=== PATIENT | female | born 1960 | race African-American/Black ===

== ENCOUNTER 2017-08-06 18:20 | Inpatient (IN) | payer OTHER, SELFPAY ==
[2017-08-06 20:02] LABS: #Eosinphils 0.1 thou/uL (0.0-0.7); #Lymphocytes 1.5 thou/uL (1.20-3.40); #Neutrophils 4.7 thou/uL (1.40-6.50); %Basophils 0.5 % (0.0-1.0); %Lymphocytes 20.3 % (21.0-51.0); %Monocytes 13.6 % (0.0-10.0); %Neutrophils 63.6 % (42.0-75.0); Mean Corpuscular HGB CONC 31.5 g/dL (32.0-36.0); Mean Corpuscular Hemoglobin 29.5 pg (27.0-31.0); Mean Corpuscular Volume 93.5 fl (81.0-99.0); Mean Platelet Volume 8.1 fL (7.4-10.4); Platelet Count 174 thou/uL (130-400); Red Blood Cell (RBC) Count 4.76 mill/uL (4.20-5.40); White Blood Cell (WBC) Count 7.4 thou/uL (4.8-10.8)
[2017-08-06 20:26] LABS: ALT (SGPT) 43 U/L (8-55); AST (SGOT) 43 U/L (5-34); Alkaline Phosphatase 175 U/L (40-150); Anion Gap 14 mmol/L (10-20); BUN (Urea Nitrogen) 16 mg/dL (9.8-20.1); Bilirubin, Total 0.7 mg/dL (0.2-1.2); CK (CPK) 112 U/L (29-168); Calc. Creatinine Clearance 0 mL/min (70-130); Calcium 8.6 mg/dL (7.8-10.44); Carbon Dioxide 21 mmol/L (22-29); Chloride 110 mmol/L (98-107); Estimated GFR-MDRD Greater than 90; Globulin 3.3 g/dL (2.4-3.5); Glucose 120 mg/dL (70-105); Potassium 4.2 mmol/L (3.5-5.1); Protein, Total 6.3 g/dL (6.0-8.3); Sodium 141 mmol/L (136-145)
[2017-08-06 20:30] LABS: CKMB 2.2 ng/mL (0-6.6); Troponin I 0.028 ng/mL (< 0.028)
--- NOTE | 2017-08-06 20:38 | RAD ---
CHEST ONE VIEW 08/06/17 HISTORY: Bloating. Cough and congestion. COMPARISON: 07/08/05. FINDINGS: Cardiomegaly. Pulmonary vessels are normal. Costophrenic angles are clears. No masses or consolidatio n in the left lung. Chronic change in the left lung base are suspected. There is partial obscuration of the right hemidiaphragm. Focal infiltrate or atelectasis is suspected. No pneumothorax. IMPRESSION: 1. Cardiomegaly. 2. Focal infiltrate or atelectasis in the right lung base. Chronic change in the left lung base. Continued surveillance. POS: [facility]
[2017-08-06] MEDS ORDERED: Furosemide 40 MG/4 ML VIAL ONE (21:19)
[2017-08-06] MEDS ORDERED: Nitroglycerin 2% Ointment 1 INCH/1 GM Packet ONE (21:21)
[2017-08-06 23:08] LABS: Troponin I 0.039 ng/mL (< 0.028)
[2017-08-07 02:12] LABS: Troponin I 0.038 ng/mL (< 0.028)
[2017-08-07] MEDS ORDERED: Ondansetron ODT 4 MG TAB PO PRN (03:13)
[2017-08-07 04:08] LABS: Anion Gap 12 mmol/L (10-20); BUN (Urea Nitrogen) 15 mg/dL (9.8-20.1); Calc. Creatinine Clearance 0 mL/min (70-130); Calcium 8.7 mg/dL (7.8-10.44); Carbon Dioxide 24 mmol/L (22-29); Chloride 107 mmol/L (98-107); Estimated GFR-MDRD Greater than 90; Glucose 99 mg/dL (70-105); Potassium 3.7 mmol/L (3.5-5.1); Sodium 139 mmol/L (136-145)
--- NOTE | 2017-08-07 04:29 | HP-2 ---
DATE OF SERVICE: 08/06/2017 CODE STATUS: FULL. PRIMARY CARE PHYSICIAN: [facility] ATTENDING: Dr. Osorio Tompkins RESIDENT: Dr. Ade Ortez - PGY-1 HISTORIAN: Patient. CHIEF COMPLAINT: Abdominal bloating. HISTORY OF PRESENT ILLNESS: A 57-year-old female with a past medical history of reduced ejection fra ction, CHF, who presents with abdominal bloating since Thursday. The patient also endorses cough and c ongestion since Thursday. She states that she was diagnosed with CHF approximately 1 year ago with an ejection fraction of 10-15% on echo completed in 08/2016. The patient also had a catheterization don e at that time which was negative. Of note, on the echo at that time, there was some diastolic dysfu nction and dilated cardiomyopathy. Associated symptoms that the patient presents with today include bilateral lower extremity swelling and shortness of breath. The patient reports that she gets short of breath with walking down the amaral at work. She denies orthopnea or paroxysmal nocturnal dyspnea. She also denies nausea, vomiting, diarrhea or constipation. She denies any recent fevers or chills. PAST MEDICAL HISTORY: 1. CHF with reduced ejection fraction. 2. Hypertension. PAST SURGICAL HISTORY: Heart catheterization in 08/2016 and 2 C-sections. ALLERGIES: No known drug allergies. MEDICATIONS: 1. Aspirin 81 mg daily. 2. Atorvastatin 10 mg p.o. at night. 3. Coreg 6.25 mg p.o. b.i.d. 4. Lasix 40 mg daily. 5. Lisinopril 2.5 mg daily. 6. Spironolactone 12.5 mg p.o. daily. FAMILY HISTORY: Breast cancer in her mom. SOCIAL HISTORY: Denies tobacco, alcohol and drug use. REVIEW OF SYSTEMS: GENERAL: Denies fevers, chills. Endorses weight gain. ENT: Endorses nasal congestion. RESPIRATORY: Denies cough. Endorses congestion and shortness of breath. CARDIOVASCULAR: Denies chest pain, palpitations. Endorses edema. Denies paroxysmal nocturnal dyspn ea. Denies orthopnea. Endorses dyspnea on exertion. GASTROINTESTINAL: Denies nausea, vomiting, diarrhea, constipation, abdominal pain. GENITOURINARY: Denies incontinence, dysuria. SKIN: Denies rashes or lesions. MUSCULOSKELETAL: Denies pain or tenderness. NEURO: Denies weakness, numbness. PSYCHIATRIC: Denies anxiety, depression. PHYSICAL EXAMINATION: VITAL SIGNS: Blood pressure 112/85, pulse 81, respiratory rate 18, T-max afebrile. Pulse ox 97% on room air, current weight 79.38 kilograms. GENERAL: Alert and oriented x4, NAD, well-developed, well-nourished, obese, appropriately interactiv e. EYES: PERRLA, EOMI. Conjunctivae within normal limits. ENT: Nasal mucosa and oropharynx within normal limits. NECK: Supple, no lymphadenopathy, no thyromegaly. CARDIAC: Regular rate and rhythm, normal S1, S2. No murmurs, rubs or gallops, 2+ pedal pulses. RESPIRATORY: Normal effort, no retractions, clear to auscultation bilaterally. SKIN: Warm and dry. ABDOMEN: Soft, nontender to palpation. Hypoactive bowel sounds, diffusely distended. EXTREMITIES: No clubbing or cyanosis, 2+ pitting edema bilaterally to the level of the knee. MUSCULOSKELETAL: Structure within normal limits. Tone within normal limits. NEUROLOGIC: No focal deficits. Sensation within normal limits. GCS 15. PSYCHIATRIC: Appropriate. LABORATORY DATA: CBC 7.4, 14, 44.5, 174. CMP: 141, 4.2, 110, 21, 16, 0.75, 120. AST, ALT, alkaline phosphatase; 43, 43, 175. Calcium, total protein, albumin, 8.6, 6.3, 3. Total bilirubin 0.7. BNP 2.914 liters. CK 112. CK-MB 2.2. Troponin 0.2028. Chest x-ray: Cardiomegaly focal infiltrate versus atelectasis in the right lung base. ASSESSMENT AND PLAN: A 57-year-old female with a several day history of abdominal bloating and short ness of breath and bilateral lower extremity pitting edema with a BNP of 2.914 with a past medical hi story of reduced ejection fraction and congestive heart failure, admitted for an acute congestive hea rt failure exacerbation. 1. Acute congestive heart failure exacerbation. The patient was admitted to telemetry. The patient 's home meds were continued. She states she had been out of lisinopril and atorvastatin for a while. We will restart these medications. We will continue her Lasix. We will change it to 40 mg IV b.i. d. We will provide strict I's and O's for the patient, place her on fluid restriction of 1500 mL per day. We will provide a low sodium, heart healthy diet. We will order a repeat echo in the morning since it has been approximately 1 year since her prior. We will saline lock the patient and not prov della IV fluids. 2. Hypertension. We will continue her home medications. 3. Atelectasis versus infiltrate. We will order a 2 view chest x-ray in the morning. 4. Deep venous thrombosis prophylaxis. The patient is mobile. We will provide sequential compressi on devices. DISPOSITION/LENGTH OF HOSPITAL STAY: 1 day. Symptomatic medications will be provided. History and physical exam as well as management discussed with Dr. Viveros.
[2017-08-07 04:31] LABS: Band 3 % (5-11); Eosinophils 2 % (0-10); Hemoglobin 13.2 g/dL (12.0-16.0); Lymphocytes 23 % (21-51); MDiff Complete? YES; Mean Corpuscular HGB CONC 32.2 g/dL (32.0-36.0); Mean Corpuscular Hemoglobin 29.9 pg (27.0-31.0); Mean Corpuscular Volume 92.9 fl (81.0-99.0); Mean Platelet Volume 7.5 fL (7.4-10.4); Monocytes 9 % (0-10); Neutrophil 63 % (42-75); Platelet Count 184 thou/uL (130-400); RBC Distribution Width 13.9 % (11.5-14.5); Red Blood Cell (RBC) Count 4.41 mill/uL (4.20-5.40); White Blood Cell (WBC) Count 8.1 thou/uL (4.8-10.8)
[2017-08-07] MEDS ORDERED: Furosemide 40 MG/4 ML VIAL ONE (05:27)
--- NOTE | 2017-08-07 08:06 | RAD ---
RADIOGRAPH CHEST 2 VIEWS: Date: 08/07/17. Time: 8:48 a.m. HISTORY: A 57-year-old female with atelectasis versus pneumonia. COMPARISON: 08/06/17, 8:30 p.m. FINDINGS: Severe cardiomegaly. Mild pulmonary vascular engorgement. No pulmonary alveolar edema. No consolid ation or pleural effusion. No pneumothorax. No interval change. The previously mentioned mild stre aky densities at the right lower lobe have not progressed. They are favored to represent subsegmenta l atelectasis rather than pneumonia. IMPRESSION: 1. Severe cardiomegaly and borderline congestive changes. 2. The mild changes of the right lung base probably represent subsegmental atelectasis. 3. No definitive evidence of pneumonia. 4. No interval change overall. RA [] POS: [facility]
[2017-08-07] MEDS: Furosemide 40 MG/4 ML VIAL SLOW IVP SCH ×2 (14:30→14:37)
[2017-08-07] MEDS: Spironolactone 25 MG TAB PO SCH (14:30)
[2017-08-07] MEDS: Carvedilol 6.25 MG TAB PO SCH ×2 (14:30→18:11)
[2017-08-07] MEDS: Lisinopril 2.5 MG TAB PO SCH (14:31)
[2017-08-07 15:24] VITALS: BMI 35.6
[2017-08-07] MEDS: Atorvastatin Calcium 10 MG TAB PO SCH (20:55)
--- NOTE | 2017-08-08 01:51 | HP ---
DATE OF SERVICE: 08/07/2017 CHIEF COMPLAINT: Abdominal bloating. HISTORY OF PRESENT ILLNESS: The patient is a 57-year-old female with a significant past medical hist ory of systolic CHF who presented with lower extremity swelling and abdominal bloating since Thursday. The patient also complained of cough and congestion and noted that she had not been compliant with h er fluid restriction over the past month or so. The patient had an echo about a year ago that showed an EF of 10%-15% and was noted to have nonischemic dilated cardiomyopathy. The patient also endorse s shortness of breath and dyspnea on exertion. The patient was given IV Lasix and is already startin g to feel better. The patient's abdominal edema is improved. Edema is currently up to just above th e knees currently. For the full past medical history, please see Dr. Ade Barrera's dictation. PHYSICAL EXAMINATION: VITAL SIGNS: Temperature 98.2, pulse 77, respiratory rate 18, O2 sat 99% on room air, blood pressure 103/71. GENERAL: The patient is awake, alert, oriented, and in no acute distress. CARDIOVASCULAR: Regular rate and rhythm without murmurs, gallops, or rubs. LUNGS: Have crackles in bilateral bases, but normal effort and no retractions. ABDOMEN: Soft, nontender, nondistended with bowel sounds present. EXTREMITIES: There is 1 to 2+ pitting edema in bilateral lower extremities. LABORATORY DATA: 1. BNP of 2914. 2. Cardiac enzymes: CK-MB of 2.2; and troponin of 0.028, then 0.039, then 0.038. 3. CMP: Sodium 141, potassium 4.2, chloride 110, bicarb 21, BUN 16, creatinine 0.75, glucose 120, c alcium 8.6, total bilirubin 0.7, AST 43, ALT 43, alkaline phosphatase 175, total protein 6.3, albumin 3. 4. CBC: WBC is 8.1, hemoglobin 13.2, hematocrit 41, platelet count 184. IMAGING: Chest x-ray showed a focal infiltrate versus atelectasis in the right lung base and cardiom egaly. ASSESSMENT AND PLAN: 1. Acute congestive heart failure exacerbation: This has been acute on chronic exacerbation with th e patient's last known EF of 10%-15%. The patient will be continued on IV Lasix and home medications . The patient will have strict I's and O's and a fluid restriction of 1.5 liters per day. She will also have daily weights. We will repeat an echo as her last one was over a year old. 2. Hypertension. We will continue home medications. 3. Atelectasis versus infiltrate: We will repeat a 2-view chest x-ray. The patient currently has n o signs of infection at this point in time, so we will hold off on antibiotics until the repeat chest x-ray comes back. 4. For the full history and physical and assessment and plan, please see the resident's dictation. I have discussed the case with her and agree with her documentation. I have also repeated pertinent portions of the history and physical myself.
[2017-08-08] MEDS: Furosemide 40 MG/4 ML VIAL SLOW IVP SCH ×2 (05:59→14:24)
[2017-08-08 06:09] LABS: Anion Gap 11 mmol/L (10-20); BUN (Urea Nitrogen) 17 mg/dL (9.8-20.1); Calc. Creatinine Clearance 145 mL/min (70-130); Calcium 8.8 mg/dL (7.8-10.44); Carbon Dioxide 28 mmol/L (22-29); Chloride 105 mmol/L (98-107); Estimated GFR-MDRD Greater than 90; Glucose 93 mg/dL (70-105); Potassium 3.8 mmol/L (3.5-5.1); Sodium 140 mmol/L (136-145)
--- NOTE | 2017-08-08 06:20 | PDOC.FM ---
- Subjective Subjective: Patient states her breathing is markedly improved. She notes she has had to pee a lot more than usual. Otherwise she is able to get up and walk around without the SOB she experienced before hospitalization. She still complains of swelling in her legs. No other concerns. - Objective Vital Signs & Weight: Vital Signs (12 hours) Temp Pulse Resp BP Pulse Ox 08/08/17 04:00 97.7 F 70 20 109/76 99 08/08/17 00:00 97.9 F 68 18 102/60 97 08/07/17 19:30 98.5 F 80 18 91/50 L 98 Weight Weight 98.203 kg I&O: 08/06/17 08/07/17 08/08/17 06:59 06:59 06:59 Intake Total 790 Output Total 1000 Balance -210 Result Diagrams: 08/08/17 04:41 08/08/17 04:41 <Francisco Coy - Last Filed: 08/08/17 07:30> - Objective Vital Signs & Weight: Vital Signs (12 hours) Temp Pulse Resp BP BP BP Pulse Ox 08/08/17 15:25 98.0 F 75 16 113/70 95 08/08/17 11:30 97.8 F 76 16 109/68 96 08/08/17 09:32 79 107/73 08/08/17 08:00 97.8 F 76 16 08/08/17 07:17 97.7 F 79 18 107/73 Weight Weight 98.203 kg I&O: 08/07/17 08/08/17 08/09/17 06:59 06:59 06:59 Intake Total 790 Output Total 1000 Balance -210 Result Diagrams: 08/08/17 04:41 08/08/17 04:41 <Oneyda Viveros - Last Filed: 08/08/17 16:15> Phys Exam - Physical Examination HEENT: moist MMs Respiratory: no wheezing, clear to auscultation bilateral Cardiovascular: RRR, no significant murmur Gastrointestinal: soft, non-tender, no distention, positive bowel sounds Musculoskeletal: edema present Neurological: non-focal, moves all 4 limbs Psychiatric: normal affect <Francisco Coy - Last Filed: 08/08/17 07:30> Dx/Plan (1) Acute exacerbation of congestive heart failure Code(s): I50.9 - HEART FAILURE, UNSPECIFIED Status: Acute Plan: -Continue Lasix, Lisinopril, Spironolactone, Carvedilol -I&Os at -210 ml -ECHO shows EF at 10-15%, Grade 3/3 diastolic dysfunction, Severe global hypokinesis, Moderate mitral regurgitation, Mild aortic regurgitation, severe tricuspid regurgitation, severely elevated pulmonary artery pressure estimated at 85 mmHg, mild pulmonic regurgitation, small pericardial effusion without tamponade. -Will optimize medical management -Patient may benefit from Lifevest device -Will consider Cardiology consultation -Will continue diuresis (2) HTN (hypertension) Code(s): I10 - ESSENTIAL (PRIMARY) HYPERTENSION Status: Acute Plan: -Continue home medications - Plan Plan: Will discuss with patient about ECHO results and make further treatment plans from there. <Francisco Coy - Last Filed: 08/08/17 07:30> Attending Addendum - Attending Addendum I personally evaluated the patient and discussed the management with Dr. Coy. I agree with the History, Examination, Assessment and Plan documented above with any addition or exceptions noted below. The patient is feeling a little better today. She still has lower extremity edema but it is improving. Will continue IV lasix. Pt with severely depressed EF but patient could not afford life vest a year ago. Will rediscuss with patient. <Oneyda Viveros - Last Filed: 08/08/17 16:15>
[2017-08-08 07:03] LABS: Eosinophils 3 % (0-10); Hemoglobin 12.6 g/dL (12.0-16.0); Lymphocytes 21 % (21-51); MDiff Complete? YES; Mean Corpuscular HGB CONC 30.5 g/dL (32.0-36.0); Mean Corpuscular Hemoglobin 28.3 pg (27.0-31.0); Mean Corpuscular Volume 92.9 fl (81.0-99.0); Monocytes 11 % (0-10); Neutrophil 64 % (42-75); Platelet Count 180 thou/uL (130-400); RBC Distribution Width 13.7 % (11.5-14.5); Red Blood Cell (RBC) Count 4.44 mill/uL (4.20-5.40); White Blood Cell (WBC) Count 7.6 thou/uL (4.8-10.8)
[2017-08-08] MEDS: Spironolactone 25 MG TAB PO SCH (09:32)
[2017-08-08] MEDS: Carvedilol 6.25 MG TAB PO SCH ×2 (09:32→17:24)
[2017-08-08] MEDS: Lisinopril 2.5 MG TAB PO SCH (09:32)
--- NOTE | 2017-08-08 15:26 | EKG ---
Test Reason : Blood Pressure : / mmHG Vent. Rate : 097 BPM Atrial Rate : 097 BPM P-R Int : 170 ms QRS Dur : 076 ms QT Int : 352 ms P-R-T Axes : 047 092 022 degrees QTc Int : 447 ms Sinus rhythm with Fusion complexes Rightward axis Borderline ECG Confirmed by YENNIFER LEZAMA M.D. ([id number]), editorial intern [employer] ([id number]) on 08/08/2017 3:25:54 PM Referred By: Confirmed By:YENNIFER LEZAMA M.D.
[2017-08-08] MEDS: Atorvastatin Calcium 10 MG TAB PO SCH (21:15)
[2017-08-09 05:47] LABS: #Eosinphils 0.2 thou/uL (0.0-0.7); #Lymphocytes 1.8 thou/uL (1.20-3.40); #Monocytes 1.1 thou/uL (0.11-0.59); #Neutrophils 4.6 thou/uL (1.40-6.50); %Basophils 0.2 % (0.0-1.0); %Eosinophils 2.1 % (0.0-10.0); %Lymphocytes 23.5 % (21.0-51.0); %Monocytes 13.8 % (0.0-10.0); %Neutrophils 60.4 % (42.0-75.0); Hemoglobin 12.4 g/dL (12.0-16.0); Mean Corpuscular Hemoglobin 29.7 pg (27.0-31.0); Mean Corpuscular Volume 92.6 fl (81.0-99.0); Platelet Count 187 thou/uL (130-400); RBC Distribution Width 13.7 % (11.5-14.5); Red Blood Cell (RBC) Count 4.19 mill/uL (4.20-5.40); White Blood Cell (WBC) Count 7.6 thou/uL (4.8-10.8)
[2017-08-09 06:18] LABS: Anion Gap 11 mmol/L (10-20); BUN (Urea Nitrogen) 16 mg/dL (9.8-20.1); Calc. Creatinine Clearance 152 mL/min (70-130); Calcium 8.6 mg/dL (7.8-10.44); Carbon Dioxide 27 mmol/L (22-29); Chloride 105 mmol/L (98-107); Estimated GFR-MDRD Greater than 90; Glucose 94 mg/dL (70-105); Potassium 3.6 mmol/L (3.5-5.1); Sodium 139 mmol/L (136-145)
--- NOTE | 2017-08-09 06:21 | PDOC.FM ---
- Subjective Subjective: Patient had a good night. She states she used the bathroom a lot. She feels like her legs are a lot less swollen. She also notes that she has had no chest pain, sob, n/v/d. She states she has been able to get up and walk around with no problems. No other concerns. - Objective Vital Signs & Weight: Vital Signs (12 hours) Temp Pulse Resp BP Pulse Ox 08/09/17 04:00 97.3 F L 69 18 104/64 98 08/09/17 00:00 73 91/58 L 08/08/17 21:17 98.3 F 71 16 87/55 L 100 08/08/17 20:00 97.3 F L 69 18 100 Weight Weight 98.203 kg I&O: 08/07/17 08/08/17 08/09/17 06:59 06:59 06:59 Intake Total 790 820 Output Total 1000 1900 Balance -210 -1080 Result Diagrams: 08/09/17 04:56 08/09/17 04:56 <Francisco Coy - Last Filed: 08/09/17 07:23> - Objective Vital Signs & Weight: Vital Signs (12 hours) Temp Pulse Resp BP BP Pulse Ox 08/09/17 08:23 77 117/80 08/09/17 08:15 97.6 F 77 16 117/80 96 Weight Weight 97.296 kg I&O: 08/08/17 08/09/17 08/10/17 06:59 06:59 06:59 Intake Total 790 820 500 Output Total 1000 1900 750 Balance -210 -1080 -250 Result Diagrams: 08/09/17 04:56 08/09/17 04:56 <Oneyda Viveros - Last Filed: 08/09/17 16:53> Phys Exam - Physical Examination HEENT: moist MMs Neck: no nodes, supple Respiratory: no wheezing, clear to auscultation bilateral Cardiovascular: RRR, no significant murmur Gastrointestinal: soft, non-tender, no distention, positive bowel sounds Musculoskeletal: edema present 2+ up to shins, improved from yesterday Neurological: non-focal, normal sensation, moves all 4 limbs Lymphatic: no nodes Psychiatric: normal affect <Francisco Coy - Last Filed: 08/09/17 07:23> Dx/Plan (1) Acute exacerbation of congestive heart failure Code(s): I50.9 - HEART FAILURE, UNSPECIFIED Status: Acute Plan: -Continue Lasix, Lisinopril, Spironolactone, Carvedilol -I&Os at -1080 -ECHO shows EF at 10-15%, Grade 3/3 diastolic dysfunction, Severe global hypokinesis, Moderate mitral regurgitation, Mild aortic regurgitation, severe tricuspid regurgitation, severely elevated pulmonary artery pressure estimated at 85 mmHg, mild pulmonic regurgitation, small pericardial effusion without tamponade. -Will optimize medical management -Patient may benefit from Lifevest device. Patient has stated she does not have funds for that and will not pursue this treatment. -Patient can be discharged today with close outpatient follow up including fluid restriction, medication adherence, and PCP follow up. (2) HTN (hypertension) Code(s): I10 - ESSENTIAL (PRIMARY) HYPERTENSION Status: Acute Plan: -Continue home medications - Plan Plan: Patient will get another dose of IV lasix this morning and will be discharged this afternoon. <Francisco Coy - Last Filed: 08/09/17 07:23> Attending Addendum - Attending Addendum I personally evaluated the patient and discussed the management with Dr. Coy. I agree with the History, Examination, Assessment and Plan documented above with any addition or exceptions noted below. The patient is doing well. The patient's lower extremity is improved. She will get an additional dose of IV lasix this morning and be discharged home on home dose of lasix. Discussed importance of compliance with fluid restriction. <Oneyda Viveros - Last Filed: 08/09/17 16:53>
[2017-08-09] MEDS: Furosemide 40 MG/4 ML VIAL SLOW IVP SCH (06:31)
[2017-08-09] MEDS ORDERED: Sodium Chloride 0.9% 10 ML ONE (08:02)
[2017-08-09] MEDS: Lisinopril 2.5 MG TAB PO SCH (08:23)
[2017-08-09] MEDS: Carvedilol 6.25 MG TAB PO SCH (08:23)
[2017-08-09] MEDS: Spironolactone 25 MG TAB PO SCH (08:23)
[2017-08-09 08:24] VITALS: BP 117/80
[2017-08-09 10:45] VITALS: TEMP 97.6
--- NOTE | 2017-08-09 14:13 | DIS-2 ---
DATE OF ADMISSION: 08/06/2017 DATE OF DISCHARGE: 08/09/2017 RESIDENT: Dr. Coy. ADMITTING ATTENDING: Dr. Tompkins. DISCHARGE ATTENDING: Dr. Viveros. CONSULTATIONS: Dietitian and for the heart failure disease management. PROCEDURES: The patient underwent an echocardiogram on 08/06/2017 that showed ejection fraction estimated 10%-15%, grade 3/3 diastolic dysfunction, severe global hypokinesis, dilated right ventricle with reduced right ventricular systolic function, mildly enlarged right atrium size, mitral annular calcifications present, moderate mitral regurgitation, mild aortic regurgitation , severe tricuspid regurgitation, severely elevated pulmonary artery pressure estimated at 85 mmHg, mild pulmonic regurgitation, and small pericardial effusion without tamponade. The patient also on a chest x-ray on 08/06/2017 that showed cardiomegaly, focal infiltrate, or atelectasis in the right lung base, chronic changes in left lung base. Continue surveillance. PRIMARY DIAGNOSES: 1. Acute exacerbation of congestive heart failure. 2. Hypertension. DISCHARGE MEDICATIONS: 1. Carvedilol 6.25 mg b.i.d. 2. Spironolactone 12.5 mg. 3. Potassium chloride 10 mEq 4. Furosemide 40 mg. 5. Hydrochlorothiazide 12.5 mg. 6. Aspirin 81 mg p.o. daily. 7. Atorvastatin 10 mg. 8. Lisinopril 2.5 mg. DISCONTINUED MEDICATIONS: None. HISTORY OF PRESENT ILLNESS AND HOSPITAL COURSE: This is a 57-year-old female with past medical history of reduced ejection fraction and CHF, who presents with abdominal bloating since Thursday. The patient was endorsed cough and congestion since Thursday. States she has had diagnosed with CHF approximately 1 year ago with an ejection fraction of 10%-15% on echo completed 08/2016. The patient also had a catheterization done at that time, which was negative. Of note, the echo at that time, there was some diastolic dysfunction and dilated cardiomyopathy. Associated symptoms that the patient presents with today include bilateral lower extremity edema and shortness of breath. The patient reports that she gets short of breath while walking down the amaral at work. She denies orthopnea or paroxysmal nocturnal dyspnea. She also denies nausea, vomiting, diarrhea, or constipation. She denies any recent fevers or chills. During this hospitalization, the patient was diuresed with IV Lasix to have a total output of greater than 1500 mL in the past 48 hours. The patient's lower extremity edema significantly decreased during the hospitalization as well as her shortness of breath. The patient was able to get up and walk around without any shortness of breath during this time. Lab values, she had a troponin I that ranged from 0.028 to 0.039. She also had a BNP that was at 2914.3. Her GFR was greater than 90. Her creatinine at this point ranged from 0.65-0.68. All other lab values were unremarkable. This patient was afebrile during her entire hospitalization and did not require any oxygen supplementation and all other vital signs were within normal limits. It was stressed to this patient the need for her to stay compliant with her medication regimen as well as follow up with the [facility] as well as a fast food fry cook, Dr. Edwards, as an outpatient to manage her severe heart failure at this time. The patient is also understanding that she was offered a LifeVest device last year when her ejection fraction was found to be 10%-15% and so she is at increased risk of adverse outcomes from a dysrhythmia standpoint, because of her heart failure condition; however, at this time she has opted to not pursue another LifeVest, because she could not afford it at that time and she was not wanting the device again after this hospitalization. Otherwise, the patient tolerated the hospitalization well and was discharged on appropriate condition. There was a late notification from the nurse of 7 beats of Ventricular Tachycardia at 07:30. The notification was sent after the patient had been discharged from the hospital. As per nursing staff, the patient was asymptomatic at time of the event and no further problems. The event spontaneously resolved on its own. The patient will have close follow up as an outpatient with Cardiology. DISPOSITION: Stable. DISCHARGE INSTRUCTIONS: 1. Location: She will be discharged home into the care of herself. 2. Diet: Will be a heart healthy diet with a fluid restriction of 1500 mL. 3. Activity: Will be as tolerated with no restrictions. 4. Followup: Will be with the [facility] as well as [facility] in [address] Zurdo Edwards in 2 weeks to discuss further management of her severe heart failure. We wished this patient the best of luck. [facility]I
== END 2017-08-09 12:02 | disposition home or self-care (01) | DRG 292 ==
LOC: ERS 18:20 → ERHOLD 21:20 → OBSVTOIN 21:20 → 2NO 08-07 13:24
PROVIDERS: ADMIT Family Medicine; ATTEND Family Medicine
DX: I11.0 Hypertensive heart disease with heart failure (principal); J98.11 Atelectasis; I08.3 Combined rheumatic disorders of mitral, aortic and tricuspid valves; I50.23 Acute on chronic systolic (congestive) heart failure; Z79.82 Long term (current) use of aspirin; Z80.3 Family history of malignant neoplasm of breast
CPT/HCPCS: 36415; 71045; 71046; 80048; 80053; 82553; 83880; 84484; 85025; 93005; 93306; 94640; 96374; 96376; A4216; J1940

== ENCOUNTER 2017-09-15 08:04 | Inpatient (IN) | payer OTHER, SELFPAY ==
[2017-09-15] MEDS ORDERED: Aspirin 325 MG TAB ONE (08:42)
[2017-09-15] MEDS ORDERED: Furosemide 40 MG/4 ML VIAL ONE (08:43)
--- NOTE | 2017-09-15 08:50 | RAD ---
CHEST ONE VIEW: Comparison: 08-06-17, 08-07-17 History: Pain. FINDINGS: Enlarged cardiac silhouette. The pulmonary vessels and hilum are normal. Costophrenic angles are karin r. No consolidation or mass. Stable linear opacity in the right midlung. No pneumothorax or osseous a bnormalities. IMPRESSION: Cardiomegaly. No congestive heart failure. POS: [facility]
[2017-09-15 08:51] LABS: #Lymphocytes 1.2 thou/uL (1.20-3.40); #Monocytes 0.9 thou/uL (0.11-0.59); #Neutrophils 5.9 thou/uL (1.40-6.50); %Basophils 0.5 % (0.0-1.0); %Eosinophils 0.6 % (0.0-10.0); %Lymphocytes 14.9 % (21.0-51.0); %Monocytes 11.5 % (0.0-10.0); %Neutrophils 72.6 % (42.0-75.0); Hemoglobin 12.5 g/dL (12.0-16.0); Mean Corpuscular HGB CONC 31.3 g/dL (32.0-36.0); Mean Corpuscular Hemoglobin 28.4 pg (27.0-31.0); Mean Corpuscular Volume 90.7 fl (81.0-99.0); Mean Platelet Volume 7.8 fL (7.4-10.4); Platelet Count 186 thou/uL (130-400); Red Blood Cell (RBC) Count 4.41 mill/uL (4.20-5.40); White Blood Cell (WBC) Count 8.1 thou/uL (4.8-10.8)
[2017-09-15 09:10] LABS: ALT (SGPT) 25 U/L (8-55); AST (SGOT) 32 U/L (5-34); Albumin 3.3 g/dL (3.5-5.0); Alkaline Phosphatase 130 U/L (40-150); Anion Gap 10 mmol/L (10-20); BUN (Urea Nitrogen) 19 mg/dL (9.8-20.1); Bilirubin, Total 1.7 mg/dL (0.2-1.2); CK (CPK) 136 U/L (29-168); Calc. Creatinine Clearance 0 mL/min (70-130); Carbon Dioxide 26 mmol/L (22-29); Chloride 106 mmol/L (98-107); Estimated GFR-MDRD Greater than 90; Globulin 3.7 g/dL (2.4-3.5); Glucose 128 mg/dL (70-105); Lipase 17 U/L (8-78); Potassium 3.4 mmol/L (3.5-5.1); Sodium 139 mmol/L (136-145)
[2017-09-15 09:21] LABS: CKMB 2.6 ng/mL (0-6.6); Troponin I 0.066 ng/mL (< 0.028)
[2017-09-15] MEDS ORDERED: Potassium Chloride 20 MEQ TAB PO SCH (11:00)
--- NOTE | 2017-09-15 11:54 | HP-2 ---
CODE STATUS: FULL. This was discussed with the patient and she desires intubation and chest teresa sions if indicated. The patient's daughter, Nirali, would be medical decision maker; she is unable to make decisions for herself. PRIMARY CARE PHYSICIAN: Shahid Garner M.D. ATTENDING PHYSICIAN: Estrada Hernandez MD RESIDENT: Tia Sher M.D. HISTORIAN: Patient. SPECIALISTS: Patient's squad sergeant, Dr. Edwards. CHIEF COMPLAINT: Bloating for 1 to 2 weeks. HISTORY OF PRESENT ILLNESS: Ms. Ley is a 57-year-old -Armenian female with known history of non-ischemic dilated cardiomyopathy with an ejection fraction of 10%-15%, who presents with abdom inal bloating and worsening lower extremity edema, which has progressed over the last 1-[address] Garner in clinic last week, who increased her Lasix outpatient. Per report in her clinic alejandra rodriguez, it states that she was instructed to take 40 mg daily, but she states she took 40 mg twice a da y at home with no improvement or relief of symptoms. She was at work today and stated that she just could not tolerate the abdominal bloating anymore and decided to come to the ER. She denies any ches t pain, nausea, vomiting, diaphoresis, or shortness of breath. She does endorse a dry cough, which h as been on and off for the last couple of weeks. She denies any sputum production. 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 ER: She received 40 mg IV Lasix and 325 mg of aspirin. PAST MEDICAL HISTORY: 1. Non-ischemic dilated cardiomyopathy. 2. Congestive heart failure with an EF of 10%-15% on last echo in 08/2017. 3. Hypertension. 4. Allergic rhinitis. 5. 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 PAST SURGICAL HISTORY: . ALLERGIES: No known drug allergies. MEDICATIONS: 1. Aspirin 81 mg every day. 2. Lasix 20 mg p.o. daily. 3. Spironolactone 12.5 mg p.o. daily. 4. Lisinopril 2.5 mg p.o. daily. 5. Carvedilol 6.25 mg p.o. daily. 6. Atorvastatin 10 mg p.o. at bedtime. 7. Flonase 2 sprays each nostril daily. 8. Patient has a potassium prescription, but is not taking daily. FAMILY HISTORY: Mother has breast cancer. Patient has 5 children, all of whom are healthy. SOCIAL HISTORY: Denies tobacco, alcohol, or drugs. 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 She is single with five children and lives with her daughter, son, and grandson. She endorses sick contacts at the [facility] home of flu and pneumonia. REVIEW OF SYSTEMS: General: Denies fever, chills, endorses weight gain of approximately 15 pounds s medhat discharge. Denies appetite or sleep changes. Denies fatigue. Eyes: Denies vision changes or eye pain. ENT: Denies nasal congestion, rhinorrhea, or sore throat. Respiratory: Denies shortness of breath, congestion or exercise intolerance, endorses dry cough for the last 2-3 weeks. Cardiovas cular: Endorses peripheral edema. Denies chest pain, palpitations, PND, or orthopnea. Gastrointest inal: Denies nausea, vomiting, diarrhea, constipation, or GI bleeding, endorses abdominal bloating s ensation. Genitourinary: Endorses polyuria with Lasix. Denies incontinence or dysuria. Skin: Den ies rashes or lesions. Musculoskeletal: Denies pain, tenderness, stiffness, or joint swelling. Marguerite ro: Denies weakness, numbness, or syncope. Psychiatric: Denies anxiety or depression. PHYSICAL EXAMINATION: VITAL SIGNS: Blood pressure 103/71, pulse 81, respirations 18, T-max 98.4, pulse ox 97% on room air, weight 100.24 kilograms. GENERAL: Alert and oriented x3, in no apparent distress, well developed, and appropriately interacti ve. EYES: Extraocular movements are intact. Conjunctivae within normal limits. ENT: Cerumen in ear canal bilaterally, nasal mucosa and oropharynx within normal limits, moist mucou s membranes. NECK: Supple, no lymphadenopathy, no thyromegaly, no bruits, positive JVD on left side. CARDIOVASCULAR: Regular rate and rhythm, no murmur. Radial and pedal pulses 1+ bilaterally. RESPIRATORY: Normal effort, no retractions. Clear to auscultation bilaterally. SKIN: Warm and dry. No cyanosis or lesions. ABDOMEN: Soft, slightly distended, nontender to palpation. Bowel sounds present. EXTREMITIES: No clubbing or cyanosis with 3+ pitting edema to knees. MUSCULOSKELETAL: Structure and tone within normal limits. Muscle strength 5/5. NEUROLOGIC: No focal deficits. Sensation within normal limits. Cranial nerves II-XII intact. GCS 15. Gait normal. PSYCHIATRIC: Appropriate. LABORATORY DATA: WBC 8.1, hemoglobin 12.5, hematocrit 40.0, platelets 186, MCV 90.7 and 72% neutroph ils. Sodium 139, potassium 3.4, chloride 106, CO2 of 26, BUN 19, creatinine 0.76, glucose 128, AST 3 2, ALT 25, total bilirubin 1.7, calcium 9, total protein 7.2, albumin 3.3. CK was 136, CK-MB 2.6, tr oponin 0.066, lipase 17, BNP 3250. TSH recent was 5.36 in clinic last week. Chest x-ray: Cardiomegaly, mild blunting of the left costophrenic angle. ASSESSMENT AND PLAN: A 57-year-old -Armenian female with, 1. Known history of dilated cardiomyopathy and combined congestive heart failure with an ejection fr action of 10%-15%, presents with congestive heart failure exacerbation that has failed outpatient man agement. 2. Congestive heart failure exacerbation. BNP is 3250 today, which has decreased from BNP in clinic last week, which was 9784. However, patient continues to be symptomatic despite aggressive Lasix ou tpatient treatment. Discussed with Dr. Feng, who will see patient and give further recommendatio ns. We will plan for IV Lasix 40 mg b.i.d. with a daily BMP and potassium supplementation as indicat ed. Monitor on telemetry. Order heart failure consultation. Patient will be placed on fluid restri ction diet of 1500 mL and low sodium. 3. Follow up outpatient. 4. Hypertension: The patient has reportedly mild hypertension and is on minimal blood pressure medi cations primarily for heart failure. We will continue to monitor closely. 5. Prophylaxis: Lovenox. 6. Diet: Sales Operations Assistant consult ordered. DISPOSITION AND LENGTH OF HOSPITAL STAY: 2-3 days. Symptomatic medications will be provided. History and physical exam as well as management discussed with Dr. Hernandez.
[2017-09-15 12:06] LABS: Troponin I 0.046 ng/mL (< 0.028)
[2017-09-15] MEDS ORDERED: Acetaminophen 325 MG TAB PO PRN (12:36)
[2017-09-15] MEDS ORDERED: Ondansetron ODT 4 MG TAB SL PRN (12:36)
[2017-09-15] MEDS ORDERED: HYDROcodone/Acetaminophen 5/325 mg Tablet PO PRN ×2 (12:36)
[2017-09-15] MEDS ORDERED: Ondansetron HCl/PF 4 MG/2 ML Vial IVP PRN (12:36)
--- NOTE | 2017-09-15 13:03 | CON ---
DATE OF CONSULTATION: 09/15/2017 HISTORY: Ms. Ondina Ley is a 57-year-old black female who has been followed by Dr. Edwards in the past. In 08/2016, she presented with increased shortness of breath, leg edema and was diuresed. The echocardiogram revealed ejection fraction of 10%-15% with grade 3/3 diastolic dysfunction, severe cardiac chamber enlargement of all four chambers, moderate to severe tricuspid regurgitation, mild aortic, mitral and pulmonic insufficiencies. She underwent cardiac catheterization, which revealed no coronary artery disease and it was felt that she had a nonischemic cardiomyopathy. She was discharged on atorvastatin 10 mg, carvedilol 6.25 b.i.d., lisinopril 2.5 mg daily, spironolactone 12.5 q.a.m., and furosemide 20 daily. Apparently later, the furosemide was increased to 40 daily when she was seen in the office. Also, lisinopril was discontinued and she was placed on Entresto daily. She was last seen by Dr. Edwards in 10/2016. She was to return one month later for repeat echocardiogram; however, she has not been seen by Dr. Edwards since that time. She stated that the Entresto was too expensive to continue taking. She was hospitalized again from 08/06/2017 to 08/09/2017. DISCHARGE MEDICATIONS: At that time included carvedilol 6.25 b.i.d., Aldactone 12.5 daily, potassium chloride 10 mEq daily, furosemide 40 daily, hydrochlorothiazide 12.5 daily, aspirin 81 daily, atorvastatin 10 daily, and lisinopril 2.5 mg daily. Since that time, she states she has been out of the carvedilol and is now on amlodipine. It is unclear who placed her on the amlodipine. She now presents complaining of increased peripheral edema and increased shortness of breath. She denies any chest discomfort, PND or orthopnea. In the emergency room, she has been given Lasix 40 mg IV and states that her breathing has improved. PAST MEDICAL HISTORY: Hypertension, hypercholesterolemia. No history of diabetes. Nonischemic cardiomyopathy, noncompliance. MEDICATIONS: Apparently, she has been out of carvedilol. She is on amlodipine 5 b.i.d., hydrochlorothiazide 12.5 daily, Lasix 20 daily, KCl 10 mEq daily, aspirin 81 daily, lisinopril 5 mg daily, and spironolactone 25 daily. ALLERGIES: None. OPERATIONS: . SOCIAL HISTORY: She does not smoke or drink. FAMILY HISTORY: Negative for cardiac disease. REVIEW OF SYSTEMS: Twelve point review of systems otherwise unremarkable. PHYSICAL EXAMINATION: VITAL SIGNS: Blood pressure 103/75, pulse of 89. HEENT: PERRL. NECK: Supple. CHEST: Clear. CARDIAC: S1 and S2 are normal, without any S3, S4 or murmurs. ABDOMEN: Normal bowel sounds, without tenderness or organomegaly. EXTREMITIES: Revealed 2+ edema to the mid thigh. NEUROLOGIC: Grossly intact. SKIN: Warm and dry. LABORATORY DATA AND IMAGING: EKG reveals normal sinus rhythm with rightward axis. Chest x-ray reveals massive cardiomegaly with mild increased pulmonary vascularity. Hemoglobin 12.5, hematocrit 40.0, white count 8100, platelets 186, 000. Sodium 139, potassium 3.4, chloride 106, carbon dioxide 26, BUN 19, creatinine 0.76, glucose 128. Troponin I 0.066. BNP 3250.6. IMPRESSION: 1. Nonischemic dilated cardiomyopathy with ejection fraction of 10%-15%. She did have a repeat echocardiogram in 08/2017. It also revealed the same ejection fraction as what she had one year ago-10-15%. 2. Noncompliance with carvedilol. 3. Normal coronary arteries at catheterization. 4. Hypertension. 5. Hyperlipidemia. 6. Obesity. PLAN: I would agree with restarting carvedilol and discontinuing the amlodipine. She should be treated with intravenous diuretics. She had an echocardiogram in 08/2016 and one in 08/2017, both which showed ejection fraction of 10%-15%. Electrophysiology will be consulted in regards to possible ICD placement. The patient is unable to afford Entresto and therefore will be treated with lisinopril. Dr. Edwards will resume her care in the morning. HAI
--- NOTE | 2017-09-15 13:18 | PDOC.EVN ---
Event Note - Event Note Event Note: 57 y/o with PMH sHF EF who has had progressive dyspnea, abd and LE swelling despite increased dosages of PO lasix. She presented to the ED and was given IV laxis and subsequently admitted to our service. She is feeling quite a bit better already. PMH/PSH/Meds/ALL/SH/FH all reviewed VSS NAD, resting comfortably watching TV RRR s M, 2+ pitting edema, no obvious JVD CTAB s w/r/r or increased work of breathing BS+, distended but soft A/P: acute SHF exac -lasix -continue acei/bb/statin/asa elevated TnI -likely 2/2 above elevated Bili -likely congestive, repeat in AM -low suspicion for biliary pathology or hemolysis at this point GI/DVT ppx as ordered.
[2017-09-15 15:10] LABS: Troponin I 0.063 ng/mL (< 0.028)
[2017-09-15 16:37] VITALS: BMI 34.9
[2017-09-15] MEDS: Furosemide 40 MG/4 ML VIAL SLOW IVP SCH (16:52)
[2017-09-15 18:02] LABS: Troponin I 0.071 ng/mL (< 0.028)
[2017-09-15] MEDS ORDERED: Prevnar 13-Val Conj/PF 0.5 ML SYRINGE IM ONE (20:15)
[2017-09-15 21:00] LABS: Troponin I 0.059 ng/mL (< 0.028)
[2017-09-15] MEDS: Carvedilol 6.25 MG TAB PO SCH (22:01)
[2017-09-15] MEDS: Atorvastatin Calcium 10 MG TAB PO SCH (22:01)
--- NOTE | 2017-09-15 23:54 | CON ---
ELECTROPHYSIOLOGY CONSULTATION DATE OF CONSULTATION: 09/15/2017 REASON FOR CONSULTATION: Nonischemic dilated cardiomyopathy and LVEF 10% to 15%. CONSULTING PHYSICIAN: Wilman Feng M.D. HISTORY OF PRESENT ILLNESS: Ms. Ondina Ley is a 67-year-old -Beninese female who is a pat ient of Dr. Edwards. She presented to the emergency room with increased swelling of the extremities a nd abdominal pressure with fluid retention. She was given IV Lasix and continue to diurese with redu ction of her symptoms. Of note, the patient has a history of nonischemic dilated cardiomyopathy, which was discovered in 2016 when she presented to the emergency room with congestive heart failure symptoms. Echocardiogram at that time revealed an EF of 10% to 15% with grade 3/3 diastolic dysfunction. She also has signif icant dilation and chamber enlargement of all four chambers, as well as diffuse valve disease. At th at time, she had undergone cardiac catheterization which revealed no significant coronary artery dise ase. She has been inconsistent with followup with Cardiology. She is trying to take her medications as prescribed, but has run out of many of her medications and f inancially has not been able to refill them. Currently, Ms. Ley reports that she is having some reduction of her symptoms. She is not having any shortness of breath and she is able to lie flat and breathing normally. She denies any heart ra cing or palpitations, stroke or stroke-like symptoms. She is not having chest pain or pressure. Her complaint is she feels fullness throughout her abdomen and pressure. REVIEW OF SYSTEMS: Twelve-point review of systems is conducted and is negative except as listed in h istory of present illness. HOME MEDICATIONS: Include carvedilol, amlodipine 5 mg b.i.d., hydrochlorothiazide 12.5 mg daily, Las ix 20 mg daily, potassium chloride 10 mEq daily, aspirin 81 mg daily, lisinopril 5 mg daily, and spir onolactone 25 mg daily. ALLERGIES: None. SOCIAL HISTORY: Negative for tobacco habituation or alcohol abuse. FAMILY HISTORY: Negative for sudden cardiac or early onset of coronary artery disease for the age of 57. PHYSICAL EXAMINATION: VITAL SIGNS: Most recent vital signs include temperature 97.3 degrees Fahrenheit, pulse is 80, respi rations are 16, oxygen saturation is 97% on room air, and blood pressure is 114/81. GENERAL: Ms. Ley is an overweight -Beninese female in no acute distress. She is sitting upright comfortably on the edge of the bed for the exam. HEENT: Her pupils are equal, round, and reactive and accommodating. Her sclerae are anicteric. NECK: Supple, positive for jugular venous distention well upright. No thyromegaly or lymphadenopath y. LUNGS: Clear to auscultation bilaterally without wheezes, crackles or rhonchi. Respirations are louisa n and unlabored. CARDIOVASCULAR: Heart rate is regularly regular without murmur, rub or gallop. EXTREMITIES: Warm and dry to touch without clubbing or cyanosis. A 2+ pitting edema is noted bilate rally to her lower extremities extending to just above the knee. ABDOMEN: In general, benign. There are no palpable masses and abdomen is nontender. Hepatojugular reflux is positive. NEUROLOGIC: Grossly intact and exam is nonfocal. DATA BASE: Laboratory on 07/15; WBC 8.1, hemoglobin 12.5, hematocrit 40, platelet count 186. Chemis tries: Sodium 139, potassium 3.4, chloride 106, carbon dioxide 26, BUN is 19, creatinine is 0.76. C hest x-ray on 09/15/2017, cardiomegaly, no congestive heart failure. Echocardiogram on 08/06/2017, s claramary, EF 10% to 15%, grade 3/3 diastolic dysfunction, severe global hypokinesis, dilated RV systoli c function mildly enlarged right atrium size, mitral annular calcification, moderate MR, mild AR, sev ere TR, severely elevated PA pressure of 85 mmHg, mild NM and small pericardial effusion without tamp onade. IMPRESSION: 1. Nonischemic dilated cardiomyopathy with ejection fraction 10% to 15%. 2. Normal coronary arteries from left heart catheterization performed in 08/2016. 3. Medication noncompliance. 4. Hypertension. 5. Obesity. 6. Hyperlipidemia. PLAN: Long discussion was having with Ms. Ley regarding her nonischemic dilated cardiomyopathy and being a candidate for ICD implant. Risks and benefits were discussed. Risks include pain, infec tion at the site, damage to blood vessels, structures and surrounding tissues, perforation of heart r equiring chest tube placement or surgical intervention, and her . The patient verbalizes unders tanding and we will consider these options. At this point, she would like to consider overnight befo re she agrees to move forward with the procedure, but she does understand the risks. She has had a c rubi to ask questions. At this point, we will schedule her for tomorrow afternoon for device implan t, pending her approval in the morning. The patient agrees with this plan. Otherwise, we agreed wit h Cardiology to medical management of her heart failure, management of her fluid status. Thank you for allowing us to participate in the care of this patient.
[2017-09-16] MEDS ORDERED: Sodium Chloride 0.9% 10 ML ONE (05:06)
[2017-09-16 05:49] LABS: LDL Cholesterol, Calculated 48 mg/dL
[2017-09-16] MEDS: Furosemide 40 MG/4 ML VIAL SLOW IVP SCH ×2 (05:55→14:13)
[2017-09-16 06:49] LABS: Calcium 9.2 mg/dL (7.8-10.44); Chloride 106 mmol/L (98-107); Sodium 139 mmol/L (136-145)
[2017-09-16 06:50] LABS: Glucose 112 mg/dL (70-105); Triglycerides 56 mg/dL (Less than 150)
[2017-09-16 06:51] LABS: Anion Gap 11 mmol/L (10-20); Carbon Dioxide 26 mmol/L (22-29)
[2017-09-16 06:53] LABS: Calc. Creatinine Clearance 127 mL/min (70-130); Estimated GFR-MDRD Greater than 90
[2017-09-16 06:54] LABS: BUN (Urea Nitrogen) 18 mg/dL (9.8-20.1)
[2017-09-16 06:55] LABS: Cardiac Risk 3.6 (Less than 4.5); Cholesterol 93 mg/dl (< 200 Desired); HDL Cholesterol 26 mg/dL (>60 Neg Risk)
--- NOTE | 2017-09-16 09:01 | PDOC.FM ---
- Subjective Subjective: Ms. Ley is feeling much better this morning. She says her belly feels much less tense and distended to her. She feels her peripheral edema has gone out of her thighs as well and now stops at her knees. She does not desire ICD placement. She does not feel ready for it. I discussed risk of sudden cardiac and she understands and does not want to proceed at this time. - Objective MAR Reviewed: Yes Vital Signs & Weight: Vital Signs (12 hours) Temp Pulse Resp BP BP Pulse Ox 09/16/17 04:00 97.9 F 77 16 102/69 96 09/16/17 00:00 98.4 F 86 18 121/64 96 09/15/17 22:01 100/67 Weight Weight 92.079 kg I&O: 09/15/17 09/16/17 09/17/17 06:59 06:59 06:59 Intake Total 614 Output Total 1875 Balance -1261 Result Diagrams: 09/15/17 08:32 09/16/17 06:23 EKG Reviewed by me: Yes Radiology Reviewed by me: Yes <Tia Sher - Last Filed: 09/16/17 09:06> - Objective Vital Signs & Weight: Vital Signs (12 hours) Temp Pulse Resp BP Pulse Ox 09/16/17 04:00 97.9 F 77 16 102/69 96 09/16/17 00:00 98.4 F 86 18 121/64 96 Weight Weight 92.079 kg I&O: 09/15/17 09/16/17 09/17/17 06:59 06:59 06:59 Intake Total 614 Output Total 1875 Balance -1261 Result Diagrams: 09/15/17 08:32 09/16/17 06:23 <Estrada Hernandez - Last Filed: 09/16/17 12:00> Phys Exam - Physical Examination Constitutional: NAD HEENT: moist MMs, sclera anicteric Neck: supple Respiratory: no wheezing, clear to auscultation bilateral Cardiovascular: RRR, no significant murmur Gastrointestinal: soft, non-tender, positive bowel sounds mild distention Musculoskeletal: pulses present 2-3+ edema to knees BL Neurological: non-focal, moves all 4 limbs Psychiatric: normal affect, A&O x 3 <Tia Sher - Last Filed: 09/16/17 09:06> Dx/Plan (1) Nonischemic cardiomyopathy Code(s): I42.8 - OTHER CARDIOMYOPATHIES Status: Acute (2) Acute exacerbation of congestive heart failure Code(s): I50.9 - HEART FAILURE, UNSPECIFIED Status: Acute (3) HTN (hypertension) Code(s): I10 - ESSENTIAL (PRIMARY) HYPERTENSION Status: Acute (4) Obesity (BMI 30-39.9) Code(s): E66.9 - OBESITY, UNSPECIFIED Status: Acute (5) CHF (congestive heart failure) Code(s): I50.9 - HEART FAILURE, UNSPECIFIED Status: Suspected - Plan Plan: 1. Acute on chronic CHF exacerbation - Failed outpatient PO lasix tx - Continue diuresis with IV lasix - Monitor electrolytes with daily BMP - Monitor on telemetry 2. Non-ischemic cardiomyopathy with EF 10-15% - Appreciate Jung Peraza and EP assistance - Patient declines ICD at this time - Will await additional cardiology recs and plan for OP cards and Heart Failure f/u - Continue coreg, spironolactone, lisinopril and ASA - Atorvastatin PPX: Lovenox <Tia Sher - Last Filed: 09/16/17 09:06> Attending Addendum - Attending Addendum I personally evaluated the patient and discussed the management with Dr. Sher. I agree with and repeated the History, Examination, Assessment and Plan documented above with any addition or exceptions noted below. Doing better today, feels "v belt coverer." No cp/sob/cough/f/c. RRR s murmur, edema improved from yesterday Bilateral crackles at the bases, no increased work of breathing Continue diuresis and telemtry. Medical optimization of HF and comorbidities. DVT ppx. <Estrada Hernandez - Last Filed: 09/16/17 12:00>
[2017-09-16] MEDS: Enoxaparin Sodium 40 MG/0.4 ML SYRINGE SC SCH (09:34)
[2017-09-16] MEDS: Carvedilol 6.25 MG TAB PO SCH ×2 (09:34→21:12)
[2017-09-16] MEDS: Lisinopril 2.5 MG TAB PO SCH (12:29)
[2017-09-16] MEDS: Spironolactone 25 MG TAB PO SCH (12:30)
--- NOTE | 2017-09-16 13:23 | PRG ---
DATE OF SERVICE: 09/16/2017 PHYSICIAN: Dr. Feng SUBJECTIVE: Ms. Ley is doing better. She continues to diurese and her breathing is easier. Th e 24 hour ins and outs balance is at -1.26 liters. She has no chest pains, no fever, chills, cough. OBJECTIVE: VITAL SIGNS: Blood pressure is 102/69, heart rate 77, respiration 16, temperature 97.9 degrees Fahre nheit. GENERAL: Alert and oriented woman in no apparent distress. NECK: Supple. Jugular veins not distended, but hepatojugular reflux is positive. CHEST: Coarse without crackles. CARDIOVASCULAR: Heart sounds are regular to rate and rhythm. No murmur or gallop. ABDOMEN: Benign. Bowel sounds positive. EXTREMITIES: Lower extremities without edema, clubbing or cyanosis. DATABASE: The telemetry strips reveals sinus rhythm, rare PVCs. ASSESSMENT AND PLAN: 1. Ms. Ley is a pleasant 57-year-old woman with acute on chronic congestive heart failure exace rbation, chronically reduced left ventricular systolic function. 2. Nonischemic cardiomyopathy who is taking adequate medical regimen. Despite her LVEF this remains to be low. She is currently free of significant symptoms suggestive of ventricular arrhythmias, but due to her previous function her risk of ventricular arrhythmias long-term is high. For this reason, we recommended an implantation of prophylactic ICD device. At this point, she declines that. I did discuss the pros and cons about the device. She understands the possibility of future arrhyt hmias. At this point not interested in this kind of intervention. PLAN: Routine heart failure therapy and follow up in the office of Dr. Edwards or Dr. Feng.
--- NOTE | 2017-09-16 19:00 | PDOC.CTH ---
Cardiology Progress Note - Subjective No new issues or concerns. - Objective Vital Signs Pulse Pulse Pulse BP BP BP Pulse Ox 09/16/17 14:15 78 88 98/68 106/76 98 09/16/17 12:29 79 101/67 09/16/17 09:34 101/67 Pulse Ox 09/16/17 14:15 99 09/16/17 12:29 09/16/17 09:34 Weight 203 lb 09/15/17 09/16/17 09/17/17 06:59 06:59 06:59 Intake Total 614 Output Total 1875 Balance -1261 - Physical Examination General/Neuro: alert & oriented x3, NAD Neck: no JVD present Lungs: unlabored respirations Heart: RRR Abdomen: NT/ND Extremities: + edema B (3+) - Telemetry Telemetry Rhythm: NSR - Labs Result Diagrams: 09/15/17 08:32 09/16/17 06:23 Troponin/CKMB CK-MB (CK-2) 2.6 ng/mL (0-6.6) 09/15/17 08:32 Troponin I 0.059 ng/mL (< 0.028) H 09/15/17 20:25 - Assessment/Plan 1. Acute on chronic systolic heart failure 2. HTN 3. Non ischemic CM 4. Non compliance. PLAN: - She is thinking about having the AICD placed. She will discuss with her family. - Continue IV lasix for now. - Continue BB/ACEI/Aldactone
[2017-09-16] MEDS: Atorvastatin Calcium 10 MG TAB PO SCH (21:11)
[2017-09-17] MEDS ORDERED: Sodium Chloride 0.9% 10 ML ONE (05:29)
[2017-09-17] MEDS: Furosemide 40 MG/4 ML VIAL SLOW IVP SCH ×2 (05:39→15:21)
[2017-09-17 05:44] LABS: Anion Gap 11 mmol/L (10-20); BUN (Urea Nitrogen) 20 mg/dL (9.8-20.1); Calc. Creatinine Clearance 141 mL/min (70-130); Calcium 8.8 mg/dL (7.8-10.44); Carbon Dioxide 23 mmol/L (22-29); Chloride 106 mmol/L (98-107); Estimated GFR-MDRD Greater than 90; Glucose 89 mg/dL (70-105); Potassium 3.9 mmol/L (3.5-5.1); Sodium 136 mmol/L (136-145)
--- NOTE | 2017-09-17 06:30 | PDOC.FM ---
- Subjective Subjective: Feeling well this morning. Abdominal bloating resolved and she feels peripheral edema is going down a little bit. She continues to want to think about ICD and wants to follow-up with Dr. Edwards in clinic. Discussed again risk of sudden cardiac arrest and she is understanding and not ready to make a decision yet. - Objective MAR Reviewed: Yes Vital Signs & Weight: Vital Signs (12 hours) Temp Pulse Resp BP BP Pulse Ox 09/17/17 03:53 97.6 F 71 16 96/52 L 97 09/16/17 22:55 98.0 F 74 20 100/67 98 09/16/17 21:12 101/74 09/16/17 20:00 97.8 F 74 18 101/74 97 Weight Weight 92.85 kg I&O: 09/15/17 09/16/17 09/17/17 06:59 06:59 06:59 Intake Total 614 1324 Output Total 5212 Balance -7080 -021 Result Diagrams: 09/15/17 08:32 09/17/17 04:38 EKG Reviewed by me: Yes <Tia Sher - Last Filed: 09/17/17 09:00> - Objective Vital Signs & Weight: Vital Signs (12 hours) Temp Pulse Pulse Pulse Resp BP BP 09/17/17 12:00 97.0 F L 70 18 09/17/17 11:10 64 77 92/58 L 09/17/17 09:39 70 91/59 L 09/17/17 08:00 96.9 F L 70 18 BP BP Pulse Ox Pulse Ox Pulse Ox 09/17/17 12:00 91/59 L 96 09/17/17 11:10 101/67 98 96 09/17/17 09:39 09/17/17 08:00 91/59 L 93 L Weight Weight 92.85 kg I&O: 09/16/17 09/17/17 09/18/17 06:59 06:59 06:59 Intake Total 614 1324 900 Output Total 4834 1902 Balance -4255 -216 900 Result Diagrams: 09/15/17 08:32 09/17/17 04:38 <Lina Smith - Last Filed: 09/17/17 18:49> Phys Exam - Physical Examination Constitutional: NAD HEENT: moist MMs, sclera anicteric Neck: supple scattered rhonchi, otherwise CTAB Cardiovascular: RRR, no significant murmur Gastrointestinal: soft, non-tender, no distention, positive bowel sounds tense edema to knees BL, 1+ to hip Neurological: non-focal, moves all 4 limbs Lymphatic: no nodes Psychiatric: normal affect, A&O x 3 Skin: no rash, cap refill <2 seconds <Tia Sher - Last Filed: 09/17/17 09:00> Dx/Plan (1) Nonischemic cardiomyopathy Code(s): I42.8 - OTHER CARDIOMYOPATHIES Status: Acute (2) Acute exacerbation of congestive heart failure Code(s): I50.9 - HEART FAILURE, UNSPECIFIED Status: Acute (3) HTN (hypertension) Code(s): I10 - ESSENTIAL (PRIMARY) HYPERTENSION Status: Acute (4) Obesity (BMI 30-39.9) Code(s): E66.9 - OBESITY, UNSPECIFIED Status: Acute (5) CHF (congestive heart failure) Code(s): I50.9 - HEART FAILURE, UNSPECIFIED Status: Suspected - Plan Plan: 1. Acute on chronic CHF exacerbation - UOP 1900L (3800 since admission) - Failed outpatient PO lasix tx - Continues to have tense edema in BLE, abdominal symptoms improving - Continue diuresis with IV lasix - Monitor electrolytes with daily BMP - Fluid restriction 1500 mL - Monitor on telemetry 2. Non-ischemic cardiomyopathy with EF 10-15% - Appreciate Jung Arango and Hamzah's assistance - Patient declines ICD at this time and would like to continue to think about it and discuss with family - Plan for OP cards and Heart Failure f/u - Continue coreg, spironolactone, lisinopril and ASA - Atorvastatin 3. HTN - Very mild and controlled on CHF medications PPX: Lovenox <Tia Sher - Last Filed: 09/17/17 09:00> Attending Addendum - Attending Addendum I personally evaluated the patient and discussed the management with Dr. Sher I agree with the History, Examination, Assessment and Plan documented above with any addition or exceptions noted below. Will continue IV lasix at this time. Cards following. Tolerating other cardiac meds. Will provide more educational information for AICD. Expressed need. 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 Patient very unsure of disease process and treatment. Panda <Lina Smith - Last Filed: 09/17/17 18:49>
[2017-09-17] MEDS: Enoxaparin Sodium 40 MG/0.4 ML SYRINGE SC SCH (09:37)
[2017-09-17] MEDS: Spironolactone 25 MG TAB PO SCH (09:38)
[2017-09-17] MEDS: Carvedilol 6.25 MG TAB PO SCH ×2 (09:39→20:38)
[2017-09-17] MEDS: Lisinopril 2.5 MG TAB PO SCH (09:39)
--- NOTE | 2017-09-17 11:05 | PRG-2 ---
DATE OF SERVICE: 09/16/2017 CONTINUITY NOTE This note is written as the patient's primary care provider to provide continuity and insight into e patient care. CONTINUITY PROVIDER: Dr. Shahid Garner DATE OF ADMISSION: 09/15/2017 DATE OF EXAM: 09/16/2017 HOSPITAL COURSE: Ondina Ley is a pleasant 57-year-old female with past medical history significant for congestive heart failure with systolic dysfunction, last EF 10-15% measured l ast month with 3/3 diastolic dysfunction. This is thought to be a nonischemic dilated cardiomyopathy . The patient was admitted just about 3 weeks ago for an exacerbation of her heart failure. She was first admitted one year ago and was diagnosed at that time with heart failure. She saw us once in t he clinic and then did not follow up with us in clinic until after she was readmitted last month. e is also managed by Dr. Edwards and his partners within Cardiology. MEDICATION LIST: As prescribed from her primary care office. 1. Aspirin 81 mg. 2. Furosemide 20 mg tablets take 2 tablets per day. 3. Spironolactone 25 mg take 1/2 tab p.o. daily. 4. Lisinopril 2.5 mg once a day. 5. Carvedilol 6.25 mg 1 tab p.o. b.i.d. 6. Atorvastatin 10 mg tablet daily. 7. Fluticasone nasal spray 2 sprays in each naris once daily. CURRENT PLAN: Transition to outpatient. The patient required admission because of worsening symptoms and significant congestive heart failure with her EF of 10-15%. She is a prime candidate for an implanted defibrillator. I discussed this a t length with her as I know some of the other inpatient physicians have and right now she is not read y to make that decision. I attempted to explore this with her and she stated that she is not fearful or nervous about the procedure, but just feels that she needs more time. She and I discussed the ri sks and benefits of the procedure and she would still like to have more time to think about it. I ag ree that she needs continued IV Lasix until she is diuresed more. Today on exam her lungs do continu e to have bibasilar crackles. I recommend continuing IV Lasix, not only until her respiratory status has improved, but until her abdominal swelling has improved. I believe that then she may tolerate and have more benefit from the p.o. Lasix once discharged. She would also be a good candidate to fo llow up with [facility] Failure [facility]. She has an appointment with me next week and we will follow up on her clinical status and her laboratories at that time. Some notes state that she was on amlodipine. I do not have that in my records of being prescribed from our office. I would consider discontinui ng that as it is not first line for heart failure management and she has had recent low blood pressur es. It seems that team has already made that decision and I am in agreement. I appreciate my colleagues and our medical dir taking good care of my patient in the [facility]. Please contact me if you have any questions about her outpatient management.
--- NOTE | 2017-09-17 12:39 | PDOC.CTH ---
Cardiology Progress Note - Subjective No new issues. She continues to have LE edema. - Objective Vital Signs Temp Pulse Resp BP BP Pulse Ox 09/17/17 09:39 70 91/59 L 09/17/17 08:00 96.9 F L 70 18 91/59 L 93 L 09/17/17 03:53 97.6 F 71 16 96/52 L 97 Weight 204 lb 11.2 oz 09/16/17 09/17/17 09/18/17 06:59 06:59 06:59 Intake Total 614 1324 180 Output Total 1875 1900 Balance -1261 -576 180 - Physical Examination General/Neuro: alert & oriented x3, NAD Neck: no JVD present Lungs: CTA, unlabored respirations Heart: RRR Abdomen: NT/ND Extremities: + edema B (3+) - Telemetry Telemetry Rhythm: NSR - Labs Result Diagrams: 09/15/17 08:32 09/17/17 04:38 Troponin/CKMB CK-MB (CK-2) 2.6 ng/mL (0-6.6) 09/15/17 08:32 Troponin I 0.059 ng/mL (< 0.028) H 09/15/17 20:25 - Assessment/Plan 1. Acute on chronic systolic heart failure 2. HTN 3. Non ischemic CM 4. Non compliance. PLAN: - Jimmy mayfield decided about AICD. I spoke with her about the lifevest we had recommended last time and she states she could not afford it. She states she may afford it this time. I told her that if she does not think she wants an AICD then a lifevest would not change things and would only be an economical burden without a long term care social worker plan. She qualifies for an AICD at this time. She states she will continue to think about this. - Continue IV lasix and switch to PO tomorrow. - Continue BB/ACEI/Aldactone
[2017-09-17] MEDS: Atorvastatin Calcium 10 MG TAB PO SCH (20:38)
[2017-09-18] MEDS: Furosemide 40 MG/4 ML VIAL SLOW IVP SCH ×2 (05:41→14:31)
[2017-09-18 06:09] LABS: Anion Gap 12 mmol/L (10-20); BUN (Urea Nitrogen) 20 mg/dL (9.8-20.1); Calc. Creatinine Clearance 133 mL/min (70-130); Carbon Dioxide 25 mmol/L (22-29); Chloride 105 mmol/L (98-107); Estimated GFR-MDRD Greater than 90; Glucose 95 mg/dL (70-105); Potassium 3.7 mmol/L (3.5-5.1); Sodium 138 mmol/L (136-145)
--- NOTE | 2017-09-18 06:45 | PDOC.FM ---
- Subjective Subjective: Feeling well this morning and ready to go home. She feels her LE edema is improving. Her abdomen is now non-tender or bloated. She continues to decline ICD placement at this time and discussed indications again this morning. She has no questions at this time. - Objective MAR Reviewed: Yes Vital Signs & Weight: Vital Signs (12 hours) Temp Pulse Resp BP BP BP Pulse Ox 09/18/17 04:00 97.5 F L 70 18 95/72 100 09/17/17 23:59 99/62 09/17/17 20:38 100/69 09/17/17 20:00 98.5 F 75 20 100/69 98 Weight Weight 94.347 kg I&O: 09/16/17 09/17/17 09/18/17 06:59 06:59 06:59 Intake Total 614 1324 1514 Output Total 1875 1900 300 Balance -1261 -576 1214 Result Diagrams: 09/15/17 08:32 09/18/17 04:16 <Tia Sher - Last Filed: 09/18/17 08:51> - Objective Vital Signs & Weight: Weight Weight 94.347 kg Result Diagrams: 09/15/17 08:32 09/18/17 04:16 <Lina Smith - Last Filed: 09/20/17 09:26> Phys Exam - Physical Examination Constitutional: NAD HEENT: moist MMs, sclera anicteric Neck: supple Respiratory: no wheezing, clear to auscultation bilateral no crackles Cardiovascular: RRR, no significant murmur Gastrointestinal: soft, non-tender, no distention, positive bowel sounds 2+ edema to knees, 1+ to hips, stable from yesterday Neurological: non-focal, moves all 4 limbs Psychiatric: normal affect, A&O x 3 Skin: no rash <Tia Sher E - Last Filed: 09/18/17 08:51> Dx/Plan (1) Nonischemic cardiomyopathy Code(s): I42.8 - OTHER CARDIOMYOPATHIES Status: Acute (2) Acute exacerbation of congestive heart failure Code(s): I50.9 - HEART FAILURE, UNSPECIFIED Status: Acute (3) HTN (hypertension) Code(s): I10 - ESSENTIAL (PRIMARY) HYPERTENSION Status: Acute (4) Obesity (BMI 30-39.9) Code(s): E66.9 - OBESITY, UNSPECIFIED Status: Acute (5) CHF (congestive heart failure) Code(s): I50.9 - HEART FAILURE, UNSPECIFIED Status: Suspected - Plan Plan: 1. Acute on chronic CHF exacerbation - UOP 300 mL documented overnight (4100 since admission) - Failed outpatient PO lasix tx - Continues to have tense edema in BLE, abdominal symptoms improving - Continue diuresis with IV lasix this morning - Monitor electrolytes with daily BMP - Fluid restriction 1500 mL - Monitor on telemetry - Likely d/c later today pending Dr. Edwards's recommendation 2. Non-ischemic cardiomyopathy with EF 10-15% - Appreciate Drs. Edwards, Jung and Hamzah's assistance - Patient declines ICD at this time and would like to continue to think about it and discuss with family - Handouts given and educational video resources given - Plan for OP cards and Heart Failure f/u - Continue coreg, spironolactone, lisinopril and ASA - Atorvastatin 3. HTN - Very mild and controlled on CHF medications PPX: Lovenox <Tia Sher - Last Filed: 09/18/17 08:51> Attending Addendum - Attending Addendum I personally evaluated the patient and discussed the management with Dr. Sher I agree with the History, Examination, Assessment and Plan documented above with any addition or exceptions noted below. Improved. Dispo per cards. Still not ready for ICD placement this hospital stay but reports a better understanding of her disease and the reason for the device. Appeared mildly depressed/sad today. Reports not depressed just ready to go home. Smile and joked with us in the room today. Provided education and discussed depression with chronic illnesses is not rare. ABrayMD <Lina Smith - Last Filed: 09/20/17 09:26>
[2017-09-18] MEDS ORDERED: Potassium Chloride 10 MEQ TAB PO SCH (08:00)
[2017-09-18] MEDS: Spironolactone 25 MG TAB PO SCH (09:15)
[2017-09-18] MEDS: Carvedilol 6.25 MG TAB PO SCH (09:16)
[2017-09-18] MEDS: Enoxaparin Sodium 40 MG/0.4 ML SYRINGE SC SCH (09:17)
[2017-09-18] MEDS: Lisinopril 2.5 MG TAB PO SCH (09:20)
[2017-09-18 12:23] VITALS: BP 162/71
--- NOTE | 2017-09-18 14:29 | PDOC.CTH ---
Cardiology Progress Note - Subjective She is doing well. Breathing is at baseline. - Objective Vital Signs Temp Pulse Pulse Pulse Resp BP BP 09/18/17 12:20 98.3 F 77 16 09/18/17 10:40 78 82 104/71 09/18/17 09:20 79 101/60 09/18/17 09:16 101/60 09/18/17 08:58 98.1 F 79 16 09/18/17 04:00 97.5 F L 70 18 BP BP BP Pulse Ox Pulse Ox Pulse Ox 09/18/17 12:20 162/71 H 98 09/18/17 10:40 121/83 98 100 09/18/17 09:20 09/18/17 09:16 09/18/17 08:58 101/60 97 09/18/17 04:00 95/72 100 Weight 208 lb 09/17/17 09/18/17 09/19/17 06:59 06:59 06:59 Intake Total 1324 1514 Output Total 1900 300 Balance -576 1214 - Physical Examination General/Neuro: alert & oriented x3, NAD Neck: no JVD present Lungs: CTA, unlabored respirations Heart: RRR Abdomen: NT/ND Extremities: + edema B (3+) - Telemetry Telemetry Rhythm: NSR - Labs Result Diagrams: 09/15/17 08:32 09/18/17 04:16 Troponin/CKMB CK-MB (CK-2) 2.6 ng/mL (0-6.6) 09/15/17 08:32 Troponin I 0.059 ng/mL (< 0.028) H 09/15/17 20:25 - Assessment/Plan 1. Acute on chronic systolic heart failure 2. HTN 3. Non ischemic CM 4. Non compliance. PLAN: - Not currently interested in an AICD. - PO lasix at 40 mg BID. - Continue BB/ACEI/Aldactone at current doses. I increased ACEI today. - may discharge home today. - Will follow up with me in 1 month.
[2017-09-18] MEDS ORDERED: Furosemide 40 MG TAB PO SCH (14:45)
[2017-09-18 15:16] VITALS: TEMP 98.9
[2017-09-19] MEDS ORDERED: Furosemide 40 MG TAB PO SCH (09:00)
[2017-09-19] MEDS ORDERED: Lisinopril 5 MG TAB PO SCH (09:00)
--- NOTE | 2017-09-22 00:33 | DIS-2 ---
DATE OF ADMISSION: 09/15/2017 DATE OF DISCHARGE: 09/18/2017 RESIDENT: Tia Sher M.D. ADMITTING ATTENDING: Estrada Hernandez MD DISCHARGE ATTENDING: Lina Smith M.D. CONSULTATIONS: Zurdo Edwards MD of Cardiology and Alfredo Goodson M.D. with Electrophysiology. PROCEDURES: None. PRIMARY DIAGNOSES: 1. Congestive heart failure exacerbation which failed outpatient management. SECONDARY DIAGNOSES: 1. Congestive heart failure. 2. Nonischemic cardiomyopathy with an ejection fraction of 10-15%. 3. Hypertension. 4. Obesity. DISCHARGE MEDICATIONS: 1. Lasix 40 mg p.o. daily. 2. Potassium 10 mEq daily. 3. Lisinopril 2.5 mg p.o. daily. 4. Aspirin 81 mg p.o. daily. 5. Spironolactone 12.5 mg p.o. daily. 6. Atorvastatin 10 mg p.o. at bedtime. 7. Carvedilol 6.25 mg b.i.d. HISTORY OF PRESENT ILLNESS AND HOSPITAL COURSE: Ms. Ley presented with chief complaint of abdom inal bloating and fullness, which she reported had worsened over the last few weeks since her recent discharge from the hospital on August. She stated that primarily abdominal pain is that brought her in and that she was at work and could not tolerate it any more. She had recently seen her PCP and pushpa coombs diagnosed on an increased outpatient p.o. Lasix regimen which she states she was following kye fully with minimal improvement in symptoms. She was admitted for IV diuresis as well as consultation with Dr. Edwards and Dr. Goodson for re-evaluation for LifeVest and/or AICD placement. She was diuresed successfully over the following couple of days and symptomatically felt much better prior to dischar ge. Numerous conversations were held with the patient between myself, Dr. Smith, Dr. Edwards and Dr. Claire lu and the patient at this time does not desire to pursue with AICD placement. The risks and benefi ts were extensively discussed and she was provided patient information to read and videos to watch to help with making an informed decision. At this time, she is in stable condition and will be dischar ged with the plan to follow up with her PCP, Dr. Edwards as well as the [facility] Failure [facility] on an out patient basis. Her other medical conditions remained stable throughout the hospitalization and no ad ditional adjustments were made to her medications apart from a temporarily increased dose of Lasix wh ich can be adjusted by her PCP or Dr. Edwards upon followup. DISPOSITION: Stable. DISCHARGE INSTRUCTIONS: 1. Location: Home. 2. Diet: Heart healthy with low sodium. 3. Activity: As tolerated. 4. Followup: With PCP, Dr. Garner within 1 week of discharge, Dr. Edwards within 2-4 to discharge a kuldeep wyatt
== END 2017-09-18 17:18 | disposition home or self-care (01) | DRG 293 ==
LOC: ERS 08:04 → 2NO 09:42
PROVIDERS: ADMIT Family Medicine; ATTEND Family Medicine
DX: I11.0 Hypertensive heart disease with heart failure (principal); I42.8 Other cardiomyopathies; I50.43 Acute on chronic combined systolic (congestive) and diastolic (congestive) heart failure; E66.9 Obesity, unspecified; Z68.34 Body mass index [BMI] 34.0-34.9, adult; Z91.14 Patient's other noncompliance with medication regimen
CPT/HCPCS: 36415; 71045; 80048; 80053; 80061; 82550; 82553; 83690; 83880; 84484; 85025; 93005; 93798; 94760; 96374; A4216; J1650; J1940

== ENCOUNTER 2017-09-27 17:23 | Emergency (ER) | payer OTHER ==
[2017-09-27 17:56] LABS: #Eosinphils 0.1 thou/uL (0.0-0.7); #Lymphocytes 1.5 thou/uL (1.20-3.40); #Monocytes 0.9 thou/uL (0.11-0.59); #Neutrophils 4.7 thou/uL (1.40-6.50); %Basophils 0.3 % (0.0-1.0); %Eosinophils 1.4 % (0.0-10.0); %Lymphocytes 20.7 % (21.0-51.0); %Monocytes 12.1 % (0.0-10.0); %Neutrophils 65.5 % (42.0-75.0); Hemoglobin 12.1 g/dL (12.0-16.0); Mean Corpuscular HGB CONC 31.6 g/dL (32.0-36.0); Mean Corpuscular Hemoglobin 28.8 pg (27.0-31.0); Mean Corpuscular Volume 91.2 fl (81.0-99.0); Mean Platelet Volume 7.7 fL (7.4-10.4); Platelet Count 185 thou/uL (130-400); RBC Distribution Width 14.1 % (11.5-14.5); Red Blood Cell (RBC) Count 4.21 mill/uL (4.20-5.40); White Blood Cell (WBC) Count 7.1 thou/uL (4.8-10.8)
[2017-09-27 18:18] LABS: ALT (SGPT) 23 U/L (8-55); AST (SGOT) 29 U/L (5-34); Albumin 3.4 g/dL (3.5-5.0); Alkaline Phosphatase 128 U/L (40-150); Anion Gap 12 mmol/L (10-20); BUN (Urea Nitrogen) 21 mg/dL (9.8-20.1); Bilirubin, Total 1.5 mg/dL (0.2-1.2); CK (CPK) 96 U/L (29-168); Calc. Creatinine Clearance 0 mL/min (70-130); Carbon Dioxide 24 mmol/L (22-29); Chloride 106 mmol/L (98-107); Estimated GFR-MDRD 81; Globulin 3.9 g/dL (2.4-3.5); Glucose 120 mg/dL (70-105); Potassium 4.1 mmol/L (3.5-5.1); Protein, Total 7.3 g/dL (6.0-8.3); Sodium 138 mmol/L (136-145)
[2017-09-27 18:21] LABS: CKMB 1.8 ng/mL (0-6.6); Troponin I 0.041 ng/mL (< 0.028)
--- NOTE | 2017-09-27 18:57 | RAD ---
PORTABLE CHEST: Date: 09/27/17 HISTORY: Epigastric and abdominal pain. COMPARISON: 09/15/17. FINDINGS: Cardiomegaly again noted. The lungs appear clear. There is mild vascular engorgement without evidence of overt vascular congestion or edema. No interval change noted. IMPRESSION: Cardiomegaly again noted. The globular shape of the heart could represent a pericardial effusion. The findings are stable from 09/15/17. POS: [facility]
[2017-09-27] MEDS ORDERED: Furosemide 20 MG/2 ML VIAL ONE (19:16)
== END 2017-09-27 20:15 | disposition home or self-care (01) ==
LOC: ERS 17:23
DX: R60.1 Generalized edema (principal); I11.0 Hypertensive heart disease with heart failure; I50.9 Heart failure, unspecified; Z79.82 Long term (current) use of aspirin; Z79.899 Other long term (current) drug therapy
CPT/HCPCS: 71045; 80053; 82553; 83880; 84484; 85025; 93005; 94760; 96374; J1940

== ENCOUNTER 2017-10-27 21:00 | Inpatient (IN) | payer OTHER ==
[2017-10-27 21:35] LABS: #Eosinphils 0.1 thou/uL (0.0-0.7); #Lymphocytes 1.8 thou/uL (1.20-3.40); #Monocytes 1.1 thou/uL (0.11-0.59); #Neutrophils 5.6 thou/uL (1.40-6.50); %Basophils 0.1 % (0.0-1.0); %Eosinophils 1.3 % (0.0-10.0); %Lymphocytes 20.6 % (21.0-51.0); %Monocytes 12.4 % (0.0-10.0); %Neutrophils 65.5 % (42.0-75.0); Hemoglobin 12.3 g/dL (12.0-16.0); Mean Corpuscular HGB CONC 32.7 g/dL (32.0-36.0); Mean Corpuscular Hemoglobin 29.2 pg (27.0-31.0); Mean Corpuscular Volume 89.3 fl (81.0-99.0); Mean Platelet Volume 7.3 fL (7.4-10.4); Platelet Count 216 thou/uL (130-400); RBC Distribution Width 14.7 % (11.5-14.5); Red Blood Cell (RBC) Count 4.23 mill/uL (4.20-5.40); White Blood Cell (WBC) Count 8.5 thou/uL (4.8-10.8)
--- NOTE | 2017-10-27 21:52 | RAD ---
SINGLE VIEW OF THE CHEST 10/27/17 COMPARISON: 09/27/17 HISTORY: Fluid retention for two days with abdominal distention. FINDINGS: Single view of the chest shows an enlarged but stable cardiomediastinal silhouette. There is no evide nce of consolidation or mass. There may be a small right pleural effusion. IMPRESSION: 1. Cardiomegaly. 2. Possible small right pleural effusion. POS: H
[2017-10-27 21:54] LABS: ALT (SGPT) 17 U/L (8-55); AST (SGOT) 24 U/L (5-34); Albumin 3.4 g/dL (3.5-5.0); Alkaline Phosphatase 150 U/L (40-150); Anion Gap 11 mmol/L (10-20); BUN (Urea Nitrogen) 15 mg/dL (9.8-20.1); Bilirubin, Total 1.4 mg/dL (0.2-1.2); CK (CPK) 98 U/L (29-168); Calc. Creatinine Clearance 0 mL/min (70-130); Calcium 9.1 mg/dL (7.8-10.44); Carbon Dioxide 25 mmol/L (22-29); Chloride 106 mmol/L (98-107); Estimated GFR-MDRD Greater than 90; Globulin 4.2 g/dL (2.4-3.5); Glucose 136 mg/dL (70-105); Lipase 27 U/L (8-78); Potassium 3.5 mmol/L (3.5-5.1); Protein, Total 7.6 g/dL (6.0-8.3); Sodium 138 mmol/L (136-145)
[2017-10-27 21:58] LABS: CKMB 1.6 ng/mL (0-6.6); Troponin I 0.044 ng/mL (< 0.028)
[2017-10-28] MEDS ORDERED: Furosemide 100 MG/10 ML VIAL ONE (00:23)
[2017-10-28] MEDS ORDERED: Acetaminophen 650 MG Suppository PR PRN (01:24)
[2017-10-28] MEDS ORDERED: Ondansetron ODT 4 MG TAB PO PRN (01:24)
[2017-10-28] MEDS ORDERED: Ondansetron HCl/PF 4 MG/2 ML Vial IVP PRN (01:24)
[2017-10-28] MEDS ORDERED: Mag-Al 1200 mg/1200 mg/30 ML UDCUP PO PRN (01:24)
[2017-10-28] MEDS ORDERED: Bisacodyl 10 MG SUPP PR PRN (01:24)
[2017-10-28 01:46] LABS: Troponin I 0.058 ng/mL (< 0.028)
[2017-10-28 03:39] VITALS: BMI 35.6
--- NOTE | 2017-10-28 03:41 | PDOC.FPRHP ---
- History of Present Illness Chief Complaint: increased swelling X1 day History of Present Illness: A pleasantly poor history, Ondina Ley is a 57 yo F with PMH of CHF, last EF in August 2017 was 10% with grade 3/3 diastolic dysfunction who presents with what she states is a 1 to 2 day history of increased swelling in her legs and abdomen. She endorsed associated increase dyspnea with exertion and fatigue, as well as a cough productive with foamy sputum. She has known CHF and is a patient of Dr. Edwards. She states that she has been taking her medications as directed and has not missed any doses. She had a heart cath in august of 2016 that showed no evidence of coronary artery disease. She was seen by Dr. Goodson last month. At that time, he recommended an AICD but she refused it at that time. She denies any dyspnea, PND, or orthopnea. Denies recent illness, fever, chills, chest pain, palpitations, abdominal pain, changes in bowel movements, GI bleeding. - Allergies/Adverse Reactions Allergies Allergy/AdvReac Type Severity Reaction Status Date / Time No Known Drug Allergies Allergy Verified 12/17/13 15:23 - Home Medications Medication Instructions Recorded Confirmed Type Spironolactone [Aldactone] 12.5 mg PO QAM-WM #30 tab 08/27/16 10/28/17 Rx Aspirin 81 mg PO DAILY #30 tab.chew 09/18/17 10/28/17 Rx Atorvastatin Calcium [Lipitor] 10 mg PO HS #30 tab 09/18/17 10/28/17 Rx Carvedilol [Coreg] 6.25 mg PO BID-WM #60 tab 09/18/17 10/28/17 Rx Furosemide [Lasix] 40 mg PO 0900,1400 #60 tab 09/18/17 10/28/17 Rx Lisinopril 2.5 mg PO DAILY #30 tablet 09/18/17 10/28/17 Rx Potassium Chloride 10 meq PO DAILY #30 tab 09/18/17 10/28/17 Rx Comments: Medication list based on med list at time of discharge of last hospital stay, about one month ago. - History PMHx: Nonischemic Cardiomyopathy, HTN PSHx: section X1 FHx: unknown Social: Denied alcohol, tobacco, drug use - Review of Systems General: denies: fever/chills, weight/appetite/sleep changes, night sweats Eyes: denies: eye pain, vision changes ENT: denies: nasal congestion, rhinorrhea Respiratory: reports: cough, exercise intolerance. denies: congestion, shortness of breath Cardiovascular: reports: edema. denies: chest pain, palpitation, paroxysmal nocturnal dyspnea, orthopnea Gastrointestinal: denies: nausea, vomiting, diarrhea, constipation, abdominal pain, GI bleeding Genitourinary: denies: incontinence, dysuria, polyuria Skin: denies: rashes, lesions Musculoskeletal: denies: pain, tenderness, stiffness Neurological: denies: numbness, syncope, seizure, weakness Psychological: denies: anxiety, depression - Vital signs BP: 122/87 HR: 98 RR: 20 Tmax: 98.4 Pox: 97% on RA Wt: 97 kg - Physical Exam Constitutional: NAD, awake, alert and oriented, well developed -Constitutional: obese HEENT: normocephalic and atraumatic, PERRLA, EOMI, conjunctiva clear, TM's clear and intact, MMM, oropharynx clear, good dention Neck: supple, FROM, trachea midline, no JVD -Chest: palpable thrill on left parasternal border Heart: RRR, no murmurs/rubs/gallops -Heart: S3 present Lungs: CTAB, no respiratory distress, good air movement, no rales/rhonchi, no wheezing Abdomen: soft, non-tender, bowel sounds present -Abdomen: distended abdomen with 2+ pitting edema up to lower ribs, minimal TTP in upper abdomen-difficult to localize Musculoskeletal: normal structure, normal tone, ROM grossly normal Neurological: no focal deficit, CN II-XII intact, normal sensation Skin: no rash/lesions Psychiatric: normal mood and affect, good judgment and insight, intact recent and remote memory FMR H&P: Results - Labs Result Diagrams: 10/28/17 04:59 10/28/17 04:59 Lab results: WBC 8.5 thou/uL (4.8-10.8) 10/27/17 21:20 Hgb 12.3 g/dL (12.0-16.0) 10/27/17 21:20 Hct 37.7 % (36.0-47.0) 10/27/17 21:20 MCV 89.3 fl (81.0-99.0) 10/27/17 21:20 Plt Count 216 thou/uL (130-400) 10/27/17 21:20 Neutrophils % 65.5 % (42.0-75.0) 10/27/17 21:20 Sodium 138 mmol/L (136-145) 10/27/17 21:20 Potassium 3.5 mmol/L (3.5-5.1) 10/27/17 21:20 Chloride 106 mmol/L (98-107) 10/27/17 21:20 Carbon Dioxide 25 mmol/L (22-29) 10/27/17 21:20 BUN 15 mg/dL (9.8-20.1) 10/27/17 21:20 Creatinine 0.76 mg/dL (0.6-1.1) 10/27/17 21:20 Glucose 136 mg/dL (70-105) H 10/27/17 21:20 Calcium 9.1 mg/dL (7.8-10.44) 10/27/17 21:20 Total Bilirubin 1.4 mg/dL (0.2-1.2) H 10/27/17 21:20 AST 24 U/L (5-34) 10/27/17 21:20 ALT 17 U/L (8-55) 10/27/17 21:20 Alkaline Phosphatase 150 U/L (40-150) 10/27/17 21:20 Creatine Kinase 98 U/L (29-168) 10/27/17 21:20 CK-MB (CK-2) 1.6 ng/mL (0-6.6) 10/27/17 21:20 B-Natriuretic Peptide 4414.3 pg/mL (0-100) H 10/27/17 21:20 Serum Total Protein 7.6 g/dL (6.0-8.3) 10/27/17 21:20 Albumin 3.4 g/dL (3.5-5.0) L 10/27/17 21:20 Lipase 27 U/L (8-78) 10/27/17 21:20 FMR H&P: A/P - Problem List (1) Acute on chronic combined systolic (congestive) and diastolic (congestive) heart failure Current Visit: Yes Status: Acute Code(s): I50.43 - ACUTE ON CHRONIC COMBINED SYSTOLIC AND DIASTOLIC HRT FAIL (2) Abdominal distention Current Visit: Yes Status: Acute Code(s): R14.0 - ABDOMINAL DISTENSION ( GASEOUS) (3) Nonischemic cardiomyopathy Current Visit: Yes Status: Chronic Code(s): I42.8 - OTHER CARDIOMYOPATHIES (4) Elevated troponin Current Visit: Yes Status: Acute Code(s): R74.8 - ABNORMAL LEVELS OF OTHER SERUM ENZYMES (5) HTN (hypertension) Current Visit: Yes Status: Chronic Code(s): I10 - ESSENTIAL (PRIMARY) HYPERTENSION (6) Elevated bilirubin Current Visit: Yes Status: Chronic Code(s): R17 - UNSPECIFIED JAUNDICE - Plan (1) Acute on Chronic Combined Systolic and Diastolic Congestive Heart Failure: Admit to Tele. BNP is 4414, elevated from previous admissions. Recent ECHO in August 2017 showed EF on 10% and grade 3/3 diastolic dysfunction. Repeat ECHO , trend cardiac enzymes. Initial trop was indeterminant. Patient has good O2 sats and is not dyspneic. Supplement O2 as needed. Continue to monitor. Diurese with IV lasix. Strict I/Os. Daily weights. Fluid restrict 1500 ml/day. Continue home meds. Consult Dr. Edwards in AM. (2) Abdominal Distention: Patient states her abdomen has never been this distended. No changes in bowel habits. No complaint of abdominal pain. Order KUB, abdominal US. Trend CBC and CMP. Normal LFTs. Total bilirubin is slightly elevated at 1.4. Alk phos is high normal at 150. Check direct bilirubin. (3) Elevated trops: Indeterminant. No complaints of chest pain. Heart Cath in 2017 showed no evidence of coronary artery disease. Trend cardiac enzymes. (4) Non-ischemic cardiomyopathy: continue home meds, see #1. (5) Elevated bilirubin: check direct bili. Continue to trend. (6) HTN: Home meds (7) Code status: FULL CODE (8) Diet: HH with low Na and fluid restrict at 1500 ml/day (9) Activity: ad jean-pierre Disposition/LOS: Admit to [facility], hospital stay > 2 days. 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 also endorses increase in LE edema and LOPEZ with mild SOB. Denies orthopnea and PND. Endorses full compliance with home medications. Last hospitalization (09/2017) pt discussed care with cardiology & EP who recommended AICD placement for which pt declined. Additionally had heart cath in 08/2016 showing no CAD. - Pertinent findings Laboratory Tests 10/27/17 10/27/17 10/27/17 21:20 21:20 21:20 WBC Hgb Hct Plt Count Sodium 138 Potassium 3.5 Chloride 106 Carbon Dioxide 25 Anion Gap 11 BUN 15 Creatinine 0.76 Estimated GFR (MDRD) Greater than 90 Glucose 136 H Calcium 9.1 Total Bilirubin 1.4 H AST 24 ALT 17 Alkaline Phosphatase 150 Creatine Kinase 98 CK-MB (CK-2) 1.6 Troponin I 0.044 H B-Natriuretic Peptide 4414.3 H 10/27/17 10/28/17 21:20 01:05 WBC 8.5 Hgb 12.3 Hct 37.7 Plt Count 216 Sodium Potassium Chloride Carbon Dioxide Anion Gap BUN Creatinine Estimated GFR (MDRD) Glucose Calcium Total Bilirubin AST ALT Alkaline Phosphatase Creatine Kinase CK-MB (CK-2) Troponin I 0.058 H B-Natriuretic Peptide Physical exam remarkable for: Gen- NAD, no resp distress. mildly uncomfortable appearing. CV- RRR with S3 gallop and palpable thrill Lungs- mild wheezes diffusely, faint crackles to rt lung base Abd- profound abd distension, no fluid wave. 1+ pitting edema on abdomen. palpable and mildly tender liver margin. normal bowel sounds. LE- 2+ pitting edema to base of ribs with extensive abdominal distension. CXR- marked cardiomegaly, small pleural effusions - Plan Date/Time: 10/28/17 0226 57yo AAF with pmhx mixed d/s CHF w/ EF 10-15% who presents with- 1) acute on chronic mixed CHF exacerbation- IV lasix bid for diuresis with strict I&O, daily weight, fluid restriction. educate again regarding CHF and need for medication compliance and AICD/life vest due to risk for fatal arrhythmia. continue maximal medical therapy (bb, acei, spironolactone, asa, statin) and will consult palliative care regarding goals of care/ prognosis. 2) Abd distension- likely due to #1, however palpable liver margin noted on exam and profoundly distended, therefore check KUB and abd US for ascites. nml LFTs aside from mildly inc bili. consider CT abdomen if exams negative. 3) HTN- continue home meds. I, [Dayana Callahan DO ([email or web address])], have evaluated this patient and agree with findings/plan as outlined by business analytics intern resident. Pertinent changes/additions are listed here. Attending Addendum - Attending Addendum Date/Time: 10/28/17 2279 I personally evaluated the patient and discussed the management with Dr. Mendez and [place]. The H&P is repeated by me. I agree with the History, Examination, Assessment and Plan documented above with any addition or exceptions noted below. We are looking into alternative etiology for anasarca than CHF although the latter remains the most likely cause.
[2017-10-28 05:25] LABS: #Eosinphils 0.1 thou/uL (0.0-0.7); #Lymphocytes 1.4 thou/uL (1.20-3.40); #Monocytes 0.9 thou/uL (0.11-0.59); #Neutrophils 5.3 thou/uL (1.40-6.50); %Basophils 0.6 % (0.0-1.0); %Eosinophils 1.2 % (0.0-10.0); %Lymphocytes 17.8 % (21.0-51.0); %Monocytes 11.4 % (0.0-10.0); Hemoglobin 12.2 g/dL (12.0-16.0); Mean Corpuscular HGB CONC 31.6 g/dL (32.0-36.0); Mean Corpuscular Hemoglobin 28.8 pg (27.0-31.0); Mean Corpuscular Volume 91.2 fl (81.0-99.0); Mean Platelet Volume 8.1 fL (7.4-10.4); Platelet Count 194 thou/uL (130-400); RBC Distribution Width 14.7 % (11.5-14.5); Red Blood Cell (RBC) Count 4.22 mill/uL (4.20-5.40); White Blood Cell (WBC) Count 7.7 thou/uL (4.8-10.8)
[2017-10-28 05:45] LABS: Anion Gap 15 mmol/L (10-20); BUN (Urea Nitrogen) 14 mg/dL (9.8-20.1); Calc. Creatinine Clearance 146 mL/min (70-130); Carbon Dioxide 22 mmol/L (22-29); Chloride 104 mmol/L (98-107); Estimated GFR-MDRD Greater than 90; Glucose 99 mg/dL (70-105); Potassium 3.6 mmol/L (3.5-5.1); Sodium 137 mmol/L (136-145)
[2017-10-28] MEDS: Furosemide 40 MG/4 ML VIAL SLOW IVP SCH ×2 (05:45→15:55)
[2017-10-28 05:52] LABS: Troponin I 0.042 ng/mL (< 0.028)
[2017-10-28 06:22] LABS: Bilirubin Negative (Negative); Blood, Urine Trace (Negative); Clarity CLEAR (Clear); Glucose, Urine (Dipstick) Negative (Negative); Leukocyte Negative (Negative); Nitrite Negative (Negative); Protein, Urine (Dipstick) Negative (Neg-Trace); Specific Gravity, Urine 1.013 (1.002-1.036)
[2017-10-28 06:25] LABS: Bacteria/HPF None Seen HPF (None Seen); Hyaline Casts/LPF 0-3 HYALINE CAST LPF (0-3 Hyaline); Squamous Epithelial 0-3 HPF (0-3); WBC/HPF 0-3 HPF (0-3)
[2017-10-28] MEDS ORDERED: Spironolactone 25 MG TAB PO SCH (08:00)
[2017-10-28] MEDS: Potassium Chloride 10 MEQ TAB PO SCH (09:10)
[2017-10-28] MEDS: Lisinopril 2.5 MG TAB PO SCH (09:10)
[2017-10-28] MEDS: Enoxaparin Sodium 40 MG/0.4 ML SYRINGE SC SCH (09:10)
[2017-10-28] MEDS: Aspirin 81 mg Enteric Coated Tablet PO SCH (09:11)
[2017-10-28] MEDS: Docusate 100 MG CAP PO SCH ×2 (09:11→21:21)
[2017-10-28] MEDS: Carvedilol 6.25 MG TAB PO SCH ×3 (09:11→16:03)
--- NOTE | 2017-10-28 10:13 | RAD ---
KUB: Date: 10-28-17 Comparison: None. History: Evaluate for fluid retention, abdominal distention. FINDINGS: The bowel gas pattern is nonobstructed. Supine imaging limits assessment for free intraperitoneal air and small bowel obstruction. IMPRESSION: Grossly unremarkable portable supine KUB. POS: [facility]
--- NOTE | 2017-10-28 10:15 | ULT ---
COMPLETE ABDOMINAL ULTRASOUND: INDICATION: Abdominal pain and bloating. FINDINGS: The visualized proximal abdominal aorta was normal caliber measuring 2 cm. The mid to distal abdomin al aorta is obscured by overlying bowel gas. The visualized aspects of the pancreas appear within no rmal limits. The majority of the pancreatic parenchyma is obscured. The liver measures 16.9 cm in its greatest longitudinal dimension. A small amount of fluid is seen a djacent to the right hepatic vein. Incidental note is made of a small right pleural effusion. The spleen measured 10.4 cm. A small amount of fluid is seen adjacent to the spleen. Some mild internal echoes are seen in the gallbladder fossa possibly related to gallbladder sludge. There is some gallbladder wall thickening measuring up to 4 mm which may be related to mild edema. N o sonographic Osman's sign is reported. The common bile duct measures 3.3 mm. The right kidney measured 1.4 cm in length. The left measured 1.7 cm. No hydronephrosis is evident. IMPRESSION: 1. Small right pleural effusion. 2. A small amount of ascites. 3. Mild gallbladder sludge. POS: [facility]
[2017-10-28] MEDS ORDERED: Iopamidol 370 76% 100 ML VIAL ONE (12:51)
--- NOTE | 2017-10-28 15:30 | CT ---
CT ABDOMEN WITH IV CONTRAST: INDICATIONS: History of CHF, pulmonary edema, and anasarca. FINDINGS: There is a small right pleural effusion. There is a small pericardial effusion. There is moderate c ardiomegaly. There is reflux of contrast within the hepatic veins, which can be seen with right hear t dysfunction. There is a 1.4 cm cyst within the lateral left hepatic lobe. There is a small amount of fluid seen within the right upper quadrant of the abdomen. The pancreas, adrenal glands, and kid neys are within normal limits. A small amount of fluid is seen adjacent to the spleen. There is mil d to moderate anasarca. IMPRESSION: 1. No definite acute osseous abnormality is evident. 2. Findings suggesting right heart dysfunction with reflux of contrast into the inferior vena cava a nd hepatic veins. 3. Small right pleural effusion, pericardial effusion, and anasarca. 4. Left hepatic lobe cyst. 5. No additional acute abnormality within the abdomen. POS: [facility]
[2017-10-28] MEDS ORDERED: Metolazone 5 MG TAB PO SCH (16:00)
[2017-10-28] MEDS ORDERED: Potassium Chloride 20 MEQ TAB PO SCH (16:00)
[2017-10-28] MEDS ORDERED: Furosemide 100 MG/10 ML VIAL SLOW IVP SCH (16:30)
[2017-10-28] MEDS: Atorvastatin Calcium 10 MG TAB PO SCH (21:21)
--- NOTE | 2017-10-28 22:47 | CON ---
DATE OF CONSULTATION: 10/28/2017 [employer]IMARY [employer] MANAGER: Zurdo Edwards M.D. REASON FOR CONSULTATION: Congestive heart failure. HISTORY OF PRESENT ILLNESS: Ms. Ondina Ley is a very pleasant 57-year-old patient with history o f cardiomyopathy, admitted with increasing fluid retention and shortness of breath. The patient states she has been having increasing amounts of difficulty breathing for about the last few weeks, she had increasing amounts of lower extremity swelling and more and more shortness of may th and a cough productive of foamy sputum. She came to the hospital where she is receiving diuretic therapy. PAST MEDICAL HISTORY: She has a history of cardiac catheterization in 2017 showing normal coronary a rteries. She has previously been advised to undergo defibrillator implantation, but previously decli andreas. MEDICATIONS: As an outpatient she was takin. Spironolactone 12.5 mg a day. 2. Lasix 40 mg orally twice a day. 3. Lisinopril 2.5 mg a day. 4. Potassium 10 mEq a day. 5. Atorvastatin. 6. Carvedilol. She said she has been on Entresto previously, but could not afford to stay on it, it is expensive, but she said she did feel better when she is on Entresto. ALLERGIES: None known. SOCIAL HISTORY: No alcohol or tobacco. FAMILY HISTORY: Negative for heart disease at a young age. REVIEW OF SYSTEMS: Constitutional: She has been gradually gaining weight due to fluid retention. Vi jaylen: No changes. Hearing: No changes. Pulmonary: Positive for cough and shortness of breath. C ardiac: Positive for cough, shortness of breath, and swelling of her lower extremities. Gastrointes tinal: No nausea, vomiting, diarrhea. Skin: No rashes. Neurologic: No unilateral weakness or num bness. Psychiatric: No unusual depression or anxiety. Hematologic: No unusual bruising. Genitour inary: No burning with urination. PHYSICAL EXAMINATION: GENERAL: This is a pleasant 57-year-old woman in no distress. VITAL SIGNS: Blood pressure most recently was 90/56, pulse 78, regular. EYES: Sclerae nonicteric. MOUTH: Mucous membranes are moist. NECK: Supple, no lymphadenopathy. LUNGS: Clear, no wheezing, rales or rhonchi. CARDIOVASCULAR: Normal S1, normal S2. I do not hear murmur, rub or gallop. ABDOMEN: Soft, nontender, no hepatosplenomegaly. EXTREMITIES: Warm, dry, no clubbing or cyanosis. There is severe peripheral edema. SKIN: Warm and dry. PERTINENT LABORATORY AND X-RAY FINDINGS: Hemoglobin is 12.2, potassium is 3.6. Troponin 0.058. Reviewing previous testing, she did have heart catheterization done in 2017. The patient was found t o have no coronary artery disease, increase in diastolic pressures with nonischemic dilated cardiomyo andrew, ejection fraction 30%. ASSESSMENT: 1. Nonischemic dilated cardiomyopathy with severe volume overload. 2. Previously had declined defibrillator implantation. PLAN: 1. We will give her extra diuretic dose tonight asked her to try to elevate her feet to mobilize the peripheral edema to try to get the edema out of the tissues into the blood stream and out at the uri ne. 2. Continue carvedilol. 3. ? We will try again with the Entresto perhaps she said she does have insulin perhaps you could us e the discount card. There is some evidence of Entresto is superior in this situation.
[2017-10-29 05:26] LABS: #Eosinphils 0.1 thou/uL (0.0-0.7); #Lymphocytes 1.5 thou/uL (1.20-3.40); #Neutrophils 5.6 thou/uL (1.40-6.50); %Basophils 0.5 % (0.0-1.0); %Eosinophils 1.6 % (0.0-10.0); %Lymphocytes 17.4 % (21.0-51.0); %Monocytes 12.4 % (0.0-10.0); Hemoglobin 11.8 g/dL (12.0-16.0); Mean Corpuscular HGB CONC 32.3 g/dL (32.0-36.0); Mean Corpuscular Hemoglobin 28.6 pg (27.0-31.0); Mean Corpuscular Volume 88.7 fl (81.0-99.0); Mean Platelet Volume 7.7 fL (7.4-10.4); Platelet Count 183 thou/uL (130-400); RBC Distribution Width 14.8 % (11.5-14.5); Red Blood Cell (RBC) Count 4.12 mill/uL (4.20-5.40); White Blood Cell (WBC) Count 8.3 thou/uL (4.8-10.8)
[2017-10-29 05:43] LABS: Anion Gap 14 mmol/L (10-20); BUN (Urea Nitrogen) 14 mg/dL (9.8-20.1); Calc. Creatinine Clearance 126 mL/min (70-130); Calcium 9.3 mg/dL (7.8-10.44); Carbon Dioxide 23 mmol/L (22-29); Chloride 101 mmol/L (98-107); Estimated GFR-MDRD Greater than 90; Glucose 123 mg/dL (70-105); Potassium 3.9 mmol/L (3.5-5.1); Sodium 134 mmol/L (136-145)
[2017-10-29] MEDS: Furosemide 40 MG/4 ML VIAL SLOW IVP SCH ×2 (06:06→14:49)
[2017-10-29 07:02] LABS: Hemoglobin A1c 5.7 % (4.0-6.0)
[2017-10-29] MEDS: Enoxaparin Sodium 40 MG/0.4 ML SYRINGE SC SCH (08:53)
[2017-10-29] MEDS: Lisinopril 2.5 MG TAB PO SCH (08:53)
[2017-10-29] MEDS: Carvedilol 6.25 MG TAB PO SCH ×2 (08:54→16:48)
[2017-10-29] MEDS: Aspirin 81 mg Enteric Coated Tablet PO SCH (08:54)
[2017-10-29] MEDS: Spironolactone 25 MG TAB PO SCH (08:54)
[2017-10-29] MEDS: Docusate 100 MG CAP PO SCH ×2 (08:54→21:09)
[2017-10-29] MEDS: Potassium Chloride 10 MEQ TAB PO SCH (08:54)
--- NOTE | 2017-10-29 10:40 | PDOC.FM ---
- Subjective Subjective: ERIK overnight, VSS, seen by cardiology yesterday. Reports improvement in abdominal and LE pain w/ decreased in swelling. No new complaints. - Objective MAR Reviewed: Yes Vital Signs & Weight: Vital Signs (12 hours) Temp Pulse Resp BP Pulse Ox 10/29/17 04:00 97.6 F 65 16 107/65 98 Weight Weight 95.073 kg I&O: 10/28/17 10/29/17 10/30/17 06:59 06:59 06:59 Intake Total 480 1350 Output Total 350 6050 Balance 130 -4700 Result Diagrams: 10/29/17 05:12 10/29/17 05:12 <Estrada Hines - Last Filed: 10/29/17 10:38> - Objective Vital Signs & Weight: Vital Signs (12 hours) Temp Pulse Resp BP Pulse Ox 10/30/17 05:31 104/66 10/30/17 04:06 98.0 F 77 20 92/60 95 10/29/17 20:42 98.1 F 81 16 104/72 98 Weight Weight 93.44 kg I&O: 10/29/17 10/30/17 10/31/17 06:59 06:59 06:59 Intake Total 1350 1440 Output Total 6050 3150 Balance -4700 -1710 Result Diagrams: 10/30/17 05:08 10/30/17 05:08 <Blayne Johnson - Last Filed: 10/30/17 07:50> Phys Exam - Physical Examination Constitutional: NAD Respiratory: clear to auscultation bilateral Cardiovascular: RRR S3 Gastrointestinal: positive bowel sounds 2+ to knee Neurological: moves all 4 limbs Psychiatric: A&O x 3 Skin: cap refill <2 seconds <Estrada Hines - Last Filed: 10/29/17 10:38> Dx/Plan (1) Acute on chronic combined systolic (congestive) and diastolic (congestive) heart failure Code(s): I50.43 - ACUTE ON CHRONIC COMBINED SYSTOLIC AND DIASTOLIC HRT FAIL Status: Acute Plan: Cont. w/ diuresis Cardiology on board Appreciate recs (2) HTN (hypertension) Code(s): I10 - ESSENTIAL (PRIMARY) HYPERTENSION Status: Chronic Plan: Cont. w/ home meds Stable (3) Nonischemic cardiomyopathy Code(s): I42.8 - OTHER CARDIOMYOPATHIES Status: Chronic Plan: Will consult case management for funding for possible entresto and life vest Cont. outpatient meds <Estrada Hines - Last Filed: 10/29/17 10:38> (1) Acute on chronic combined systolic (congestive) and diastolic (congestive) heart failure Code(s): I50.43 - ACUTE ON CHRONIC COMBINED SYSTOLIC AND DIASTOLIC HRT FAIL Status: Acute (2) Abdominal distention Code(s): R14.0 - ABDOMINAL DISTENSION (GASEOUS) Status: Acute (3) Nonischemic cardiomyopathy Code(s): I42.8 - OTHER CARDIOMYOPATHIES Status: Chronic (4) Elevated troponin Code(s): R74.8 - ABNORMAL LEVELS OF OTHER SERUM ENZYMES Status: Acute (5) HTN (hypertension) Code(s): I10 - ESSENTIAL (PRIMARY) HYPERTENSION Status: Chronic (6) Elevated bilirubin Code(s): R17 - UNSPECIFIED JAUNDICE Status: Chronic <Blayne Johnson - Last Filed: 10/30/17 07:50> Attending Addendum - Attending Addendum Date/Time: 10/30/17 0750 I personally evaluated the patient and discussed the management with Dr. Hines on 10/29/17. I agree with the History, Examination, Assessment and Plan documented above with any addition or exceptions noted below. <Blayne Johnson - Last Filed: 10/30/17 07:50>
--- NOTE | 2017-10-29 17:43 | PDOC.CTH ---
Cardiology Progress Note - Subjective She is doing better. Her leg edema and abdominal swelling is better but still there. - Objective Vital Signs Temp Pulse Pulse Pulse Resp BP BP 10/29/17 16:48 93/64 10/29/17 16:45 97.5 F L 74 18 10/29/17 14:05 10/29/17 11:35 97.6 F 76 16 10/29/17 11:00 82 79 98/64 10/29/17 08:35 98.1 F 82 16 10/29/17 08:30 98.1 F 82 16 BP BP Pulse Ox Pulse Ox Pulse Ox 10/29/17 16:48 10/29/17 16:45 93/64 97 10/29/17 14:05 98/57 L 10/29/17 11:35 98/62 96 10/29/17 11:00 94/56 L 100 96 10/29/17 08:35 10/29/17 08:30 103/66 96 Weight 209 lb 9.6 oz 10/28/17 10/29/17 10/30/17 06:59 06:59 06:59 Intake Total 480 1350 Output Total 350 6050 Balance 130 -4700 - Physical Examination General/Neuro: alert & oriented x3, NAD Neck: no JVD present Lungs: CTA, unlabored respirations Heart: RRR Abdomen: NT/ND Extremities: + edema B (2+) - Telemetry Telemetry Rhythm: NSR - Labs Result Diagrams: 10/29/17 05:12 10/29/17 05:12 Troponin/CKMB CK-MB (CK-2) 1.6 ng/mL (0-6.6) 10/27/17 21:20 Troponin I 0.042 ng/mL (< 0.028) H 10/28/17 04:59 - Assessment/Plan 1. Acute on chronic systolic and diastolic heart failure 2. EF at 10-15% 3. Non ischemic CM. 4. Normal coronaries. PLAN: - Continue IV lasix. - She is still not interested in an AICD. She is aware of the risk of sudden cardiac , she understands and verbalizes understanding of this.
[2017-10-29] MEDS: Atorvastatin Calcium 10 MG TAB PO SCH (21:09)
[2017-10-30 05:26] LABS: #Eosinphils 0.1 thou/uL (0.0-0.7); #Lymphocytes 1.8 thou/uL (1.20-3.40); #Monocytes 1.1 thou/uL (0.11-0.59); #Neutrophils 4.7 thou/uL (1.40-6.50); %Basophils 0.6 % (0.0-1.0); %Eosinophils 1.8 % (0.0-10.0); %Lymphocytes 22.7 % (21.0-51.0); %Monocytes 14.4 % (0.0-10.0); %Neutrophils 60.5 % (42.0-75.0); Hemoglobin 11.9 g/dL (12.0-16.0); Mean Corpuscular HGB CONC 32.2 g/dL (32.0-36.0); Mean Corpuscular Hemoglobin 28.5 pg (27.0-31.0); Mean Corpuscular Volume 88.4 fl (81.0-99.0); Mean Platelet Volume 7.4 fL (7.4-10.4); Platelet Count 197 thou/uL (130-400); RBC Distribution Width 14.4 % (11.5-14.5); Red Blood Cell (RBC) Count 4.19 mill/uL (4.20-5.40); White Blood Cell (WBC) Count 7.8 thou/uL (4.8-10.8)
[2017-10-30] MEDS: Furosemide 40 MG/4 ML VIAL SLOW IVP SCH ×2 (05:33→14:42)
[2017-10-30 05:47] LABS: Anion Gap 11 mmol/L (10-20); BUN (Urea Nitrogen) 17 mg/dL (9.8-20.1); Calc. Creatinine Clearance 132 mL/min (70-130); Calcium 9.5 mg/dL (7.8-10.44); Carbon Dioxide 28 mmol/L (22-29); Chloride 98 mmol/L (98-107); Estimated GFR-MDRD Greater than 90; Glucose 104 mg/dL (70-105); Potassium 3.3 mmol/L (3.5-5.1); Sodium 134 mmol/L (136-145)
[2017-10-30] MEDS ORDERED: Potassium Chloride 20 MEQ TAB PO SCH (06:45)
[2017-10-30] MEDS: Carvedilol 6.25 MG TAB PO SCH ×2 (08:41→18:36)
[2017-10-30] MEDS: Aspirin 81 mg Enteric Coated Tablet PO SCH (08:41)
[2017-10-30] MEDS: Lisinopril 2.5 MG TAB PO SCH (08:41)
[2017-10-30] MEDS: Docusate 100 MG CAP PO SCH ×2 (08:42→21:02)
[2017-10-30] MEDS: Potassium Chloride 10 MEQ TAB PO SCH (08:42)
[2017-10-30] MEDS: Enoxaparin Sodium 40 MG/0.4 ML SYRINGE SC SCH (08:42)
[2017-10-30] MEDS: Spironolactone 25 MG TAB PO SCH (08:42)
--- NOTE | 2017-10-30 10:45 | PDOC.FM ---
- Subjective Subjective: ERIK overnight, VSS. No new complaints. Reports continued improvement in swelling. Denies any chest pain or SOB. - Objective MAR Reviewed: Yes Vital Signs & Weight: Vital Signs (12 hours) Temp Pulse Resp BP Pulse Ox 10/30/17 08:41 77 10/30/17 05:31 104/66 10/30/17 04:06 98.0 F 77 20 92/60 95 Weight Weight 93.44 kg I&O: 10/29/17 10/30/17 10/31/17 06:59 06:59 06:59 Intake Total 1350 1440 Output Total 6050 3150 Balance -4700 -2120 Result Diagrams: 10/30/17 05:08 10/30/17 05:08 Phys Exam - Physical Examination Constitutional: NAD Respiratory: no wheezing, clear to auscultation bilateral Cardiovascular: RRR, no significant murmur S3 Gastrointestinal: soft, non-tender trace edema flanks abdomen 1-2+ LE to knee b/l improved from yesterday Neurological: moves all 4 limbs Psychiatric: A&O x 3 Skin: no rash Dx/Plan (1) Acute on chronic combined systolic (congestive) and diastolic (congestive) heart failure Code(s): I50.43 - ACUTE ON CHRONIC COMBINED SYSTOLIC AND DIASTOLIC HRT FAIL Status: Acute Plan: Cont. w/ diuresis Cardiology on board Appreciate recs Pt down 4 kg in weight Will discuss with cards transition back to PO lasix and discharge home w/ outpatient follow-up as she is not perusing AICD placement (2) HTN (hypertension) Code(s): I10 - ESSENTIAL (PRIMARY) HYPERTENSION Status: Chronic Plan: Cont. w/ home meds Stable (3) Nonischemic cardiomyopathy Code(s): I42.8 - OTHER CARDIOMYOPATHIES Status: Chronic Plan: Pt still not wanting to pursue AICD placement per cards note Cont. outpatient meds 8 beats VTach overnight, will await cards recs
--- NOTE | 2017-10-30 12:40 | PDOC.CTH ---
Cardiology Progress Note - Subjective Better every day. Swelling better but still there. Had a small run of non sustained VT. - Objective Vital Signs Temp Pulse Pulse Pulse Resp BP BP 10/30/17 09:51 75 85 104/69 93/60 10/30/17 08:41 77 10/30/17 08:40 98.0 F 79 16 10/30/17 05:31 10/30/17 04:06 98.0 F 77 20 BP Pulse Ox Pulse Ox Pulse Ox 10/30/17 09:51 94 L 96 10/30/17 08:41 10/30/17 08:40 109/74 96 10/30/17 05:31 104/66 10/30/17 04:06 92/60 95 Weight 206 lb 10/29/17 10/30/17 10/31/17 06:59 06:59 06:59 Intake Total 1350 1440 Output Total 6050 3150 Balance -4700 -1710 - Physical Examination General/Neuro: alert & oriented x3, NAD Neck: no JVD present Lungs: CTA, unlabored respirations Heart: RRR Abdomen: NT/ND Extremities: + edema B (3+) - Telemetry Telemetry Rhythm: NSR, NSVT - Labs Result Diagrams: 10/30/17 05:08 10/30/17 05:08 Troponin/CKMB CK-MB (CK-2) 1.6 ng/mL (0-6.6) 10/27/17 21:20 Troponin I 0.042 ng/mL (< 0.028) H 10/28/17 04:59 - Assessment/Plan 1. Acute on chronic systolic and diastolic heart failure 2. EF at 10-15% 3. Non ischemic CM. 4. Normal coronaries. 5. Non sustained VT PLAN: - Continue IV lasix today and tomorrow then switch to PO. - I explained to her the rhythm that we saw on monitor and she is still not interested in an AICD. She understands and verbalizes understanding of this. - Continue other meds. - Wilian Bauer
[2017-10-30] MEDS: Atorvastatin Calcium 10 MG TAB PO SCH (21:02)
[2017-10-31] MEDS: Furosemide 40 MG/4 ML VIAL SLOW IVP SCH ×2 (05:29→14:23)
[2017-10-31 05:39] LABS: #Basophils 0.1 thou/uL (0.0-0.2); #Eosinphils 0.1 thou/uL (0.0-0.7); #Lymphocytes 1.4 thou/uL (1.20-3.40); #Neutrophils 4.4 thou/uL (1.40-6.50); %Basophils 0.8 % (0.0-1.0); %Eosinophils 1.7 % (0.0-10.0); %Monocytes 14.7 % (0.0-10.0); %Neutrophils 62.8 % (42.0-75.0); Hemoglobin 11.8 g/dL (12.0-16.0); Mean Corpuscular HGB CONC 32.7 g/dL (32.0-36.0); Mean Corpuscular Hemoglobin 28.9 pg (27.0-31.0); Mean Corpuscular Volume 88.4 fl (81.0-99.0); Mean Platelet Volume 7.8 fL (7.4-10.4); Platelet Count 191 thou/uL (130-400); RBC Distribution Width 14.6 % (11.5-14.5); Red Blood Cell (RBC) Count 4.08 mill/uL (4.20-5.40)
[2017-10-31 06:03] LABS: Anion Gap 12 mmol/L (10-20); BUN (Urea Nitrogen) 17 mg/dL (9.8-20.1); Calc. Creatinine Clearance 129 mL/min (70-130); Calcium 9.4 mg/dL (7.8-10.44); Carbon Dioxide 28 mmol/L (22-29); Chloride 99 mmol/L (98-107); Estimated GFR-MDRD Greater than 90; Glucose 87 mg/dL (70-105); Potassium 3.7 mmol/L (3.5-5.1); Sodium 135 mmol/L (136-145)
--- NOTE | 2017-10-31 07:53 | PDOC.FM ---
- Subjective Subjective: Patient sitting up in bed this morning. No complaints at this time. No acute events overnight, per nursing. NSR overnight Afebrile, VSS - Objective MAR Reviewed: Yes Vital Signs & Weight: Vital Signs (12 hours) Temp Pulse Resp BP Pulse Ox 10/31/17 05:34 97 10/31/17 04:00 97.9 F 73 20 106/66 97 10/31/17 00:00 76 18 100/60 10/30/17 20:00 98.3 F 79 20 96 Weight Weight 91.172 kg I&O: 10/30/17 10/31/17 11/01/17 06:59 06:59 06:59 Intake Total 1440 1080 Output Total 3150 2500 Balance -1710 -1420 Result Diagrams: 10/31/17 05:04 10/31/17 05:04 <Grey Álvarez - Last Filed: 10/31/17 07:51> - Objective Vital Signs & Weight: Vital Signs (12 hours) Temp Pulse Resp BP BP Pulse Ox 10/31/17 09:44 98.7 F 88 18 100 10/31/17 09:29 73 107/74 10/31/17 05:34 97 10/31/17 04:00 97.9 F 73 20 106/66 97 10/31/17 00:00 76 18 100/60 Weight Weight 91.172 kg I&O: 10/30/17 10/31/17 11/01/17 06:59 06:59 06:59 Intake Total 1440 1080 Output Total 3150 2500 Balance -1710 -1420 Result Diagrams: 10/31/17 05:04 10/31/17 05:04 <Darnell Fulton - Last Filed: 10/31/17 11:06> Phys Exam - Physical Examination Constitutional: NAD HEENT: moist MMs Neck: no nodes, no JVD Respiratory: no wheezing, no rales Cardiovascular: RRR, no significant murmur Gastrointestinal: soft, non-tender Musculoskeletal: no edema Neurological: moves all 4 limbs Psychiatric: normal affect, A&O x 3 Skin: no rash <Grey Álvarez - Last Filed: 10/31/17 07:51> Dx/Plan (1) Acute on chronic combined systolic (congestive) and diastolic (congestive) heart failure Code(s): I50.43 - ACUTE ON CHRONIC COMBINED SYSTOLIC AND DIASTOLIC HRT FAIL Status: Acute Plan: Cardiology managing transition to PO lasix I/O: -1.7L in last 24 hours Weight continues to decrease Patient back to baseline declined AICD despite recommendation (2) HTN (hypertension) Code(s): I10 - ESSENTIAL (PRIMARY) HYPERTENSION Status: Chronic Plan: Continue lisinopril, spironolactone, carvedilol Pressures appropriate this morning Asymptomatic (3) Nonischemic cardiomyopathy Code(s): I42.8 - OTHER CARDIOMYOPATHIES Status: Chronic Plan: No V tach on tele monitoring Does not want AICD despite recommendations from Cardiology and primary team - Plan Plan: Plan: -transition to PO lasix with d/c home tomorrow per Cardiology <Grey Álvarez - Last Filed: 10/31/17 07:51> Attending Addendum - Attending Addendum Date/Time: 10/31/17 1105 I personally evaluated the patient and discussed the management with Dr. Álvarez. I agree with the History, Examination, Assessment and Plan documented above with any addition or exceptions noted below. Patient feels well. Swelling improved, and breathing well on room air. Continue IV diuresis today per Cardiology and then transition back to PO meds. Will decrease her Coreg to 3.125 BID to help allow her to receive the medication appropriately. Hopeful discharge tomorrow if doing well. <Darnell Fulton - Last Filed: 10/31/17 11:06>
[2017-10-31] MEDS: Spironolactone 25 MG TAB PO SCH (09:29)
[2017-10-31] MEDS: Lisinopril 2.5 MG TAB PO SCH ×2 (09:29→21:56)
[2017-10-31] MEDS: Potassium Chloride 10 MEQ TAB PO SCH (09:29)
[2017-10-31] MEDS: Aspirin 81 mg Enteric Coated Tablet PO SCH (09:29)
[2017-10-31] MEDS: Acetaminophen 325 MG TAB PO PRN (09:30)
[2017-10-31] MEDS: Docusate 100 MG CAP PO SCH ×2 (09:30→21:53)
[2017-10-31] MEDS: Enoxaparin Sodium 40 MG/0.4 ML SYRINGE SC SCH (09:30)
[2017-10-31] MEDS: Carvedilol 6.25 MG TAB PO SCH ×2 (10:05→17:19)
[2017-10-31] MEDS ORDERED: Carvedilol 3.125 MG TAB PO SCH (17:00)
[2017-10-31] MEDS: Atorvastatin Calcium 10 MG TAB PO SCH (21:53)
[2017-11-01] MEDS: Furosemide 40 MG/4 ML VIAL SLOW IVP SCH (05:55)
[2017-11-01 06:17] LABS: Anion Gap 10 mmol/L (10-20); BUN (Urea Nitrogen) 17 mg/dL (9.8-20.1); Calc. Creatinine Clearance 126 mL/min (70-130); Calcium 9.2 mg/dL (7.8-10.44); Carbon Dioxide 29 mmol/L (22-29); Chloride 100 mmol/L (98-107); Estimated GFR-MDRD Greater than 90; Glucose 102 mg/dL (70-105); Potassium 3.3 mmol/L (3.5-5.1); Sodium 136 mmol/L (136-145)
[2017-11-01 06:22] LABS: Band 1 % (5-11); Eosinophils 1 % (0-10); Hemoglobin 11.9 g/dL (12.0-16.0); Lymphocytes 22 % (21-51); MDiff Complete? YES; Mean Corpuscular HGB CONC 32.3 g/dL (32.0-36.0); Mean Corpuscular Hemoglobin 28.5 pg (27.0-31.0); Mean Corpuscular Volume 88.5 fl (81.0-99.0); Mean Platelet Volume 7.5 fL (7.4-10.4); Monocytes 19 % (0-10); Neutrophil 57 % (42-75); Platelet Count 188 thou/uL (130-400); RBC Distribution Width 14.6 % (11.5-14.5); Red Blood Cell (RBC) Count 4.17 mill/uL (4.20-5.40); White Blood Cell (WBC) Count 6.9 thou/uL (4.8-10.8)
--- NOTE | 2017-11-01 07:41 | PDOC.FM ---
- Subjective Subjective: Patient doing well with no complaints this morning. No acute events overnight. No issues per nursing. - Objective MAR Reviewed: Yes Vital Signs & Weight: Vital Signs (12 hours) Temp Pulse Resp BP BP Pulse Ox 11/01/17 04:00 97.6 F 70 20 108/72 97 11/01/17 00:00 97.6 F 72 18 100/73 98 10/31/17 20:00 97.6 F 72 20 98/57 L 95 Weight Weight 89.131 kg I&O: 10/31/17 11/01/17 11/02/17 06:59 06:59 06:59 Intake Total 1080 1864 Output Total 2500 3870 Balance -142 Result Diagrams: 11/01/17 05:21 11/01/17 05:21 <Grey Álvarez C - Last Filed: 11/01/17 07:40> - Objective Vital Signs & Weight: Vital Signs (12 hours) Temp Pulse Resp BP BP Pulse Ox 11/01/17 08:49 98.7 F 82 18 108/66 95 11/01/17 08:44 98.7 F 82 18 11/01/17 04:00 97.6 F 70 20 108/72 97 11/01/17 00:00 97.6 F 72 18 100/73 98 Weight Weight 89.131 kg I&O: 10/31/17 11/01/17 11/02/17 06:59 06:59 06:59 Intake Total 1080 1864 Output Total 2500 3870 Balance Result Diagrams: 11/01/17 05:21 11/01/17 05:21 <Darnell Fulton - Last Filed: 11/01/17 11:01> Phys Exam - Physical Examination Constitutional: NAD HEENT: moist MMs Neck: no nodes, no JVD Respiratory: no wheezing, no rales Cardiovascular: RRR, no significant murmur Gastrointestinal: soft, non-tender Musculoskeletal: no edema Neurological: moves all 4 limbs Psychiatric: normal affect, A&O x 3 <Grey Álvarez - Last Filed: 11/01/17 07:40> Dx/Plan (1) Acute on chronic combined systolic (congestive) and diastolic (congestive) heart failure Code(s): I50.43 - ACUTE ON CHRONIC COMBINED SYSTOLIC AND DIASTOLIC HRT FAIL Status: Acute Plan: Cardiology managing transition to PO lasix today I/O: -1.4L in last 24 hours Weight continues to decrease- down 8kg since admission Patient back to baseline declined AICD despite recommendation (2) HTN (hypertension) Code(s): I10 - ESSENTIAL (PRIMARY) HYPERTENSION Status: Chronic Plan: Continue lisinopril, spironolactone, carvedilol Pressures appropriate this morning Asymptomatic (3) Nonischemic cardiomyopathy Code(s): I42.8 - OTHER CARDIOMYOPATHIES Status: Chronic Plan: No V tach on tele monitoring Does not want AICD despite recommendations from Cardiology and primary team - Plan Plan: Plan: -monitor vitals this AM with likely d/c this afternoon <Grey Álvarez - Last Filed: 11/01/17 07:40> Attending Addendum - Attending Addendum Date/Time: 11/01/17 1100 I personally evaluated the patient and discussed the management with Dr. Álvarez. I agree with the History, Examination, Assessment and Plan documented above with any addition or exceptions noted below. Patient doing well and has diuresed well during this stay. She has been transitioned to PO Lasix and will be discharged home today for follow up with Dr. Edwards as outpatient. <Darnell Fulton - Last Filed: 11/01/17 11:01>
[2017-11-01] MEDS: Acetaminophen 325 MG TAB PO PRN (08:42)
[2017-11-01] MEDS: Carvedilol 6.25 MG TAB PO SCH (08:42)
[2017-11-01] MEDS: Spironolactone 25 MG TAB PO SCH (08:42)
[2017-11-01] MEDS: Docusate 100 MG CAP PO SCH (08:42)
[2017-11-01] MEDS: Lisinopril 2.5 MG TAB PO SCH (08:43)
[2017-11-01] MEDS: Enoxaparin Sodium 40 MG/0.4 ML SYRINGE SC SCH (08:43)
[2017-11-01] MEDS: Aspirin 81 mg Enteric Coated Tablet PO SCH (08:43)
[2017-11-01] MEDS: Furosemide 40 MG TAB PO SCH ×2 (08:43→14:24)
[2017-11-01] MEDS: Potassium Chloride 10 MEQ TAB PO SCH (08:43)
[2017-11-01 13:11] VITALS: BP 92/63; TEMP 97.9
--- NOTE | 2017-11-01 13:18 | DIS-2 ---
DATE OF ADMISSION: 10/28/2017 DATE OF DISCHARGE: 11/01/2017 ADMITTING ATTENDING: Osorio Tompkins M.D. DISCHARGE ATTENDING: Darnell Fulton MD RESIDENT: Estrada Hines M.D. CONSULTATIONS: Cardiology, Dr. Edwards. PROCEDURES: None. PRIMARY DIAGNOSES: 1. Acute on chronic mixed congestive heart failure exacerbation. 2. Anasarca. SECONDARY DIAGNOSES: 1. Hypertension. 2. Depression. DISCHARGE MEDICATIONS: 1. Lasix 40 mg p.o. b.i.d. 2. Lipitor 10 mg p.o. at bedtime. 3. Coreg 6.25 mg p.o. b.i.d. with meals. 4. Lisinopril 2.5 mg p.o. daily. 5. Potassium chloride 10 mEq p.o. daily. 6. Spironolactone 12.5 mg p.o. q.a.m. with meals. 7. Aspirin 81 mg p.o. daily. DISCONTINUED MEDICATIONS: None. HISTORY OF PRESENT ILLNESS: The patient is a 57-year-old female with past medical history of mixed s ystolic and diastolic congestive heart failure with ejection fraction of 10% last performed in 8, alongside of grade 3/3 diastolic dysfunction, who initially presented for 1-2 day history of worse maykel swelling in her legs and abdomen. BNP obtained at admission was 4414, which was above her usual baseline of what appears to be 2000 to 3000. The patient had a negative chest x-ray and denied any chest pain or shortness of breath symptoms during this time. Dr. Edwards of Cardiology was consulted who agreed with initial plan of aggressive fluid diuresis with IV Lasix. The patient did well with d iuresis and restriction over to p.o. Lasix on the day of discharge. The patient has to follow up mohit Edwards in outpatient setting for further followup of her severe heart failure. Case management was consulted during hospitalization for help with patient having LifeVest; however, this was unsucc essful. She has had many attempts in the past to get this and is unable to. Dr. Edwards also discuss ed possible AICD placement at length with the patient, which she refused. DISPOSITION: Guarded. FOLLOWUP: 1. Follow up with primary care physician in 7 to 10 days. 2. Follow up with Dr. Edwards in 5 to 7 days. ACTIVITY: Cardiopulmonary limits. LOCATION: Home.
--- NOTE | 2017-11-08 00:25 | EKG ---
Test Reason : Blood Pressure : / mmHG Vent. Rate : 089 BPM Atrial Rate : 089 BPM P-R Int : 172 ms QRS Dur : 076 ms QT Int : 386 ms P-R-T Axes : 039 071 017 degrees QTc Int : 469 ms Normal sinus rhythm Low voltage QRS Borderline ECG Confirmed by MAYCO ROSAS ([id number]), graphic editor FREEDOM BECKETT ([id number]) on 11/08/2017 12:25:00 AM Referred By: Confirmed By:MAYCO ROSAS
== END 2017-11-01 14:46 | disposition home or self-care (01) | DRG 292 ==
LOC: ERS 21:00 → 2NO 10-28 03:20
PROVIDERS: ADMIT Family Medicine; ATTEND Family Medicine
DX: I11.0 Hypertensive heart disease with heart failure (principal); I47.2 Ventricular tachycardia; R17 Unspecified jaundice; I50.43 Acute on chronic combined systolic (congestive) and diastolic (congestive) heart failure; I42.0 Dilated cardiomyopathy; F32.9 Major depressive disorder, single episode, unspecified; Z53.29 Procedure and treatment not carried out because of patient's decision for other reasons
CPT/HCPCS: 36415; 71045; 74018; 74160; 76700; 80048; 80053; 81001; 82248; 82553; 83036; 83690; 83880; 84484; 85025; 93005; 93798; 96374; A4216; J1650; J1940

== ENCOUNTER 2017-12-21 18:16 | Emergency (ER) | payer OTHER ==
[2017-12-21 19:01] LABS: #Eosinphils 0.2 thou/uL (0.0-0.7); #Lymphocytes 1.4 thou/uL (1.20-3.40); #Neutrophils 4.4 thou/uL (1.40-6.50); %Basophils 0.6 % (0.0-1.0); %Eosinophils 2.7 % (0.0-10.0); %Lymphocytes 20.3 % (21.0-51.0); %Monocytes 13.7 % (0.0-10.0); %Neutrophils 62.7 % (42.0-75.0); Hemoglobin 12.2 g/dL (12.0-16.0); Mean Corpuscular HGB CONC 31.7 g/dL (32.0-36.0); Mean Corpuscular Hemoglobin 28.4 pg (27.0-31.0); Mean Corpuscular Volume 89.4 fl (81.0-99.0); Mean Platelet Volume 7.8 fL (7.4-10.4); Platelet Count 159 thou/uL (130-400); RBC Distribution Width 14.5 % (11.5-14.5); White Blood Cell (WBC) Count 7.1 thou/uL (4.8-10.8)
[2017-12-21 19:27] LABS: ALT (SGPT) 19 U/L (8-55); AST (SGOT) 30 U/L (5-34); Albumin 3.3 g/dL (3.5-5.0); Alkaline Phosphatase 126 U/L (40-150); Anion Gap 10 mmol/L (10-20); BUN (Urea Nitrogen) 20 mg/dL (9.8-20.1); Bilirubin, Total 2.6 mg/dL (0.2-1.2); Calc. Creatinine Clearance 0 mL/min (70-130); Calcium 8.7 mg/dL (7.8-10.44); Carbon Dioxide 25 mmol/L (22-29); Chloride 104 mmol/L (98-107); Estimated GFR-MDRD 86; Globulin 4.1 g/dL (2.4-3.5); Glucose 180 mg/dL (70-105); Potassium 3.3 mmol/L (3.5-5.1); Protein, Total 7.4 g/dL (6.0-8.3); Sodium 136 mmol/L (136-145)
--- NOTE | 2017-12-21 20:55 | PDOC.FPRHP ---
- History of Present Illness Chief Complaint: Leg swelling - Allergies/Adverse Reactions Allergies Allergy/AdvReac Type Severity Reaction Status Date / Time No Known Drug Allergies Allergy Verified 12/17/13 15:23 - Home Medications Medication Instructions Recorded Confirmed Type Spironolactone [Aldactone] 12.5 mg PO QAM-WM #30 tab 08/27/16 10/28/17 Rx Aspirin 81 mg PO DAILY #30 tab.chew 09/18/17 10/28/17 Rx Atorvastatin Calcium [Lipitor] 10 mg PO HS #30 tab 09/18/17 10/28/17 Rx Carvedilol [Coreg] 6.25 mg PO BID-WM #60 tab 09/18/17 10/28/17 Rx Furosemide [Lasix] 40 mg PO 0900,1400 #60 tab 09/18/17 10/28/17 Rx Lisinopril 2.5 mg PO DAILY #30 tablet 09/18/17 10/28/17 Rx Potassium Chloride 10 meq PO DAILY #30 tab 09/18/17 10/28/17 Rx - History PMHx: PSHx: FHx: Social: - Vital signs BP: [] HR: [] RR: [] Tmax: [] Pox: []% on [] Wt: [] FMR H&P: Results - Labs Result Diagrams: 12/21/17 18:53 12/21/17 18:53 Lab results: WBC 7.1 thou/uL (4.8-10.8) 12/21/17 18:53 Hgb 12.2 g/dL (12.0-16.0) 12/21/17 18:53 Hct 38.5 % (36.0-47.0) 12/21/17 18:53 MCV 89.4 fl (81.0-99.0) 12/21/17 18:53 Plt Count 159 thou/uL (130-400) 12/21/17 18:53 Neutrophils % 62.7 % (42.0-75.0) 12/21/17 18:53 Sodium 136 mmol/L (136-145) 12/21/17 18:53 Potassium 3.3 mmol/L (3.5-5.1) L 12/21/17 18:53 Chloride 104 mmol/L (98-107) 12/21/17 18:53 Carbon Dioxide 25 mmol/L (22-29) 12/21/17 18:53 BUN 20 mg/dL (9.8-20.1) 12/21/17 18:53 Creatinine 0.83 mg/dL (0.6-1.1) 12/21/17 18:53 Glucose 180 mg/dL (70-105) H 12/21/17 18:53 Calcium 8.7 mg/dL (7.8-10.44) 12/21/17 18:53 Total Bilirubin 2.6 mg/dL (0.2-1.2) H 12/21/17 18:53 AST 30 U/L (5-34) 12/21/17 18:53 ALT 19 U/L (8-55) 12/21/17 18:53 Alkaline Phosphatase 126 U/L (40-150) 12/21/17 18:53 B-Natriuretic Peptide 3701.2 pg/mL (0-100) H 12/21/17 18:53 Serum Total Protein 7.4 g/dL (6.0-8.3) 12/21/17 18:53 Albumin 3.3 g/dL (3.5-5.0) L 12/21/17 18:53 FMR H&P: Upper Level - Plan Date/Time: 12/21/172053 I, [], have evaluated this patient and agree with findings/plan as outlined by software engineer intern resident. Pertinent changes/additions are listed here.
[2017-12-21] MEDS ORDERED: Furosemide 40 MG/4 ML VIAL ONE (21:26)
--- NOTE | 2017-12-21 21:31 | RAD ---
PORTABLE CHEST: Date: 12/21/17 PROVIDED CLINICAL HISTORY: Edema. FINDINGS: Comparison with 10/27/17. Marked enlargement of the cardiac silhouette is redemonstrated. No focal consolidation, pleural fluid , or pneumothorax apparent. Pulmonary vasculature is mildly prominent, similar to the prior study. IMPRESSION: Stable radiographic appearance of the chest. POS: [facility]
== END 2017-12-21 21:35 | disposition home or self-care (01) ==
LOC: ERS 18:16
DX: I11.0 Hypertensive heart disease with heart failure (principal); I50.9 Heart failure, unspecified
CPT/HCPCS: 36415; 71045; 80053; 83880; 85025; 93005; 96374; J1940; J7620

== ENCOUNTER 2018-05-25 00:50 | Inpatient (IN) | payer OTHER ==
[2018-05-25 01:29] LABS: #Basophils 0.1 thou/uL (0.0-0.2); #Eosinphils 0.2 thou/uL (0.0-0.7); #Lymphocytes 1.4 thou/uL (1.20-3.40); #Neutrophils 4.6 thou/uL (1.40-6.50); %Eosinophils 2.5 % (0.0-10.0); %Lymphocytes 19.5 % (21.0-51.0); %Monocytes 13.7 % (0.0-10.0); %Neutrophils 63.3 % (42.0-75.0); Hemoglobin 12.2 g/dL (12.0-16.0); Mean Corpuscular HGB CONC 33.1 g/dL (32.0-36.0); Mean Corpuscular Hemoglobin 30.5 pg (27.0-31.0); Mean Platelet Volume 8.7 fL (7.4-10.4); Platelet Count 162 thou/uL (130-400); RBC Distribution Width 14.1 % (11.5-14.5); Red Blood Cell (RBC) Count 4.01 mill/uL (4.20-5.40); White Blood Cell (WBC) Count 7.2 thou/uL (4.8-10.8)
[2018-05-25 01:50] LABS: ALT (SGPT) 20 U/L (8-55); AST (SGOT) 34 U/L (5-34); Albumin 3.7 g/dL (3.5-5.0); Alkaline Phosphatase 135 U/L (40-150); Anion Gap 14 mmol/L (10-20); BUN (Urea Nitrogen) 34 mg/dL (9.8-20.1); Bilirubin, Total 2.7 mg/dL (0.2-1.2); CK (CPK) 191 U/L (29-168); Calc. Creatinine Clearance 0 mL/min (70-130); Calcium 9.4 mg/dL (7.8-10.44); Carbon Dioxide 28 mmol/L (22-29); Chloride 98 mmol/L (98-107); Estimated GFR-MDRD 59; Globulin 4.6 g/dL (2.4-3.5); Glucose 114 mg/dL (70-105); Lipase 31 U/L (8-78); Magnesium 1.8 mg/dL (1.6-2.6); Protein, Total 8.3 g/dL (6.0-8.3); Sodium 137 mmol/L (136-145)
[2018-05-25 01:53] LABS: CKMB 1.6 ng/mL (0-6.6); Potassium 2.8 mmol/L (3.5-5.1); Troponin I 0.067 ng/mL (< 0.028)
[2018-05-25] MEDS ORDERED: Potassium Chloride 20 MEQ TAB ONE (02:04)
--- NOTE | 2018-05-25 02:28 | PDOC.FPRHP ---
- History of Present Illness Chief Complaint: abdominal fullness History of Present Illness: 57yo F with pmh of HFrEF and HTN presents for 3 day hx of worsening abdominal fullness. Pt denies pain associated with fullness. No related nausea or vomiting , no transforming factors. Pt denies hx of liver disease. Reports that she had one similar episode in December that resolved with home lasix use. Pt denies SOB at rest, orthopnea, paroxysmal nocturnal dyspnea. Endorses worsening SOB on exertion over last month. No CP. ED Course: Potassium 40mg PO and 40mg IV, Lasix 60mg IV - Allergies/Adverse Reactions Allergies Allergy/AdvReac Type Severity Reaction Status Date / Time No Known Drug Allergies Allergy Verified 12/17/13 15:23 - Home Medications Medication Instructions Recorded Confirmed Type Spironolactone [Aldactone] 12.5 mg PO QAM-WM #30 tab 08/27/16 05/25/18 Rx Aspirin 81 mg PO DAILY #30 tab.chew 09/18/17 05/25/18 Rx Atorvastatin Calcium [Lipitor] 10 mg PO HS #30 tab 09/18/17 05/25/18 Rx Carvedilol [Coreg] 6.25 mg PO BID-WM #60 tab 09/18/17 05/25/18 Rx Potassium Chloride 10 meq PO DAILY #30 tab 09/18/17 05/25/18 Rx Furosemide [Lasix] 40 mg PO 0900 05/25/18 05/25/18 History Losartan Potassium 25 mg PO DAILY 05/25/18 05/25/18 History - History PMHx: HFrEF, HTN, HLD PSHx: C section x2 FHx: Breast cancer (mother at 88yo), Pancreatic cancer (brother) Social: denies EtOH/tobacco/drugs - Review of Systems General: denies: fever/chills, fatigue Eyes: denies: vision changes ENT: reports: nasal congestion Respiratory: reports: cough, shortness of breath (on exertion per hpi). denies : congestion Cardiovascular: denies: chest pain, palpitation, paroxysmal nocturnal dyspnea, orthopnea Gastrointestinal: denies: nausea, vomiting Genitourinary: reports: other (no hematuria). denies: dysuria Skin: denies: rashes, lesions Musculoskeletal: denies: pain, tenderness Neurological: denies: syncope, seizure Psychological: denies: anxiety, depression - Vital signs BP: [106/81] HR: [79] RR: [20] Tmax: [97.5] Pox: [98]% on [RA] Wt: [81kg] - Physical Exam Constitutional: NAD, awake, alert and oriented HEENT: normocephalic and atraumatic, EOMI, grossly normal vision, grossly normal hearing, MMM Neck: supple, trachea midline, no JVD Chest: no-tender to palpation -Chest: palpable thrill Heart: RRR, no murmurs/rubs/gallops, no edema, other (S3) Lungs: no respiratory distress, good air movement, other (diffuse bilateral end expiratory crackles) Abdomen: non-tender, bowel sounds present, other (distended) Musculoskeletal: normal structure, normal tone Neurological: no focal deficit, normal sensation Skin: no rash/lesions, good turgor, capillary refill <2 seconds Heme/Lymphatic: no unusual bruising or bleeding, no purpura, no petechia Psychiatric: normal mood and affect, good judgment and insight FMR H&P: Results - Labs Result Diagrams: 05/25/18 01:16 05/25/18 01:16 Lab results: WBC 7.2 thou/uL (4.8-10.8) 05/25/18 01:16 Hgb 12.2 g/dL (12.0-16.0) 05/25/18 01:16 Hct 36.9 % (36.0-47.0) 05/25/18 01:16 MCV 92.0 fL (78.0-98.0) 05/25/18 01:16 Plt Count 162 thou/uL (130-400) 05/25/18 01:16 Neutrophils % 63.3 % (42.0-75.0) 05/25/18 01:16 Sodium 137 mmol/L (136-145) 05/25/18 01:16 Potassium 2.8 mmol/L (3.5-5.1) L* 05/25/18 01:16 Chloride 98 mmol/L (98-107) 05/25/18 01:16 Carbon Dioxide 28 mmol/L (22-29) 05/25/18 01:16 BUN 34 mg/dL (9.8-20.1) H 05/25/18 01:16 Creatinine 1.15 mg/dL (0.6-1.1) H 05/25/18 01:16 Glucose 114 mg/dL (70-105) H 05/25/18 01:16 Calcium 9.4 mg/dL (7.8-10.44) 05/25/18 01:16 Total Bilirubin 2.7 mg/dL (0.2-1.2) H 05/25/18 01:16 AST 34 U/L (5-34) 05/25/18 01:16 ALT 20 U/L (8-55) 05/25/18 01:16 Alkaline Phosphatase 135 U/L (40-150) 05/25/18 01:16 Creatine Kinase 191 U/L (29-168) H 05/25/18 01:16 CK-MB (CK-2) 1.6 ng/mL (0-6.6) 05/25/18 01:16 B-Natriuretic Peptide 9080.1 pg/mL (0-100) H 05/25/18 01:16 Serum Total Protein 8.3 g/dL (6.0-8.3) 05/25/18 01:16 Albumin 3.7 g/dL (3.5-5.0) 05/25/18 01:16 Lipase 31 U/L (8-78) 05/25/18 01:16 FMR H&P: A/P - Problem List (1) Abdominal distention Current Visit: No Status: Acute Code(s): R14.0 - ABDOMINAL DISTENSION ( GASEOUS) (2) HFrEF (heart failure with reduced ejection fraction) Current Visit: Yes Status: Acute Code(s): I50.20 - UNSPECIFIED SYSTOLIC ( CONGESTIVE) HEART FAILURE (3) Hypokalemia Current Visit: Yes Status: Acute Code(s): E87.6 - HYPOKALEMIA (4) Elevated troponin Current Visit: No Status: Acute Code(s): R74.8 - ABNORMAL LEVELS OF OTHER SERUM ENZYMES (5) Hyperlipidemia Current Visit: Yes Status: Acute Code(s): E78.5 - HYPERLIPIDEMIA, UNSPECIFIED (6) HTN (hypertension) Current Visit: No Status: Chronic Code(s): I10 - ESSENTIAL (PRIMARY) HYPERTENSION - Plan 57yo F with pmh of CHF presenting for abdominal fullness New Onset ascites may be 2/2 heart failure A- No hx of liver disease, possibly 2/2 hepatic congestion vs oncologic cause P-diagnostic paracentesis in AM - abdominal sono HFrEF A- BNP 9000. Pt does not appear to be having exacerbation. 60 mg Lasix given in ER. Last EF in 08/2017 was 10% P- will resume home lasix starting 05/26 -cont home meds. -will get ECHO -fluid restrict to 1800ml/day PO Hypokalemia A- repleted in ER with 40 mEq PO and 40 mEq IV P- reckeck with AM labs Elevated troponin A- no EKG abnormalitis, no cardiac symptoms P- will trend trops HTN -home meds Dyslipidemia -home statin Code Status: FULL Diet: heart healthy with fluid restriction 1800ml FMR H&P: Upper Level - Pertinent history 57 yr old female with HFrEF (10%) presents for abdominal tightness. States her abdomen started to get bigger 3 days ago. Denies pain but describes a tightness in her abdomen. Many years since pelvic exam performed. Reports good appetite. - Pertinent findings See labs above Eyes: no scleral icterus Neck: no JVD Heart: RRR with S3 heart sound and palpable thrill Lungs: vague end expiratory wheezes. Good air movement bilaterally Abdomen: abdominal distention without tenderness. + fluid wave Ext: No BLE edema - Plan Date/Time: 05/25/18 0227 I, [Dayana Rodriguez], have evaluated this patient and agree with findings/plan as outlined by bakery pastry internship resident. Pertinent changes/additions are listed here. 57 year old AA female with history of HFrEF presents with abdominal swelling. New Onset ascites may be 2/2 heart failure -consider other causes with diagnostic paracentesis -pending abdominal sono -consider pelvic sono pending those results HFrEF without exacerbation -60 mg Lasix given in ER -Last EF in 08/2017 -cont home dose of 40 mg Lasix daily, will skip todays dose -cont home meds. -obtain ECHO -fluid restrict Hypokalemia -repleted in ER with 40 mEq PO and 40 mEq IV -reckeck with AM labs -cont 20 mg BID MICHEL -recheck in AM. Elevated troponin -trend -no EKG abnormalitis. HTN -cont home meds Dyslipidemia -cont statin Code Status: FULL Diet: heart healthy with fluid restriction Attending Addendum - Attending Addendum Date/Time: 05/25/18 6932 I personally evaluated the patient and discussed the management with Dr. Manzo /Jennifer. I agree with the History, Examination, Assessment and Plan documented above with any addition or exceptions noted below. Patient here with increasing abdominal fullness and pain. She has no history of liver disease and her liver labs all appear overtly normal. We will begin increased diuresis as this is likely related to CHF and she has evidence on CXR of volume overload. Will obtain diagnostic ascites sample to further clarify. Patient currently HDS and no evidence of hypoxia.
[2018-05-25] MEDS ORDERED: Furosemide 40 MG/4 ML VIAL ONE (02:40)
[2018-05-25] MEDS ORDERED: Furosemide 20 MG/2 ML VIAL ONE (02:40)
[2018-05-25 04:37] LABS: Troponin I 0.073 ng/mL (< 0.028)
[2018-05-25 07:44] LABS: Troponin I 0.073 ng/mL (< 0.028)
[2018-05-25] MEDS ORDERED: Enoxaparin Sodium 40 MG/0.4 ML SYRINGE ONE (08:58)
[2018-05-25] MEDS ORDERED: Enoxaparin Sodium 40 MG/0.4 ML SYRINGE SC SCH (09:00)
[2018-05-25] MEDS ORDERED: Furosemide 40 MG TAB PO SCH (09:00)
--- NOTE | 2018-05-25 09:06 | RAD ---
FRONTAL VIEW CHEST: Date: 05/25/18 COMPARISON: 12/21/17. INDICATION: Emergency exam. Chest tightness and pain with difficulty breathing. FINDINGS: Marked enlargement of the cardiac silhouette remains. There is mild pulmonary vascular congestion. No effusion or discrete pneumothorax. IMPRESSION: Persistence of an enlarged cardiac silhouette. There is mild vascular congestion. POS: [facility]
[2018-05-25] MEDS: Spironolactone 25 MG TAB PO SCH (12:15)
[2018-05-25] MEDS: Potassium Chloride 20 MEQ in Premix Bag 1 BAG IVPB SCH (12:15)
[2018-05-25] MEDS: Potassium Chloride 10 MEQ TAB PO SCH (12:16)
[2018-05-25] MEDS: Losartan 25 MG TAB PO SCH (12:25)
[2018-05-25] MEDS: Carvedilol 6.25 MG TAB PO SCH ×2 (12:25→17:07)
[2018-05-25 12:29] VITALS: BMI 29.9
[2018-05-25 12:44] LABS: Albumin 3.8 g/dL (3.5-5.0); Protein, Total 8.4 g/dL (6.0-8.3)
[2018-05-25 13:39] LABS: INR-International Normal Ratio 1.4; PTT 33.7 SEC (22.9-36.1); Prothrombin Time 17.6 SEC (12.0-14.7)
--- NOTE | 2018-05-25 14:56 | ULT ---
ABDOMINAL ULTRASOUND: HISTORY: Evaluate for ascites. TECHNIQUE: Multiple longitudinal and transverse images of the abdomen are obtained using a Multi-Hertz curviline ar transducer. Real-time images are obtained. FINDINGS: A small amount of free intraperitoneal fluid is seen. IMPRESSION: Small amount of free intraperitoneal fluid seen. POS: [facility]
[2018-05-25 14:57] LABS: Potassium 3.1 mmol/L (3.5-5.1)
[2018-05-25] MEDS ORDERED: Potassium Chloride 20 MEQ TAB PO SCH (17:15)
[2018-05-25] MEDS ORDERED: Sodium Chloride 0.9% 10 ML ONE (20:12)
[2018-05-25] MEDS: Atorvastatin Calcium 10 MG TAB PO SCH (21:34)
--- NOTE | 2018-05-25 23:58 | CON ---
DATE OF CONSULTATION: 05/25/2018 HISTORY: Ondina Ley is a 57-year-old black female. She has history of nonischemic cardiomyopathy. She underwent cardiac catheterization in 2017, which revealed normal coronary arteries. She has chronically elevated troponin I. She is admitted with increased abdominal girth and fullness in her abdomen. She denies any chest discomfort. She also denies any significant worsening of her lower extremity edema or significant dyspnea on exertion. PAST MEDICAL HISTORY: Nonischemic cardiomyopathy. She has been advised on multiple occasions to undergo ICD placement; however, she declined. Most recent ejection fraction was 10-15%. Episodes of nonsustained ventricular tachycardia. MEDICATIONS: Aspirin 81 daily, atorvastatin 10 mg at bedtime, carvedilol 6.25 b.i.d., furosemide 40 mg q.a.m., losartan 25 daily, potassium 10 mEq daily, spironolactone 12.5 q.a.m. ALLERGIES: None. SOCIAL HISTORY: She does not smoke or drink. FAMILY HISTORY: Negative for coronary artery disease. REVIEW OF SYSTEMS: Twelve-point review of systems is otherwise unremarkable. PHYSICAL EXAMINATION: VITAL SIGNS: 84/53, pulse 58. HEENT: PERRL. NECK: Supple. CHEST: Reveals crackles at the bases. CARDIAC: S1, S2 normal, without any S3, S4 or murmurs. ABDOMEN: Normal bowel sounds, no tenderness. The abdomen is distended. EXTREMITIES: Revealed 1+ pretibial edema. NEUROLOGIC: Grossly intact. SKIN: Warm and dry. LABORATORY AND X-RAY FINDINGS: EKG reveals sinus rhythm with occasional PVC, rightward axis. Hemoglobin 12.2, hematocrit 36.9, white count 7200, platelets 162,000. INR 1.4, troponin I is up to 0.073. BNP 9080.1, sodium 137, potassium 2.8, chloride 98, carbon dioxide 28, BUN 34, creatinine 1.15. Chest x -ray reveals massive cardiomegaly with increased pulmonary vascularity. Abdominal ultrasound revealed a small amount of free intraperitoneal fluid. IMPRESSION: 1. Abdominal distention, which may be due to hepatic congestion. She apparently does not have significant amount of intraperitoneal fluid. 2. Nonischemic cardiomyopathy with ejection fraction of 10-15%. 3. Patient has been hypotensive this admission with blood pressures frequently in the 90s and 80s. She also has had creatinine of 1.15 which is the first time she has had an elevated creatinine. RECOMMENDATIONS: With her current blood pressure, I will reduce her carvedilol dose to 3.125 b.i.d. to allow her blood pressure to increase and hopefully better renal perfusion and effective better diuresis. We will change her Lasix to 40 mg IV. Her elevated troponin I is a chronic finding and she has had normal coronary arteries in the past. No further evaluation of this is warranted. MTDD
--- NOTE | 2018-05-26 05:30 | PDOC.FM ---
- Subjective Subjective: Nurse reported persistent hypotension overnight. Patient remained asymptomatic all night and manual BP done by resident reported to be 100 systolic. Will likely require manual BPs for more accurate readings. Patient denies any orthostasis, palpitations, CP, SOB, abdominal pain, N/V/D. Says her abdomen feels much better compared to yesterday. Did endorse some constipation and a productive cough but states she has been unable to completely cough up anything. Would like medicine for her cough. - Objective MAR Reviewed: Yes Vital Signs & Weight: Vital Signs (12 hours) Temp Pulse Resp BP BP BP BP 05/26/18 04:00 97.9 F 61 18 88/52 L 05/26/18 01:43 92/56 L 05/26/18 01:02 71/46 L 05/26/18 00:59 71 16 68/43 L 05/25/18 23:15 79 16 102/68 05/25/18 22:25 79/58 L 05/25/18 22:24 80/52 L 05/25/18 22:22 88/60 L 05/25/18 22:19 68 16 100/65 05/25/18 21:37 05/25/18 21:34 05/25/18 21:33 16 74/54 L 05/25/18 21:19 97.7 F 65 16 89/53 L BP Pulse Ox 05/26/18 04:00 97 05/26/18 01:43 05/26/18 01:02 05/26/18 00:59 05/25/18 23:15 98 05/25/18 22:25 05/25/18 22:24 05/25/18 22:22 05/25/18 22:19 05/25/18 21:37 84/54 L 05/25/18 21:34 98 05/25/18 21:33 05/25/18 21:19 98 Weight Weight 84.113 kg I&O: 05/24/18 05/25/18 05/26/18 06:59 06:59 06:59 Intake Total 1200 Balance 1200 Result Diagrams: 05/25/18 01:16 05/26/18 05:28 <Gabriela Cruz - Last Filed: 05/26/18 10:25> - Objective Vital Signs & Weight: Vital Signs (12 hours) Temp Pulse Resp BP BP BP Pulse Ox 05/26/18 11:40 98.4 F 71 16 84/64 L 95 05/26/18 08:35 69 16 98/58 L 96 05/26/18 06:22 67 16 87/51 L 05/26/18 04:00 97.9 F 61 18 88/52 L 97 05/26/18 01:43 92/56 L 05/26/18 01:02 71/46 L 05/26/18 00:59 71 16 68/43 L Weight Weight 85.411 kg I&O: 05/25/18 05/26/18 05/27/18 06:59 06:59 06:59 Intake Total 1690 Output Total 350 Balance 1340 Result Diagrams: 05/25/18 01:16 05/26/18 05:28 <Darnell Fulton - Last Filed: 05/26/18 11:49> Phys Exam - Physical Examination Constitutional: NAD HEENT: moist MMs Neck: supple, full ROM Respiratory: no wheezing, no rales, no rhonchi, clear to auscultation bilateral Cardiovascular: RRR, no significant murmur Gastrointestinal: soft, non-tender, positive bowel sounds + distension but improved from yesterday Musculoskeletal: no edema, pulses present Neurological: non-focal, normal sensation, moves all 4 limbs Psychiatric: normal affect, A&O x 3 Skin: no rash, normal turgor, cap refill <2 seconds <Gabriela Cruz - Last Filed: 05/26/18 10:25> Dx/Plan (1) HFrEF (heart failure with reduced ejection fraction) Code(s): I50.20 - UNSPECIFIED SYSTOLIC (CONGESTIVE) HEART FAILURE Status: Acute (2) Hyperlipidemia Code(s): E78.5 - HYPERLIPIDEMIA, UNSPECIFIED Status: Acute (3) Hypokalemia Code(s): E87.6 - HYPOKALEMIA Status: Acute (4) Abdominal distention Code(s): R14.0 - ABDOMINAL DISTENSION (GASEOUS) Status: Acute (5) Acute exacerbation of congestive heart failure Code(s): I50.9 - HEART FAILURE, UNSPECIFIED Status: Acute (6) Elevated troponin Code(s): R74.8 - ABNORMAL LEVELS OF OTHER SERUM ENZYMES Status: Acute (7) HTN (hypertension) Code(s): I10 - ESSENTIAL (PRIMARY) HYPERTENSION Status: Chronic (8) Nonischemic cardiomyopathy Code(s): I42.8 - OTHER CARDIOMYOPATHIES Status: Chronic - Plan Plan: 57YO AAF with pmh of HFrEF who presented for abdominal fullness with associated increased SOB with exertion. New Onset ascites - Likely 2/2 hepatic congestion from severe R-sided CHF. BNP on admission was 9k and patient had an echo in August showed EF of 10-15%. - Echo pending for today. Will no longer obtain a paracentesis as ascites is most likely 2/2 CHF. - Abdominal U/S showed a small amount of free intraperitoneal fluid s/p 60mg lasix. - Will continue w/ QD diuresis w/ 40mg IV lasix QD per cardiology. Hypokalemia - K 2.8 on admission and johnson only to 3.1 yesterday afternoon after 80mEq of K. However, patient was also aggressively diuresed. - Repeat K this AM was 3.3. Will replace w/ 40 mEq PO and recheck tomorrow AM. Will check a Mg today and tomorrow as well. MICHEL - Likely cardiorenal in origin as BUN:Cr is >20 suggesting hypoperfusion or prerenal etiology. - Cr slightly worse this AM at 1.39 but will continue with diuresis with hopes of increasing total circulating blood volume and improving renal blood flow & Cr. - Will continue to monitor w/ QD BMPs. HFrEF - BNP 9000 on admission. Echo pending for today to evaluate for worsening of CHF. - Will continue aggressive diuresis per cards w/ 40 IV lasix QD. - Will continue home meds but redice QD coreg to 3.125 BID per cards 2/2 persistent hypotension since admission. - Will continue w/ QD weights and fluid restriction to 1800ml/day. Elevated troponin - Chronically elevated troponins likely 2/2 demand ischemia from CHF exacerbation. - Trended x 3 and increased slightly once and then stabilized. HTN - Will continue home meds but reduce coreg to 3.125 BID per cards recs. Dyslipidemia - Will continue home statin. Code Status: FULL Diet: heart healthy with fluid restriction 1800ml IVFs: none Abx: none <Gabriela Cruz - Last Filed: 05/26/18 10:25> (1) Abdominal distention Code(s): R14.0 - ABDOMINAL DISTENSION (GASEOUS) Status: Acute (2) HFrEF (heart failure with reduced ejection fraction) Code(s): I50.20 - UNSPECIFIED SYSTOLIC (CONGESTIVE) HEART FAILURE Status: Acute (3) Hypokalemia Code(s): E87.6 - HYPOKALEMIA Status: Acute (4) Elevated troponin Code(s): R74.8 - ABNORMAL LEVELS OF OTHER SERUM ENZYMES Status: Acute (5) Hyperlipidemia Code(s): E78.5 - HYPERLIPIDEMIA, UNSPECIFIED Status: Acute (6) HTN (hypertension) Code(s): I10 - ESSENTIAL (PRIMARY) HYPERTENSION Status: Chronic <Darnell Fulton - Last Filed: 05/26/18 11:49> Attending Addendum - Attending Addendum Date/Time: 05/26/18 8938 I personally evaluated the patient and discussed the management with Dr. Cruz. I agree with the History, Examination, Assessment and Plan documented above with any addition or exceptions noted below. Patient feels improved today. Coreg decreased by cardiology and will continue with diuresis. No need for paracentesis as likely due to CHF and minimal fluid on previous abdominal u/s. Encourage ambulation and fluid restriction. Await further cardiology recs if any. <Darnell Fulton - Last Filed: 05/26/18 11:49>
[2018-05-26 06:06] LABS: Anion Gap 13 mmol/L (10-20); BUN (Urea Nitrogen) 38 mg/dL (9.8-20.1); Calc. Creatinine Clearance 61 mL/min (70-130); Calcium 9.3 mg/dL (7.8-10.44); Carbon Dioxide 26 mmol/L (22-29); Chloride 98 mmol/L (98-107); Estimated GFR-MDRD 48; Glucose 98 mg/dL (70-105); Potassium 3.3 mmol/L (3.5-5.1); Sodium 134 mmol/L (136-145)
[2018-05-26] MEDS: Potassium Chloride 10 MEQ TAB PO SCH (08:48)
[2018-05-26] MEDS: Carvedilol 3.125 MG TAB PO SCH ×2 (09:43→16:42)
[2018-05-26] MEDS: Spironolactone 25 MG TAB PO SCH (09:44)
[2018-05-26] MEDS: Furosemide 40 MG/4 ML VIAL SLOW IVP SCH (09:44)
[2018-05-26] MEDS: Losartan 25 MG TAB PO SCH (09:44)
[2018-05-26] MEDS: Potassium Chloride 20 MEQ TAB PO SCH (09:45)
[2018-05-26] MEDS: Benzonatate 100 MG CAP PO PRN ×2 (12:12→20:42)
[2018-05-26] MEDS: Atorvastatin Calcium 10 MG TAB PO SCH (20:42)
[2018-05-26] MEDS ORDERED: Enoxaparin Sodium 40 MG/0.4 ML SYRINGE SC SCH (21:00)
[2018-05-26] MEDS ORDERED: Senokot 8.6 MG TAB PO PRN (21:19)
[2018-05-26] MEDS ORDERED: Acetaminophen 325 MG TAB PO PRN (21:32)
--- NOTE | 2018-05-27 05:28 | PDOC.FM ---
- Subjective Subjective: NAEO. Patient states she feels well this AM. Denies any chest pain, SOB, N/V/D or constipation. Would like to go home today. - Objective MAR Reviewed: Yes Vital Signs & Weight: Vital Signs (12 hours) Temp Pulse Resp BP BP Pulse Ox 05/27/18 04:05 97.6 F 61 16 90/60 98 05/27/18 00:14 66 16 92/58 L 96 05/26/18 20:42 96 05/26/18 20:39 80/54 L 05/26/18 20:35 72 20 81/50 L 96 Weight Weight 85.411 kg I&O: 05/25/18 05/26/18 05/27/18 06:59 06:59 06:59 Intake Total 1690 1200 Output Total 350 400 Balance 1340 800 Result Diagrams: 05/25/18 01:16 05/27/18 05:23 Phys Exam - Physical Examination Constitutional: NAD HEENT: moist MMs, sclera anicteric Neck: supple, full ROM Respiratory: no wheezing, no rales, no rhonchi, clear to auscultation bilateral Cardiovascular: RRR, no significant murmur Gastrointestinal: non-tender, positive bowel sounds + distension Musculoskeletal: no edema Neurological: non-focal, normal sensation, moves all 4 limbs Psychiatric: normal affect, A&O x 3 Skin: no rash, normal turgor, cap refill <2 seconds Dx/Plan (1) HFrEF (heart failure with reduced ejection fraction) Code(s): I50.20 - UNSPECIFIED SYSTOLIC (CONGESTIVE) HEART FAILURE Status: Acute (2) Hyperlipidemia Code(s): E78.5 - HYPERLIPIDEMIA, UNSPECIFIED Status: Acute (3) Hypokalemia Code(s): E87.6 - HYPOKALEMIA Status: Acute (4) Abdominal distention Code(s): R14.0 - ABDOMINAL DISTENSION (GASEOUS) Status: Acute (5) Acute exacerbation of congestive heart failure Code(s): I50.9 - HEART FAILURE, UNSPECIFIED Status: Acute (6) Elevated troponin Code(s): R74.8 - ABNORMAL LEVELS OF OTHER SERUM ENZYMES Status: Acute (7) HTN (hypertension) Code(s): I10 - ESSENTIAL (PRIMARY) HYPERTENSION Status: Chronic (8) Nonischemic cardiomyopathy Code(s): I42.8 - OTHER CARDIOMYOPATHIES Status: Chronic - Plan Plan: 57YO AAF with pmh of HFrEF who presented for abdominal fullness with associated increased SOB with exertion. New Onset ascites - Likely 2/2 hepatic congestion from severe R-sided CHF. BNP on admission was 9K and patient had an echo in August showed EF of 10-15%. - Echo pending. Deferred paracentesis as ascites is most likely 2/2 CHF. - Will switch back to PO 40mg lasix QD due to worsening renal function. UO only 600mL yesterday. Hypokalemia - K 3.4 this AM. - Will continue 40mEq PO Qd replacement and continue for 1 week following discharge before returning to normal 10mEq dose QD. MICHEL - Likely cardiorenal in origin as BUN:Cr is >20 suggesting hypoperfusion or prerenal etiology. - Cr 1.52 this AM. Will therefore go back to 40 mg PO dose today. - Will continue to monitor w/ QD BMPs. HFrEF - BNP 9000 on admission. Repeat BNP 2k today. Echo pending for today to evaluate for worsening of CHF. - Will switch to home dose of 40 PO lasix QD due to worsening renal function. - Will continue home meds w/ lower coreg dose of 3.125 BID per cards 2/2 persistent hypotension since admission. - Will continue w/ QD weights and fluid restriction to 1800ml/day. Elevated troponin - Chronically elevated troponins likely 2/2 demand ischemia from CHF exacerbation. - Trended x 3 and increased slightly once and then stabilized. HTN - Will continue home meds w/ reduced coreg dose of 3.125 BID per cards recs. Dyslipidemia - Will continue home statin. Code Status: FULL Diet: heart healthy with fluid restriction 1800ml IVFs: none Abx: none Dispo: Possible d/c home later today w/ close follow-up w/ PCP & cardiology.
[2018-05-27 06:02] LABS: Anion Gap 11 mmol/L (10-20); BUN (Urea Nitrogen) 46 mg/dL (9.8-20.1); Calc. Creatinine Clearance 56 mL/min (70-130); Calcium 9.1 mg/dL (7.8-10.44); Carbon Dioxide 29 mmol/L (22-29); Chloride 98 mmol/L (98-107); Estimated GFR-MDRD 43; Glucose 97 mg/dL (70-105); Potassium 3.4 mmol/L (3.5-5.1); Sodium 135 mmol/L (136-145)
[2018-05-27] MEDS: Potassium Chloride 20 MEQ TAB PO SCH (08:05)
[2018-05-27] MEDS: Spironolactone 25 MG TAB PO SCH (08:05)
[2018-05-27] MEDS: Carvedilol 3.125 MG TAB PO SCH ×2 (08:05→17:02)
[2018-05-27] MEDS: Losartan 25 MG TAB PO SCH (08:06)
[2018-05-27] MEDS: Furosemide 40 MG/4 ML VIAL SLOW IVP SCH (08:06)
[2018-05-27] MEDS ORDERED: Enoxaparin Sodium 40 MG/0.4 ML SYRINGE SC SCH (09:00)
--- NOTE | 2018-05-27 11:45 | PDOC.EVN ---
Attending Addendum - Attending Addendum Date/Time: 05/27/18 1140 I personally evaluated the patient and discussed the management with Dr. Cruz. I agree with the History, Examination, Assessment and Plan documented in her progress note with any addition or exceptions noted below. Patient feels well today. Fluid and abdominal pressure significantly improved. Will see if her outpatient event executive has any further recommendations for inpatient workup and likely discharge home today.
[2018-05-27 16:59] VITALS: BP 90/58; TEMP 97.9
--- NOTE | 2018-05-27 20:33 | PDOC.CTH ---
Cardiology Progress Note - Subjective She is doing very well. Her breathing is back to baseline, is able to lay flat without issue.s She wants to go home. - Objective Vital Signs Temp Pulse Resp BP Pulse Ox 05/27/18 16:00 97.9 F 63 16 90/58 L 98 05/27/18 11:38 97.6 F 72 16 86/58 L 98 Weight 191 lb 4.8 oz 05/26/18 05/27/18 05/28/18 06:59 06:59 06:59 Intake Total 1690 1690 Output Total 350 600 Balance 1340 1090 - Physical Examination General/Neuro: alert & oriented x3, NAD Neck: no JVD present Lungs: unlabored respirations Heart: RRR Abdomen: NT/ND Extremities: + edema B (Trace) - Telemetry Telemetry Rhythm: NSR - Labs Result Diagrams: 05/25/18 01:16 05/27/18 05:23 Troponin/CKMB CK-MB (CK-2) 1.6 ng/mL (0-6.6) 05/25/18 01:16 Troponin I 0.073 ng/mL (< 0.028) H 05/25/18 06:55 - Assessment/Plan 1. Acute on chronic systolic heart failure. 2. Non ischemic CM 3. Dilated CM EF at 20% 4. Non compliance/. PLAN: - Still refusing AICD. - Seems close to euvolemic. - May discharge home. - Resume home dose of lasix and other meds.\ - Follow up in the office in 2-4 weeks.
[2018-05-28] MEDS ORDERED: Furosemide 40 MG TAB PO SCH (09:00)
[2018-05-28] MEDS ORDERED: Furosemide 40 MG/4 ML VIAL SLOW IVP SCH (09:00)
--- NOTE | 2018-05-28 14:25 | DIS-2 ---
DATE OF ADMISSION: 05/25/2018 DATE OF DISCHARGE: 05/27/2018 RESIDENT: Dr. Gabriela Cruz. ADMITTING ATTENDING: Dr. Darnell Fulton. DISCHARGE ATTENDING: Dr. Darnell Fulton. CONSULTATION: Cardiology, Dr. Zurdo Edwards. PROCEDURES: 1. Chest x-ray which showed persistence of enlarged cardiac silhouette with mild vascular congestion. 2. Abdominal ultrasound significant for small amount of free-intraperitoneal fluid. 3. Echocardiogram significant for ejection fraction 15-20% with grade 3/3 diastolic dysfunction as well as severe global hypokinesis. Also demonstrated severely elevated pulmonary artery pressure estimated at 51 mmHg and a small pericardial effusion with a dilated IVC. PRIMARY DISCHARGE DIAGNOSES: 1. Acute on chronic heart failure with reduced ejection fraction exacerbation. 2. Ascites secondary to an acute congestive heart failure exacerbation. 3. Elevated troponin. 4. Hypokalemia. 5. Acute kidney injury. SECONDARY DIAGNOSES: 1. Heart failure with reduced ejection fraction. 2. Nonischemic cardiomyopathy. 3. Hyperlipidemia. 4. Hypertension. 5. Obesity. DISCHARGE MEDICATIONS: 1. Spironolactone 12.5 mg p.o. q.a.m. with meals. 2. Aspirin 81 mg p.o. daily. 3. Losartan potassium 25 mg p.o. daily. 4. Furosemide 40 mg p.o. daily. 5. Tessalon 100 mg p.o. q.4 hours p.r.n. for cough. 6. Coreg 3.125 mg p.o. b.i.d. with meals. 7. Acetaminophen 650 mg p.o. q.6 hours p.r.n. for pain. 8. Potassium chloride 20 mEq p.o. daily for 7 days. 9. Senokot 1 tab p.o. at bedtime p.r.n. for constipation. 10. Atorvastatin 10 mg p.o. at bedtime. DISCONTINUED MEDICATIONS: 1. Carvedilol 6.25 mg p.o. b.i.d. with meals. 2. Potassium chloride 10 mEq p.o. daily. HOSPITAL COURSE: The patient is a 57-year-old -[place] female with a past medical history significant for heart failure with reduced ejection fraction and hypertension, who presented to the emergency department with a 3- day history of worsening abdominal fullness and swelling. The patient also reported some associated shortness of breath with exertion. On initial evaluation in the emergency department, the patient's vitals were noted to be within normal limits and she reported her pain to be 4/10 in intensity. Routine lab work was obtained which was significant for the following: a potassium of 2.8, acute kidney injury with a BUN and creatinine of 34 and 1.15, an elevated troponin of 0.067, and an elevated BNP at 9,080.1. A chest x-ray was obtained which was significant for cardiomegaly and some pulmonary vascular congestion. An abdominal ultrasound was also obtained, which was significant for a small amount of free-intraperitoneal fluid. Once this patient's labs and imaging resulted, she was given 40 mEq of potassium p.o. and 40 mEq IV. She was also given 60 mg of IV Lasix, 324 of aspirin, 40mg of Lovenox and her morning blood pressure medicines including 12.5 spironolactone 6.25 of carvedilol and 25 mg of losartan. The patient was then transferred to the floor for closer evaluation overnight. She was diuresed with 40 mEq of IV Lasix for the next 2 days which significantly improved her shortness of breath and abdominal pressure. In addition, given the patient's extensive cardiac history, Cardiology came and evaluated the patient and Dr. Feng initially saw the patient and recommended continuing IV diuresis, but also recommended reducing her daily Coreg dose to 3.125 mg b.i.d. rather than 6.25 in an attempt to better perfuse the kidneys and relieve some of the patient's hypotension. Of note, the patient repeatedly had systolic blood pressures ranging from the 80s-100s for the duration of her visit. However, she was completely asymptomatic the entire time, reporting no symptoms of orthostasis, palpitations, or lightheadedness. Thus, the patient was monitored one additional night after making the medication adjustments as recommended by Cardiology. The patient's regular outpatient is project manager, Dr. Zurdo Edwards, came and evaluated the patient on the date of discharge and recommended that the patient resume her home dose of Lasix and other routine heart failure medications and stated she was ok to be discharged home. Regarding the patient's acute kidney injury, her kidney function continued to decline over the course of her hospitalization reaching BUN and creatinine levels of 46 and 1.52 by the date of discharge. However, the patient appeared to be euvolemic and it was recommended that she obtain repeat blood work before the end of the week or early next week at her PCP's office in order to closely monitor her renal function. Regarding the patient's elevated troponins, this was most likely secondary to demand ischemia from the patient's acute CHF exacerbation. Her troponins were trended x3 and trended up only once at 2.073 and remained stable at this level. Her EKG also showed no signs of ST-segment elevation. Lastly, regarding the patient's hypokalemia, her potassium trended up to 3.4 by the date of discharge after receiving daily p.o. replacement during her hospitalization. It was recommended that she be discharged on 40 mEq p.o. daily for 1 week and have repeat labs with her PCP after completing this week course of medication. DISPOSITION: Stable. DISCHARGE INSTRUCTIONS: 1. Location: Home. 2. Diet: Heart-healthy diet, fluid-restricted, salt-restricted. 3. Activity: As tolerated. 4. Followup: The patient was instructed to follow up with her primary care provider, Dr. Sal Marks within 1 week of discharge as well as her is project manager , Dr. Zurdo Edwards. She was also notified that the [facility] would contact her in order to set up an appointment to see them. HAI
--- NOTE | 2018-05-29 13:27 | EKG ---
Test Reason : CHEST PAIN Blood Pressure : / mmHG Vent. Rate : 074 BPM Atrial Rate : 074 BPM P-R Int : 172 ms QRS Dur : 088 ms QT Int : 394 ms P-R-T Axes : 042 097 005 degrees QTc Int : 437 ms Sinus rhythm with occasional Premature ventricular complexes Possible Left atrial enlargement Rightward axis Nonspecific T wave abnormality Abnormal ECG Confirmed by GAIL GILLILAND ([id number]), photograph editor CAIT BROTHERS ([id number]) on 05/29/2018 1:26:43 PM Referred By: Confirmed By:GAIL GILLILAND
== END 2018-05-27 17:37 | disposition home or self-care (01) | DRG 292 ==
LOC: ERS 00:50 → ERHOLD 02:54 → 2NO 11:37
PROVIDERS: ADMIT Family Medicine; ATTEND Family Medicine
DX: I11.0 Hypertensive heart disease with heart failure (principal); R18.8 Other ascites; N17.9 Acute kidney failure, unspecified; I50.23 Acute on chronic systolic (congestive) heart failure; E87.6 Hypokalemia; E78.5 Hyperlipidemia, unspecified; R74.8 Abnormal levels of other serum enzymes; I42.8 Other cardiomyopathies; E66.9 Obesity, unspecified; Z68.30 Body mass index [BMI] 30.0-30.9, adult; Z91.14 Patient's other noncompliance with medication regimen
CPT/HCPCS: 36415; 71045; 76705; 80048; 80053; 82553; 83615; 83690; 83735; 83880; 84155; 84484; 85025; 85610; 85730; 93005; 93306; 96365; 96366; 96372; 96375; J1650; J1940; J3480

== ENCOUNTER 2018-06-04 18:10 | Inpatient (IN) | payer OTHER ==
[2018-06-04 18:53] LABS: Hemoglobin 12.7 g/dL (12.0-16.0); Mean Corpuscular HGB CONC 31.5 g/dL (32.0-36.0); Mean Corpuscular Hemoglobin 29.4 pg (27.0-31.0); Mean Corpuscular Volume 93.5 fL (78.0-98.0); Mean Platelet Volume 8.2 fL (7.4-10.4); Platelet Count 188 thou/uL (130-400); RBC Distribution Width 14.5 % (11.5-14.5); White Blood Cell (WBC) Count 7.8 thou/uL (4.8-10.8)
[2018-06-04] MEDS ORDERED: Furosemide 40 MG/4 ML VIAL ONE (19:02)
[2018-06-04 19:06] LABS: Lymphocytes 13 % (21-51); MDiff Complete? YES; Monocytes 8 % (0-10); Neutrophil 79 % (42-75); Nucleated RBC 1 % (0); PLT Morphology Comment Appears Adequate; RBC Morphology Normal
[2018-06-04 19:18] LABS: ALT (SGPT) 19 U/L (8-55); AST (SGOT) 34 U/L (5-34); Albumin 3.7 g/dL (3.5-5.0); Alkaline Phosphatase 135 U/L (40-150); Anion Gap 17 mmol/L (10-20); BUN (Urea Nitrogen) 31 mg/dL (9.8-20.1); Bilirubin, Total 3.3 mg/dL (0.2-1.2); CK (CPK) 232 U/L (29-168); Calc. Creatinine Clearance 0 mL/min (70-130); Calcium 9.4 mg/dL (7.8-10.44); Carbon Dioxide 18 mmol/L (22-29); Chloride 101 mmol/L (98-107); Estimated GFR-MDRD 60; Globulin 4.7 g/dL (2.4-3.5); Glucose 102 mg/dL (70-105); Lipase 20 U/L (8-78); Potassium 3.9 mmol/L (3.5-5.1); Protein, Total 8.4 g/dL (6.0-8.3); Sodium 132 mmol/L (136-145)
[2018-06-04] MEDS ORDERED: DOBUTamine 500 mg/250 ml 500 MG in Premix Bag 1 BAG IVPB SCH (19:30)
[2018-06-04 19:32] LABS: CKMB 2.5 ng/mL (0-6.6); Troponin I 0.041 ng/mL (< 0.028)
--- NOTE | 2018-06-04 21:03 | RAD ---
AP VIEW CHEST: 06/04/18 HISTORY: Dyspnea. AP view chest obtained on 06/04/18. Comparison studies not available. AP view chest demonstrates cardiomegaly seen. The lungs are well aerated. No evidence of active intra thoracic disease seen. No evidence of effusions, pneumonia or pneumothorax seen. IMPRESSION: Marked cardiomegaly and pulmonary vascular congestion. Correlate with echocardiography. POS: [facility]
[2018-06-04 22:19] LABS: Troponin I 0.041 ng/mL (< 0.028)
--- NOTE | 2018-06-04 22:40 | PDOC.FPRHP ---
- History of Present Illness Chief Complaint: SOB, fluid in abdomen History of Present Illness: 57 yo pleasant F with h/o CHFrEF here for dyspnea on exertion and abdominal swelling. At baseline has peripheral edema and abdominal swelling but it worsened over the past few days. Saw Dr. Deleon in clinic yesterday for these sxs who recomended to double her lasix dose to 80mg BID. Despite medication adjustment and continued fluid restriction diet, symptoms persisted. She denies chest pain, nausea. Endorses dry cough. She follows with Dr. Edwards outpatient. ED Course: Lasix 40mg IV x1, BPs dropped to 86/58 was started on dobutamine drip - Allergies/Adverse Reactions Allergies Allergy/AdvReac Type Severity Reaction Status Date / Time No Known Drug Allergies Allergy Verified 06/04/18 23:21 - Home Medications Medication Instructions Recorded Confirmed Type Spironolactone [Aldactone] 12.5 mg PO QAM-WM #30 tab 08/27/16 06/04/18 Rx Aspirin 81 mg PO DAILY #30 tab.chew 09/18/17 06/04/18 Rx Furosemide [Lasix] 40 mg PO 0900 05/25/18 06/04/18 History Losartan Potassium 25 mg PO DAILY 05/25/18 06/04/18 History Benzonatate [Tessalon] 100 mg PO Q4H PRN #30 cap 05/26/18 06/04/18 Rx Carvedilol [Coreg] 3.125 mg PO BID-WM #60 tab 05/26/18 06/04/18 Rx Acetaminophen [Tylenol Regular 650 mg PO Q6H PRN tab 05/27/18 06/04/18 Rx Strength] Atorvastatin Calcium [Lipitor] 10 mg PO HS #30 tab 05/27/18 06/04/18 Rx Potassium Chloride [K-Dur] 20 meq PO DAILY #7 tab 05/27/18 06/04/18 Rx Sennosides [Senokot] 1 tab PO HSPRN PRN tab 05/27/18 06/04/18 Rx - History PMHx: HFrEF, non-ischemic cardiomyopathy, HTN, HLD PSHx: C section x1 FHx: Breast CA, Pancreatic CA Social: denies tobacco/etoh/drugs - Review of Systems General: reports: weight/appetite/sleep changes. denies: fever/chills Eyes: denies: vision changes ENT: denies: nasal congestion, rhinorrhea Respiratory: reports: cough, shortness of breath, exercise intolerance. denies : congestion Cardiovascular: reports: edema. denies: chest pain, palpitation Gastrointestinal: denies: nausea, vomiting, diarrhea, constipation, abdominal pain Genitourinary: denies: dysuria, polyuria Skin: denies: rashes, lesions Musculoskeletal: denies: pain, tenderness, stiffness, swelling Neurological: reports: weakness. denies: syncope, seizure Psychological: denies: anxiety, depression - Vital signs BP: [104/71] HR: [81] RR: [17] Tmax: [97.6] Pox: [97]% on [RA] Wt: [92] - Physical Exam Constitutional: NAD HEENT: normocephalic and atraumatic, PERRLA, EOMI Neck: supple -Neck: right JVD Chest: no-tender to palpation, no lesions -Heart: irregular rhythm, S3 Lungs: CTAB, no respiratory distress, other -Lungs: dec. breath sounds at bases, no crackles Abdomen: non-tender -Abdomen: tense, distended, fluid shift Musculoskeletal: normal structure, ROM grossly normal Neurological: no focal deficit Skin: no rash/lesions, good turgor, capillary refill <2 seconds Heme/Lymphatic: no unusual bruising or bleeding, no purpura Psychiatric: normal mood and affect, good judgment and insight FMR H&P: Results - Labs Result Diagrams: 06/05/18 00:32 06/05/18 00:32 Lab results: WBC 7.8 thou/uL (4.8-10.8) 06/04/18 18:25 Hgb 12.7 g/dL (12.0-16.0) 06/04/18 18:25 Hct 40.2 % (36.0-47.0) 06/04/18 18:25 MCV 93.5 fL (78.0-98.0) 06/04/18 18:25 Plt Count 188 thou/uL (130-400) 06/04/18 18:25 Sodium 132 mmol/L (136-145) L 06/04/18 18:25 Potassium 3.9 mmol/L (3.5-5.1) 06/04/18 18:25 Chloride 101 mmol/L (98-107) 06/04/18 18:25 Carbon Dioxide 18 mmol/L (22-29) L 06/04/18 18:25 BUN 31 mg/dL (9.8-20.1) H 06/04/18 18:25 Creatinine 1.14 mg/dL (0.6-1.1) H 06/04/18 18:25 Glucose 102 mg/dL (70-105) 06/04/18 18:25 Calcium 9.4 mg/dL (7.8-10.44) 06/04/18 18:25 Total Bilirubin 3.3 mg/dL (0.2-1.2) H 06/04/18 18:25 AST 34 U/L (5-34) 06/04/18 18:25 ALT 19 U/L (8-55) 06/04/18 18:25 Alkaline Phosphatase 135 U/L (40-150) 06/04/18 18:25 Creatine Kinase 232 U/L (29-168) H 06/04/18 18:25 CK-MB (CK-2) 2.5 ng/mL (0-6.6) 06/04/18 18:25 B-Natriuretic Peptide 13805.6 pg/mL (0-100) H 06/04/18 18:25 Serum Total Protein 8.4 g/dL (6.0-8.3) H 06/04/18 18:25 Albumin 3.7 g/dL (3.5-5.0) 06/04/18 18:25 Lipase 20 U/L (8-78) 06/04/18 18:25 FMR H&P: A/P - Problem List (1) Acute exacerbation of congestive heart failure Current Visit: No Status: Acute Code(s): I50.9 - HEART FAILURE, UNSPECIFIED (2) Elevated troponin Current Visit: No Status: Acute Code(s): R74.8 - ABNORMAL LEVELS OF OTHER SERUM ENZYMES (3) Frequent PVCs Current Visit: No Status: Acute Code(s): I49.3 - VENTRICULAR PREMATURE DEPOLARIZATION (4) HFrEF (heart failure with reduced ejection fraction) Current Visit: No Status: Acute Code(s): I50.20 - UNSPECIFIED SYSTOLIC ( CONGESTIVE) HEART FAILURE (5) Hyperlipidemia Current Visit: No Status: Acute Code(s): E78.5 - HYPERLIPIDEMIA, UNSPECIFIED (6) Obesity (BMI 30-39.9) Current Visit: No Status: Acute Code(s): E66.9 - OBESITY, UNSPECIFIED (7) Elevated bilirubin Current Visit: No Status: Chronic Code(s): R17 - UNSPECIFIED JAUNDICE (8) HTN (hypertension) Current Visit: No Status: Chronic Code(s): I10 - ESSENTIAL (PRIMARY) HYPERTENSION (9) Nonischemic cardiomyopathy Current Visit: No Status: Chronic Code(s): I42.8 - OTHER CARDIOMYOPATHIES - Plan 1. CHFrEF exacerbation -s/p dobutamine drip for low BPs -s/p Lasix 40mg IV x1 -echo on 05/27 showed EF of 15-20%, probably no need for repeat -EKG: no STEMI, indeterminate trops, baseline has indet. trops, will continue to trend -will continue to diurese with IV lasix 40 BID, strict I/O, daily weights, O2 prn -Will evaluate for causes of acute decompensation: check TSH 2. Non-ischemic cardiomyopathy -has appt with Dr. Edwards outpt in a week 3. Elevated troponin -indeterminate, prior records show value is around baseline -likely 2/2 demand ischemia -continue to trend 4. Hyperbilirubinemia -could be due to transient end organ damage from hypotensive episode in ED -will check Dbili 5. Prerenal MICHEL -BUN/Cr ratio >20:1, likely from dec. perfusion from acute CHF exac. -Same as labs from last week -monitor with daily BMPs #. HLD -resume home meds #. HTN -hold home meds for now due to BPs -hold beta juan a due to sinus eva DVT ppx: Lovenox FMR H&P: Upper Level - Pertinent history [id number] recently d/c from hospital last week for CHF exacerbation presents to ED with dypsnea and bilateral lower extremity edema. She has noticed a gradual worsening of symptoms since d/c despite evaluation at her PCP's office and doubling her dose of furosemide yesterday. She has profound LOPEZ that is not usually an issue at her baseline. She endorses compliance with HH diet and fluid restriction since discharge. She denies CP, palpitations, cough, n/v/d. She has f/u with her School Social Worker, Dr. Edwards, in two weeks. ED: ASA 324 mg, Lasix IV 40 mg, dobutamine gtt titrated to 12 mcg/kg/min - Pertinent findings Vitals: 95/64 mmHg 78 bpm 25 RR 100% on RA 98.3F Gen: A&Ox3; in no acute distress CV: irregular rhythm; significant JVD Pulm: CTA-B GI: distended; nonTTP; no guarding Skin: no rashes or lesions Extremities: 3+ pitting edema to mid thighs bilaterally BUN/Cr: 31/1.14 trop: .041 BNP: 10,400 T. bili: 3.3 - Plan Date/Time: 06/04/182233 HFrEF exacerbation: admit to [facility] since she has been started on dobutamine gtt. Review of her records during hospitalization last week shows her systolic blood pressures normally range from 80-100 mmHg. We will wean her gtt aggressively given the risk of inducing arrhythmias. We will continue Lasix 80 mg IV BID with strict I/O's and daily weights. No need to repeat TTE as this was done last week and showed an EF of 15-20% with grade 3 diastolic dysfunction. Her elevated troponins are in the indeterminate range and will be trended appropriately, likely due to demand ischemia. In no respiratory distress at this time. Ascites was worked up last admission given concern for malignancy. Abdominal US revealed only a small amount of free intraperitoneal fluid. Her ascites improved with diuresis. CT abdomen done in October revealed no underlying pathology. Nonischemic dilated cardiomyopathy: no further work up indicated given recent admission. F/u with cardiology OP. Continue home medication regimen. Cardiac catheterization done in August 2016 showed no CAD. EP has evaluated patient and recommended AICD given her EF. Patient has refused this but we will revisit this option during this admission. Hyperbilirubinemia: elevated compared to labwork last week. Check direct bili and w/u accordingly MICHEL: BUN and Cr unchanged since last hospitalization. Likely 2/2 Lasix. Monitor with AM labs. HTN: discontinue beta juan a given bradycardia prior to starting dobutamine gtt HLD: continue home statin I, Grey Álvarez, have evaluated this patient and agree with findings/plan as outlined by internal controls manager resident. Pertinent changes/additions are listed here. Attending Addendum - Attending Addendum Date/Time: 06/04/182202 I personally evaluated the patient and discussed the management with Dr. Aleman and Dr. Álvarez I agree with the History, Examination, Assessment and Plan documented above with any addition or exceptions noted below. 57 yo female with severe HF admitted for acute exacerbation HD#0 Patient presents with worsening LOPEZ and edema. Was seen by PCP and told to increase home lasix dose but did not improve symptoms. VS reviewed. Imaging reviewed. Labs reviewed. 1. Acute HF: HFrEF (LVEF = 15 to 20%). Declined lifevest and AICD at last hospital stay. Place on Dobutamine drip. Currently with baseline BP and frequent PVCs on tele. Will place in IMCU and begin to wean drip. Cards in AM. Diuresis overnight. Restart home meds in the morning. Continue statin and ASA. Trend trop. UDS as needed. Significant JVD on exam tonight. Strict I/Os. Fluid restriction. Renal function stable. 2. Nonischemic cardiomyopathy 3. Hepatic congestion 4. HTN 5. HLD Adjust home meds as needed. Panda
[2018-06-04] MEDS ORDERED: Ondansetron ODT 4 MG TAB SL PRN (23:05)
[2018-06-04] MEDS ORDERED: Ondansetron PF 4 MG/2 ML Vial IVP PRN (23:05)
[2018-06-04 23:14] VITALS: BMI 32.7
[2018-06-04] MEDS ORDERED: DOBUTamine 500 mg/250 ml 250 ML IVPB SCH (23:30)
[2018-06-05 01:29] LABS: #Eosinphils 0.2 thou/uL (0.0-0.7); #Lymphocytes 1.6 thou/uL (1.20-3.40); #Neutrophils 4.5 thou/uL (1.40-6.50); %Basophils 0.4 % (0.0-1.0); %Eosinophils 2.4 % (0.0-10.0); %Lymphocytes 21.6 % (21.0-51.0); %Monocytes 13.7 % (0.0-10.0); Hemoglobin 12.1 g/dL (12.0-16.0); Mean Corpuscular HGB CONC 31.8 g/dL (32.0-36.0); Mean Corpuscular Hemoglobin 29.6 pg (27.0-31.0); Mean Corpuscular Volume 93.2 fL (78.0-98.0); Platelet Count 169 thou/uL (130-400); RBC Distribution Width 14.4 % (11.5-14.5); Red Blood Cell (RBC) Count 4.08 mill/uL (4.20-5.40); White Blood Cell (WBC) Count 7.2 thou/uL (4.8-10.8)
[2018-06-05 01:32] LABS: Troponin I 0.055 ng/mL (< 0.028)
[2018-06-05 03:16] LABS: ALT (SGPT) 18 U/L (8-55); AST (SGOT) 31 U/L (5-34); Albumin 3.6 g/dL (3.5-5.0); Alkaline Phosphatase 125 U/L (40-150); Anion Gap 16 mmol/L (10-20); Bilirubin, Total 3.4 mg/dL (0.2-1.2); Calc. Creatinine Clearance 100 mL/min (70-130); Calcium 9.5 mg/dL (7.8-10.44); Carbon Dioxide 22 mmol/L (22-29); Chloride 101 mmol/L (98-107); Estimated GFR-MDRD 77; Globulin 4.4 g/dL (2.4-3.5); Glucose 94 mg/dL (70-105); Potassium 3.5 mmol/L (3.5-5.1); Sodium 135 mmol/L (136-145)
[2018-06-05 04:12] LABS: BUN (Urea Nitrogen) 31 mg/dL (9.8-20.1)
[2018-06-05] MEDS ORDERED: Furosemide 40 MG/4 ML VIAL SLOW IVP SCH ×2 (06:00→09:30)
--- NOTE | 2018-06-05 08:15 | PDOC.FM ---
- Subjective Subjective: Patient reports she is doing well overnight, enough that she feels like she is maybe ready to go home if we think she is ready for d/c. Feels her legs are slightly less swollen. Breathing is significantly improved at rest, not requiring any supplemental oxygen. She has been discussing with Dr. Edwards about doing an AICD in the past and has been resistant, but says she is interested in doing that possibly during this hospital visit. - Objective MAR Reviewed: Yes Vital Signs & Weight: Vital Signs (12 hours) Temp Pulse Resp BP BP BP Pulse Ox 06/05/18 07:30 97.5 F L 70 18 97/70 99 06/05/18 07:10 97.5 F L 70 18 97/70 99 06/05/18 05:30 73 18 103/78 98 06/05/18 04:30 76 18 101/80 98 06/05/18 03:30 75 18 110/76 98 06/05/18 02:15 88 16 115/83 98 06/05/18 02:00 74 18 101/73 99 06/05/18 01:00 70 18 95/64 98 06/05/18 00:15 87 18 105/82 99 06/05/18 00:00 97.6 F 81 17 104/71 97 06/04/18 23:10 99 06/04/18 23:07 97.7 F 87 18 106/79 99 Weight Weight 92.6 kg I&O: 06/04/18 06/05/18 06/06/18 06:59 06:59 05:59 Intake Total 773 Output Total 450 Balance 323 Result Diagrams: 06/05/18 00:32 06/05/18 00:32 <Adonis Brunson M - Last Filed: 06/05/18 08:11> - Objective Vital Signs & Weight: Vital Signs (12 hours) Temp Pulse Pulse Pulse Resp BP BP 06/05/18 16:49 87 20 06/05/18 16:42 85 84 102/76 111/80 06/05/18 15:33 98.4 F 79 22 H 06/05/18 11:04 98.2 F 72 16 BP BP Pulse Ox Pulse Ox Pulse Ox 06/05/18 16:49 110/81 98 06/05/18 16:42 94 L 97 06/05/18 15:33 102/76 97 06/05/18 11:04 100/72 99 Weight Weight 92.6 kg I&O: 06/04/18 06/05/18 06/06/18 06:59 06:59 05:59 Intake Total 773 1220 Output Total 450 600 Balance 323 620 Result Diagrams: 06/05/18 00:32 06/05/18 00:32 <LuisLina - Last Filed: 06/05/18 22:15> Phys Exam - Physical Examination Constitutional: NAD HEENT: moist MMs bilateral JVD diffuse end expiratory wheezing irreg rhythm Gastrointestinal: non-tender pitting edema to knees Neurological: normal sensation, moves all 4 limbs Psychiatric: A&O x 3 Skin: normal turgor <Adonis Brunson - Last Filed: 06/05/18 08:11> Dx/Plan (1) Acute exacerbation of congestive heart failure Code(s): I50.9 - HEART FAILURE, UNSPECIFIED Status: Acute (2) Acute on chronic combined systolic (congestive) and diastolic (congestive) heart failure Code(s): I50.43 - ACUTE ON CHRONIC COMBINED SYSTOLIC AND DIASTOLIC HRT FAIL Status: Acute (3) Elevated troponin Code(s): R74.8 - ABNORMAL LEVELS OF OTHER SERUM ENZYMES Status: Acute (4) HFrEF (heart failure with reduced ejection fraction) Code(s): I50.20 - UNSPECIFIED SYSTOLIC (CONGESTIVE) HEART FAILURE Status: Acute (5) Obesity (BMI 30-39.9) Code(s): E66.9 - OBESITY, UNSPECIFIED Status: Acute (6) Elevated bilirubin Code(s): R17 - UNSPECIFIED JAUNDICE Status: Chronic (7) Nonischemic cardiomyopathy Code(s): I42.8 - OTHER CARDIOMYOPATHIES Status: Chronic - Plan Plan: HFrEF: - I/O and weight show increase in fluid retention, will continue to monitor but clinically patient appears to be improving. Also vitals are stable, BP have been stable per previous hosiptalizations and asymptomatic. Will continue with current lasix regimen ant monitor I/O. - Also discuss case with cardiology to see if patient could get AICD during this hospitalization. Hypotension: -appropriate at this time - dobutamine drip stopped early this morning - continue to monitor MICHEL: Resolved <Adonis Brunson - Last Filed: 06/05/18 08:11> (1) Acute exacerbation of congestive heart failure Code(s): I50.9 - HEART FAILURE, UNSPECIFIED Status: Acute (2) Elevated troponin Code(s): R74.8 - ABNORMAL LEVELS OF OTHER SERUM ENZYMES Status: Acute (3) Frequent PVCs Code(s): I49.3 - VENTRICULAR PREMATURE DEPOLARIZATION Status: Acute (4) HFrEF (heart failure with reduced ejection fraction) Code(s): I50.20 - UNSPECIFIED SYSTOLIC (CONGESTIVE) HEART FAILURE Status: Acute (5) Hyperlipidemia Code(s): E78.5 - HYPERLIPIDEMIA, UNSPECIFIED Status: Acute (6) Obesity (BMI 30-39.9) Code(s): E66.9 - OBESITY, UNSPECIFIED Status: Acute (7) Elevated bilirubin Code(s): R17 - UNSPECIFIED JAUNDICE Status: Chronic (8) HTN (hypertension) Code(s): I10 - ESSENTIAL (PRIMARY) HYPERTENSION Status: Chronic (9) Nonischemic cardiomyopathy Code(s): I42.8 - OTHER CARDIOMYOPATHIES Status: Chronic <Lina Smith - Last Filed: 06/05/18 22:15> Attending Addendum - Attending Addendum Date/Time: 06/05/182211 I personally evaluated the patient and discussed the management with Dr. Brunson I agree with the History, Examination, Assessment and Plan documented above with any addition or exceptions noted below. 57 yo female with severe HF admitted for acute exacerbation HD#1 Reports frequent voiding overnight. Improved SOB and LOPEZ. VS reviewed. Imaging reviewed. Labs reviewed. 1. Acute HF: HFrEF (LVEF = 15 to 20%). Cards consult today. Patient now requesting AICD placement. Now off Dobutamine drip. Will slowly restart home meds and titrate up as tolerated. Continue diuresis, fluid restriction, daily wts, and strict I/O. Transfer to tele. 2. Nonischemic cardiomyopathy 3. Hepatic congestion 4. HTN 5. HLD Adjust home meds as needed. Panda <Lina Smith - Last Filed: 06/05/18 22:15>
[2018-06-05] MEDS ORDERED: Aspirin 325 MG TAB PO SCH (09:00)
[2018-06-05] MEDS ORDERED: Carvedilol 3.125 MG TAB PO SCH (09:00)
[2018-06-05] MEDS: Spironolactone 25 MG TAB PO SCH (09:10)
[2018-06-05] MEDS: Enoxaparin Sodium 30 MG/0.3 ML SYRINGE SC SCH (09:12)
[2018-06-05] MEDS ORDERED: Polyethylene Glycol 3350 17 GM Packet PO SCH (09:23)
[2018-06-05] MEDS ORDERED: Senokot 8.6 MG TAB PO PRN (09:50)
[2018-06-05] MEDS: Atorvastatin Calcium 10 MG TAB PO SCH (20:46)
[2018-06-05] MEDS: Benzonatate 100 MG CAP PO PRN (20:55)
[2018-06-06 05:55] LABS: ALT (SGPT) 17 U/L (8-55); AST (SGOT) 30 U/L (5-34); Albumin 3.6 g/dL (3.5-5.0); Alkaline Phosphatase 120 U/L (40-150); Anion Gap 15 mmol/L (10-20); BUN (Urea Nitrogen) 31 mg/dL (9.8-20.1); Bilirubin, Total 3.1 mg/dL (0.2-1.2); Calc. Creatinine Clearance 82 mL/min (70-130); Calcium 9.3 mg/dL (7.8-10.44); Carbon Dioxide 22 mmol/L (22-29); Chloride 101 mmol/L (98-107); Estimated GFR-MDRD 60; Globulin 4.2 g/dL (2.4-3.5); Glucose 94 mg/dL (70-105); Potassium 3.7 mmol/L (3.5-5.1); Protein, Total 7.8 g/dL (6.0-8.3); Sodium 134 mmol/L (136-145)
--- NOTE | 2018-06-06 06:05 | PDOC.FM ---
- Subjective Subjective: NAEO. Patient states she feels the same this AM. Denies any chest pain or fever/ chills, postnasal drip. Endorses SOB with exertion and persistent LE and abdominal edema. Also endorses some wheezing when she coughs. Feels like she needs to bring up mucus but cannot. - Objective MAR Reviewed: Yes Vital Signs & Weight: Vital Signs (12 hours) Temp Pulse Resp BP Pulse Ox 06/06/18 04:00 98.3 F 78 20 106/73 99 06/05/18 19:11 98.4 F 79 20 104/70 97 Weight Weight 92.896 kg I&O: 06/04/18 06/05/18 06/06/18 06:59 06:59 05:59 Intake Total 773 1220 Output Total 450 600 Balance 323 620 Result Diagrams: 06/05/18 00:32 06/06/18 04:21 <Gabriela Cruz - Last Filed: 06/06/18 10:19> - Objective Vital Signs & Weight: Vital Signs (12 hours) Temp Pulse Resp BP Pulse Ox 06/06/18 07:13 98.2 F 84 16 107/73 98 06/06/18 04:00 98.3 F 78 20 106/73 99 Weight Weight 92.896 kg I&O: 06/05/18 06/06/18 06/07/18 07:59 06:59 06:59 Intake Total Output Total Balance Result Diagrams: 06/05/18 00:32 06/06/18 04:21 <Lina Smith - Last Filed: 06/06/18 19:51> Phys Exam - Physical Examination Constitutional: NAD HEENT: moist MMs Neck: supple, full ROM Respiratory: no rales, no rhonchi, wheezing present Cardiovascular: RRR, no significant murmur abdomen tense w/ significant distension Musculoskeletal: edema present Neurological: non-focal, normal sensation, moves all 4 limbs Psychiatric: normal affect, A&O x 3 Skin: no rash, normal turgor <Gabriela Cruz - Last Filed: 06/06/18 10:19> Dx/Plan (1) Abdominal distention Code(s): R14.0 - ABDOMINAL DISTENSION (GASEOUS) Status: Acute (2) Acute exacerbation of congestive heart failure Code(s): I50.9 - HEART FAILURE, UNSPECIFIED Status: Acute (3) Acute on chronic combined systolic (congestive) and diastolic (congestive) heart failure Code(s): I50.43 - ACUTE ON CHRONIC COMBINED SYSTOLIC AND DIASTOLIC HRT FAIL Status: Acute (4) Elevated troponin Code(s): R74.8 - ABNORMAL LEVELS OF OTHER SERUM ENZYMES Status: Acute (5) Hyperlipidemia Code(s): E78.5 - HYPERLIPIDEMIA, UNSPECIFIED Status: Acute (6) Obesity (BMI 30-39.9) Code(s): E66.9 - OBESITY, UNSPECIFIED Status: Acute (7) Elevated bilirubin Code(s): R17 - UNSPECIFIED JAUNDICE Status: Chronic (8) HTN (hypertension) Code(s): I10 - ESSENTIAL (PRIMARY) HYPERTENSION Status: Chronic (9) Nonischemic cardiomyopathy Code(s): I42.8 - OTHER CARDIOMYOPATHIES Status: Chronic (10) CHF (congestive heart failure) Code(s): I50.9 - HEART FAILURE, UNSPECIFIED Status: Chronic - Plan Plan: HFrEF in acute exacerbation - Patient continues to have fluid retention with a + fluid balance overnight. - Will give a dose of PO metolazone 1 hour before 40mg IV lasix to see if this improves her diuresis. - Will continue fluid restriction at 1200mL/day and HH diet w/ salt restriction. - Will start on 1/2 of lowest dose coreg BID given patient's severe CHF despite persistent hypotension. - Case discussed w/ cards yesterday and patient will have an AICD placed on Thursday. - Will consult EP today and make NPO after midnight in anticipation of this. Hypotension - BPs have been low/NL since admission but patient is asymptomatic. - Will continue to hold home meds but will start on 1/2 of lowest dose coreg BID given patient's severe CHF. - Will continue to monitor. MICHEL - Renal function slightly worse compared to yesterday even w/o diuresis. May benefit from resuming diuresis again today as likely cardiorenal in origin. - Will continue to monitor w/ QD BMPs. <Gabriela Cruz - Last Filed: 06/06/18 10:19> (1) Acute exacerbation of congestive heart failure Code(s): I50.9 - HEART FAILURE, UNSPECIFIED Status: Acute (2) Elevated troponin Code(s): R74.8 - ABNORMAL LEVELS OF OTHER SERUM ENZYMES Status: Acute (3) Frequent PVCs Code(s): I49.3 - VENTRICULAR PREMATURE DEPOLARIZATION Status: Acute (4) HFrEF (heart failure with reduced ejection fraction) Code(s): I50.20 - UNSPECIFIED SYSTOLIC (CONGESTIVE) HEART FAILURE Status: Acute (5) Hyperlipidemia Code(s): E78.5 - HYPERLIPIDEMIA, UNSPECIFIED Status: Acute (6) Obesity (BMI 30-39.9) Code(s): E66.9 - OBESITY, UNSPECIFIED Status: Acute (7) Elevated bilirubin Code(s): R17 - UNSPECIFIED JAUNDICE Status: Chronic (8) HTN (hypertension) Code(s): I10 - ESSENTIAL (PRIMARY) HYPERTENSION Status: Chronic (9) Nonischemic cardiomyopathy Code(s): I42.8 - OTHER CARDIOMYOPATHIES Status: Chronic <Lina Smith - Last Filed: 06/06/18 19:51> Attending Addendum - Attending Addendum Date/Time: 06/06/18 0900 I personally evaluated the patient and discussed the management with Dr. Cruz I agree with the History, Examination, Assessment and Plan documented above with any addition or exceptions noted below. 57 yo female with severe HF admitted for acute exacerbation HD#2 Pos fluid balance. Denies CP and SOB/LOPEZ. VS reviewed. Labs reviewed. 1. Acute HF: HFrEF (LVEF = 15 to 20%). Cards consulted, recommend consulting EP on Thursday for AICD placement. NPO after MN. Will slowly restart home meds and titrate up as tolerated. BB added today. Will add ACEI tomorrow. Continue diuresis, fluid restriction, daily wts, and strict I/O. Add mitolazone. 2. Nonischemic cardiomyopathy 3. Hepatic congestion 4. HTN 5. HLD 6. MICHEL on CKD: Monitor renal function. Will likely continue to worsen due to diuresis. Will need to hold lasix tomorrow and wait for kidneys to improve. Renal ultrasound if not already performed. Panda <Lina Smith - Last Filed: 06/06/18 19:51>
[2018-06-06] MEDS ORDERED: Metolazone 5 MG TAB PO SCH (07:49)
[2018-06-06] MEDS: Enoxaparin Sodium 30 MG/0.3 ML SYRINGE SC SCH (08:24)
[2018-06-06] MEDS: Spironolactone 25 MG TAB PO SCH (08:25)
[2018-06-06] MEDS: Potassium Chloride 20 MEQ TAB PO SCH (08:25)
[2018-06-06] MEDS: Benzonatate 100 MG CAP PO PRN (08:36)
[2018-06-06] MEDS ORDERED: Furosemide 40 MG/4 ML VIAL SLOW IVP SCH (09:00)
[2018-06-06] MEDS ORDERED: Polyethylene Glycol 3350 17 GM Packet PO SCH (09:19)
[2018-06-06] MEDS ORDERED: Enoxaparin Sodium 40 MG/0.4 ML SYRINGE SC SCH (11:15)
[2018-06-06] MEDS: Carvedilol 3.125 MG TAB PO SCH (16:18)
[2018-06-06] MEDS: Atorvastatin Calcium 10 MG TAB PO SCH (21:13)
[2018-06-07 05:23] LABS: ALT (SGPT) 19 U/L (8-55); AST (SGOT) 34 U/L (5-34); Albumin 3.6 g/dL (3.5-5.0); Alkaline Phosphatase 122 U/L (40-150); Anion Gap 13 mmol/L (10-20); BUN (Urea Nitrogen) 30 mg/dL (9.8-20.1); Bilirubin, Total 3.7 mg/dL (0.2-1.2); Calc. Creatinine Clearance 88 mL/min (70-130); Calcium 9.4 mg/dL (7.8-10.44); Carbon Dioxide 23 mmol/L (22-29); Chloride 101 mmol/L (98-107); Estimated GFR-MDRD 65; Globulin 4.5 g/dL (2.4-3.5); Glucose 97 mg/dL (70-105); Potassium 3.6 mmol/L (3.5-5.1); Protein, Total 8.1 g/dL (6.0-8.3); Sodium 133 mmol/L (136-145)
--- NOTE | 2018-06-07 06:22 | PDOC.FM ---
- Subjective Subjective: Pt feels well this AM, reports improved abdominal fullness and LE edema. Reports over all feeling improved. No new complaints at this time. Denies CP/SOB - Objective MAR Reviewed: Yes Vital Signs & Weight: Vital Signs (12 hours) Temp Pulse Resp BP Pulse Ox 06/07/18 03:21 98.2 F 78 20 103/72 99 06/06/18 20:00 100 06/06/18 19:40 98.0 F 82 18 98/72 100 Weight Weight 92.896 kg I&O: 06/05/18 06/06/18 06/07/18 07:59 06:59 06:59 Intake Total 960 Output Total 1150 Balance -190 Result Diagrams: 06/05/18 00:32 06/07/18 04:34 <Osorio Manzo - Last Filed: 06/07/18 08:50> - Objective Vital Signs & Weight: Vital Signs (12 hours) Temp Pulse Resp BP BP Pulse Ox 06/07/18 14:42 97.5 F L 90 18 118/87 99 06/07/18 07:00 97.9 F 79 16 102/74 99 Weight Weight 92.896 kg I&O: 06/06/18 06/07/18 06/08/18 06:59 06:59 06:59 Intake Total 960 Output Total 1150 Balance -190 Result Diagrams: 06/05/18 00:32 06/07/18 04:34 <Blayne Johnson - Last Filed: 06/07/18 16:10> Phys Exam - Physical Examination Constitutional: NAD HEENT: moist MMs, sclera anicteric Neck: no JVD, supple Respiratory: no wheezing, clear to auscultation bilateral Cardiovascular: RRR, no significant murmur Gastrointestinal: non-tender, positive bowel sounds Musculoskeletal: pulses present, edema present (+1-2 pitting edema) Neurological: normal sensation, moves all 4 limbs Psychiatric: normal affect, A&O x 3 Skin: no rash, normal turgor <Osorio Manzo - Last Filed: 06/07/18 08:50> Dx/Plan (1) MICHEL (acute kidney injury) Code(s): N17.9 - ACUTE KIDNEY FAILURE, UNSPECIFIED Status: Acute (2) Acute exacerbation of congestive heart failure Code(s): I50.9 - HEART FAILURE, UNSPECIFIED Status: Acute (3) HFrEF (heart failure with reduced ejection fraction) Code(s): I50.20 - UNSPECIFIED SYSTOLIC (CONGESTIVE) HEART FAILURE Status: Acute (4) Obesity (BMI 30-39.9) Code(s): E66.9 - OBESITY, UNSPECIFIED Status: Acute - Plan Plan: HFrEF in acute exacerbation A- Patient had -190ml balance of fluid net volume overnight. seems to have responded to metolazone. P- consider another dose of metolazone 1 hour before 40mg IV lasix - continue fluid restriction at 1200mL/day and HH diet w/ salt restriction. - continue 1/2 of lowest dose coreg BID given patient's severe CHF despite persistent hypotension. - possible AICD placement today. Will call EP Hypotension A- BPs have been low/NL since admission but patient is asymptomatic. BP WNL this AM P- hold home meds - continue 1/2 of lowest dose coreg BID given patient's severe CHF. - Will continue to monitor. MICHEL A- Renal function slightly improved compared to yesterday. May benefit from resuming diuresis again today as likely cardiorenal in origin. P- will consider another dose of metolazone and IV lasix - Will continue to monitor w/ QD BMPs. <Osorio Manzo - Last Filed: 06/07/18 08:50> Attending Addendum - Attending Addendum Date/Time: 06/07/18 1610 I personally evaluated the patient and discussed the management with Dr. Manzo today. I agree with the History, Examination, Assessment and Plan documented above with any addition or exceptions noted below. <Blayne Johnson - Last Filed: 06/07/18 16:10>
[2018-06-07] MEDS: Spironolactone 25 MG TAB PO SCH (08:39)
[2018-06-07] MEDS: Carvedilol 3.125 MG TAB PO SCH ×2 (08:39→17:13)
[2018-06-07] MEDS: Potassium Chloride 20 MEQ TAB PO SCH (08:39)
[2018-06-07] MEDS: Enoxaparin Sodium 40 MG/0.4 ML SYRINGE SC SCH (09:22)
[2018-06-07] MEDS ORDERED: Ketamine 50 MG/ML VIAL ONE (10:24)
[2018-06-07] MEDS ORDERED: Midazolam HCl 2 mg/2 ml Vial ONE (10:27)
--- NOTE | 2018-06-07 12:18 | CON ---
DATE OF CONSULTATION: 06/07/2018 REFERRING PHYSICIAN: Dr. 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 Her problems are: 1. Chronic systolic congestive heart failure with nonischemic cardiomyopathy. A. Left heart catheterization in 08/2016, demonstrates normal coronary arteries. B. Chronically and severely reduced left ventricular systolic function, LVEF on 05/27/2018 was 15-20 %, dilated RV with reduced RV systolic function also seen. Mitral enlargement moderate, severe tricu spid regurgitation, and moderate to severely elevated pulmonary pressures. C. 2D echo from 08/2016 also shows LVEF of 10-15%. 2. Risk factors including hypertension, hyperlipidemia and obesity. ALLERGIES: None noted. MEDICATIONS AT HOME: Included spironolactone, aspirin, losartan, furosemide, benzonatate, carvedilol , Tylenol, potassium, sennoside, atorvastatin. SUBJECTIVE: Ms. Ley is here with symptoms of progressive dyspnea. She was complaining of abdom inal distention, had the congestion. She had a recent admission at the end of May as well, but a fter discharge her abdomen swelling continued despite the increased dose of Las[facility]. Her troponins were borderline elevated and consistent with a cardiomyopathy process not an [place]. She has been diuresed and feeling better now. No dizziness, loss of consciousness, no stroke -like symptoms noted. No fever, chills or cough. She has occasional palpitation sensation. REVIEW OF SYSTEMS: The rest of the 12-point system otherwise unremarkable. PAST MEDICAL HISTORY: As above. SOCIAL HISTORY: Patient denies smoking, ETOH or drug abuse. PAST SURGICAL HISTORY: Significant for . FAMILY HISTORY: Significant for breast cancer and pancreatic cancer. OBJECTIVE: VITAL SIGNS: Blood pressure is 102/74, heart rate 79, respirations 16, temperature 97.9 degrees Fahr enheit. GENERAL: She is alert and oriented woman in no apparent distress. NECK: Supple. Jugular veins not distended. CHEST: Coarse without crackles. CARDIOVASCULAR: Heart sounds are regular to rate and rhythm. No murmur or gallop. ABDOMEN: Benign. Bowel sounds positive. EXTREMITIES: Lower extremities without edema, clubbing or cyanosis. DATABASE: The EKG was reviewed, reveals narrow complex EKG; sinus rhythm, occasional monomorphic PVC s are seen, triplets and trigeminy on occasion also noted. LABORATORY DATA: White count 7.3, hemoglobin 12.1, platelet count is 169. Sodium 133, potassium 3.6 , BUN is 30, creatinine 1.06. Noted the troponin levels are 0.055. The BMP is 10,493. A chest x-ray from 05/2018 reveal marked cardiomegaly and congestion. ASSESSMENT AND PLAN: Ms. Ley is a 57-year-old woman with a history of chronic nonischemic cardi omyopathy. She is on the tolerated doses just of heart failure regimen. Despite her LVEF constantly reduced. In the past she refused ICD therapy which she clearly could benefit from. At this point s he is considering this more strongly. We again discussed the option of ICD implant. I did detail to her the risk and benefits, understandi ng the concept of a primary prevention, the chance of infection, bleeding, tamponade, pneumothorax, i nappropriate shocks device malfunction and even device ____ were discussed and she understands and wi lling to proceed. We will schedule her for a near date. Thank you for allowing me to participate in the care of this patient.
--- NOTE | 2018-06-07 13:04 | RAD ---
AP CHEST: History: Status post ICD. Date: 06-07-18 Comparison: 05-25-18 FINDINGS: AP view chest demonstrates placement of an intracardiac defibrillator. Cardiomegaly is seen. No evide nce of effusions, pneumonia, or pneumothorax is seen. IMPRESSION: Placement of an intracardiac defibrillator with cardiomegaly and pulmonary vascular congestion seen. POS: [facility]
[2018-06-07] MEDS ORDERED: Iopamidol 370 76% 50 ML VIAL FS ONE ×2 (13:31→16:17)
[2018-06-07 14:07] LABS: Syphilis Antibody Nonreactive (Nonreactive); Syphilis Antibody Index 0.08 S/CO (<1.00 Non-Reactive)
[2018-06-07 14:11] LABS: HBSAg Index 0.19 S/CO (0-0.99); HIV (1/2) Antibody/Antigen Non-Reactive (NonReactive); HIV 1/2 INDEX 0.09 S/CO (<1.00); Hep B Core Total Ab Non-Reactive (NonReactive); Hep B Core Total Index 0.22 S/CO (0-0.79); Hep B Surf AB Non-Reactive (NonReactive); Hep B Surf Ag Non-Reactive S/CO (NonReactive); Hep C IgG Ab Non-Reactive (NonReactive); Hep C Index 0.14 S/CO (0-0.79)
[2018-06-07] MEDS ORDERED: Acetaminophen/Codeine 30-300mg Tablet PO PRN ×2 (15:02)
--- NOTE | 2018-06-07 16:56 | ULT ---
RIGHT UPPER QUADRANT ULTRASOUND: 06/07/2018 HISTORY: Elevated liver enzymes. COMPARISON: Abdominal ultrasound on 10/28/2017. FINDINGS: A tiny right pleural effusion is seen. A small amount of intraperitoneal free fluid is seen in the r ight upper quadrant, adjacent to the liver. There is increased echogenic material within the gallbladder lumen, suggesting sludge. The gallbladd er is contracted, but the gallbladder wall also appears thickened, measuring 0.6 cm. The common duct is normal in caliber, measuring 0.4 cm. The pancreas is mostly obscured by bowel gas and is not well evaluated on this exam. The liver, limi amando visualized portions of the IVC, and right kidney demonstrate a normal sonographic appearance. Th e right kidney measures 8.7 cm in length. IMPRESSION: 1. The gallbladder is contracted, but the gallbladder wall is thickened, with suggestion of a small amount of sludge in the gallbladder lumen. No gallbladder calculi are seen. Gallbladder wall thicke maykel is nonspecific but can be seen with cholecystitis in the correct clinical scenario, hypoproteine breonna, secondary to liver disease, versus other etiologies. 2. The common duct is normal in caliber, measuring 0.4 cm in diameter. 3. Tiny right pleural effusion. 4. Small amount of ascites. POS: [facility]
--- NOTE | 2018-06-07 16:59 | EKG ---
Test Reason : POST AICD Blood Pressure : / mmHG Vent. Rate : 086 BPM Atrial Rate : 086 BPM P-R Int : 182 ms QRS Dur : 088 ms QT Int : 388 ms P-R-T Axes : 064 122 034 degrees QTc Int : 464 ms Sinus rhythm with occasional Premature ventricular complexes and Fusion complexes Left posterior fascicular block Low voltage QRS Abnormal ECG When compared with ECG of 04-JUN-2018 18:24, (Unconfirmed) Fusion complexes are now Present Left posterior fascicular block is now Present Criteria for Septal infarct are no longer Present Confirmed by DR. Dany HILL ([id number]) on 06/07/2018 4:59:33 PM Referred By: [facility] Confirmed By:DR. Dany HILL
--- NOTE | 2018-06-07 17:00 | RAD ---
CHEST ONE VIEW: HISTORY: Defibrillator placement. COMPARISON: Earlier exam on same date. FINDINGS: The cardiac silhouette is magnified and enlarged. The pulmonary vasculature is at the upper limits o f normal. A small amount of left pleural fluid and left basilar atelectasis is similar in appearance to the prior study. A single-lead left subclavian cardiac electronic device is in place with the le ad overlying the tricuspid valve. No evidence of pneumothorax. laboratory monitor leads overly the ch[address] st. IMPRESSION: 1. Cardiomegaly. 2. Single-lead left subclavian cardiac electronic device is in place. 3. Small amount of left pleural fluid and left basilar atelectasis. POS: [facility]
[2018-06-07] MEDS: Atorvastatin Calcium 10 MG TAB PO SCH (20:44)
[2018-06-08 05:30] LABS: ALT (SGPT) 21 U/L (8-55); AST (SGOT) 37 U/L (5-34); Albumin 3.5 g/dL (3.5-5.0); Alkaline Phosphatase 98 U/L (40-150); Anion Gap 16 mmol/L (10-20); BUN (Urea Nitrogen) 39 mg/dL (9.8-20.1); Calc. Creatinine Clearance 67 mL/min (70-130); Calcium 9.6 mg/dL (7.8-10.44); Carbon Dioxide 21 mmol/L (22-29); Chloride 99 mmol/L (98-107); Estimated GFR-MDRD 48; Globulin 4.4 g/dL (2.4-3.5); Glucose 114 mg/dL (70-105); Protein, Total 7.9 g/dL (6.0-8.3); Sodium 132 mmol/L (136-145)
--- NOTE | 2018-06-08 05:59 | PDOC.FM ---
- Subjective Subjective: Pt reports feeling well this AM though still a bit sleepy since procedure. Per nursing, ketamine was used and pt has been slow to return to normal energy lvls. Reports improved sensation of abdominal fullness and decreased swelling in lower extremities. Pt otherwise has no complaints at this time and states she feels ready to go home as soon as she wakes up a little more. Denies CP or palpitations, no sob no cough no nausea no vomiting - Objective MAR Reviewed: Yes Vital Signs & Weight: Vital Signs (12 hours) Temp Pulse Resp BP BP Pulse Ox 06/08/18 04:00 97.4 F L 80 20 105/71 98 06/08/18 00:00 97.5 F L 81 24 H 109/81 98 06/07/18 20:00 98.1 F 86 18 103/67 95 06/07/18 19:20 95 Weight Weight 92.986 kg I&O: 06/06/18 06/07/18 06/08/18 06:59 06:59 06:59 Intake Total 960 360 Output Total 1150 Balance -190 360 Result Diagrams: 06/05/18 00:32 06/08/18 04:36 <Osorio Manzo - Last Filed: 06/08/18 08:48> - Objective Vital Signs & Weight: Vital Signs (12 hours) Temp Pulse Resp BP BP Pulse Ox 06/08/18 11:57 97.8 F 79 16 105/75 98 06/08/18 08:17 97.3 F L 85 16 101/66 99 06/08/18 04:00 97.4 F L 80 20 105/71 98 Weight Weight 92.986 kg I&O: 06/07/18 06/08/18 06/09/18 06:59 06:59 06:59 Intake Total 960 360 Output Total 1150 Balance -190 360 Result Diagrams: 06/05/18 00:32 06/08/18 04:36 <Estrada Hernandez - Last Filed: 06/08/18 12:51> Phys Exam - Physical Examination Constitutional: NAD HEENT: moist MMs, sclera anicteric Neck: no nodes, no JVD Respiratory: no wheezing, clear to auscultation bilateral Cardiovascular: RRR, no significant murmur Gastrointestinal: soft, non-tender Musculoskeletal: pulses present +2 pitting bilateral LE edema Neurological: normal sensation, moves all 4 limbs Psychiatric: normal affect, A&O x 3 Skin: no rash, normal turgor Deviation from normal: incision clean, dry, and intact <Osorio Manzo - Last Filed: 06/08/18 08:48> Dx/Plan (1) MICHEL (acute kidney injury) Code(s): N17.9 - ACUTE KIDNEY FAILURE, UNSPECIFIED Status: Acute (2) Acute exacerbation of congestive heart failure Code(s): I50.9 - HEART FAILURE, UNSPECIFIED Status: Acute (3) HFrEF (heart failure with reduced ejection fraction) Code(s): I50.20 - UNSPECIFIED SYSTOLIC (CONGESTIVE) HEART FAILURE Status: Acute (4) Obesity (BMI 30-39.9) Code(s): E66.9 - OBESITY, UNSPECIFIED Status: Acute - Plan Plan: HFrEF in acute exacerbation A- Pt is symptomatically better s/p AICD placement. Today she denies SOB all together. P- consider DC home today pending EP recs - continue fluid restriction at 1200mL/day and HH diet w/ salt restriction. - continue 1/2 of lowest dose coreg BID given patient's severe CHF despite persistent hypotension. Low BPs A- Hx of HTN but BPs have been low/NL since admission and patient is asymptomatic. BP WNL this AM P- hold home meds - continue 1/2 of lowest dose coreg BID given patient's severe CHF. - Will continue to monitor. MICHEL A- Renal function slightly worse compared to yesterday. P- will consider another dose of metolazone and IV lasix, or DC with home lasix - Will continue to monitor w/ QD BMPs while pt is inpatient Hyperbilirubinemia A- Bili is 4 today. AST 37. Likely secondary to congestion 2/2 CHF P- Treat per CC <Osorio Manzo - Last Filed: 06/08/18 08:48> Attending Addendum - Attending Addendum Date/Time: 06/08/18 [id number] I personally evaluated the patient and discussed the management with Dr. Manzo. I agree with and repeated the History, Examination, Assessment and Plan documented above with any addition or exceptions noted below. Pt doing well this AM, but is sleepy. Lungs CTAB, no inc wob. Significantly BLE edema. Will d/w EP. Believe bili is 2/2 congestive hepatopathy. Monitor. <Estrada Hernandez - Last Filed: 06/08/18 12:51>
[2018-06-08] MEDS: Carvedilol 3.125 MG TAB PO SCH ×2 (08:30→17:12)
[2018-06-08] MEDS: Spironolactone 25 MG TAB PO SCH (08:31)
[2018-06-08] MEDS: Potassium Chloride 20 MEQ TAB PO SCH (08:32)
[2018-06-08] MEDS: Enoxaparin Sodium 40 MG/0.4 ML SYRINGE SC SCH (11:16)
[2018-06-08] MEDS: Cephalexin 250 MG CAP PO SCH ×2 (12:01→17:12)
--- NOTE | 2018-06-08 13:23 | PDOC.CTH ---
Cardiology Progress Note - Subjective EP progress note: Doing well after ICD implant yesterday. Feeling very tired. Minimal pain at ICD site. No further cardiac concerns or complaints - Objective Vital Signs Temp Pulse Resp BP BP Pulse Ox 06/08/18 11:57 97.8 F 79 16 105/75 98 06/08/18 08:17 97.3 F L 85 16 101/66 99 06/08/18 04:00 97.4 F L 80 20 105/71 98 Weight 205 lb 06/07/18 06/08/18 06/09/18 06:59 06:59 06:59 Intake Total 960 360 Output Total 1150 Balance -190 360 - Physical Examination General/Neuro: alert & oriented x3, NAD Neck: carotid US brisk, no JVD present Lungs: CTA, unlabored respirations Heart: PMI normal, RRR Abdomen: NT/ND, soft Other PE findings: Left Chest wall incision CDI. mild crepitus. No drainage or hematoma - Telemetry Telemetry Rhythm: SR - Labs Result Diagrams: 06/05/18 00:32 06/08/18 04:36 Troponin/CKMB CK-MB (CK-2) 2.5 ng/mL (0-6.6) 06/04/18 18:25 Troponin I 0.055 ng/mL (< 0.028) H 06/05/18 00:33 - Assessment/Plan 1. Single chamber ICD implanted 06/07/18- device check stable this AM 2. Chronic systolic heart failure, non ischemic cardiomyopathy 3. Severely reduced ejection fraction 10-15% 4. Hypertension ICD stable post implant. No pneumothorax. Site stable without complication. Ok to DC by EP. 7 days of Keflex 500mg PO QID post implant. Wound check at [facility] in 10-14 days.
[2018-06-08 17:12] VITALS: BP 106/69; TEMP 97.4
--- NOTE | 2018-06-09 14:59 | DIS-2 ---
DATE OF ADMISSION: 06/04/2018 DATE OF DISCHARGE: 06/08/2018 RESIDENT: Osorio Manzo M.D. ADMITTING ATTENDING: Lina Smith M.D. DISCHARGE ATTENDING: Estrada Hernandez M.D. CONSULTATIONS: EP, Dr. Goodson. PROCEDURES: 1. On 06/04/2018, chest x-ray. Impression: Marked cardiomegaly and pulmonary vascular congestion c orrelate with echocardiography. 2. On 06/07/2018, chest x-ray. Impression: Placement of an intracardiac defibrillator with cardiom egaly and pulmonary vascular congestion seen. 3. On 06/07/2018, abdomen ultrasound. Impression: The gallbladder is contracted, but the gallbladd er wall is thickened with a suggestion of a small amount of sludge in the gallbladder lumen, no gallb ladder calculi are seen. Gallbladder wall thickening is nonspecific, but can be seen with cholecysti tis in the correct clinical scenario. Hypoproteinemia secondary to liver disease versus other etiolo gies. The common duct is normal in caliber, measuring 0.4 cm in diameter, tiny right pleural effusio n, small amount of ascites. 4. On 06/07/2018, chest x-ray. Impression: Cardiomegaly, single lead left subclavian cardiac elect ronic device is in place. Small amount of left pleural fluid and left basilar atelectasis. 5. AICD placement on 06/07/2018. PRIMARY DIAGNOSIS: Heart failure with reduced ejection fraction exacerbation. SECONDARY DIAGNOSES: Acute kidney injury, hypotension, hyperbilirubinemia. DISCHARGE MEDICATIONS: 1. Spironolactone 12.5 mg p.o. q.a.m. 2. Aspirin 81 mg p.o. daily. 3. Furosemide 40 mg p.o. q.a.m. 4. Tessalon 100 mg p.o. q.4 hours p.r.n. 5. Tylenol 650 mg p.o. q.6 hours p.r.n. 6. Potassium chloride 20 mEq p.o. daily. 7. Sennosides 1 tab p.o. at bedtime p.r.n. 8. Atorvastatin 10 mg p.o. at bedtime. 9. Carvedilol 1.5625 mg p.o. b.i.d. 10. Cephalexin 500 mg p.o. q.6 hours. DISCONTINUED MEDICATIONS: 1. Losartan potassium 25 mg p.o. daily. 2. Carvedilol 3.125 mg p.o. b.i.d. HISTORY OF PRESENT ILLNESS AND HOSPITAL COURSE: This is a 57-year-old female with a significant [facility] history of heart failure with reduced ejection fraction, having lost shown to have ejection fract ion of 15% to 20%, who presented with a chief complaint of worsening shortness of breath on exertion and worsening abdominal swelling, and sensation of fullness. The patient had reported that she had r ecently seen primary care provider who had increased her Lasix dose, but that despite that change, he r symptoms had gotten worse. On admission, her chest x-ray showed cardiomegaly and the patient was a dmitted for CHF exacerbation. The patient was initially not responsive to IV Lasix doses. The patie nt finally responded to Lasix after first prescribing a dose of metolazone. Additionally, the patien t was fluid restricted and over the course of days improved clinically, reporting less abdominal full ness and resolution of shortness of breath as the patient stabilized. Electrophysiology was consulte d and Dr. Goodson placed an AICD as patient had had recommendations for placement before, but refused an d now wanted it on this admission. Of note, the patient's bilirubin had also been increased and stud ies were done to rule out malicious sources. Hepatitis B, hepatitis C, RPR, HIV were done, all negat tom as well as a right upper quadrant ultrasound. It is thought that her bilirubin is secondary to c ongestion in her heart failure. Of note, the patient also had a small MICHEL on admission which soon re solved with fluids and the patient had a history of hypertension, but blood pressures during hospital ization had been on the low end of normal limits. The patient was asymptomatic from low blood pressu re. Antihypertensive medications were held and carvedilol dose was reduced further to half of the lo west dose b.i.d. for her CHF, the blood pressures were low. On discharge, KIARA inhibitor/ARB was not prescribed due to concerns for low blood pressures. After the patient recovered from AICD placement and was deemed safe for discharge, she was discharged home. DISPOSITION: Stable. DISCHARGE INSTRUCTIONS: 1. Discharge location: Home. 2. Diet: Healthy heart, low sodium. 3. Activity: As tolerated with restrictions of no lifting the elbow above the arm and no driving fo r 2 weeks. 4. Followup: Follow up with Dr. Deleon on 06/15/2018, Dr. Goodson in 2 weeks, Dr. Edwards on 8, [facility] on 06/22/2018 and cardiac rehabilitation on 06/17/2018.
== END 2018-06-08 18:45 | disposition home or self-care (01) | DRG 226 ==
LOC: ERS 18:10 → IMCU/EMU 22:57 → 2NO 06-05 16:46
PROVIDERS: ADMIT Student in an Organized Health Care Education/Training Program; ATTEND Student in an Organized Health Care Education/Training Program
PROC: 0JH608Z Insertion of Defibrillator Generator into Chest Subcutaneous Tissue and Fascia, Open Approach (ICD-10-PCS; principal; 2018-06-07)
PROC: 02HK3KZ Insertion of Defibrillator Lead into Right Ventricle, Percutaneous Approach (ICD-10-PCS; 2018-06-07)
PROC: 3E0102A Introduction of Anti-Infective Envelope into Subcutaneous Tissue, Open Approach (ICD-10-PCS; 2018-06-07)
DX: I13.0 Hypertensive heart and chronic kidney disease with heart failure and stage 1 through stage 4 chronic kidney disease, or unspecified chronic kidney disease (principal); I50.23 Acute on chronic systolic (congestive) heart failure; N17.9 Acute kidney failure, unspecified; I24.8 Other forms of acute ischemic heart disease; R18.8 Other ascites; E66.9 Obesity, unspecified; E80.6 Other disorders of bilirubin metabolism; I95.9 Hypotension, unspecified; E78.5 Hyperlipidemia, unspecified; I49.3 Ventricular premature depolarization; K76.1 Chronic passive congestion of liver; I42.0 Dilated cardiomyopathy; N18.9 Chronic kidney disease, unspecified; Z68.33 Body mass index [BMI] 33.0-33.9, adult
CPT/HCPCS: 33249; 36005; 36415; 71045; 75820; 76705; 80053; 82248; 82550; 82553; 83690; 83880; 84443; 84484; 85025; 86704; 86706; 86780; 86803; 87340; 87389; 90471; 90686; 93005; 93010; 93798; 94640; 96365; 96366; 96375; C1777; C1786; G0008; J0690; J1250; J1650; J1940; J2250; J7620

== ENCOUNTER 2018-06-15 17:01 | Inpatient (IN) | payer OTHER ==
[2018-06-15] MEDS ORDERED: Acetaminophen 500 MG TAB PO PRN (17:37)
[2018-06-15] MEDS ORDERED: Ondansetron PF 4 MG/2 ML Vial SLOW IVP PRN (17:37)
[2018-06-15] MEDS ORDERED: Furosemide 40 MG/4 ML VIAL SLOW IVP SCH ×2 (19:15→22:00)
[2018-06-15 19:20] LABS: #Basophils 0.1 thou/uL (0.0-0.2); #Eosinphils 0.1 thou/uL (0.0-0.7); #Lymphocytes 1.3 thou/uL (1.20-3.40); #Monocytes 1.1 thou/uL (0.11-0.59); %Basophils 0.9 % (0.0-1.0); %Eosinophils 0.9 % (0.0-10.0); %Monocytes 14.8 % (0.0-10.0); %Neutrophils 66.5 % (42.0-75.0); Hemoglobin 12.5 g/dL (12.0-16.0); Mean Corpuscular HGB CONC 30.5 g/dL (32.0-36.0); Mean Corpuscular Hemoglobin 28.5 pg (27.0-31.0); Mean Corpuscular Volume 93.5 fL (78.0-98.0); Mean Platelet Volume 8.2 fL (7.4-10.4); Platelet Count 151 thou/uL (130-400); RBC Distribution Width 14.8 % (11.5-14.5); Red Blood Cell (RBC) Count 4.38 mill/uL (4.20-5.40); White Blood Cell (WBC) Count 7.5 thou/uL (4.8-10.8)
[2018-06-15 19:47] LABS: Albumin 3.3 g/dL (3.5-5.0)
[2018-06-15 19:48] LABS: Chloride 99 mmol/L (98-107); Magnesium 1.8 mg/dL (1.6-2.6); Potassium 3.3 mmol/L (3.5-5.1); Sodium 134 mmol/L (136-145)
--- NOTE | 2018-06-15 19:48 | RAD ---
CHEST ONE VIEW: 06/15/18 INDICATION: Acute CHF, shortness of breath. COMPARISON: Prior exam dated 06/07/18. FINDINGS: There is prominent cardiomegaly. There is mild pulmonary vascular congestion. There is small bilatera l pleural effusions. AICD is unchanged. Osseous structures are similar appearing. IMPRESSION: Mild CHF. POS: [facility]
[2018-06-15 19:49] LABS: Calcium 9.3 mg/dL (7.8-10.44)
[2018-06-15 19:50] LABS: Globulin 4.6 g/dL (2.4-3.5); Glucose 96 mg/dL (70-105); Protein, Total 7.9 g/dL (6.0-8.3)
[2018-06-15 19:51] LABS: Anion Gap 15 mmol/L (10-20); Carbon Dioxide 23 mmol/L (22-29)
[2018-06-15 19:52] LABS: Alkaline Phosphatase 125 U/L (40-150); Bilirubin, Total 3.8 mg/dL (0.2-1.2)
[2018-06-15 19:53] LABS: Calc. Creatinine Clearance 80 mL/min (70-130); Estimated GFR-MDRD 58
[2018-06-15 19:54] LABS: BUN (Urea Nitrogen) 32 mg/dL (9.8-20.1)
[2018-06-15 19:55] LABS: AST (SGOT) 36 U/L (5-34)
[2018-06-15 19:56] LABS: ALT (SGPT) 18 U/L (8-55)
--- NOTE | 2018-06-15 20:07 | PDOC.FPRHP ---
- History of Present Illness Chief Complaint: SOB History of Present Illness: This is a 57 yo female with a pmh of CHFrEF who presents as a direct admit from clinic with a with a cc of SOB. Pt. states she was having shortness of breath since she left the hospital ~1 week ago. She states that standing up and walking to the bathroom makes her short of breath. She reports taking her medication as instructed. She does state that she takes her lasix after eating food and that she urinates 2-3 times before her afternoon dose of lasix. In addition she recently had an implantable cardioverter defibrillator/pulse generator on 06/04/[address] Goodson. - Allergies/Adverse Reactions Allergies Allergy/AdvReac Type Severity Reaction Status Date / Time No Known Drug Allergies Allergy Verified 06/04/18 23:21 - Home Medications Medication Instructions Recorded Confirmed Type Spironolactone [Aldactone] 12.5 mg PO QAM-WM #30 tab 08/27/16 06/15/18 Rx Aspirin 81 mg PO DAILY #30 tab.chew 09/18/17 06/15/18 Rx Furosemide [Lasix] 40 mg PO DAILY 05/25/18 06/15/18 History Atorvastatin Calcium [Lipitor] 10 mg PO HS #30 tab 05/27/18 06/15/18 Rx Potassium Chloride [K-Dur] 20 meq PO DAILY #7 tab 05/27/18 06/15/18 Rx Sennosides [Senokot] 1 tab PO HSPRN PRN tab 05/27/18 06/15/18 Rx Carvedilol [Coreg] 1.5625 mg PO BID-WM #30 tab 06/08/18 06/15/18 Rx - History PMHx: CHFrEF with Echo on 05/27 showing EF of 15-20 PSHx: ICD placement, c section x1 FHx: Breast CA, Pancreatic CA Social: Denies D/A/T - Review of Systems General: reports: weight/appetite/sleep changes (increased swelling). denies: fever/chills Eyes: denies: eye pain, vision changes ENT: denies: nasal congestion, rhinorrhea Respiratory: reports: cough, shortness of breath, exercise intolerance. denies : congestion Cardiovascular: reports: other. denies: chest pain, palpitation Gastrointestinal: denies: nausea, vomiting, diarrhea, constipation Genitourinary: denies: incontinence Skin: reports: other (She reports her wound from the ICD is improving) Musculoskeletal: denies: pain, tenderness Neurological: denies: numbness, syncope Psychological: denies: anxiety, depression - Vital signs BP: 101/75 HR: 71 RR: 21 Tmax: 96.9 Pox: 99% on ra Wt: 93.16 kg - Physical Exam Constitutional: NAD, awake, alert and oriented, well developed HEENT: normocephalic and atraumatic, MMM Neck: FROM, trachea midline Chest: no-tender to palpation, other (ICD scar healing well) Heart: other (Regular rate, irregular rhythm, 2+ pitting edema to the mid thigh) Lungs: other (Pt. is in no acute distress at rest. Lungs have crackles at bases) Abdomen: soft, non-tender, bowel sounds present, no masses/distention Musculoskeletal: normal structure, ROM grossly normal Skin: other Heme/Lymphatic: no unusual bruising or bleeding, no purpura Psychiatric: normal mood and affect, good judgment and insight, intact recent and remote memory FMR H&P: Results - Labs Result Diagrams: 06/15/18 18:09 06/15/18 19:10 Lab results: WBC 7.5 thou/uL (4.8-10.8) 06/15/18 18:09 Hgb 12.5 g/dL (12.0-16.0) 06/15/18 18:09 Hct 41.0 % (36.0-47.0) 06/15/18 18:09 MCV 93.5 fL (78.0-98.0) 06/15/18 18:09 Plt Count 151 thou/uL (130-400) 06/15/18 18:09 Neutrophils % 66.5 % (42.0-75.0) 06/15/18 18:09 Sodium 134 mmol/L (136-145) L 06/15/18 19:10 Potassium 3.3 mmol/L (3.5-5.1) L 06/15/18 19:10 Chloride 99 mmol/L (98-107) 06/15/18 19:10 Carbon Dioxide 23 mmol/L (22-29) 06/15/18 19:10 BUN 32 mg/dL (9.8-20.1) H 06/15/18 19:10 Creatinine 1.17 mg/dL (0.6-1.1) H 06/15/18 19:10 Glucose 96 mg/dL (70-105) 06/15/18 19:10 Calcium 9.3 mg/dL (7.8-10.44) 06/15/18 19:10 Total Bilirubin 3.8 mg/dL (0.2-1.2) H 06/15/18 19:10 AST 36 U/L (5-34) H 06/15/18 19:10 ALT 18 U/L (8-55) 06/15/18 19:10 Alkaline Phosphatase 125 U/L (40-150) 06/15/18 19:10 B-Natriuretic Peptide 8872.0 pg/mL (0-100) H 06/15/18 18:09 Serum Total Protein 7.9 g/dL (6.0-8.3) 06/15/18 19:10 Albumin 3.3 g/dL (3.5-5.0) L 06/15/18 19:10 - Radiology Interpretation Chest x-ray Status: image reviewed by me, report reviewed by me (Bilateral pleural effusions ) FMR H&P: A/P - Problem List (1) HFrEF (heart failure with reduced ejection fraction) Current Visit: No Status: Acute Code(s): I50.20 - UNSPECIFIED SYSTOLIC ( CONGESTIVE) HEART FAILURE - Plan This is a 57 yo female with a PMH of CHFrEF Acute on chronic CHFrEF exacerbation -Admit to obs. -Monitor vitals -IV lasix -Echo in 05/27 shows 15-12% EF -Strict I/Os -1500ml fluid restriction -We discussed the importance of taking her lasix prior to meals HLD -Continue home meds HTN -Continue home coreg Code: Full Prophylaxis: lovenox Family: none at bedside Disposition: Home in 2-3 days FMR H&P: Upper Level - Pertinent history Patient is a 57 yo female here for CHF exacerbation. She was discharged last week for the same problem. At that visit, she received AICD due to EF of 15-20% . She was restricted to 1200ml fluid daily, though she admits that she has not been compliant with this. Symptoms include SOB, coughing, LE swelling. Was seen at [facility] and noted to have crackles on lung exam and 5lb weight gain since last hospitalization. Denies CP, dizziness, sore throat, n/v/d. She was discharged home on half the lowest coreg tablet twice a day due to hypotension. Was also found to have hyperbilirubinemia which was attributed to vascular congestion 2/2 CHF. Med Hx also includes low BPs, MICHEL, obesity. - Pertinent findings CXR: prominent cardiomegaly, mild pulmonary vascular congestion, small bilateral pleural effusions; mild CHF ECHO (05/27): EF: 15-20%, grade 3/3 diastolic dysfunction; moderate mitral regurg; severe tricuspid regurg 101.75 Temp: 96.9 HR: 71 99% on RA RR: 21 Weight 93.168kg Weight at discharge: 06/08: 92.986kg BNP: 8872; 21415 on 06/04/18 K: 3.3 Na: 134 Cr: 1.17 eGFR: 58 which is improved from pervious hospitalization GEN: NAD, AOx3 PULM: b/l crackles throughout, more prominent in lower lung james CARD: RRR ABD: nml BS EXT: 2+ pitting edema to mid thigh bilateral - Plan Date/Time: 06/15/182004 IAdonis DO, have evaluated this patient and agree with findings/plan as outlined by human resources intern resident. Pertinent changes/additions are listed here. #HFrEF -lasix scheduled, continue home meds -discussed adjusting timing of medication administration compared to meals -monitor respiratory status -walking program to monitor for dyspnea and walking distance progress -daily weight checks -strict I/O -fluid restriction 1200ml per day #Hypokalemia -replenish and recheck in the AM -check EKG Attending Addendum - Attending Addendum Date/Time: 06/15/18 0615 I personally evaluated the patient and discussed the management with Dr. Solano I agree with the History, Examination, Assessment and Plan documented above with any addition or exceptions noted below- 57 yo female with h/o HFrEF secondary to nonischemic cardiomyopathy recently hospitalized for CHF exacerbation and placement of AICD presents with continue SOB. States that she never got back to her baseline after the last hospitalization and has been having increasing SOB with exertion. Also noted increased micki,a to her lower extremities. Denies any fever/chills, N/V/D, chest pain. Mild orthopnea. PMH/PSH /Meds/All reviewed and agree with resident's documentation. Afebrile P71 BP 101/75 RR21 99%RA. Exam repeated by me and agree with resident's findings. Labs : WBC=7.5, H/H=12.5/41, Zwk=785, Na= 134, K=3.3, Cl=-99, CO2=23, BUN/Cr=32/1.17 , t bili=3.8, AST/ALT=38/18, GGW=2110, CXR- mild pulmonary vascular congestion; small b/l pleural effusions. A/P: 1) CHFrEF exacerbation- continue IV diuretics. Monitor electrolytes and Cr. Monitor daily weights. Fluid restriction.
[2018-06-15] MEDS ORDERED: Senokot 8.6 MG TAB PO PRN (20:42)
[2018-06-15] MEDS: Atorvastatin Calcium 10 MG TAB PO SCH (21:44)
[2018-06-16] MEDS: Furosemide 40 MG/4 ML VIAL SLOW IVP SCH ×3 (06:10→21:17)
--- NOTE | 2018-06-16 06:29 | PDOC.FM ---
- Subjective Subjective: Pt reports feeling much better since admission last night. Pt no longer feels sob on ambulation to bathroom though she reports some continued abdominal fullness no fever/chills, no cp no palpitations, no sob no cough - Objective MAR Reviewed: Yes Vital Signs & Weight: Vital Signs (12 hours) Temp Pulse Resp BP Pulse Ox 06/15/18 23:13 97.5 F L 61 16 97/56 L 97 06/15/18 19:35 96.9 F L 71 21 H 101/75 99 Weight Weight 93.168 kg I&O: 06/14/18 06/15/18 06/16/18 06:59 06:59 06:59 Intake Total 908 Output Total 275 Balance 633 Result Diagrams: 06/15/18 18:09 06/15/18 19:10 <Osorio Manzo - Last Filed: 06/16/18 08:31> - Objective Vital Signs & Weight: Vital Signs (12 hours) Temp Pulse Resp BP BP Pulse Ox 06/16/18 11:33 96.9 F L 72 20 98/69 99 06/16/18 07:16 97.5 F L 73 16 90/64 100 06/16/18 06:48 96/63 06/16/18 03:00 97.5 F L 67 19 89/62 L 100 Weight Weight 92.578 kg I&O: 06/15/18 06/16/18 06/17/18 06:59 06:59 06:59 Intake Total 1628 Output Total 275 Balance 1353 Result Diagrams: 06/15/18 18:09 06/16/18 07:40 <Oneyda Viveros - Last Filed: 06/16/18 11:46> Phys Exam - Physical Examination Constitutional: NAD HEENT: moist MMs, sclera anicteric Neck: no JVD, full ROM Respiratory: no wheezing, no rales, no rhonchi mild inspiratory crackles on LLBase Cardiovascular: RRR, no significant murmur Gastrointestinal: non-tender, positive bowel sounds Musculoskeletal: pulses present +2 pitting edema in bilat LE Neurological: normal sensation, moves all 4 limbs Psychiatric: normal affect, A&O x 3 Skin: normal turgor, cap refill <2 seconds <Osorio Manzo - Last Filed: 06/16/18 08:31> Dx/Plan (1) HFrEF (heart failure with reduced ejection fraction) Code(s): I50.20 - UNSPECIFIED SYSTOLIC (CONGESTIVE) HEART FAILURE Status: Acute (2) MICHEL (acute kidney injury) Code(s): N17.9 - ACUTE KIDNEY FAILURE, UNSPECIFIED Status: Acute (3) Hyperlipidemia Code(s): E78.5 - HYPERLIPIDEMIA, UNSPECIFIED Status: Acute (4) Hypokalemia Code(s): E87.6 - HYPOKALEMIA Status: Acute (5) HTN (hypertension) Code(s): I10 - ESSENTIAL (PRIMARY) HYPERTENSION Status: Chronic - Plan Plan: This is a 57 yo female with a PMH of CHFrEF Acute on chronic CHFrEF exacerbation A-Pt shows improvement with IV lasix. Exacerbation likely 2/2 to pt taking meds with meals and failing to fluid restrict at home. Echo in 05/27 shows 15-12% EF P- IV lasix -Strict I/Os -fluid restriction -counselled pt regarding proper fluid restriction and medication instructions Hypokalemia -K 3.3 on admission, replenished already -recheck BMP MICHEL vs CKD -Cr is actually improved since last hospitalization last week, likely due to demand ischemia. -plan per Primary Diagnosis HLD -Continue home meds HTN -Continue home meds Code: Full Prophylaxis: lovenox Disposition: Home in 0-2 days <Osorio Manzo - Last Filed: 06/16/18 08:31> Attending Addendum - Attending Addendum Date/Time: 06/16/18 0382 I personally evaluated the patient and discussed the management with Dr. Manzo. I agree with the History, Examination, Assessment and Plan documented above with any addition or exceptions noted below. The patient's hypokalemia worsened. Will be replacing both po and IV. Mg was normal. LE edema is improving. Continue lasix. Change to inpt status. <Oneyda Viveros - Last Filed: 06/16/18 11:46>
[2018-06-16 06:52] VITALS: BMI 32.9
[2018-06-16] MEDS ORDERED: Potassium Chloride 20 MEQ TAB PO SCH ×2 (08:00→09:00)
[2018-06-16 08:51] LABS: Anion Gap 15 mmol/L (10-20); BUN (Urea Nitrogen) 33 mg/dL (9.8-20.1); Calc. Creatinine Clearance 75 mL/min (70-130); Calcium 9.3 mg/dL (7.8-10.44); Carbon Dioxide 24 mmol/L (22-29); Chloride 99 mmol/L (98-107); Estimated GFR-MDRD 54; Glucose 89 mg/dL (70-105); Potassium 3.1 mmol/L (3.5-5.1); Sodium 135 mmol/L (136-145)
[2018-06-16] MEDS ORDERED: Potassium Chloride 40 MEQ in Premix Bag 1 BAG IVPB SCH (09:00)
[2018-06-16] MEDS: Carvedilol 3.125 MG TAB PO SCH ×3 (10:09→17:36)
[2018-06-16] MEDS: Enoxaparin Sodium 40 MG/0.4 ML SYRINGE SC SCH (10:22)
[2018-06-16] MEDS: Potassium Chloride 20 MEQ TAB PO SCH ×2 (10:23→17:36)
[2018-06-16] MEDS: Spironolactone 25 MG TAB PO SCH (10:23)
[2018-06-16] MEDS: Potassium Chloride 20 MEQ in Premix Bag 1 BAG IVPB SCH ×3 (11:09→15:02)
[2018-06-16] MEDS: Atorvastatin Calcium 10 MG TAB PO SCH (21:17)
[2018-06-16] MEDS ORDERED: guaiFENesin ER 600 MG TAB PO SCH (22:00)
--- NOTE | 2018-06-17 04:05 | CON ---
DATE OF CONSULTATION: 06/16/2018 HISTORY OF PRESENT ILLNESS: Ms. Ondina Ley is a 57-year-old black female with history of nonischemic cardiomyopathy. She underwent cardiac catheterization in 2017, which revealed normal coronary arteries. She has been admitted multiple times with congestive heart failure exacerbation. Her most recent echocardiogram was from 05/27/2018, which revealed ejection fraction of 15%-20% with diastolic dysfunction, biatrial enlargement, mitral annular calcification, moderate mitral regurgitation, severe tricuspid regurgitation, severely elevated pulmonary artery pressure, mild pulmonic regurgitation and a small pericardial effusion. She was most recently discharged on June 10. She was seen at [facility] yesterday and was complaining of increased shortness of breath and was again admitted. She denies any chest discomfort. She states that since being admitted, her breathing has somewhat improved. PAST MEDICAL HISTORY: Nonischemic cardiomyopathy. Ejection fraction of 15% to 20%. Episodes of nonsustained ventricular tachycardia, hypercholesterolemia. MEDICATIONS: Aspirin 81 daily, atorvastatin 10 mg at bedtime, carvedilol one- half of 3.125 b.i.d., furosemide 40 mg daily, KCl 20 mEq daily, Senokot 1 at bedtime p.r.n., Aldactone 12.5 q.a.m. ALLERGIES: None. OPERATIONS: During her last admission, after being recommended for over a year that should have a defibrillator placed, she underwent placement of a single chamber ICD. SOCIAL HISTORY: She does not smoke or drink. FAMILY HISTORY: Negative for coronary artery disease. REVIEW OF SYSTEMS: Twelve-point review of systems, otherwise unremarkable. PHYSICAL EXAMINATION: VITAL SIGNS: Blood pressure 91/63, pulse 77. HEENT: PERRL. NECK: Supple. CHEST: Clear. CARDIAC: S1, S2 normal without any S3, S4, or murmurs. ABDOMEN: Obese. Normal bowel sounds, no tenderness. EXTREMITIES: Revealed 2 to 3+ pretibial edema. NEUROLOGIC: Grossly intact. LABORATORY AND X-RAY FINDINGS: EKG revealed sinus rhythm with PVCs, low voltage or nonspecific T-wave changes. Sodium 135, potassium 3.1, chloride 99, carbon dioxide 24, BUN 33, creatinine 1.24. BNP 8872.0. IMPRESSION: 1. Nonischemic cardiomyopathy, last ejection fraction of 15% to 20%. 2. Hypotension, however, she denies any history of lightheadedness or dizziness. Her blood pressures are usually in this range on previous admissions. RECOMMENDATIONS: The patient is being treated with IV Lasix 40 mg q.8 hours. If she does not have improvement in her diuresis, consideration may need to be given to addition of dopamine and/or dobutamine. MTDD
[2018-06-17] MEDS: Furosemide 40 MG/4 ML VIAL SLOW IVP SCH ×2 (05:59→14:11)
[2018-06-17 06:10] LABS: Anion Gap 15 mmol/L (10-20); BUN (Urea Nitrogen) 36 mg/dL (9.8-20.1); Calc. Creatinine Clearance 67 mL/min (70-130); Calcium 9.4 mg/dL (7.8-10.44); Carbon Dioxide 23 mmol/L (22-29); Chloride 100 mmol/L (98-107); Estimated GFR-MDRD 48; Glucose 92 mg/dL (70-105); Potassium 4.2 mmol/L (3.5-5.1); Sodium 134 mmol/L (136-145)
--- NOTE | 2018-06-17 06:15 | PDOC.FM ---
- Subjective Subjective: Pt feels well this AM. Complaints of continued mild cough when laying flat but overall reports improvement of SOB on exertion and decreased abdominal fullness. No fever/chills, no cp no palpitations, cough, no resting sob - Objective MAR Reviewed: Yes Vital Signs & Weight: Vital Signs (12 hours) Temp Pulse Resp BP Pulse Ox 06/17/18 03:02 96.9 F L 74 15 112/69 99 06/16/18 20:00 97.4 F L 75 20 94/59 L 97 Weight Weight 93.077 kg I&O: 06/15/18 06/16/18 06/17/18 06:59 06:59 06:59 Intake Total 1628 1140 Output Total 275 300 Balance 1353 840 Result Diagrams: 06/15/18 18:09 06/17/18 05:00 <Osorio Manzo - Last Filed: 06/17/18 08:00> - Objective Vital Signs & Weight: Vital Signs (12 hours) Temp Pulse Resp BP Pulse Ox 06/17/18 16:00 97.2 F L 78 16 100/67 95 06/17/18 12:00 97.7 F 71 18 97/61 98 06/17/18 08:00 98.1 F 73 17 93/71 95 Weight Weight 93.077 kg I&O: 06/16/18 06/17/18 06/18/18 06:59 06:59 06:59 Intake Total 1628 1140 480 Output Total 275 300 700 Balance 1353 840 -220 Result Diagrams: 06/15/18 18:09 06/17/18 05:00 <Oneyda Viveros - Last Filed: 06/17/18 19:10> Phys Exam - Physical Examination Constitutional: NAD HEENT: moist MMs, sclera anicteric Neck: no JVD, full ROM Respiratory: no wheezing, clear to auscultation bilateral Cardiovascular: RRR, no significant murmur Gastrointestinal: soft, non-tender Musculoskeletal: pulses present, edema present (+2 pitting) Neurological: normal sensation, moves all 4 limbs Psychiatric: normal affect, A&O x 3 Skin: no rash, normal turgor <Osorio Manzo - Last Filed: 06/17/18 08:00> Dx/Plan (1) HFrEF (heart failure with reduced ejection fraction) Code(s): I50.20 - UNSPECIFIED SYSTOLIC (CONGESTIVE) HEART FAILURE Status: Acute (2) MICHEL (acute kidney injury) Code(s): N17.9 - ACUTE KIDNEY FAILURE, UNSPECIFIED Status: Acute (3) Hyperlipidemia Code(s): E78.5 - HYPERLIPIDEMIA, UNSPECIFIED Status: Acute (4) Hypokalemia Code(s): E87.6 - HYPOKALEMIA Status: Acute (5) HTN (hypertension) Code(s): I10 - ESSENTIAL (PRIMARY) HYPERTENSION Status: Chronic - Plan Plan: This is a 57 yo female with a PMH of CHFrEF Acute on chronic CHFrEF exacerbation A-Pt shows continued improvement with IV lasix. Exacerbation likely 2/2 to pt taking meds with meals and failing to fluid restrict at home. Echo in 05/27 shows 15-12% EF, cardiology consulted appreciate recs. P- IV lasix will consider adding dopamine or dobutamine if improvement slows per cards recs -Strict I/Os -fluid restriction -counselled pt regarding proper fluid restriction and medication instructions Hypokalemia -K 3.3 on admission, receiving K daily. K wnl today -AM run BMPs MICHEL vs CKD -Cr is on presentation was improved since last hospitalization last week, likely due to demand ischemia. -plan per Primary Diagnosis HLD -Continue home meds HTN -Continue home meds Code: Full Prophylaxis: lovenox Disposition: Home in 1-2 days <Osorio Manzo - Last Filed: 06/17/18 08:00> Attending Addendum - Attending Addendum Date/Time: 06/17/18 7233 I personally evaluated the patient and discussed the management with Dr. Manzo. I agree with the History, Examination, Assessment and Plan documented above with any addition or exceptions noted below. The patient is doing well. Her creatinine is stable. Hypokalemia is improved. Will continue diuresis. <Oneyda Viveros - Last Filed: 06/17/18 19:10>
[2018-06-17] MEDS: guaiFENesin ER 600 MG TAB PO SCH ×2 (09:02→20:16)
[2018-06-17] MEDS: Carvedilol 3.125 MG TAB PO SCH ×2 (09:02→17:17)
[2018-06-17] MEDS: Spironolactone 25 MG TAB PO SCH (09:03)
[2018-06-17] MEDS: Potassium Chloride 20 MEQ TAB PO SCH ×2 (09:03→17:18)
[2018-06-17] MEDS: Enoxaparin Sodium 40 MG/0.4 ML SYRINGE SC SCH (09:04)
[2018-06-17] MEDS ORDERED: Metolazone 5 MG TAB PO SCH ×2 (13:30→22:00)
[2018-06-17] MEDS: Atorvastatin Calcium 10 MG TAB PO SCH (20:16)
[2018-06-18] MEDS: Furosemide 40 MG/4 ML VIAL SLOW IVP SCH (05:48)
[2018-06-18] MEDS: Enoxaparin Sodium 40 MG/0.4 ML SYRINGE SC SCH (08:16)
[2018-06-18] MEDS: guaiFENesin ER 600 MG TAB PO SCH ×2 (08:17→20:31)
[2018-06-18] MEDS: Spironolactone 25 MG TAB PO SCH (08:17)
[2018-06-18] MEDS: Carvedilol 3.125 MG TAB PO SCH ×2 (08:17→16:15)
[2018-06-18] MEDS: Potassium Chloride 20 MEQ TAB PO SCH ×2 (08:17→16:15)
--- NOTE | 2018-06-18 08:32 | PDOC.FM ---
- Subjective Subjective: Pt reports feeling better, SOB is back to baseline per pt. Pt complains of continued cough while laying flat though. No other complaints at this time. no fever/chills, no cp/palpitations, no sob, cough - Objective MAR Reviewed: Yes Vital Signs & Weight: Vital Signs (12 hours) Temp Pulse Resp BP Pulse Ox 06/18/18 07:32 97.5 F L 82 16 103/68 100 06/18/18 02:53 99.6 F 85 14 98/63 99 Weight Weight 94.755 kg I&O: 06/17/18 06/18/18 06/19/18 06:59 06:59 06:59 Intake Total 1140 930 Output Total 300 1375 Balance 840 -445 Result Diagrams: 06/15/18 18:09 06/17/18 05:00 <Osorio Manzo - Last Filed: 06/18/18 08:29> - Objective Vital Signs & Weight: Vital Signs (12 hours) Temp Pulse Resp BP BP Pulse Ox 06/18/18 16:12 72 83/54 L 06/18/18 14:45 98 F 77 16 93/66 99 06/18/18 10:56 98 F 72 16 89/56 L 99 06/18/18 07:32 97.5 F L 82 16 103/68 100 Weight Weight 94.755 kg I&O: 06/17/18 06/18/18 06/19/18 06:59 06:59 06:59 Intake Total 1140 930 Output Total 300 1375 Balance 840 -445 Result Diagrams: 06/15/18 18:09 06/18/18 07:59 <Oneyda Viveros - Last Filed: 06/18/18 16:48> Phys Exam - Physical Examination Constitutional: NAD HEENT: moist MMs, sclera anicteric Neck: no JVD, full ROM Respiratory: no wheezing, clear to auscultation bilateral Cardiovascular: RRR, no significant murmur Gastrointestinal: soft, non-tender Musculoskeletal: pulses present, edema present (+2 pitting) Neurological: normal sensation, moves all 4 limbs Psychiatric: normal affect, A&O x 3 Skin: no rash, normal turgor <Osorio Manzo - Last Filed: 06/18/18 08:29> Dx/Plan (1) HFrEF (heart failure with reduced ejection fraction) Code(s): I50.20 - UNSPECIFIED SYSTOLIC (CONGESTIVE) HEART FAILURE Status: Acute (2) MICHEL (acute kidney injury) Code(s): N17.9 - ACUTE KIDNEY FAILURE, UNSPECIFIED Status: Acute (3) Hyperlipidemia Code(s): E78.5 - HYPERLIPIDEMIA, UNSPECIFIED Status: Acute (4) Hypokalemia Code(s): E87.6 - HYPOKALEMIA Status: Acute (5) HTN (hypertension) Code(s): I10 - ESSENTIAL (PRIMARY) HYPERTENSION Status: Chronic - Plan Plan: This is a 57 yo female with a PMH of CHFrEF Acute on chronic CHFrEF exacerbation A-Pt shows continued improvement with IV lasix. Exacerbation likely 2/2 to pt taking meds with meals and failing to fluid restrict at home. Echo in 05/27 shows 15-12% EF, cardiology consulted appreciate recs. P- IV lasix BID will consider adding dopamine or dobutamine if improvement slows per cards recs -metolazone PO daily -Strict I/Os -fluid restriction -f/u cards recs -counselled pt regarding proper fluid restriction and medication instructions Hypokalemia -K 3.3 on admission, receiving K daily. K wnl yesterday, awaiting BMP today -AM run BMPs MICHEL vs CKD -Cr is on presentation was improved since last hospitalization last week, likely due to demand ischemia. -plan per Primary Diagnosis HLD -Continue home meds HTN -Continue home meds Code: Full Prophylaxis: lovenox Disposition: Home in 1-2 days <Osorio Manzo - Last Filed: 06/18/18 08:29> Attending Addendum - Attending Addendum Date/Time: 06/18/18 1047 I personally evaluated the patient and discussed the management with Dr. Manzo. I agree with the History, Examination, Assessment and Plan documented above with any addition or exceptions noted below. Pt was negative on I/O yesterday. Has a continued cough but notes shortness of breath is improved. Will repeat CXR. Transition to PO diuretics in anticipation of d/c tomorrow. <Oneyda Viveros - Last Filed: 06/18/18 16:48>
[2018-06-18 08:36] LABS: Anion Gap 15 mmol/L (10-20); BUN (Urea Nitrogen) 38 mg/dL (9.8-20.1); Calc. Creatinine Clearance 67 mL/min (70-130); Calcium 9.6 mg/dL (7.8-10.44); Carbon Dioxide 23 mmol/L (22-29); Chloride 101 mmol/L (98-107); Estimated GFR-MDRD 46; Glucose 105 mg/dL (70-105); Potassium 4.3 mmol/L (3.5-5.1); Sodium 135 mmol/L (136-145)
--- NOTE | 2018-06-18 13:29 | RAD ---
TWO VIEW CHEST: COMPARISON: 06/15/2018 chest radiograph. CLINICAL INDICATION: Cough, short of breath. FINDINGS: There remains enlargement of the cardiac silhouette. Progressive pleural-based and parenchymal densi ty at the right lung base is present and there is a mild pleural-based density at the inferior left c hest. The left side cardiac pacing device remains. There are extrinsic artifacts which limit visual ization. Mild prominence of the pulmonary vasculature present. IMPRESSION: Evidence to indicate decompensated congestive heart failure with mild progression of right pleural fl uid with adjacent atelectasis and/or pneumonia. Followup to resolution is recommended. POS: [facility]
[2018-06-18] MEDS ORDERED: Metolazone 5 MG TAB PO SCH (14:15)
[2018-06-18] MEDS: Furosemide 40 MG TAB PO SCH (14:48)
--- NOTE | 2018-06-18 14:58 | PQF ---
CLINICAL DOCUMENTATION IMPROVEMENT CLARIFICATION FORM: ICD-10 Updated PLEASE DO AN ADDENDUM TO THE PROGRESS NOTE WITH ANY DOCUMENTATION UPDATES OR ADDITIONS AND CARRY THROUGH TO DC SUMMARY. THANK YOU. DATE: 06/18 ATTN: DR. PILLO CHAUDHARY / DR. Juancarlos WEBB Please exercise your independent, professional judgment in responding to the clarification form. Clinical indicators are provided on the bottom of this form for your review. Please check appropriate box(s): [ x ] Acute on Chronic Renal Failure please specify Stage of CKD x___ (see below) [ ] CKD without ARF/MICHEL please specify Stage of CKD [ ] Other diagnosis [ ] Unable to determine National Kidney Foundation Guidelines for CKD Staging Stage I Kidney damage with normal or increased GFR GFR > 90 Stage II Kidney damage with mildly decreased GFR GFR 60-89 Stage III Kidney damage with moderately decreased GFR GFR 30-59 Stage IV Kidney damage with severely decreased GFR GFR 16-29 Stage V Kidney failure GFR<15 ESRD End Stage Renal Disease On dialysis For continuity of documentation, please document condition throughout progress notes and discharge summary. Thank You. CLINICAL INDICATORS - SIGNS / SYMPTOMS / LABS BUN: 32 -38 CR: 1.17 -1.42 GFR: 58 - 46 (06/15) PN 06/16 - : MICHEL VS CKD; CR IS ACTUALLY IMPROVED SINCE LAST HOSPITALIZATION LAST WEEK RISK FACTORS: ACUTE ON CHRONIC SYSTOLIC CHF IV LASIX (06/15) TREATMENTS: SERIAL LABS THANK YOU! Stephy (This form is maintained as a part of the permanent medical record) 2014 [employer]. All Rights Reserved Stephy Bui RN, BSN [email or web address] Office: [phone] [facility]
[2018-06-18] MEDS: Atorvastatin Calcium 10 MG TAB PO SCH (20:31)
[2018-06-19 06:12] LABS: Anion Gap 15 mmol/L (10-20); BUN (Urea Nitrogen) 39 mg/dL (9.8-20.1); Calc. Creatinine Clearance 70 mL/min (70-130); Calcium 9.7 mg/dL (7.8-10.44); Carbon Dioxide 23 mmol/L (22-29); Chloride 100 mmol/L (98-107); Estimated GFR-MDRD 50; Glucose 99 mg/dL (70-105); Potassium 4.4 mmol/L (3.5-5.1); Sodium 134 mmol/L (136-145)
--- NOTE | 2018-06-19 06:39 | PDOC.FM ---
- Subjective Subjective: Ms. Ley is resting comfortably in bed, denies any SOB or leg swelling - Objective Vital Signs & Weight: Vital Signs (12 hours) Temp Pulse Resp BP BP Pulse Ox 06/19/18 04:00 98.0 F 74 20 97/71 99 06/19/18 00:00 97.6 F 69 18 105/65 95 06/18/18 19:30 97.9 F 75 16 94/66 97 Weight Weight 93.712 kg I&O: 06/17/18 06/18/18 06/19/18 06:59 06:59 06:59 Intake Total 9179 890 3008 Output Total 300 1375 1750 Balance 840 -445 -258 Result Diagrams: 06/15/18 18:09 06/19/18 05:01 <Sal Marks - Last Filed: 06/19/18 07:49> - Objective Vital Signs & Weight: Vital Signs (12 hours) Temp Pulse Resp BP BP Pulse Ox 06/19/18 07:46 97.6 F 72 16 99/65 100 06/19/18 04:00 98.0 F 74 20 97/71 99 06/19/18 00:00 97.6 F 69 18 105/65 95 Weight Weight 93.712 kg I&O: 06/18/18 06/19/18 06/20/18 06:59 06:59 06:59 Intake Total 930 1140 Output Total 1375 1750 Balance -667 -682 Result Diagrams: 06/15/18 18:09 06/19/18 05:01 <Oneyda Viveros - Last Filed: 06/19/18 10:45> Phys Exam - Physical Examination Constitutional: NAD HEENT: PERRLA Neck: no JVD Respiratory: no wheezing, no rales, clear to auscultation bilateral Cardiovascular: RRR, no significant murmur, no rub Musculoskeletal: no edema, pulses present Neurological: moves all 4 limbs Psychiatric: normal affect Skin: no rash <Sal Marks - Last Filed: 06/19/18 07:49> Dx/Plan (1) MICHEL (acute kidney injury) Code(s): N17.9 - ACUTE KIDNEY FAILURE, UNSPECIFIED Status: Acute (2) Acute exacerbation of congestive heart failure Code(s): I50.9 - HEART FAILURE, UNSPECIFIED Status: Acute (3) Elevated troponin Code(s): R74.8 - ABNORMAL LEVELS OF OTHER SERUM ENZYMES Status: Acute (4) HFrEF (heart failure with reduced ejection fraction) Code(s): I50.20 - UNSPECIFIED SYSTOLIC (CONGESTIVE) HEART FAILURE Status: Acute (5) Hypokalemia Code(s): E87.6 - HYPOKALEMIA Status: Acute - Plan Plan: Acute on chronic CHFrEF exacerbation A-Pt shows continued improvement with IV lasix. Exacerbation likely 2/2 to pt taking meds with meals and failing to fluid restrict at home. Echo in 05/27 shows 15-12% EF, cardiology consulted appreciate recs. P- IV lasix BID will consider adding dopamine or dobutamine if improvement slows per cards recs -metolazone PO daily -Strict I/Os -fluid restriction -counselled pt regarding proper fluid restriction and medication instructions Hypokalemia -K 3.3 on admission, receiving K daily -AM BMPs, improved MICHEL vs CKD -Cr is on presentation was improved since last hospitalization last week, likely due to demand ischemia. -plan per Primary Diagnosis HLD -Continue home meds HTN -Continue home meds Code: Full Prophylaxis: lovenox Disposition: Home today <Sal Marks - Last Filed: 06/19/18 07:49> Attending Addendum - Attending Addendum Date/Time: 06/19/18 1044 I personally evaluated the patient and discussed the management with Dr. Marks. I agree with the History, Examination, Assessment and Plan documented above with any addition or exceptions noted below. The patient is feeling better. She notes breathing is at baseline. The patient will discharge home. <Oneyda Viveros - Last Filed: 06/19/18 10:45>
[2018-06-19] MEDS: Enoxaparin Sodium 40 MG/0.4 ML SYRINGE SC SCH (07:53)
[2018-06-19] MEDS: guaiFENesin ER 600 MG TAB PO SCH (07:54)
[2018-06-19] MEDS: Furosemide 40 MG TAB PO SCH (07:54)
[2018-06-19] MEDS: Carvedilol 3.125 MG TAB PO SCH (07:54)
[2018-06-19] MEDS: Potassium Chloride 20 MEQ TAB PO SCH (07:55)
[2018-06-19] MEDS: Spironolactone 25 MG TAB PO SCH (07:55)
[2018-06-19] MEDS ORDERED: Metolazone 5 MG TAB PO SCH (08:30)
--- NOTE | 2018-06-19 11:46 | PDOC.EVN ---
Event Note - Event Note Event Note: Patient's contraindication to an KIARA/ARB is due to borderline hypotension.
[2018-06-19 12:04] VITALS: BP 95/68; TEMP 98.2
--- NOTE | 2018-06-20 16:55 | DIS-2 ---
ADMITTING ATTENDING: Dr. Holly Cash. DISCHARGE ATTENDING: Dr. Oneyda Viveros. RESIDENT: Sal Marks. CONSULTATION: Cardiology, Dr. Wilman Feng. PROCEDURES: 1. Chest x-ray; impression, mild congestive heart failure. 2. Chest x-ray on hospital day #3. Impression: Evidence to indicate decompensated congestive heart failure with mild progression of right pleural fluid and adjacent atelectasis. Followup to resoluti on is recommended. PRIMARY DIAGNOSIS: Acute on chronic congestive heart failure with reduced ejection fraction. SECONDARY DIAGNOSES: 1. Hypokalemia. 2. Acute kidney injury versus chronic kidney disease. 3. Hyperlipidemia. 4. Hypertension. DISCHARGE MEDICATIONS: 1. Spironolactone 12.5 mg p.o. q.a.m. with meals. 2. Aspirin 81 mg p.o. daily. 3. Potassium chloride 20 mEq p.o. daily. 4. Senokot 1 tab p.o. at bedtime p.r.n. 5. Lipitor 10 mg p.o. at bedtime. 6. Carvedilol 1.5625 mg p.o. b.i.d. with meals. 7. Lasix 40 mg p.o. b.i.d. 8. Mucinex 600 mg p.o. q.12 hours. 9. Metolazone 5 mg p.o. on Thursday, Thursday and Thursday. DISCONTINUED MEDICATIONS: None. HISTORY OF PRESENT ILLNESS AND HOSPITAL COURSE: Ms. Ley is a 57-year-old female with a past med ical history significant for congestive heart failure with reduced ejection fraction, who presents as a direct admit from clinic with a chief complaint of shortness of breath. The patient says she has been having shortness of breath since she left the hospital previously approximately 1 week before [facility] admission. She states that standing up and walking to the bathroom makes her short of breath. She reported taking her medicine as instructed. She does state that she takes her Lasix after eatin g food and that she urinates 2-3 times for accurate dose of Lasix. In addition, she recently had an implantable cardioverter defibrillator/pulse generator on 06/04/[address] Goodson. Her most recent ec ho on 05/27/2018 showed an ejection fraction of 15%-20%. She is admitted to telemetry floor and gent ly diuresed. Diuresis was adequate. The patient remained stable and tolerated medications without d ifficulty. Cardiology was consulted and recommendations were appreciated and patient was started on metolazone 3 times a week. Diuresis improved. Patient's symptoms improved and determined to be stab le to manage on an outpatient basis. DISPOSITION: Stable. DISCHARGE INSTRUCTIONS: 1. Location: Home. 2. Diet: Heart healthy. 3. Activity: As tolerated. 4. Follow up with PCP, Dr. Velez in 7 days. 5. Cardiology, Dr. Feng, in 2-3 weeks.
== END 2018-06-19 12:56 | disposition home or self-care (01) | DRG 291 ==
LOC: 2SW 17:01 → OBSVTOIN 06-16 11:01 → 2NO 06-16 17:50
PROVIDERS: ADMIT Family Medicine; ATTEND Family Medicine
DX: I13.0 Hypertensive heart and chronic kidney disease with heart failure and stage 1 through stage 4 chronic kidney disease, or unspecified chronic kidney disease (principal); I50.23 Acute on chronic systolic (congestive) heart failure; N17.9 Acute kidney failure, unspecified; I47.2 Ventricular tachycardia; E87.6 Hypokalemia; Z95.810 Presence of automatic (implantable) cardiac defibrillator; E78.5 Hyperlipidemia, unspecified; E66.9 Obesity, unspecified; I42.8 Other cardiomyopathies; Z68.33 Body mass index [BMI] 33.0-33.9, adult; Z79.899 Other long term (current) drug therapy; Z79.82 Long term (current) use of aspirin; I95.9 Hypotension, unspecified; N18.9 Chronic kidney disease, unspecified
CPT/HCPCS: 36415; 71045; 71046; 80048; 80053; 83735; 83880; 85025; 93005; 93010; 93798; J1650; J1940; J3480

== ENCOUNTER 2018-08-01 01:31 | Inpatient (IN) | payer MEDICAID, OTHER, SELFPAY ==
[2018-08-01 02:05] LABS: Mean Corpuscular HGB CONC 32.7 g/dL (32.0-36.0); Mean Corpuscular Hemoglobin 30.2 pg (27.0-31.0); Mean Corpuscular Volume 92.2 fL (78.0-98.0); Mean Platelet Volume 8.8 fL (7.4-10.4); Platelet Count 146 thou/uL (130-400); RBC Distribution Width 17.2 % (11.5-14.5); Red Blood Cell (RBC) Count 3.64 mill/uL (4.20-5.40); White Blood Cell (WBC) Count 8.5 thou/uL (4.8-10.8)
[2018-08-01 02:23] LABS: ALT (SGPT) 14 U/L (8-55); AST (SGOT) 26 U/L (5-34); Alkaline Phosphatase 117 U/L (40-150); Anion Gap 18 mmol/L (10-20); BUN (Urea Nitrogen) 55 mg/dL (9.8-20.1); Bilirubin, Total 5.4 mg/dL (0.2-1.2); Calc. Creatinine Clearance 0 mL/min (70-130); Calcium 9.6 mg/dL (7.8-10.44); Carbon Dioxide 25 mmol/L (22-29); Chloride 95 mmol/L (98-107); Estimated GFR-MDRD 36; Globulin 5.1 g/dL (2.4-3.5); Glucose 119 mg/dL (70-105); Potassium 3.6 mmol/L (3.5-5.1); Protein, Total 8.1 g/dL (6.0-8.3); Sodium 134 mmol/L (136-145)
[2018-08-01 02:29] LABS: Hypochromia SLIGHT = 6-15 cells (100X) (0-5/hpf); Lymphocytes 11 % (21-51); MDiff Complete? YES; Monocytes 10 % (0-10); Neutrophil 79 % (42-75); Platelet Morphology Comment Appears Adequate; Polychromasia SLIGHT = 2-3 cells (100X) (0-2/hpf); Target Cells SLIGHT = 2-5 cells (100X) (0-1/hpf)
[2018-08-01] MEDS ORDERED: Furosemide 40 MG/4 ML VIAL ONE (02:34)
[2018-08-01 02:45] LABS: CKMB 1.4 ng/mL (0-6.6)
--- NOTE | 2018-08-01 04:09 | PDOC.FPRHP ---
- History of Present Illness Chief Complaint: bilateral lower extremity swelling History of Present Illness: 58 yo AAF with history of CHFrEF presents for worsening bilateral lower extremity edema. Patient states that her edema has been worsening (R > L) even though she is taking all her medications and limiting her water intake to 24 oz daily (3 small 8 oz water bottles). States that her exertional dyspnea is worsening, and she is feeling more short of breath. Also complains of a chronic cough, stating that tessalon pearles do not help. She reports her abdomen has been tight since her diagnosis of CHF 2 years ago. In the ED, she was given 40 mg IV lasix. - Allergies/Adverse Reactions Allergies Allergy/AdvReac Type Severity Reaction Status Date / Time No Known Drug Allergies Allergy Verified 06/04/18 23:21 - Home Medications Medication Instructions Recorded Confirmed Type Aspirin 81 mg PO DAILY #30 tab.chew 09/18/17 08/01/18 Rx Sennosides [Senokot] 1 tab PO HSPRN PRN tab 05/27/18 08/01/18 Rx Carvedilol [Coreg] 1 tab PO BID-WM 08/01/18 08/01/18 History Furosemide [Lasix] 40 mg PO 0800,1400 08/01/18 08/01/18 History Metolazone [Zaroxolyn] 5 mg PO PRN PRN 08/01/18 08/01/18 History Potassium Chloride [K-Dur] 2 tab PO DAILY 08/01/18 08/01/18 History - History PMHx: CHFrEF with ECHO on 05/27/18 showing EF of 15-20% (ICD recently placed); HTN PSHx: ICD, CSx1 FHx: Cancer: mother of breast cancer, brother with pancreatic cancer Social: denies tobacco, alcohol, or illicit drug use - Review of Systems General: reports: fatigue. denies: fever/chills, weight/appetite/sleep changes Eyes: denies: eye pain, vision changes ENT: denies: nasal congestion, rhinorrhea Respiratory: reports: shortness of breath, exercise intolerance. denies: cough , congestion Cardiovascular: reports: edema. denies: chest pain, palpitation Gastrointestinal: reports: constipation. denies: nausea, vomiting, diarrhea, abdominal pain, GI bleeding Genitourinary: denies: incontinence, dysuria, other (no hematuria) Skin: denies: rashes, itching Musculoskeletal: reports: pain (Rt leg/calf), swelling Neurological: denies: numbness, weakness Psychological: denies: anxiety, depression - Vital signs BP: [97/68] HR: [80] RR: [19] Tmax: [97.8] Pox: [100]% on [RA] Wt: [96.6] - Physical Exam Constitutional: NAD, awake, alert and oriented HEENT: normocephalic and atraumatic, PERRLA, EOMI, grossly normal hearing, MMM, oropharynx clear, other (scleral icterus present) Neck: supple, no LAD Heart: RRR, normal S1/S2, no murmurs/rubs/gallops, pulses present, other (3+ pitting edema bilaterally, erythematous and weeping BLE, warmth bilat R>L) Lungs: other (basilar inspiratory and expiratory crackles) Abdomen: bowel sounds present, other (protuberant and tight abdomen) Musculoskeletal: other (BLE swelling and edema) Neurological: no focal deficit Skin: capillary refill <2 seconds, other (slight jaundice of face, difficult to tell because of skin color) Psychiatric: normal mood and affect, intact recent and remote memory FMR H&P: Results - Labs Result Diagrams: 08/01/18 01:55 08/01/18 01:56 Lab results: WBC 8.5 thou/uL (4.8-10.8) 08/01/18 01:55 Hgb 11.0 g/dL (12.0-16.0) L 08/01/18 01:55 Hct 33.5 % (36.0-47.0) L 08/01/18 01:55 MCV 92.2 fL (78.0-98.0) 08/01/18 01:55 Plt Count 146 thou/uL (130-400) 08/01/18 01:55 Sodium 134 mmol/L (136-145) L 08/01/18 01:56 Potassium 3.6 mmol/L (3.5-5.1) 08/01/18 01:56 Chloride 95 mmol/L (98-107) L 08/01/18 01:56 Carbon Dioxide 25 mmol/L (22-29) 08/01/18 01:56 BUN 55 mg/dL (9.8-20.1) H 08/01/18 01:56 Creatinine 1.76 mg/dL (0.6-1.1) H 08/01/18 01:56 Glucose 119 mg/dL (70-105) H 08/01/18 01:56 Calcium 9.6 mg/dL (7.8-10.44) 08/01/18 01:56 Total Bilirubin 5.4 mg/dL (0.2-1.2) H 08/01/18 01:56 AST 26 U/L (5-34) 08/01/18 01:56 ALT 14 U/L (8-55) 08/01/18 01:56 Alkaline Phosphatase 117 U/L (40-150) 08/01/18 01:56 CK-MB (CK-2) 1.4 ng/mL (0-6.6) 08/01/18 01:55 B-Natriuretic Peptide 8301.4 pg/mL (0-100) H 08/01/18 01:55 Serum Total Protein 8.1 g/dL (6.0-8.3) 08/01/18 01:56 Albumin 3.0 g/dL (3.5-5.0) L 08/01/18 01:56 - EKG Interpretation EKG: low voltage QRS, RRR - Radiology Interpretation Chest x-ray Status: pending FMR H&P: A/P - Problem List (1) Acute exacerbation of congestive heart failure Current Visit: No Status: Acute Code(s): I50.9 - HEART FAILURE, UNSPECIFIED (2) CKD (chronic kidney disease) Current Visit: Yes Status: Chronic Code(s): N18.9 - CHRONIC KIDNEY DISEASE, UNSPECIFIED (3) Hypoalbuminemia Current Visit: Yes Status: Acute Code(s): E88.09 - OTH DISORDERS OF PLASMA- PROTEIN METABOLISM, NEC (4) MICHEL (acute kidney injury) Current Visit: No Status: Acute Code(s): N17.9 - ACUTE KIDNEY FAILURE, UNSPECIFIED (5) Abdominal distention Current Visit: No Status: Acute Code(s): R14.0 - ABDOMINAL DISTENSION ( GASEOUS) (6) Elevated troponin Current Visit: No Status: Acute Code(s): R74.8 - ABNORMAL LEVELS OF OTHER SERUM ENZYMES (7) HFrEF (heart failure with reduced ejection fraction) Current Visit: No Status: Chronic Code(s): I50.20 - UNSPECIFIED SYSTOLIC ( CONGESTIVE) HEART FAILURE (8) Hyperlipidemia Current Visit: No Status: Chronic Code(s): E78.5 - HYPERLIPIDEMIA, UNSPECIFIED (9) CHF (congestive heart failure) Current Visit: No Status: Chronic Code(s): I50.9 - HEART FAILURE, UNSPECIFIED (10) Elevated bilirubin Current Visit: No Status: Chronic Code(s): R17 - UNSPECIFIED JAUNDICE (11) HTN (hypertension) Current Visit: No Status: Chronic Code(s): I10 - ESSENTIAL (PRIMARY) HYPERTENSION (12) Constipation Current Visit: Yes Status: Chronic Code(s): K59.00 - CONSTIPATION, UNSPECIFIED - Plan This is a 57 yo female with a PMH of CHFrEF admitted for Acute on chronic CHFrEF exacerbation Acute on chronic CHFrEF exacerbation -Severe BLE edema with erythema, warmth, and weeping -Received 40 mg IV lasix in ED -BNP stable at 8000 -Trop elevated, trending -Admit to tele inpatient -Echo in 05/27 shows 15-12% EF -Strict I/Os, Daily weights -1500ml fluid restriction -Metolazone this AM -Wound care consulted -BLE dopplers pending MICHEL on CKD -elevated Cr of 1.76 from 1.22 -continue to monitor Elevated Bilirubin, Ascites -T bili 5.4, scleral icterus -most likely 2/2 hepatic congestion -US Liver pending Hypoalbuminemia -3.0 -[facility] consult placed, may not see until Thursday Hyponatremia -134, continue to monitor Anemia -Hgb 11 HTN -med rec HLD -med rec Constipation -Senno/doc TEJ Code: Full Prophylaxis: lovenox Family: none at bedside Disposition: Home in 2-3 days FMR H&P: Upper Level - Pertinent history 58 yr old female with PMH of HFrEF (EF 10-15%) who presents for worsening lower extremity swelling and LOPEZ. She has been seen by heart failure clinic. States she takes Lasix 40 mg BID, metolazone only PRN, aldactone. She reports a decrease in weight recently of 4 lbs. She reports drinking 24 oz water (709 ml) of fluid daily. Denies having much of appetite. Stomach is "tight." Reports blood pressure has been running low in the 80-90 systolic. - Pertinent findings CRX: some bilateral pul edema, cardiomegaly Gen: alert and oriented, no acute distress Heart: RRR, no murmurs, rubs, gallops Lungs: CTAB, minimal LL crackles Abd: protuberant, taut, BS+ ext: 4+ BLE pitting edema up to sacrum, weeping wounds BLE, right LE with calf warmth, tenderness, mild erythema bilaterally neuro: BLE/BUE strength 5/5 - Plan Date/Time: 08/01/18 0409 I, [Dayana Rodriguez], have evaluated this patient and agree with findings/plan as outlined by collector of internal revenue resident. Pertinent changes/additions are listed here. 58 yr old female with CHF exacerbation HFrEF with exacerbation -edema up to sacrum, significant ascites -given 40 mg IV lasix in ER -will start matolazone in AM -EF 10-15% -s/p AICD MICHEL on CKD -monitor, but needs aggressive diuresis Hyperbilirubinemia most likely 2/2 hepatic congestion -obtain RUQ sono -significant ascites RLE edema, warmth, and tenderness -obtain doppler to R/o DVT HTN -currently running low BP HLD -cont home med PCP: Adrienne Diet: HH DVT ppx: lovenox GI ppx: none Code status: FULL Addendum - Attending - Attending Attestation Date/Time: 08/01/18 1131 I personally evaluated the patient and discussed the management with Dr. Dacia [place] I agree with the History, Examination, Assessment and Plan documented above with any addition or exceptions noted below. Patient with Cardiomyopathy s/p recent ICD present with lower extremities pain from fluid accumulation and skin breakdown. Patient with significant third spacing of fluid presumed hepatic congestion will admit for fluid mobilization diuresis note hypoalbuminia and mild MICHEL.
[2018-08-01] MEDS ORDERED: Senokot S 8.6-50 MG TAB PO PRN (06:09)
[2018-08-01 06:57] LABS: Troponin I 0.047 ng/mL (< 0.028)
[2018-08-01] MEDS: Enoxaparin Sodium 40 MG/0.4 ML SYRINGE SC SCH (08:10)
[2018-08-01] MEDS: Acetaminophen 325 MG TAB PO PRN ×2 (08:10→14:26)
[2018-08-01] MEDS: Spironolactone 25 MG TAB PO SCH (08:10)
[2018-08-01] MEDS: Senokot S 8.6-50 MG TAB PO SCH ×2 (08:11→20:55)
[2018-08-01] MEDS: Docusate 100 MG CAP PO SCH ×2 (08:11→20:55)
[2018-08-01] MEDS: Potassium Chloride 20 MEQ TAB PO SCH (08:11)
[2018-08-01] MEDS ORDERED: Metolazone 2.5 MG TAB PO SCH (08:30)
[2018-08-01] MEDS ORDERED: Metolazone 5 MG TAB PO SCH (08:30)
--- NOTE | 2018-08-01 08:39 | RAD ---
PORTABLE AP CHEST XRAY: DATE: 08/01/2018. HISTORY: Dyspnea. COMPARISON: 06/15/2018. FINDINGS: A single-lead left subclavian AICD device remains in place. Cardiac silhouette remains enlarged. Th ere is a small right pleural effusion and atelectasis with a questionable tiny left pleural effusion. Pulmonary vasculature is within normal limits. No other interval change. IMPRESSION: 1. Cardiomegaly. 2. Right pleural effusion with associated atelectasis. Questionable tiny left pleural effusion is p resent. POS: [facility]
[2018-08-01] MEDS ORDERED: Folic Acid 1 MG TAB PO SCH (09:00)
[2018-08-01 09:43] LABS: Troponin I 0.046 ng/mL (< 0.028)
--- NOTE | 2018-08-01 11:47 | ULT ---
BILATERAL LOWER EXTREMITY VENOUS DOPPLER WITH SPECTRAL ANALYSIS AND COLOR FLOW EVALUATION: DATE: 08/01/2018. HISTORY: Bilateral lower extremity swelling and pain. FINDINGS: Montes scale, color flow, Doppler evaluation, and spectral analysis of the bilateral lower extremity ve nous structures is performed with 2D imaging. There is normal lumen compressibility and flow seen wi thin the bilateral lower extremity common femoral and proximal superficial femoral veins as well as t he most proximal visualized profunda femoral veins. However, the mid and distal superficial femoral veins bilaterally are unable to be visualized due to edema and depth of the veins in relation to the skin surface limiting adequate evaluation. The bilateral popliteal veins are unable to be visualized bilaterally due to patient's immobility and difficulty in positioning to adequate imaging. The post erior tibial veins are not visualized due to bandaging material on the lower extremities. IMPRESSION: 1. Very limited bilateral lower extremity venous Doppler examination as the majority of the deep trisha ous structures are unable to be visualized as described above. The bilateral lower extremity mid and distal superficial femoral, popliteal, and posterior tibial veins are unable to be imaged bilaterall y as described above. Deep vein thrombosis at these levels could not be excluded. 2. No evidence of a deep vein thrombosis involving the visualized bilateral lower extremity common f emoral or proximal superficial femoral veins. POS: [facility]
--- NOTE | 2018-08-01 11:49 | ULT ---
HEPATIC SONOGRAM WITH DUPLEX EVALUATION: HISTORY: Abnormal liver function tests. Ascites. FINDINGS: Gallbladder is incompletely distended, resulting in apparent thickening of the wall. This is nonspec ific given the free fluid throughout the abdomen. The common duct is 0.5 cm. The liver is heterogeneous without focal mass or intrahepatic biliary dil atation. The spleen is 11.4 cm. Bilateral pleural fluid is visualized. Good color and spectral Doppler flow within the hepatic and splenic arteries. Portal venous flow is towards the liver. Hepatic venous flow is towards the IVC. IMPRESSION: 1. No evidence of gallstones or biliary obstruction. 2. Small to moderate amount of ascites. No other findings of portal venous hypertension. 3. Bilateral pleural fluid. POS: [facility]
[2018-08-01] MEDS ORDERED: Senokot 8.6 MG TAB PO PRN (12:07)
[2018-08-01] MEDS ORDERED: Albumin 25% 25 GM/100 ML BOT IVPB SCH (12:30)
[2018-08-01] MEDS: Lactated Ringer's 1,000 ML IV SCH (12:34)
[2018-08-01] MEDS ORDERED: Furosemide 40 MG/4 ML VIAL SLOW IVP SCH ×2 (14:00)
[2018-08-01] MEDS ORDERED: Carvedilol 3.125 MG TAB PO SCH (17:00)
[2018-08-01] MEDS: Atorvastatin Calcium 10 MG TAB PO SCH (20:55)
[2018-08-02 05:52] LABS: ALT (SGPT) 13 U/L (8-55); AST (SGOT) 19 U/L (5-34); Albumin 3.1 g/dL (3.5-5.0); Alkaline Phosphatase 87 U/L (40-150); Anion Gap 18 mmol/L (10-20); BUN (Urea Nitrogen) 56 mg/dL (9.8-20.1); Bilirubin, Direct 5.4 mg/dL (0.1-0.3); Bilirubin, Total 7.5 mg/dL (0.2-1.2); Calc. Creatinine Clearance 60 mL/min (70-130); Calcium 9.4 mg/dL (7.8-10.44); Carbon Dioxide 24 mmol/L (22-29); Chloride 95 mmol/L (98-107); Estimated GFR-MDRD 40; Globulin 4.5 g/dL (2.4-3.5); Glucose 100 mg/dL (70-105); Potassium 3.4 mmol/L (3.5-5.1); Protein, Total 7.6 g/dL (6.0-8.3); Sodium 134 mmol/L (136-145)
[2018-08-02 05:59] LABS: Band 28 % (5-11); Hemoglobin 10.5 g/dL (12.0-16.0); Lymphocytes 5 % (21-51); MDiff Complete? YES; Mean Corpuscular Hemoglobin 29.3 pg (27.0-31.0); Mean Corpuscular Volume 91.6 fL (78.0-98.0); Mean Platelet Volume 9.1 fL (7.4-10.4); Monocytes 2 % (0-10); Neutrophil 65 % (42-75); Platelet Count 151 thou/uL (130-400); Platelet Morphology Comment Appears Adequate; RBC Distribution Width 17.6 % (11.5-14.5); White Blood Cell (WBC) Count 9.1 thou/uL (4.8-10.8)
--- NOTE | 2018-08-02 07:25 | PDOC.FM ---
- Subjective Subjective: NAEO. Denies respiratory problems. Feels better. denies abd pain, no famhx of liver problems - Objective Vital Signs & Weight: Vital Signs (12 hours) Temp Pulse Resp BP Pulse Ox 08/02/18 04:00 98 F 85 20 97/58 L 94 L 08/02/18 02:24 94 L 08/02/18 00:00 97.7 F 91 20 96/56 L 93 L 08/01/18 19:45 99.0 F 83 18 93/54 L 95 Weight Weight 99.337 kg I&O: 07/31/18 08/01/18 08/02/18 06:59 06:59 06:59 Intake Total 1867 Output Total 2210 Balance -343 Result Diagrams: 08/02/18 04:40 08/02/18 04:40 Phys Exam - Physical Examination Constitutional: NAD HEENT: PERRLA icteric sclera Respiratory: no wheezing, clear to auscultation bilateral s3 Gastrointestinal: soft distended, fluid shift edema up to lower back 3+, lower feet ulcers bandaged Neurological: non-focal, moves all 4 limbs Psychiatric: normal affect, A&O x 3 Dx/Plan (1) Acute exacerbation of congestive heart failure Code(s): I50.9 - HEART FAILURE, UNSPECIFIED Status: Acute (2) Hypoalbuminemia Code(s): E88.09 - OTH DISORDERS OF PLASMA-PROTEIN METABOLISM, NEC Status: Acute (3) CKD (chronic kidney disease) Code(s): N18.9 - CHRONIC KIDNEY DISEASE, UNSPECIFIED Status: Chronic (4) MICHEL (acute kidney injury) Code(s): N17.9 - ACUTE KIDNEY FAILURE, UNSPECIFIED Status: Acute (5) Hypokalemia Code(s): E87.6 - HYPOKALEMIA Status: Acute (6) CHF (congestive heart failure) Code(s): I50.9 - HEART FAILURE, UNSPECIFIED Status: Chronic (7) HFrEF (heart failure with reduced ejection fraction) Code(s): I50.20 - UNSPECIFIED SYSTOLIC (CONGESTIVE) HEART FAILURE Status: Chronic (8) HTN (hypertension) Code(s): I10 - ESSENTIAL (PRIMARY) HYPERTENSION Status: Chronic (9) Hyperlipidemia Code(s): E78.5 - HYPERLIPIDEMIA, UNSPECIFIED Status: Chronic - Plan Plan: This is a 57 yo female with a PMH of CHFrEF admitted for Acute on chronic CHFrEF exacerbation Acute on chronic CHFrEF exacerbation -Inc to 60 lasix BID, spironolactone, Kdur -Echo in 05/27 shows 15% EF -Inadequate UO, positive net balance, will inc daily lasix amount -Continue fluid restriction diet, strict I/O, daily weights -Metolazone held -Albumin 25% x1 Hypokalemia -Continue daily Kdur -Monitor with daily BMP Lower leg wounds 2/2 to fluid tension -Continue wound care, instructed to keep legs elevated -Doppler negative for DVT (poor study due to anatomy) MICHEL on CKD -Improved 1.76 -> 1.62 -D/c fluids but will give albumin 25% to help with intravascular fluid repletion -Continue to monitor with AM BMP Direct bilirubinemia -T bili 5.4 -> 7.5 -US Liver negative for liver or GB path -Likely hepatic congestion component but will also assess for other liver pathologies -GGT, AMA, anti-Smooth, ANCA, ASHIA Hypoalbuminemia -3.0 -> 3.1 -s/p 25% albumin x1, will give another dose -[employer] Sales Representative consult pending Hyponatremia -134, continue to monitor Normocytic anemia -H/H stable at -Likely dilutional component -Will continue to monitor, asx today HTN -home spironolactone HLD -home atorvastatin Constipation -Senno/doc TEJ Code: Full Prophylaxis: lovenox Dispo: Still fluid overloaded with minimal improvement. Inc daily lasix, continue to monitor. Discussed with Dr. Best Addendum - Attending - Attending Attestation Date/Time: 08/02/18 1203 I personally evaluated the patient and discussed the management with Dr. Aleman I agree with the History, Examination, Assessment and Plan documented above with any addition or exceptions noted below. Will ask Cardiology for help significant anasarca and trouble mobilizing fluid back to intravascular, poor response to albumin /Loop diuretic consider pressors dopamine/doputamine.
[2018-08-02] MEDS ORDERED: Furosemide 40 MG/4 ML VIAL SLOW IVP SCH (08:47)
[2018-08-02] MEDS ORDERED: Potassium Chloride 20 MEQ TAB PO SCH (09:00)
[2018-08-02] MEDS: Lactated Ringer's 1,000 ML IV SCH (09:01)
[2018-08-02] MEDS: Docusate 100 MG CAP PO SCH ×2 (09:04→20:38)
[2018-08-02] MEDS: Potassium Chloride 20 MEQ TAB PO SCH (09:04)
[2018-08-02] MEDS: Senokot S 8.6-50 MG TAB PO SCH ×2 (09:04→20:38)
[2018-08-02] MEDS: Spironolactone 25 MG TAB PO SCH (09:04)
[2018-08-02] MEDS: Enoxaparin Sodium 40 MG/0.4 ML SYRINGE SC SCH (09:05)
[2018-08-02] MEDS ORDERED: Albumin 25% 25 GM/100 ML BOT IVPB SCH (11:00)
[2018-08-02] MEDS: Acetaminophen 325 MG TAB PO PRN ×2 (11:33→20:37)
--- NOTE | 2018-08-02 13:23 | CON ---
DATE OF CONSULTATION: 08/02/2018 CARDIOLOGY CONSULTATION REASON FOR CONSULTATION: Heart failure. HISTORY OF PRESENT ILLNESS: Ms. Ley is a very pleasant 58-year-old female, very well known to myself, who comes to the hospital for shortness of breath. She has a history of nonischemic cardiomyopathy with an EF of around 15% to 20%. AICD is in place. She comes in because as for the last week, she has noticed increased bilateral lower extremity swelling and abdominal girth to the point where she was short of breath yesterday, so she had to come in. She already received some doses of Lasix at 40. Her creatinine improved slightly and she has diuresed some. Cardiology has been consulted for further help with her hemodynamics. She denies any chest pain or tightness. Just shortness of breath. PAST MEDICAL HISTORY: 1. Nonischemic cardiomyopathy. EF at 15% to 20%. 2. Episode of nonsustained VT. 3. Hyperlipidemia. 4. AICD placement. OUTPATIENT MEDICATIONS: Include: 1. Aspirin 81 a day. 2. Senokot. 3. Carvedilol 1.5625 mg b.i.d. 4. Lasix 40 mg b.i.d. 5. Metolazone 5 mg Thursday, Thursday, Thursday. 6. Lipitor 20 mg at bedtime. 7. Potassium chloride 20 mEq a day. 8. Spironolactone 12.5 mg q.a.m. ALLERGIES: NO KNOWN DRUG ALLERGIES. SURGICAL HISTORY: 1. ICD placement. 2. . FAMILY HISTORY: Mother of breast cancer. Brother with pancreatic cancer. SOCIAL HISTORY: No alcohol, tobacco, or drugs. REVIEW OF SYSTEMS: A 12-point review of systems was done and was found to be negative unless stated in the history of present illness. PHYSICAL EXAMINATION: VITAL SIGNS: Temperature 98.8, pulse 83, respiratory rate 20, saturating 97% on room air, blood pressure 100/67. GENERAL: Awake, alert, and oriented x3, in no distress. She does get short of breath if she leans back. HEENT: Normocephalic and atraumatic. NECK: Supple. LUNGS: Have reduced breath sounds bilaterally consistent with bilateral pleural effusions. CARDIOVASCULAR: S1, S2. There is a positive S3. There is a soft grade 2/6 systolic murmur at the right upper sternal border. ABDOMEN: Soft. Has positive ascitic wave. EXTREMITIES: Have 4+ edema. SKIN: Warm and dry, but weeping. LABORATORY DATA: Laboratory work was reviewed. CBC with a white count of 8.5, hemoglobin of 11, hematocrit of 33, and platelet count of 146. Chemistry with a sodium 134, potassium was 3.4, chloride of 95, carbon dioxide of 24, anion gap of 18, BUN of 56, creatinine 1.6 down from 1.7, GFR at 40, glucose of 100, total bilirubin of 5.4 up to 7.5 and a direct bilirubin of 5.4, GGT is 88. AST and ALT are normal. Alkaline phosphatase is normal. Troponin is in the indeterminate range. Albumin of 3.1. Lower extremity venous ultrasound and abdominal ultrasound were reviewed. ASSESSMENT: 1. Acute on chronic systolic and diastolic heart failure. 2. Right ventricular dysfunction. 3. Hepatic congestion secondary to cardiac heart failure. PLAN: 1. Agree with continuing Lasix 80 IV b.i.d. I would agree with this increase as well. 2. We will keep a close eye on her blood pressure and her kidney function. If her kidney function starts to go up, her blood pressure is too low to continue to diurese, she will need to have dobutamine or dopamine started for inotropics support. At this time, since her creatinine still continues to come down and she is diuresing well, we will just continue what we are doing. 3. We will hold off on spironolactone for now as her blood pressure is on the low side and I need this blood pressure to diurese her better. 4. Continue to replace potassium aggressively. Thank you for letting me to participate in the care of your patient. We will follow. Job ID: [id number]
[2018-08-02] MEDS ORDERED: Furosemide 100 MG/10 ML VIAL SLOW IVP SCH (14:00)
[2018-08-02] MEDS: Furosemide 100 MG/10 ML VIAL SLOW IVP SCH (14:16)
[2018-08-02] MEDS: Atorvastatin Calcium 10 MG TAB PO SCH (20:38)
[2018-08-03] MEDS: Acetaminophen 325 MG TAB PO PRN (03:57)
[2018-08-03 05:33] LABS: #Monocytes 0.9 thou/uL (0.11-0.59); #Neutrophils 7.9 thou/uL (1.40-6.50); %Basophils 0.2 % (0.0-1.0); %Eosinophils 0.3 % (0.0-10.0); %Lymphocytes 10.2 % (21.0-51.0); %Monocytes 9.1 % (0.0-10.0); %Neutrophils 80.2 % (42.0-75.0); Hemoglobin 10.4 g/dL (12.0-16.0); Mean Corpuscular HGB CONC 32.8 g/dL (32.0-36.0); Mean Corpuscular Hemoglobin 30.2 pg (27.0-31.0); Mean Corpuscular Volume 91.9 fL (78.0-98.0); Mean Platelet Volume 8.6 fL (7.4-10.4); Platelet Count 151 thou/uL (130-400); RBC Distribution Width 17.4 % (11.5-14.5); Red Blood Cell (RBC) Count 3.45 mill/uL (4.20-5.40); White Blood Cell (WBC) Count 9.9 thou/uL (4.8-10.8)
[2018-08-03 05:58] LABS: ALT (SGPT) 12 U/L (8-55); AST (SGOT) 17 U/L (5-34); Albumin 3.2 g/dL (3.5-5.0); Alkaline Phosphatase 91 U/L (40-150); Anion Gap 19 mmol/L (10-20); BUN (Urea Nitrogen) 60 mg/dL (9.8-20.1); Bilirubin, Total 7.4 mg/dL (0.2-1.2); Calc. Creatinine Clearance 50 mL/min (70-130); Calcium 9.5 mg/dL (7.8-10.44); Carbon Dioxide 24 mmol/L (22-29); Chloride 95 mmol/L (98-107); Estimated GFR-MDRD 32; Globulin 4.6 g/dL (2.4-3.5); Glucose 96 mg/dL (70-105); Potassium 3.5 mmol/L (3.5-5.1); Protein, Total 7.8 g/dL (6.0-8.3); Sodium 134 mmol/L (136-145)
--- NOTE | 2018-08-03 06:01 | PDOC.FM ---
- Subjective Subjective: NAEO. Denies SOB, wheezing, problems breathing. Still feels swollen. Having regular BMs, would like to have stool softeners switched to PRN. Having some tingling & burning in lower extremities. - Objective MAR Reviewed: Yes Vital Signs & Weight: Vital Signs (12 hours) Temp Pulse Resp BP BP Pulse Ox 08/03/18 03:03 98.2 F 80 14 91/58 L 96 08/03/18 00:00 71 90/54 L 99 08/02/18 20:05 97.7 F 81 14 88/54 L 98 Weight Admit Weight 98.061 kg Weight 98.293 kg I&O: 08/01/18 08/02/18 08/03/18 06:59 06:59 06:59 Intake Total 1867 900 Output Total 2210 1000 Balance -343 -100 Result Diagrams: 08/03/18 04:48 08/03/18 04:48 Phys Exam - Physical Examination Constitutional: NAD icteric sclera, mildly dry mucous membranes Respiratory: no wheezing, no rhonchi, clear to auscultation bilateral s3 Gastrointestinal: non-tender distended, fluid shift wave BLE edema up to lower flanks, bandaged wounds in LE Neurological: non-focal, moves all 4 limbs Psychiatric: normal affect, A&O x 3 Dx/Plan (1) Acute exacerbation of congestive heart failure Code(s): I50.9 - HEART FAILURE, UNSPECIFIED Status: Acute (2) MICHEL (acute kidney injury) Code(s): N17.9 - ACUTE KIDNEY FAILURE, UNSPECIFIED Status: Acute (3) Hypoalbuminemia Code(s): E88.09 - OTH DISORDERS OF PLASMA-PROTEIN METABOLISM, NEC Status: Acute (4) CKD (chronic kidney disease) Code(s): N18.9 - CHRONIC KIDNEY DISEASE, UNSPECIFIED Status: Chronic (5) Hypokalemia Code(s): E87.6 - HYPOKALEMIA Status: Acute (6) CHF (congestive heart failure) Code(s): I50.9 - HEART FAILURE, UNSPECIFIED Status: Chronic (7) HFrEF (heart failure with reduced ejection fraction) Code(s): I50.20 - UNSPECIFIED SYSTOLIC (CONGESTIVE) HEART FAILURE Status: Chronic (8) HTN (hypertension) Code(s): I10 - ESSENTIAL (PRIMARY) HYPERTENSION Status: Chronic (9) Hyperlipidemia Code(s): E78.5 - HYPERLIPIDEMIA, UNSPECIFIED Status: Chronic - Plan Plan: This is a 57 yo female with a PMH of CHFrEF admitted for Acute on chronic CHFrEF exacerbation Acute on chronic CHF exacerbation with hx of nonischemic cardiomyopathy -Output 1L/24 hr, weight maintained -Respiratory-adrian, stable -Blood pressure on low end: SBP in 90s, tolerating current regiment -Continue lasix 80mg BID, will not inc due to BPs -Continue fluid restriction diet, daily weight, strict I/O -Metolazone & aldactone held -s/p albumin 25% x2 -Dr. Edwards following MICHEL on CKD -Cr 1.62 -> 1.95, likely from dec perfusion 2/2 poor CO -No fluids at this time due to status -Continue to monitor with AM BMP -Dr. Edwards following, recs appreciated Direct bilirubinemia -T bili 5.4 -> 7.5 -US Liver negative for liver or GB path -Likely hepatic congestion component but will also assess for other liver pathologies -Elevated GGT, likely from hepatic congestion -Normal LFTs -Pending AMA, anti-Smooth, ANCA, ASHIA Lower leg wounds 2/2 to fluid tension -Continue wound care, instructed to keep legs elevated -Doppler negative for DVT (poor study due to anatomy) Hypokalemia, resolved -Continue daily Kdur -Monitor with daily BMP Hypoalbuminemia -3.0 -> 3.1 -s/p 25% albumin x2 Hyponatremia -134, continue to monitor Normocytic anemia -H/H stable at 06/02 -Likely dilutional component -Will continue to monitor, asx today HTN -held home aldactone -BPs low, continue to monitor HLD -home atorvastatin Constipation -Senno/doc PRN Code: Full Prophylaxis: lovenox Dispo: Continue to diurese with 80mg lasix BID since still clinically fluid overloaded. Patient seems to be responding well to this dose. Renal function mildly declining, likely due to dec. perfusion from poor CO. Will continue to monitor. Appreciate further recs by cardiology Discussed with Dr. Best Addendum - Attending - Attending Attestation Date/Time: 08/03/18 2564 I personally evaluated the patient and discussed the management with Dr. Aleman I agree with the History, Examination, Assessment and Plan documented above with any addition or exceptions noted below.
[2018-08-03] MEDS: Furosemide 100 MG/10 ML VIAL SLOW IVP SCH ×2 (06:10→17:03)
[2018-08-03] MEDS ORDERED: Senokot S 8.6-50 MG TAB PO PRN (07:20)
[2018-08-03] MEDS ORDERED: Gabapentin 100 MG CAP PO SCH (09:00)
[2018-08-03] MEDS: Enoxaparin Sodium 40 MG/0.4 ML SYRINGE SC SCH (10:35)
[2018-08-03] MEDS: Potassium Chloride 20 MEQ TAB PO SCH (10:36)
[2018-08-03] MEDS: Gabapentin 100 MG CAP PO PRN (10:37)
[2018-08-03] MEDS ORDERED: Albumin 25% 25 GM/100 ML BOT IVPB SCH (13:00)
--- NOTE | 2018-08-03 16:42 | PDOC.CTH ---
Cardiology Progress Note - Subjective She is doing better. Diuresing well. - Objective Vital Signs Temp Pulse Pulse Pulse Resp BP BP 08/03/18 12:16 73 80 90/63 93/58 L 08/03/18 11:18 97.6 F 72 18 08/03/18 08:00 98.6 F 76 18 BP BP Pulse Ox Pulse Ox Pulse Ox 08/03/18 12:16 98 97 08/03/18 11:18 84/60 L 97 08/03/18 08:00 100/53 L 97 Admit Weight 216 lb 3 oz Weight 216 lb 11.2 oz 08/02/18 08/03/18 08/04/18 06:59 06:59 06:59 Intake Total 1867 1260 240 Output Total 2210 1000 Balance -343 260 240 - Physical Examination General/Neuro: alert & oriented x3, NAD Neck: no JVD present Lungs: unlabored respirations Heart: RRR Abdomen: NT/ND Extremities: + edema B (4+) - Telemetry Telemetry Rhythm: NSR - Labs Result Diagrams: 08/03/18 04:48 08/03/18 04:48 Troponin/CKMB CK-MB (CK-2) 1.4 ng/mL (0-6.6) 08/01/18 01:55 Troponin I 0.046 ng/mL (< 0.028) H 08/01/18 09:00 - Assessment/Plan 1. Acute on chornic systolic and diastolic heart failure. 2. RV failure 3. Hepatic congestion. 4. MICHEL on CKD, cardiorenal. PLAN: - Still significantly volume up and creatinine raising, likely cardiorenal. - Will start dobutamine at 5 mg and will continue diuresis.
[2018-08-03] MEDS ORDERED: DOBUTamine 500 mg/250 ml 250 ML IVPB SCH (16:45)
[2018-08-03] MEDS ORDERED: DOBUTAMINE 250 MG-D5W 250 ML 250 MG in Premix Bag 1 BAG IV SCH (17:00)
[2018-08-03] MEDS: DOBUTamine 500 mg/250 ml 500 MG in Premix Bag 1 BAG IVPB SCH (18:05)
[2018-08-03] MEDS: Atorvastatin Calcium 10 MG TAB PO SCH (20:33)
[2018-08-04 05:14] LABS: #Lymphocytes 0.9 thou/uL (1.20-3.40); #Monocytes 1.3 thou/uL (0.11-0.59); #Neutrophils 7.6 thou/uL (1.40-6.50); %Basophils 0.1 % (0.0-1.0); %Eosinophils 0.5 % (0.0-10.0); %Lymphocytes 9.4 % (21.0-51.0); Hemoglobin 9.6 g/dL (12.0-16.0); Mean Corpuscular HGB CONC 32.9 g/dL (32.0-36.0); Mean Corpuscular Hemoglobin 30.3 pg (27.0-31.0); Mean Corpuscular Volume 91.9 fL (78.0-98.0); Mean Platelet Volume 8.4 fL (7.4-10.4); Platelet Count 153 thou/uL (130-400); RBC Distribution Width 17.5 % (11.5-14.5); Red Blood Cell (RBC) Count 3.18 mill/uL (4.20-5.40); White Blood Cell (WBC) Count 9.9 thou/uL (4.8-10.8)
[2018-08-04 05:43] LABS: ALT (SGPT) 13 U/L (8-55); AST (SGOT) 18 U/L (5-34); Albumin 3.3 g/dL (3.5-5.0); Alkaline Phosphatase 90 U/L (40-150); Anion Gap 16 mmol/L (10-20); BUN (Urea Nitrogen) 60 mg/dL (9.8-20.1); Bilirubin, Total 7.2 mg/dL (0.2-1.2); Calc. Creatinine Clearance 48 mL/min (70-130); Calcium 9.5 mg/dL (7.8-10.44); Carbon Dioxide 25 mmol/L (22-29); Chloride 94 mmol/L (98-107); Estimated GFR-MDRD 31; Globulin 4.4 g/dL (2.4-3.5); Glucose 102 mg/dL (70-105); Potassium 3.3 mmol/L (3.5-5.1); Protein, Total 7.7 g/dL (6.0-8.3); Sodium 132 mmol/L (136-145)
[2018-08-04] MEDS: Furosemide 100 MG/10 ML VIAL SLOW IVP SCH ×2 (06:36→12:33)
--- NOTE | 2018-08-04 09:06 | PDOC.FM ---
- Subjective Subjective: No acute events overnight. Feels better today. Urinating frequently. Improvement in swelling in back. Still having some burning and tingling in lower legs - Objective MAR Reviewed: Yes Vital Signs & Weight: Vital Signs (12 hours) Temp Pulse Resp BP BP Pulse Ox 08/04/18 07:30 97.9 F 92 18 110/74 95 08/04/18 03:47 97.4 F L 96 18 100/96 H 99 08/04/18 00:00 94 18 125/70 Weight Admit Weight 98.061 kg Weight 97.522 kg I&O: 08/03/18 08/04/18 08/05/18 06:59 06:59 06:59 Intake Total 1260 1428 Output Total 1000 1580 Balance 260 -152 Result Diagrams: 08/04/18 04:50 08/04/18 04:50 Phys Exam - Physical Examination Constitutional: NAD HEENT: moist MMs JVD Respiratory: no wheezing, clear to auscultation bilateral Cardiovascular: RRR S3 Gastrointestinal: soft distended Musculoskeletal: no edema 3+ up to lower back, improved from yesterday Neurological: moves all 4 limbs Psychiatric: normal affect, A&O x 3 Dx/Plan (1) Acute exacerbation of congestive heart failure Code(s): I50.9 - HEART FAILURE, UNSPECIFIED Status: Acute (2) MICHEL (acute kidney injury) Code(s): N17.9 - ACUTE KIDNEY FAILURE, UNSPECIFIED Status: Acute (3) Hypoalbuminemia Code(s): E88.09 - OTH DISORDERS OF PLASMA-PROTEIN METABOLISM, NEC Status: Acute (4) CKD (chronic kidney disease) Code(s): N18.9 - CHRONIC KIDNEY DISEASE, UNSPECIFIED Status: Chronic (5) Hypokalemia Code(s): E87.6 - HYPOKALEMIA Status: Acute (6) CHF (congestive heart failure) Code(s): I50.9 - HEART FAILURE, UNSPECIFIED Status: Chronic (7) HFrEF (heart failure with reduced ejection fraction) Code(s): I50.20 - UNSPECIFIED SYSTOLIC (CONGESTIVE) HEART FAILURE Status: Chronic (8) HTN (hypertension) Code(s): I10 - ESSENTIAL (PRIMARY) HYPERTENSION Status: Chronic (9) Hyperlipidemia Code(s): E78.5 - HYPERLIPIDEMIA, UNSPECIFIED Status: Chronic - Plan Plan: This is a 57 yo female with severe CHFrEF admitted for acute on chronic systolic & diastolic exacerbation with cardiorenal MICHEL Acute on chronic CHF exacerbation with hx of nonischemic cardiomyopathy -Diuresing well, continue lasix 80mg BID -Respiratory-adrian, stable -Blood pressure stable & tolerating well after starting on dobutamine gtt @ 5mcg -Continue fluid restriction diet, daily weight, strict I/O -Metolazone & aldactone held -Can consider bumex due to hx of unresponsiveness to lasix po -s/p albumin 25% x2 -Dr. Edwards following MICHEL on CKD -Cr 1.62 -> 1.95 -> 2, cardiorenal etiology -Started on dobutamine, continue to monitor with daily BMPs -Dr. Edwards following, recs appreciated Direct bilirubinemia -T bili/Dbili elevated at 7.2/5.2. Stable and unchanged -US Liver negative for liver or GB path -Likely hepatic congestion component but will also assess for other liver pathologies -Elevated GGT, likely from hepatic congestion -Normal LFTs -Pending AMA, anti-Smooth, ANCA, ASHIA -Continue to monitor with daily labs Lower leg wounds 2/2 to fluid tension -Continue wound care, instructed to keep legs elevated -Doppler negative for DVT (poor study due to anatomy) Hypokalemia -Continue daily Kdur -Monitor with daily BMP Hypoalbuminemia -3.0 -> 3.1 -s/p 25% albumin x2 -continue to monitor Hyponatremia -stable, continue to monitor Normocytic anemia -H/H stable at 06/02 -Likely dilutional component -Will continue to monitor, asx today HTN -held home aldactone & metalazone -BPs stable HLD -home atorvastatin Chronic constipation -Senno/doc PRN Code: Full Prophylaxis: lovenox Dispo: Continue to diurese with 80mg lasix BID since still clinically fluid overloaded. Patient seems to be responding well to this dose. Cardiorenal MICHEL from poor CO now on dobutamine drip. Will continue to monitor renal function. Discussed with Dr. Best Addendum - Attending - Attending Attestation Date/Time: 08/04/18 1111 I personally evaluated the patient and discussed the management with Dr. Aleman I agree with the History, Examination, Assessment and Plan documented above with any addition or exceptions noted below. Starting to mobilize fluid ,wounds to LE improved and continue monitor RFTs and LFTs would expect improvement over time.
[2018-08-04] MEDS: Potassium Chloride 20 MEQ TAB PO SCH (09:21)
[2018-08-04] MEDS: Gabapentin 100 MG CAP PO PRN (09:21)
[2018-08-04] MEDS: Enoxaparin Sodium 40 MG/0.4 ML SYRINGE SC SCH (09:22)
[2018-08-04 13:12] LABS: Smooth Muscle Total ABS 10 Units (0-19)
--- NOTE | 2018-08-04 14:07 | PRG ---
Transition of care note 08/04/18 Date of admission 08/01/18 HISTORY OF PRESENT ILLNESS/HOSPITAL COURSE: Ms. Ley is a pleasant 58-year- old female, who presented to the ED for bilateral lower extremity skin tears and wounds. This started along with significant leg swelling about a week ago. From a respiratory point of view, she denied feeling short of breath or any chest tightness or cough. She is not typically on any home O2. BNP showed a level in the 800s. She reports compliance with taking her usual 80 mg of Lasix b.i.d. at home. However, after more intensive interview, she admitted that she may have had a little more fluid intake outside of her fluid restriction diet during the holidays which would explain this acute episode. On exam, wounds consisted of multiple skin tears likely due to increased hydrostatic pressure. Wounds are most significant in her right foot. Wound care has been on board to help in management of this. There has been no concern for signs of systemic infection at this time, however we are planning to keep a close eye on progress since they have not improved since admission per patient. Patient was started on Suplena supplement to promote wound healing. In addition , she had anasarca with 3+ edema from her feet up to her waist. Upon record review, Ms. Ley has frequented the hospital multiple times for acute on chronic CHF exacerbation. Cardiac cath in 06/2018 was negative consistent with nonischemic cardiomyopathy. At that time, she also received an ICD placement for an EF of 15%. Record reviews shows that original etiology of CHF is due to former history of poorly controlled HTN. In regards to her fluid over loaded state we have been diuresing her with Lasix 80mg BID. She is s/p 25% albumin x2 to aid with intravascular colloid pressure and third spacing. She has been responding well to this lasix dose diuresing about 1L/day. Despite significant fluid retention we have not increased her current dose since BPs have been running low with SBP 90-100s and did no think her BPs would tolerate an increase. Also, she was admitted with an MICHEL on CKD with a creatinine of 2. Creatinine has fluctuated but has progressively increased likely cardiorenal in etiology from poor cardiac output. Cardiology was consulted and she was started on Dobutamine 5mcg, and her aldactone was held due to her BPs. In addition, patient has had a direct bilirubinemia that has remained persistently elevated. Liver US was negative for pathologies. This is likely due to vascular congestion from CHF but we have ordered an ASHIA, anti smooth muscle marker, AMA and pANCA to rule out other causes. Disposition: patient will most likely remain here for a couple more days as we continue to diurese her on the 80mg of lasix. She has quite a bit of fluid to pull off. Our hope is that with the initiation of dobutamine her renal function will improve. At some point plan is to transition her to oral lasix to see if she can maintain a euvolemic status. If not, she may be a good candidate for Bumex. For any questions or concerns please contact me. Thank you! Job ID: [id number] MTDD
[2018-08-04 14:33] LABS: ANA Symphony (Qualitative) Negative (Negative); ANA Symphony (Quantitative) 0.2 Ratio (< 0.7 Negative); EliA Vaculitis New Method **** NEW METHOD ****; dsDNA IgG Antibody 1.2 IU/mL (<10 Negative)
--- NOTE | 2018-08-04 17:26 | PDOC.CTH ---
Cardiology Progress Note - Subjective She has diuresed but not as good as I would expect her to. Her creatinine seems to have plateaued. - Objective Vital Signs Temp Pulse Resp BP BP Pulse Ox 08/04/18 12:00 97.9 F 91 18 100/70 100 08/04/18 07:30 97.9 F 92 18 110/74 95 Admit Weight 216 lb 3 oz Weight 215 lb 08/03/18 08/04/18 08/05/18 06:59 06:59 06:59 Intake Total 1260 1428 360 Output Total 1000 1580 Balance 260 -152 360 - Physical Examination General/Neuro: alert & oriented x3, NAD Neck: no JVD present Lungs: unlabored respirations Heart: RRR Abdomen: NT/ND Extremities: + edema B (4+) - Telemetry Telemetry Rhythm: NSR - Labs Result Diagrams: 08/04/18 04:50 08/04/18 04:50 Troponin/CKMB CK-MB (CK-2) 1.4 ng/mL (0-6.6) 08/01/18 01:55 Troponin I 0.046 ng/mL (< 0.028) H 08/01/18 09:00 - Assessment/Plan 1. Acute on chornic systolic and diastolic heart failure. 2. RV failure 3. Hepatic congestion. 4. MICHEL on CKD, cardiorenal. PLAN: - Still significantly volume up and creatinine hopefully close to plateau, likely cardiorenal. - Continue dobutamine at 5 mg. - Continue IV laisx, Will increase dose. - Replace K.
[2018-08-04] MEDS: Atorvastatin Calcium 10 MG TAB PO SCH (21:42)
[2018-08-04] MEDS: Acetaminophen 325 MG TAB PO PRN (23:16)
[2018-08-05] MEDS ORDERED: Phentolamine Mesylate 5 MG VIAL SC SCH (01:45)
[2018-08-05 05:47] LABS: #Basophils 0.1 thou/uL (0.0-0.2); #Lymphocytes 0.7 thou/uL (1.20-3.40); #Monocytes 1.2 thou/uL (0.11-0.59); #Neutrophils 6.2 thou/uL (1.40-6.50); %Basophils 1.7 % (0.0-1.0); %Eosinophils 0.5 % (0.0-10.0); %Lymphocytes 8.9 % (21.0-51.0); %Neutrophils 74.8 % (42.0-75.0); Hemoglobin 9.6 g/dL (12.0-16.0); Mean Corpuscular HGB CONC 32.5 g/dL (32.0-36.0); Mean Corpuscular Hemoglobin 29.7 pg (27.0-31.0); Mean Corpuscular Volume 91.6 fL (78.0-98.0); Mean Platelet Volume 8.4 fL (7.4-10.4); Platelet Count 154 thou/uL (130-400); RBC Distribution Width 17.2 % (11.5-14.5); Red Blood Cell (RBC) Count 3.24 mill/uL (4.20-5.40); White Blood Cell (WBC) Count 8.2 thou/uL (4.8-10.8)
[2018-08-05 06:10] LABS: ALT (SGPT) 13 U/L (8-55); AST (SGOT) 19 U/L (5-34); Albumin 3.2 g/dL (3.5-5.0); Alkaline Phosphatase 100 U/L (40-150); Anion Gap 16 mmol/L (10-20); BUN (Urea Nitrogen) 60 mg/dL (9.8-20.1); Bilirubin, Total 7.1 mg/dL (0.2-1.2); Calc. Creatinine Clearance 53 mL/min (70-130); Calcium 9.5 mg/dL (7.8-10.44); Carbon Dioxide 26 mmol/L (22-29); Chloride 96 mmol/L (98-107); Estimated GFR-MDRD 35; Globulin 4.3 g/dL (2.4-3.5); Glucose 142 mg/dL (70-105); Potassium 3.3 mmol/L (3.5-5.1); Protein, Total 7.5 g/dL (6.0-8.3); Sodium 135 mmol/L (136-145)
[2018-08-05] MEDS: Furosemide 100 MG/10 ML VIAL SLOW IVP SCH ×2 (06:23→15:01)
[2018-08-05] MEDS: Acetaminophen 325 MG TAB PO PRN ×2 (06:23→17:57)
[2018-08-05] MEDS: DOBUTamine 500 mg/250 ml 500 MG in Premix Bag 1 BAG IVPB SCH ×2 (06:32→22:15)
--- NOTE | 2018-08-05 06:32 | PDOC.FM ---
- Subjective Subjective: Pt feeling well this AM. She reports continued but improved SOB on ambulation. Believes the edema has also improved. She has no other complaints at this time. no fever/chills, no cp, no palpitations - Objective MAR Reviewed: Yes Vital Signs & Weight: Vital Signs (12 hours) Temp Pulse Resp BP BP Pulse Ox 08/05/18 03:45 97.4 F L 88 14 98/65 96 08/04/18 19:50 97.9 F 84 20 98/65 98 Weight Admit Weight 98.061 kg Weight 97.522 kg I&O: 08/03/18 08/04/18 08/05/18 06:59 06:59 06:59 Intake Total 1260 1428 930 Output Total 1000 1580 1850 Balance 260 -762 -090 Result Diagrams: 08/05/18 05:13 08/05/18 05:13 Phys Exam - Physical Examination Constitutional: NAD HEENT: PERRLA, moist MMs Neck: supple, full ROM Respiratory: no wheezing, clear to auscultation bilateral Cardiovascular: RRR, no significant murmur bilat LE edema and edema up to hips bilaterally Gastrointestinal: soft, non-tender Musculoskeletal: pulses present, edema present Neurological: normal sensation, moves all 4 limbs Psychiatric: normal affect, A&O x 3 Skin: no rash, normal turgor Dx/Plan (1) Acute exacerbation of congestive heart failure Code(s): I50.9 - HEART FAILURE, UNSPECIFIED Status: Acute (2) CHF (congestive heart failure) Code(s): I50.9 - HEART FAILURE, UNSPECIFIED Status: Chronic (3) Hypoalbuminemia Code(s): E88.09 - OTH DISORDERS OF PLASMA-PROTEIN METABOLISM, NEC Status: Acute (4) CKD (chronic kidney disease) Code(s): N18.9 - CHRONIC KIDNEY DISEASE, UNSPECIFIED Status: Chronic (5) MICHEL (acute kidney injury) Code(s): N17.9 - ACUTE KIDNEY FAILURE, UNSPECIFIED Status: Acute (6) Hypokalemia Code(s): E87.6 - HYPOKALEMIA Status: Acute (7) HTN (hypertension) Code(s): I10 - ESSENTIAL (PRIMARY) HYPERTENSION Status: Chronic - Plan Plan: This is a 57 yo female with severe CHFrEF admitted for acute on chronic systolic & diastolic exacerbation with cardiorenal MICHEL Acute on chronic CHF exacerbation with hx of nonischemic cardiomyopathy A- Pt shows improvement on interview and exam. Respiratory status stable. Blood pressure stable & tolerating well after starting on dobutamine gtt @ 5mcg. s/p albumin 25% x2 P-Continue fluid restriction diet, daily weight, strict I/O - lasix 100mg BID per cardiology recs, appreciate recs -Metolazone & aldactone held, will consider adding metolazone or bumex if pt shows no response to increased lasix -Dr. dEwards following, f/u recs MICHEL on CKD A- Cr improved today, cardiorenal etiology P- continue plan as listed above, continue to monitor with daily BMPs -Dr. Edwards following, recs appreciated Direct bilirubinemia A- T bili/Dbili stable and unchanged. US Liver negative for liver or GB path. Likely hepatic congestion component but will also assess for other liver pathologies. ASHIA, anti smooth, anti dsDNA and mitochondria all negative P- Pending AMA, ANCA - Continue to monitor with daily labs Lower leg wounds 2/2 to fluid tension A- Doppler negative for DVT (poor study due to anatomy) P-Continue wound care, instructed to keep legs elevated Hypokalemia -Continue daily Kdur -Monitor with daily BMP Hypoalbuminemia A- stable. s/p 25% albumin x2 P- continue to monitor Hyponatremia -stable, continue to monitor Normocytic anemia A- H/H stable. Likely dilutional component P- Will continue to monitor HTN A- held home aldactone & metalazone P- BPs stable HLD -home atorvastatin Chronic constipation -Senno/doc PRN Code: Full Prophylaxis: lovenox Addendum - Attending - Attending Attestation Date/Time: 08/05/18 1126 I personally evaluated the patient and discussed the management with Dr. Manzo I agree with the History, Examination, Assessment and Plan documented above with any addition or exceptions noted below. Starting to diuresis rec julisa wrap to lower extremity to assist fluid mobilization, weight down today.
[2018-08-05] MEDS: Enoxaparin Sodium 40 MG/0.4 ML SYRINGE SC SCH (08:57)
[2018-08-05] MEDS: Potassium Chloride 20 MEQ TAB PO SCH (08:58)
[2018-08-05 15:18] LABS: Cytoplasmic (C-ANCA) <1:20 titer (Neg:<1:20); Myeloperoxidase AutoAbs <9.0 U/mL (0.0-9.0); Perinuclear (P-ANCA) <1:20 titer (Neg:<1:20); Proteinase-3 AutoAbs Less than 3.5 U/mL (0.0-3.5)
[2018-08-05] MEDS: Docusate 100 MG CAP PO PRN (17:57)
--- NOTE | 2018-08-05 18:14 | PDOC.CTH ---
Cardiology Progress Note - Subjective Diuresing some but not excessively. - Objective Vital Signs Temp Pulse Resp BP BP Pulse Ox 08/05/18 15:01 97.9 F 80 18 102/61 96 08/05/18 11:57 97.7 F 80 16 101/67 98 08/05/18 07:30 98.1 F 91 16 100/66 95 Admit Weight 216 lb 3 oz Weight 213 lb 08/04/18 08/05/18 08/06/18 06:59 06:59 06:59 Intake Total 1428 1420 240 Output Total 1580 2700 Balance -152 -1280 240 - Physical Examination General/Neuro: alert & oriented x3, NAD, other: Neck: no JVD present Lungs: unlabored respirations Heart: RRR Abdomen: NT/ND Extremities: + edema B (4+) - Telemetry Telemetry Rhythm: NSR - Labs Result Diagrams: 08/05/18 05:13 08/05/18 05:13 Troponin/CKMB CK-MB (CK-2) 1.4 ng/mL (0-6.6) 08/01/18 01:55 Troponin I 0.046 ng/mL (< 0.028) H 08/01/18 09:00 - Assessment/Plan 1. Acute on chornic systolic and diastolic heart failure. 2. RV failure 3. Hepatic congestion. 4. MICHEL on CKD, cardiorenal. 5. Anasarca PLAN: - Still significantly volume up, creatinine downtrending now. - Continue dobutamine at 5 mg. - Continue IV laisx at current dose. - Replace K.
[2018-08-05] MEDS: Atorvastatin Calcium 10 MG TAB PO SCH (20:43)
[2018-08-06 05:48] LABS: ALT (SGPT) 15 U/L (8-55); AST (SGOT) 26 U/L (5-34); Albumin 3.1 g/dL (3.5-5.0); Alkaline Phosphatase 95 U/L (40-150); Anion Gap 18 mmol/L (10-20); BUN (Urea Nitrogen) 51 mg/dL (9.8-20.1); Bilirubin, Total 6.3 mg/dL (0.2-1.2); Calc. Creatinine Clearance 60 mL/min (70-130); Calcium 9.3 mg/dL (7.8-10.44); Carbon Dioxide 25 mmol/L (22-29); Chloride 94 mmol/L (98-107); Estimated GFR-MDRD 41; Globulin 4.7 g/dL (2.4-3.5); Glucose 116 mg/dL (70-105); Protein, Total 7.8 g/dL (6.0-8.3); Sodium 134 mmol/L (136-145)
[2018-08-06 05:52] LABS: Potassium 2.7 mmol/L (3.5-5.1)
[2018-08-06 06:01] LABS: Band 1 % (5-11); Hemoglobin 10.1 g/dL (12.0-16.0); Lymphocytes 11 % (21-51); MDiff Complete? YES; Mean Corpuscular HGB CONC 32.7 g/dL (32.0-36.0); Mean Corpuscular Hemoglobin 30.1 pg (27.0-31.0); Mean Platelet Volume 8.4 fL (7.4-10.4); Monocytes 14 % (0-10); Neutrophil 74 % (42-75); Nucleated RBC 1 % (0); Platelet Count 165 thou/uL (130-400); Platelet Morphology Comment Appears Adequate; RBC Distribution Width 17.3 % (11.5-14.5); Red Blood Cell (RBC) Count 3.37 mill/uL (4.20-5.40); Target Cells MODERATE= 6-15 cells (100X) (0-1/hpf); White Blood Cell (WBC) Count 7.9 thou/uL (4.8-10.8)
[2018-08-06] MEDS ORDERED: Potassium Chloride 20 MEQ TAB PO SCH ×2 (06:15→16:00)
[2018-08-06] MEDS: Furosemide 100 MG/10 ML VIAL SLOW IVP SCH ×2 (06:31→13:03)
[2018-08-06] MEDS: Enoxaparin Sodium 40 MG/0.4 ML SYRINGE SC SCH (08:15)
[2018-08-06] MEDS: Potassium Chloride 20 MEQ TAB PO SCH ×2 (08:15→20:57)
[2018-08-06] MEDS: Docusate 100 MG CAP PO PRN (08:16)
--- NOTE | 2018-08-06 09:02 | PDOC.FM ---
- Subjective Subjective: Pt reports improvement today, that her SOB is decreased from yesterday on ambulation though her LE edema remains no fever/chills, no cp no palpitations - Objective MAR Reviewed: Yes Vital Signs & Weight: Vital Signs (12 hours) Temp Pulse Resp BP Pulse Ox 08/06/18 03:35 97.4 F L 85 16 97/67 95 Weight Admit Weight 98.061 kg Weight 94.982 kg I&O: 08/05/18 08/06/18 08/07/18 06:59 06:59 06:59 Intake Total 1420 1557 Output Total 2700 3275 Balance -1280 -3628 Result Diagrams: 08/06/18 04:37 08/06/18 04:37 Phys Exam - Physical Examination Constitutional: NAD HEENT: PERRLA, moist MMs Neck: supple, full ROM Respiratory: no wheezing, clear to auscultation bilateral Cardiovascular: RRR, no significant murmur Gastrointestinal: soft, non-tender Musculoskeletal: pulses present, edema present Neurological: normal sensation, moves all 4 limbs Psychiatric: normal affect, A&O x 3 Skin: no rash, normal turgor Dx/Plan (1) Acute exacerbation of congestive heart failure Code(s): I50.9 - HEART FAILURE, UNSPECIFIED Status: Acute (2) CHF (congestive heart failure) Code(s): I50.9 - HEART FAILURE, UNSPECIFIED Status: Chronic (3) Hypoalbuminemia Code(s): E88.09 - OTH DISORDERS OF PLASMA-PROTEIN METABOLISM, NEC Status: Acute (4) CKD (chronic kidney disease) Code(s): N18.9 - CHRONIC KIDNEY DISEASE, UNSPECIFIED Status: Chronic (5) MICHEL (acute kidney injury) Code(s): N17.9 - ACUTE KIDNEY FAILURE, UNSPECIFIED Status: Acute (6) Hypokalemia Code(s): E87.6 - HYPOKALEMIA Status: Acute (7) HTN (hypertension) Code(s): I10 - ESSENTIAL (PRIMARY) HYPERTENSION Status: Chronic - Plan Plan: This is a 57 yo female with severe CHFrEF admitted for acute on chronic systolic & diastolic exacerbation with cardiorenal MICHEL Acute on chronic CHF exacerbation with hx of nonischemic cardiomyopathy A- Pt shows improvement on interview and exam. Respiratory status stable. Blood pressure stable & tolerating well after starting on dobutamine gtt @ 5mcg. s/p albumin 25% x2 P-Continue fluid restriction diet, daily weight, strict I/O - continue lasix 100mg BID per cardiology recs, appreciate recs -Metolazone & aldactone held, will consider adding metolazone or bumex if pt shows no response to increased lasix -Dr. Edwards following, f/u recs MICHEL on CKD A- Cr improved further today, cardiorenal etiology P- continue plan as listed above, continue to monitor with daily BMPs -Dr. Edwards following, recs appreciated Direct bilirubinemia A- T bili/Dbili stable and unchanged. US Liver negative for liver or GB path. Likely hepatic congestion component but will also assess for other liver pathologies. ASHIA, anti smooth, anti dsDNA and mitochondria all negative. AMA, ANCA negative. P- treat heart condition as listed above Lower leg wounds 2/2 to fluid tension A- Doppler negative for DVT (poor study due to anatomy) P-Continue wound care, instructed to keep legs elevated Hypokalemia A- K 2.7 this AM. Pt asymptomatic P- Will give 40mg PO now in addition to scheduled AM replacement. - recheck BMP at 1300 and replace as needed - Monitor with daily BMP Hypoalbuminemia A- stable. s/p 25% albumin x2 P- continue to monitor Hyponatremia -stable, continue to monitor Normocytic anemia A- H/H stable. Likely dilutional component P- Will continue to monitor HTN A- held home aldactone & metalazone P- BPs stable HLD -home atorvastatin Chronic constipation -Senno/doc PRN Code: Full Prophylaxis: lovenox Addendum - Attending - Attending Attestation Date/Time: 08/06/18 4445 I personally evaluated the patient and discussed the management with Dr. Manzo I agree with the History, Examination, Assessment and Plan documented above with any addition or exceptions noted below. Need monitor magnesium with Kcl lose/replacement. She is responding well to dobutamine /lasix BILI and RFT improving.
[2018-08-06] MEDS: DOBUTamine 500 mg/250 ml 500 MG in Premix Bag 1 BAG IVPB SCH (13:04)
[2018-08-06 13:38] LABS: Anion Gap 17 mmol/L (10-20); BUN (Urea Nitrogen) 49 mg/dL (9.8-20.1); Calc. Creatinine Clearance 60 mL/min (70-130); Calcium 9.3 mg/dL (7.8-10.44); Carbon Dioxide 27 mmol/L (22-29); Chloride 93 mmol/L (98-107); Estimated GFR-MDRD 41; Glucose 122 mg/dL (70-105); Sodium 134 mmol/L (136-145)
[2018-08-06 13:56] LABS: Potassium 2.9 mmol/L (3.5-5.1)
--- NOTE | 2018-08-06 15:14 | PDOC.CTH ---
Cardiology Progress Note - Subjective She is doing well. her creatinine continues to improve but her edema us still significant. - Objective Vital Signs Temp Pulse Pulse Pulse Resp BP BP 08/06/18 11:57 97.2 F L 91 14 08/06/18 11:51 106 H 85 96/73 101/71 08/06/18 08:00 97.5 F L 77 16 08/06/18 03:35 97.4 F L 85 16 BP BP Pulse Ox Pulse Ox Pulse Ox 08/06/18 11:57 95/72 97 08/06/18 11:51 95 97 08/06/18 08:00 101/71 96 08/06/18 03:35 97/67 95 Admit Weight 216 lb 3 oz Weight 209 lb 6.4 oz 08/05/18 08/06/18 08/07/18 06:59 06:59 06:59 Intake Total 1420 1557 Output Total 2700 3275 1200 Balance -1280 -0838 -1200 - Physical Examination General/Neuro: alert & oriented x3, NAD Neck: no JVD present Lungs: CTA, unlabored respirations Heart: RRR Abdomen: NT/ND Extremities: + edema B (4+ up to the abdomen.) - Telemetry Telemetry Rhythm: NSR - Labs Result Diagrams: 08/06/18 04:37 08/06/18 13:02 Troponin/CKMB CK-MB (CK-2) 1.4 ng/mL (0-6.6) 08/01/18 01:55 Troponin I 0.046 ng/mL (< 0.028) H 08/01/18 09:00 - Assessment/Plan 1. Acute on chornic systolic and diastolic heart failure. 2. RV failure 3. Hepatic congestion. 4. MICHEL on CKD, cardiorenal. 5. Anasarca PLAN: - Still significantly volume up, creatinine downtrending still. - Continue dobutamine at 5 mg. - Continue IV lasix at current dose. - Replace K aggressively. - Will follow.
[2018-08-06] MEDS: Atorvastatin Calcium 10 MG TAB PO SCH (20:57)
[2018-08-06] MEDS: Acetaminophen 325 MG TAB PO PRN (20:58)
[2018-08-07] MEDS: Acetaminophen 325 MG TAB PO PRN ×3 (03:02→20:27)
[2018-08-07 05:20] LABS: #Lymphocytes 0.9 thou/uL (1.20-3.40); #Monocytes 1.2 thou/uL (0.11-0.59); #Neutrophils 6.5 thou/uL (1.40-6.50); %Basophils 0.2 % (0.0-1.0); %Eosinophils 0.5 % (0.0-10.0); %Lymphocytes 9.9 % (21.0-51.0); %Monocytes 13.8 % (0.0-10.0); %Neutrophils 75.6 % (42.0-75.0); Hemoglobin 10.3 g/dL (12.0-16.0); Mean Corpuscular HGB CONC 32.4 g/dL (32.0-36.0); Mean Corpuscular Hemoglobin 29.8 pg (27.0-31.0); Mean Corpuscular Volume 91.9 fL (78.0-98.0); Mean Platelet Volume 8.4 fL (7.4-10.4); Platelet Count 178 thou/uL (130-400); RBC Distribution Width 17.5 % (11.5-14.5); Red Blood Cell (RBC) Count 3.47 mill/uL (4.20-5.40); White Blood Cell (WBC) Count 8.6 thou/uL (4.8-10.8)
[2018-08-07 05:32] LABS: ALT (SGPT) 17 U/L (8-55); AST (SGOT) 24 U/L (5-34); Albumin 3.2 g/dL (3.5-5.0); Alkaline Phosphatase 88 U/L (40-150); Anion Gap 18 mmol/L (10-20); BUN (Urea Nitrogen) 49 mg/dL (9.8-20.1); Bilirubin, Total 6.3 mg/dL (0.2-1.2); Calc. Creatinine Clearance 62 mL/min (70-130); Calcium 9.6 mg/dL (7.8-10.44); Carbon Dioxide 26 mmol/L (22-29); Chloride 94 mmol/L (98-107); Estimated GFR-MDRD 43; Globulin 4.7 g/dL (2.4-3.5); Glucose 107 mg/dL (70-105); Potassium 3.3 mmol/L (3.5-5.1); Protein, Total 7.9 g/dL (6.0-8.3); Sodium 135 mmol/L (136-145)
--- NOTE | 2018-08-07 06:40 | PDOC.FM ---
- Subjective Subjective: Feeling well this morning. No overnight events. Denies shortness of breath, reports improvement of lower leg edema. They are currently wrapped and she reports her right leg itches. - Objective MAR Reviewed: Yes Vital Signs & Weight: Vital Signs (12 hours) Temp Pulse Resp BP BP Pulse Ox 08/07/18 02:59 97.7 F 80 18 118/67 97 08/06/18 23:21 97.9 F 90 13 90/61 95 08/06/18 21:00 95 08/06/18 20:52 98 F 78 16 98/68 95 Weight Admit Weight 98.061 kg Weight 94.256 kg I&O: 08/05/18 08/06/18 08/07/18 06:59 06:59 06:59 Intake Total 1420 1557 1176.4 Output Total 2700 3275 3200 Balance -1280 -1718 -3.6 Result Diagrams: 08/07/18 04:28 08/07/18 04:28 Phys Exam - Physical Examination Constitutional: NAD HEENT: moist MMs Neck: supple Respiratory: no wheezing, clear to auscultation bilateral Cardiovascular: no significant murmur Afib, rate controlled Gastrointestinal: soft, non-tender, positive bowel sounds Musculoskeletal: pulses present, edema present legs wrapped Neurological: moves all 4 limbs Psychiatric: normal affect, A&O x 3 Dx/Plan (1) Hypoalbuminemia Code(s): E88.09 - OTH DISORDERS OF PLASMA-PROTEIN METABOLISM, NEC Status: Acute (2) CKD (chronic kidney disease) Code(s): N18.9 - CHRONIC KIDNEY DISEASE, UNSPECIFIED Status: Chronic (3) MICHEL (acute kidney injury) Code(s): N17.9 - ACUTE KIDNEY FAILURE, UNSPECIFIED Status: Acute (4) Acute exacerbation of congestive heart failure Code(s): I50.9 - HEART FAILURE, UNSPECIFIED Status: Acute (5) Hypokalemia Code(s): E87.6 - HYPOKALEMIA Status: Acute (6) HFrEF (heart failure with reduced ejection fraction) Code(s): I50.20 - UNSPECIFIED SYSTOLIC (CONGESTIVE) HEART FAILURE Status: Chronic (7) HTN (hypertension) Code(s): I10 - ESSENTIAL (PRIMARY) HYPERTENSION Status: Chronic - Plan Plan: Acute on chronic CHF exacerbation with hx of nonischemic cardiomyopathy, improving - Respiratory status stable. Blood pressure stable on dobutamine gtt @5mcg. s/p albumin 25% x2 - Strict I/Os, fluid restriction, daily weights, HH diet - Continue IV lasix 100mg BID per cards recs - Metolazone & aldactone held - Dr. Edwards following, apprec recs MICHEL on CKD - Cr continues to improve with dobutamine and lasix, cardiorenal etiology - Continue plan as listed above, continue to monitor with daily BMPs - Dr. Edwards following, recs appreciated Direct bilirubinemia likely 2/2 Hepatic congestion - US RUQ & Liver neg - ASHIA, anti smooth, anti dsDNA, mitochondria negative. AMA, ANCA negative. - Treat heart condition as above Lower leg wounds 2/2 to fluid tension - Doppler negative for DVT (poor study due to anatomy) - Continue wound care, instructed to keep legs elevated Hypokalemia 2/2 diuresis - Continue to replace aggressively - 3.3 this AM, continue PO KCL 40meq - Monitor with daily BMP Hypoalbuminemia - s/p 25% albumin x2 - Continue to monitor Hyponatremia - Continue to monitor Normocytic anemia - H/H stable. Likely dilutional component cHTN - Held home aldactone & metalazone - BPs stable on 5 Dobutamine HLD - Continue home atorvastatin Chronic constipation - Senno/doc PRN Code Status: Full DVT ppx: lovenox Addendum - Attending - Attending Attestation Date/Time: 08/07/18 1026 I personally evaluated the patient and discussed the management with Dr. Aden. I agree with the History, Examination, Assessment and Plan documented above with any addition or exceptions noted below. Patient improved. Continues to diurese well on Dobutamine and Cr improving from cardiorenal syndrome. Continue diuresis and inotropic support per Cardiology. Potassium improved today. Other labs overall stable today.
[2018-08-07] MEDS: Furosemide 100 MG/10 ML VIAL SLOW IVP SCH ×2 (06:48→15:23)
[2018-08-07] MEDS: Potassium Chloride 20 MEQ TAB PO SCH ×2 (08:14→20:21)
[2018-08-07] MEDS: Enoxaparin Sodium 40 MG/0.4 ML SYRINGE SC SCH (08:15)
[2018-08-07] MEDS: DOBUTamine 500 mg/250 ml 500 MG in Premix Bag 1 BAG IVPB SCH (12:00)
[2018-08-07] MEDS: Atorvastatin Calcium 10 MG TAB PO SCH (20:22)
[2018-08-07] MEDS: Gabapentin 100 MG CAP PO PRN (20:27)
--- NOTE | 2018-08-07 23:44 | PDOC.CTH ---
Cardiology Progress Note - Subjective The pt seen and examined. No overnight events. No cardiac complaints. - Objective Vital Signs Temp Pulse Resp BP Pulse Ox 08/07/18 20:00 98.2 F 85 18 104/72 98 08/07/18 16:41 97.4 F L 102 H 18 98/68 94 L 08/07/18 12:20 97.6 F 79 18 105/64 98 Admit Weight 216 lb 3 oz Weight 207 lb 12.8 oz 08/06/18 08/07/18 08/08/18 06:59 06:59 06:59 Intake Total 1557 1866.4 780 Output Total 3275 4050 1500 Balance -1232 -2183.6 -720 - Physical Examination Neck: no JVD present Lungs: CTA Heart: RRR Abdomen: soft Extremities: other: (3+ pitting) - Telemetry Telemetry Rhythm: SR - Labs Result Diagrams: 08/07/18 04:28 08/07/18 04:28 Troponin/CKMB CK-MB (CK-2) 1.4 ng/mL (0-6.6) 08/01/18 01:55 Troponin I 0.046 ng/mL (< 0.028) H 08/01/18 09:00 - Assessment/Plan 1. Acute on chornic combined HF - stable; On dobutamin and Lasix 2. RV failure 3. Hepatic congestion. 4. MICHEL on CKD, cardiorenal etiology - improving. 5. Anasarca - no change 6. Hypokalemia - improving 7. Hyponatremia - improving MAR reviewed Review of Systems - Review of Systems Constitutional: reports: no symptoms reported EENTM: reports: no symptoms reported Respiratory: reports: no symptoms reported Cardiac (ROS): reports: no symptoms reported ABD/GI: reports: no symptoms reported : reports: no symptoms reported Musculoskeletal: reports: no symptoms reported Skin: reports: no symptoms reported
[2018-08-08] MEDS: Acetaminophen 325 MG TAB PO PRN ×3 (04:06→20:36)
[2018-08-08 05:37] LABS: ALT (SGPT) 16 U/L (8-55); AST (SGOT) 22 U/L (5-34); Albumin 3.2 g/dL (3.5-5.0); Alkaline Phosphatase 91 U/L (40-150); Anion Gap 16 mmol/L (10-20); BUN (Urea Nitrogen) 47 mg/dL (9.8-20.1); Bilirubin, Total 5.8 mg/dL (0.2-1.2); Calc. Creatinine Clearance 60 mL/min (70-130); Calcium 9.4 mg/dL (7.8-10.44); Carbon Dioxide 28 mmol/L (22-29); Chloride 94 mmol/L (98-107); Estimated GFR-MDRD 41; Globulin 4.7 g/dL (2.4-3.5); Glucose 99 mg/dL (70-105); Potassium 3.3 mmol/L (3.5-5.1); Protein, Total 7.9 g/dL (6.0-8.3); Sodium 135 mmol/L (136-145)
[2018-08-08] MEDS: DOBUTamine 500 mg/250 ml 500 MG in Premix Bag 1 BAG IVPB SCH ×2 (05:46→23:00)
[2018-08-08] MEDS: Furosemide 100 MG/10 ML VIAL SLOW IVP SCH ×2 (05:47→14:11)
--- NOTE | 2018-08-08 06:10 | PDOC.FM ---
- Subjective Subjective: Feeling well this morning. No overnight events. Voiding frequently due to diuresis, BM yesterday. Denies SOB, chest pain. No questions or concerns. - Objective MAR Reviewed: Yes Vital Signs & Weight: Vital Signs (12 hours) Temp Pulse Resp BP BP Pulse Ox 08/08/18 03:34 96.9 F L 81 18 97/74 96 08/08/18 00:00 94 18 97/76 98 08/07/18 20:00 98.2 F 85 18 104/72 98 Weight Admit Weight 98.061 kg Weight 94.347 kg I&O: 08/06/18 08/07/18 08/08/18 06:59 06:59 06:59 Intake Total 1557 1866.4 780 Output Total 3275 4050 1500 Balance -1718 -2183.6 -720 Result Diagrams: 08/07/18 04:28 08/08/18 04:33 Phys Exam - Physical Examination Constitutional: NAD HEENT: moist MMs Neck: supple Respiratory: no wheezing, clear to auscultation bilateral Cardiovascular: no significant murmur afib, rate controlled Gastrointestinal: soft, non-tender, positive bowel sounds Musculoskeletal: pulses present, edema present legs wrapped Neurological: moves all 4 limbs Psychiatric: normal affect, A&O x 3 Skin: cap refill <2 seconds Dx/Plan (1) Hypoalbuminemia Code(s): E88.09 - OTH DISORDERS OF PLASMA-PROTEIN METABOLISM, NEC Status: Acute (2) CKD (chronic kidney disease) Code(s): N18.9 - CHRONIC KIDNEY DISEASE, UNSPECIFIED Status: Chronic (3) MICHEL (acute kidney injury) Code(s): N17.9 - ACUTE KIDNEY FAILURE, UNSPECIFIED Status: Acute (4) Acute exacerbation of congestive heart failure Code(s): I50.9 - HEART FAILURE, UNSPECIFIED Status: Acute (5) Hypokalemia Code(s): E87.6 - HYPOKALEMIA Status: Acute (6) HFrEF (heart failure with reduced ejection fraction) Code(s): I50.20 - UNSPECIFIED SYSTOLIC (CONGESTIVE) HEART FAILURE Status: Chronic (7) HTN (hypertension) Code(s): I10 - ESSENTIAL (PRIMARY) HYPERTENSION Status: Chronic - Plan Plan: Acute on chronic CHF exacerbation with hx of nonischemic cardiomyopathy, improving - Respiratory status stable. Blood pressure stable on dobutamine gtt @5mcg. s/p albumin 25% x2 - Strict I/Os, fluid restriction, daily weights, HH diet - Continue IV lasix 100mg BID per cards recs - 2.2L net neg in last 24hr - Metolazone & aldactone held - Dr. Edwards following, apprec recs MICHEL on CKD - Cr continues to improve with dobutamine and lasix, cardiorenal etiology - Continue plan as listed above, continue to monitor with daily BMPs - Dr. Edwards following, recs appreciated Direct bilirubinemia likely 2/2 Hepatic congestion - US RUQ & Liver neg - ASHIA, anti smooth, anti dsDNA, mitochondria negative. AMA, ANCA negative. - Treat heart condition as above Lower leg wounds 2/2 to fluid tension - Doppler negative for DVT (poor study due to anatomy) - Continue wound care, instructed to keep legs elevated Hypokalemia 2/2 diuresis - Continue to replace aggressively - 3.3 this AM, continue PO KCL 40meq - Monitor with daily BMP Hypoalbuminemia - s/p 25% albumin x2 - Continue to monitor Hyponatremia - Continue to monitor Normocytic anemia - H/H stable. Likely dilutional component cHTN - Held home aldactone & metalazone - BPs stable on 5 Dobutamine HLD - Continue home atorvastatin Chronic constipation - Senno/doc PRN Code Status: Full DVT ppx: lovenox Addendum - Attending - Attending Attestation Date/Time: 08/08/18 2597 I personally evaluated the patient and discussed the management with Dr. Aden. I agree with the History, Examination, Assessment and Plan documented above with any addition or exceptions noted below. Patient doing well. Continues to diurese well with Dobutamine and Lasix. Will increase K supplementation today to prevent hypokalemia. Awaiting further cardiology recs. Creatinine mild uptrend this morning but continue to monitor. May be reaching new baseline due to her cardiorenal syndrome.
[2018-08-08] MEDS: Potassium Chloride 20 MEQ TAB PO SCH ×3 (08:42→20:36)
[2018-08-08] MEDS: Enoxaparin Sodium 40 MG/0.4 ML SYRINGE SC SCH (08:43)
[2018-08-08] MEDS ORDERED: Potassium Chloride 20 MEQ TAB PO SCH ×2 (08:53→10:45)
--- NOTE | 2018-08-08 15:44 | PDOC.CTH ---
Cardiology Progress Note - Subjective The pt seen and examined. No overnight events. Today she feels more fatigue and lethergic. She also complains of shakiness to her bilat hands. - Objective Vital Signs Temp Pulse Resp BP Pulse Ox 08/08/18 12:02 97.5 F L 85 16 101/74 96 08/08/18 07:52 97.4 F L 73 18 97/68 97 08/08/18 07:50 97 Admit Weight 216 lb 3 oz Weight 208 lb 08/07/18 08/08/18 08/09/18 06:59 06:59 06:59 Intake Total 1866.4 1196 Output Total 4050 2300 Balance -2183.6 -1104 - Physical Examination General/Neuro: alert & oriented x3, other: (lethergic) Neck: no JVD present Lungs: CTA Heart: RRR Abdomen: soft Extremities: other: (4+ pitting BLE edema with dressing) - Labs Result Diagrams: 08/07/18 04:28 08/09/18 01:43 Troponin/CKMB CK-MB (CK-2) 1.4 ng/mL (0-6.6) 08/01/18 01:55 Troponin I 0.046 ng/mL (< 0.028) H 08/01/18 09:00 - Assessment/Plan 1. Acute on chornic combined HF - stable; On dobutamin 5mcg/kg/min and Lasix 100mg IV BID, which will be hold for this 1400 dose due to hypotensive and complains of very lethergic. 2. Non-ischemic CMY with AICD placement in 06/2018 3. Hepatic congestion. 4. MICHEL on CKD, cardiorenal etiology - slightly worsening today. 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 Anasarca - no change 6. Hypokalemia - covered by PCP 7. Hyponatremia - stable; on Fluid restriction 1500ml/day 8. Anemia - stable MAR reviewed Acute on chronic CHF exacerbation with hx of nonischemic cardiomyopathy, improving - Respiratory status stable. Blood pressure stable on dobutamine gtt @5mcg. s/p albumin 25% x2 - Strict I/Os, fluid restriction, daily weights, HH diet - Continue IV lasix 100mg BID per cards recs - 2.2L net neg in last 24hr - Metolazone & aldactone held - Dr. Edwards following, apprec recs Pt. seen and eval. by me. I agree with the A/P by the CART PUSHER. Chest decr. bases. RRR , + edema. Review of Systems - Review of Systems Constitutional: reports: weakness EENTM: reports: no symptoms reported Respiratory: reports: no symptoms reported Cardiac (ROS): reports: no symptoms reported ABD/GI: reports: no symptoms reported : reports: no symptoms reported Musculoskeletal: reports: see HPI
[2018-08-08] MEDS: Atorvastatin Calcium 10 MG TAB PO SCH (20:37)
[2018-08-08] MEDS: Polyethylene Glycol 3350 17 GM Packet PO PRN (21:08)
[2018-08-08] MEDS: Benzonatate 100 MG CAP PO PRN (22:58)
[2018-08-08] MEDS: guaiFENesin ER 600 MG TAB PO PRN (22:58)
[2018-08-09 02:32] LABS: CKMB 1.1 ng/mL (0-6.6)
[2018-08-09 03:00] LABS: ALT (SGPT) 15 U/L (8-55); AST (SGOT) 30 U/L (5-34); Albumin 3.2 g/dL (3.5-5.0); Alkaline Phosphatase 87 U/L (40-150); Anion Gap 18 mmol/L (10-20); BUN (Urea Nitrogen) 47 mg/dL (9.8-20.1); Bilirubin, Total 5.7 mg/dL (0.2-1.2); Calc. Creatinine Clearance 54 mL/min (70-130); Calcium 9.1 mg/dL (7.8-10.44); Carbon Dioxide 26 mmol/L (22-29); Chloride 93 mmol/L (98-107); Estimated GFR-MDRD 37; Globulin 4.9 g/dL (2.4-3.5); Glucose 103 mg/dL (70-105); Potassium 4.5 mmol/L (3.5-5.1); Protein, Total 8.1 g/dL (6.0-8.3); Sodium 132 mmol/L (136-145)
--- NOTE | 2018-08-09 03:31 | PDOC.EVN ---
Event Note - Event Note Event Note: called by nurse stating patient was experiencing SOB. repeated CXR, trop, BNP, and given duoneb. Evaluated patient at 0330. Lower lung crackles L>R. CXR improve. Patient states Duoneb helped. Given q4hr PRN duoneb.
--- NOTE | 2018-08-09 05:51 | PDOC.FM ---
- Subjective Subjective: Ms. Ley was sitting up in chair. Reports discomfort from her IV site. Has been eating and drinking well. No other complaints. Feels she is not quite back at baseline. - Objective MAR Reviewed: Yes Vital Signs & Weight: Vital Signs (12 hours) Temp Pulse Resp BP Pulse Ox 08/09/18 03:23 96.8 F L 89 20 96/63 96 08/09/18 02:24 92 20 97 08/09/18 00:00 87 18 97/56 L 98 08/08/18 20:00 98 F 82 18 100/64 98 Weight Admit Weight 98.061 kg Weight 95.164 kg I&O: 08/07/18 08/08/18 08/09/18 06:59 06:59 06:59 Intake Total 1866.4 1196 1200 Output Total 4050 2300 2500 Balance -2183.6 -1104 -1300 Result Diagrams: 08/07/18 04:28 08/09/18 01:43 Phys Exam - Physical Examination Constitutional: NAD Crackles lower lobe Cardiovascular: RRR Gastrointestinal: non-tender, positive bowel sounds tight, distended Musculoskeletal: edema present (b/l LE wound dressings in place) Neurological: non-focal Skin: normal turgor, cap refill <2 seconds Dx/Plan (1) Acute exacerbation of congestive heart failure Code(s): I50.9 - HEART FAILURE, UNSPECIFIED Status: Acute (2) Hypoalbuminemia Code(s): E88.09 - OTH DISORDERS OF PLASMA-PROTEIN METABOLISM, NEC Status: Acute (3) CKD (chronic kidney disease) Code(s): N18.9 - CHRONIC KIDNEY DISEASE, UNSPECIFIED Status: Chronic (4) MICHEL (acute kidney injury) Code(s): N17.9 - ACUTE KIDNEY FAILURE, UNSPECIFIED Status: Acute (5) Hypokalemia Code(s): E87.6 - HYPOKALEMIA Status: Acute (6) Obesity (BMI 30-39.9) Code(s): E66.9 - OBESITY, UNSPECIFIED Status: Acute (7) Elevated bilirubin Code(s): R17 - UNSPECIFIED JAUNDICE Status: Chronic - Plan Plan: Acute on chronic CHF exacerbation with hx of nonischemic cardiomyopathy, improving - Respiratory status stable. Blood pressure stable on dobutamine gtt @5mcg. s/p albumin 25% x2 - Strict I/Os, fluid restriction, daily weights, HH diet - Continue IV lasix 100mg BID per cards recs (one dose held yesterday) - 1.1 L net neg in last 24hr - Metolazone & aldactone held - Dr. Edwards following, apprec recs MICHEL on CKD - cardiorenal etiology, Cr 1.57->1.7 - Continue plan as listed above, continue to monitor with daily BMPs Direct bilirubinemia likely 2/2 Hepatic congestion - US RUQ & Liver neg - ASHIA, anti smooth, anti dsDNA, mitochondria negative. AMA, ANCA negative. - Treat heart condition as above Lower leg wounds 2/2 to fluid tension - Doppler negative for DVT (poor study due to anatomy) - Continue wound care, instructed to keep legs elevated Hypokalemia 2/2 diuresis - 4.5 this AM - Monitor with daily BMP Hypoalbuminemia - s/p 25% albumin x2 - Continue to monitor Hyponatremia - Continue to monitor Normocytic anemia - H/H stable. Likely dilutional component cHTN - Held home aldactone & metalazone - BPs stable on 5 Dobutamine HLD - Continue home atorvastatin Chronic constipation - Senno/doc PRN Code Status: Full DVT ppx: lovenox Addendum - Attending - Attending Attestation Date/Time: 08/09/18 1046 I personally evaluated the patient and discussed the management with Dr. Shah. I agree with the History, Examination, Assessment and Plan documented above with any addition or exceptions noted below. Pt remains on dobutamine drip and IV lasix. She is feeling a little better this morning though her IV infiltrated. Will f/u with cardiology recs regarding her drip.
[2018-08-09] MEDS: Furosemide 100 MG/10 ML VIAL SLOW IVP SCH ×2 (06:48→17:48)
--- NOTE | 2018-08-09 07:53 | RAD ---
FRONTAL VIEW CHEST: Comparison: 08-01-18 Indication: Shortness of breath. FINDINGS: There is pleural and parenchymal density at the inferior right chest. Marked enlargement of the cardi ac silhouette and prominence of the pulmonary vasculature is present. There is re-demonstration of le ft sided cardiac pacing device. IMPRESSION: 1. Right pleural effusion with adjacent atelectasis and/or pneumonia. This has slightly progressed fr om prior exam. 2. Evidence of CHF. POS: JOANNEK
[2018-08-09] MEDS ORDERED: Phentolamine Mesylate 5 MG VIAL SC SCH (08:45)
[2018-08-09] MEDS: Potassium Chloride 20 MEQ TAB PO SCH ×2 (09:58→21:03)
[2018-08-09] MEDS: Enoxaparin Sodium 40 MG/0.4 ML SYRINGE SC SCH (09:58)
[2018-08-09] MEDS: Acetaminophen 325 MG TAB PO PRN (11:51)
[2018-08-09] MEDS: guaiFENesin ER 600 MG TAB PO PRN (11:53)
[2018-08-09] MEDS: DOBUTamine 500 mg/250 ml 500 MG in Premix Bag 1 BAG IVPB SCH (17:41)
--- NOTE | 2018-08-09 18:33 | PDOC.CTH ---
Cardiology Progress Note - Subjective She continues to diurese. - Objective Vital Signs Temp Pulse Resp BP Pulse Ox 08/09/18 15:21 97.8 F 86 16 94/63 97 08/09/18 11:56 97.6 F 85 16 95/58 L 96 08/09/18 08:00 97.8 F 87 16 110/66 96 Admit Weight 216 lb 3 oz Weight 209 lb 12.8 oz 08/08/18 08/09/18 08/10/18 06:59 06:59 06:59 Intake Total 1196 1376 536 Output Total 2300 2500 1000 Balance -1104 -1124 -464 - Physical Examination General/Neuro: alert & oriented x3, NAD Neck: no JVD present Lungs: unlabored respirations Heart: RRR Abdomen: NT/ND Extremities: + edema B (3+ slight improvemet.) - Telemetry Telemetry Rhythm: NSR - Labs Result Diagrams: 08/07/18 04:28 08/09/18 01:43 Troponin/CKMB CK-MB (CK-2) 1.1 ng/mL (0-6.6) 08/09/18 01:43 Troponin I 0.056 ng/mL (< 0.028) H 08/09/18 01:43 - Assessment/Plan 1. Acute on chornic systolic and diastolic heart failure. 2. RV failure 3. Hepatic congestion. 4. MICHEL on CKD, cardiorenal. 5. Anasarca PLAN: - Creatinine bump, will cut back on lasix to 80 mg IV BID, still volume up. - Continue dobutamine at 5 mg. - Continue IV lasix at current dose. - Replace K aggressively. - Prognosis is guarded
[2018-08-09] MEDS: Atorvastatin Calcium 10 MG TAB PO SCH (21:03)
[2018-08-10 05:29] LABS: ALT (SGPT) 18 U/L (8-55); AST (SGOT) 26 U/L (5-34); Albumin 3.3 g/dL (3.5-5.0); Alkaline Phosphatase 91 U/L (40-150); Anion Gap 17 mmol/L (10-20); BUN (Urea Nitrogen) 43 mg/dL (9.8-20.1); Bilirubin, Total 5.8 mg/dL (0.2-1.2); Calc. Creatinine Clearance 57 mL/min (70-130); Calcium 9.5 mg/dL (7.8-10.44); Carbon Dioxide 25 mmol/L (22-29); Chloride 94 mmol/L (98-107); Estimated GFR-MDRD 38; Globulin 4.6 g/dL (2.4-3.5); Glucose 98 mg/dL (70-105); Potassium 4.5 mmol/L (3.5-5.1); Protein, Total 7.9 g/dL (6.0-8.3); Sodium 131 mmol/L (136-145)
[2018-08-10] MEDS: Furosemide 100 MG/10 ML VIAL SLOW IVP SCH ×2 (06:38→14:04)
--- NOTE | 2018-08-10 07:59 | PDOC.FM ---
- Subjective Subjective: Ms. Ley denies SOB. Has no new complaints. Says she is feeling better overall but the lasix is making her tired. Says he RLE is weeping more. - Objective MAR Reviewed: Yes Vital Signs & Weight: Vital Signs (12 hours) Temp Pulse Resp BP Pulse Ox 08/10/18 04:00 97.8 F 92 20 95/64 98 08/09/18 23:54 84 18 98 08/09/18 20:25 97.4 F L 82 16 93/67 99 Weight Admit Weight 98.061 kg Weight 95.753 kg I&O: 08/09/18 08/10/18 08/11/18 06:59 06:59 06:59 Intake Total 1376 874 Output Total 2500 1450 Balance -1124 -576 Result Diagrams: 08/07/18 04:28 08/10/18 04:28 Phys Exam - Physical Examination Constitutional: NAD sclera appear mildly icteric crackles lower lung bases Cardiovascular: RRR Gastrointestinal: soft, no distention, positive bowel sounds Musculoskeletal: edema present (b/l LE, wound dressing in place) Neurological: non-focal Skin: normal turgor, cap refill <2 seconds Dx/Plan (1) Acute exacerbation of congestive heart failure Code(s): I50.9 - HEART FAILURE, UNSPECIFIED Status: Acute (2) Hypoalbuminemia Code(s): E88.09 - OTH DISORDERS OF PLASMA-PROTEIN METABOLISM, NEC Status: Acute (3) CKD (chronic kidney disease) Code(s): N18.9 - CHRONIC KIDNEY DISEASE, UNSPECIFIED Status: Chronic (4) MICHEL (acute kidney injury) Code(s): N17.9 - ACUTE KIDNEY FAILURE, UNSPECIFIED Status: Acute (5) Hypokalemia Code(s): E87.6 - HYPOKALEMIA Status: Acute (6) Obesity (BMI 30-39.9) Code(s): E66.9 - OBESITY, UNSPECIFIED Status: Acute (7) Elevated bilirubin Code(s): R17 - UNSPECIFIED JAUNDICE Status: Chronic - Plan Plan: Acute on chronic CHF exacerbation, improving - Respiratory status stable. Blood pressure stable on dobutamine gtt @5mcg. s/p albumin 25% x2 - Strict I/Os, fluid restriction, daily weights, HH diet - Continue IV lasix 80mg BID per cardiology - 1.1 L net neg in last 24hr - Metolazone & aldactone held - Dr. Edwards following, apprec recs MICHEL on CKD - cardiorenal etiology, Cr 1.57->1.7->1.67 - Continue plan as listed above, continue to monitor with daily BMPs Direct bilirubinemia likely 2/2 Hepatic congestion - US RUQ & Liver neg - ASHIA, anti smooth, anti dsDNA, mitochondria negative. AMA, ANCA negative. - Treat heart condition as above Lower leg wounds 2/2 to fluid tension - Doppler negative for DVT (poor study due to anatomy) - Continue wound care, instructed to keep legs elevated Hypokalemia 2/2 diuresis - 4.5 this AM - Monitor with daily BMP - on K+ 60 meq bid supplement Hypoalbuminemia - s/p 25% albumin x2 - Continue to monitor Hyponatremia, improving - Continue to monitor Normocytic anemia - H/H stable. Likely dilutional component cHTN - Held home aldactone & metalazone - BPs stable on 5 Dobutamine HLD - Continue home atorvastatin Chronic constipation - Senno/doc PRN Code Status: Full DVT ppx: lovenox Addendum - Attending - Attending Attestation Date/Time: 08/10/18 1951 I personally evaluated the patient and discussed the management with Dr. Shah. I agree with the History, Examination, Assessment and Plan documented above with any addition or exceptions noted below. The patient had her legs rewrapped this morning. Creatinine is slightly improved. She will continue dobutamine drip and lasix is decreasing to 80mg bid.
[2018-08-10] MEDS: Enoxaparin Sodium 40 MG/0.4 ML SYRINGE SC SCH (09:07)
[2018-08-10] MEDS: Potassium Chloride 20 MEQ TAB PO SCH ×2 (09:07→20:32)
--- NOTE | 2018-08-10 18:59 | PDOC.CTH ---
Cardiology Progress Note - Subjective She feels worn out. She continues to be fluid up. She continues to diurese. - Objective Vital Signs Temp Pulse Pulse Pulse Resp BP BP 08/10/18 17:17 97.8 F 87 18 08/10/18 14:57 92 94 97/69 96/66 08/10/18 12:32 97.6 F 90 18 08/10/18 12:27 93 91 100/65 99/69 08/10/18 08:00 98.8 F 86 18 BP Pulse Ox Pulse Ox Pulse Ox 08/10/18 17:17 109/55 L 97 08/10/18 14:57 08/10/18 12:32 99/69 96 08/10/18 12:27 96 96 08/10/18 08:00 91/63 95 Admit Weight 216 lb 3 oz Weight 211 lb 1.6 oz 08/09/18 08/10/18 08/11/18 06:59 06:59 06:59 Intake Total 1376 874 300 Output Total 2500 1450 Balance -1124 -576 300 - Physical Examination General/Neuro: alert & oriented x3, NAD Neck: no JVD present Lungs: unlabored respirations Heart: RRR Abdomen: NT/ND Extremities: + edema B (3+) - Telemetry Telemetry Rhythm: NSR - Labs Result Diagrams: 08/07/18 04:28 08/10/18 04:28 Troponin/CKMB CK-MB (CK-2) 1.1 ng/mL (0-6.6) 08/09/18 01:43 Troponin I 0.056 ng/mL (< 0.028) H 08/09/18 01:43 - Assessment/Plan 1. Acute on chronic systolic and diastolic heart failure. 2. RV failure 3. Hepatic congestion. 4. MICHEL on CKD, cardiorenal. 5. Anasarca PLAN: - Creatinine improved mildly, continue lasix 80 mg IV BID, still volume up. - Continue dobutamine at 5 mg. - Replace K aggressively. - Prognosis is guarded
[2018-08-10] MEDS: Atorvastatin Calcium 10 MG TAB PO SCH (20:31)
[2018-08-10] MEDS: Acetaminophen 325 MG TAB PO PRN (22:43)
[2018-08-10] MEDS: Gabapentin 100 MG CAP PO PRN (22:43)
[2018-08-11] MEDS: DOBUTamine 500 mg/250 ml 500 MG in Premix Bag 1 BAG IVPB SCH ×2 (03:50→21:06)
[2018-08-11 05:12] LABS: ALT (SGPT) 17 U/L (8-55); AST (SGOT) 28 U/L (5-34); Albumin 3.3 g/dL (3.5-5.0); Alkaline Phosphatase 89 U/L (40-150); Anion Gap 15 mmol/L (10-20); BUN (Urea Nitrogen) 41 mg/dL (9.8-20.1); Bilirubin, Total 5.9 mg/dL (0.2-1.2); Calc. Creatinine Clearance 58 mL/min (70-130); Calcium 9.6 mg/dL (7.8-10.44); Carbon Dioxide 25 mmol/L (22-29); Chloride 96 mmol/L (98-107); Estimated GFR-MDRD 39; Globulin 4.5 g/dL (2.4-3.5); Glucose 116 mg/dL (70-105); Potassium 5.1 mmol/L (3.5-5.1); Protein, Total 7.8 g/dL (6.0-8.3); Sodium 131 mmol/L (136-145)
--- NOTE | 2018-08-11 06:08 | PDOC.FM ---
- Subjective Subjective: Ms. Ley says she is feeling much better this morning after sleeping well. RLJenae continues to weep. Had one episode diarrhea after supper yesterday but none since. Has no new complaints today. - Objective MAR Reviewed: Yes Vital Signs & Weight: Vital Signs (12 hours) Temp Pulse Resp BP Pulse Ox 08/11/18 04:00 97.4 F L 83 16 96/67 96 08/11/18 01:00 97.4 F L 92 16 96/69 96 08/10/18 20:15 97.9 F 93 15 93/58 L 98 Weight Admit Weight 98.061 kg Weight 95.753 kg I&O: 08/09/18 08/10/18 08/11/18 06:59 06:59 06:59 Intake Total 1376 874 940 Output Total 2500 1450 700 Balance -1124 -576 240 Result Diagrams: 08/07/18 04:28 08/11/18 04:31 Phys Exam - Physical Examination Constitutional: NAD Respiratory: no rales, clear to auscultation bilateral Cardiovascular: RRR Gastrointestinal: soft, positive bowel sounds b/l LE edema w/ wound dressings in place Neurological: moves all 4 limbs Psychiatric: normal affect Skin: cap refill <2 seconds Dx/Plan (1) Acute exacerbation of congestive heart failure Code(s): I50.9 - HEART FAILURE, UNSPECIFIED Status: Acute (2) Hypoalbuminemia Code(s): E88.09 - OTH DISORDERS OF PLASMA-PROTEIN METABOLISM, NEC Status: Acute (3) CKD (chronic kidney disease) Code(s): N18.9 - CHRONIC KIDNEY DISEASE, UNSPECIFIED Status: Chronic (4) MICHEL (acute kidney injury) Code(s): N17.9 - ACUTE KIDNEY FAILURE, UNSPECIFIED Status: Acute (5) Hypokalemia Code(s): E87.6 - HYPOKALEMIA Status: Acute (6) Obesity (BMI 30-39.9) Code(s): E66.9 - OBESITY, UNSPECIFIED Status: Acute (7) Elevated bilirubin Code(s): R17 - UNSPECIFIED JAUNDICE Status: Chronic - Plan Plan: Acute on chronic CHF exacerbation - VSS - Strict I/Os, fluid restriction, daily weights, HH diet - Continue IV lasix 80mg BID, dobutamine gtt @5mcg per cardiology - 0.5 L net neg in last 24hr - Metolazone & aldactone held - Dr. Edwards following, apprec recs MICHEL on CKD - cardiorenal etiology, Cr 1.57->1.7->1.67->1.64 - Continue plan as listed above, continue to monitor with daily BMPs Direct bilirubinemia likely 2/2 Hepatic congestion - US RUQ & Liver neg - ASHIA, anti smooth, anti dsDNA, mitochondria negative. AMA, ANCA negative. - Treat heart condition as above Lower leg wounds 2/2 to fluid tension - Doppler negative for DVT (poor study due to anatomy) - Continue wound care, instructed to keep legs elevated Hypokalemia 2/2 diuresis - 5.1 this AM - Monitor with daily BMP - on K+ 60 meq bid supplement, will plan to decrease today Hypoalbuminemia - s/p 25% albumin x2 - Continue to monitor Hyponatremia, improving - Continue to monitor Normocytic anemia - H/H stable. Likely dilutional component cHTN - Held home aldactone & metalazone - BPs stable on 5 Dobutamine HLD - Continue home atorvastatin Chronic constipation - Senno/doc PRN Code Status: Full DVT ppx: lovenox Addendum - Attending - Attending Attestation Date/Time: 08/11/18 5516 I personally evaluated the patient and discussed the management with Dr. Shah. I agree with the History, Examination, Assessment and Plan documented above with any addition or exceptions noted below. The patient is feeling better this morning. Potassium up to 5.1. Will adjust oral potassium dose.
[2018-08-11] MEDS: Furosemide 100 MG/10 ML VIAL SLOW IVP SCH ×2 (06:35→14:37)
[2018-08-11] MEDS: Benzonatate 100 MG CAP PO PRN ×2 (06:50→14:51)
[2018-08-11] MEDS: Acetaminophen 325 MG TAB PO PRN ×2 (06:50→21:06)
[2018-08-11] MEDS: Potassium Chloride 20 MEQ TAB PO SCH (09:29)
[2018-08-11] MEDS: Enoxaparin Sodium 40 MG/0.4 ML SYRINGE SC SCH (09:29)
[2018-08-11] MEDS ORDERED: Ondansetron PF 4 MG/2 ML Vial IVP PRN (14:46)
--- NOTE | 2018-08-11 14:46 | PDOC.EVN ---
Event Note - Event Note Event Note: called to bedside for abd pain Patient states "band-like" abd pain came on quickly, lasted <1 min. Patient states "felt like if I could vomit it would feel better." It had resolved by the time of MD arrival. Patient states it felt better when she laid back and took some deep breaths. She denies nausea despite above statement. She denies vomiting/diarrhea PE Gen: NAD CV: RRR, no murmur Resp: exp wheezes bilaterally Abd: distended, (patient states improved from admission), no pain to palpation Plan -leena - crystal prn - consider bentyl - instructed patient to alert MD if occurs again
[2018-08-11] MEDS: Gabapentin 100 MG CAP PO PRN (14:47)
--- NOTE | 2018-08-11 18:41 | PDOC.CTH ---
Cardiology Progress Note - Subjective No new issues. She still feels worn out. - Objective Vital Signs Temp Pulse Resp BP Pulse Ox 08/11/18 15:58 97.7 F 94 18 91/69 98 08/11/18 15:03 96 20 99 08/11/18 12:00 97.9 F 89 18 98/77 97 08/11/18 07:35 97.7 F 90 18 92/69 97 Admit Weight 216 lb 3 oz Weight 209 lb 1.6 oz 08/10/18 08/11/18 08/12/18 06:59 06:59 06:59 Intake Total 874 1679 360 Output Total 1450 1450 Balance -576 229 360 - Physical Examination General/Neuro: alert & oriented x3, NAD Neck: no JVD present Lungs: CTA, unlabored respirations Heart: RRR Abdomen: NT/ND Extremities: + edema B (3+) - Telemetry Telemetry Rhythm: NSR - Labs Result Diagrams: 08/07/18 04:28 08/11/18 04:31 Troponin/CKMB CK-MB (CK-2) 1.1 ng/mL (0-6.6) 08/09/18 01:43 Troponin I 0.056 ng/mL (< 0.028) H 08/09/18 01:43 - Assessment/Plan 1. Acute on chronic systolic and diastolic heart failure. 2. RV failure 3. Hepatic congestion. 4. MICHEL on CKD, cardiorenal. 5. Anasarca PLAN: - Creatinine improved mildly, continue lasix 80 mg IV BID, still volume u, will add metolazone PO. - Will increase dobutamine to 7.5 mg. - Replace K aggressively. - Prognosis is guarded
[2018-08-11] MEDS: Atorvastatin Calcium 10 MG TAB PO SCH (21:05)
[2018-08-12] MEDS: Acetaminophen 325 MG TAB PO PRN ×3 (02:10→21:20)
[2018-08-12 05:39] LABS: ALT (SGPT) 17 U/L (8-55); AST (SGOT) 35 U/L (5-34); Albumin 3.1 g/dL (3.5-5.0); Alkaline Phosphatase 103 U/L (40-150); Anion Gap 18 mmol/L (10-20); BUN (Urea Nitrogen) 41 mg/dL (9.8-20.1); Bilirubin, Total 4.9 mg/dL (0.2-1.2); Calc. Creatinine Clearance 56 mL/min (70-130); Calcium 9.4 mg/dL (7.8-10.44); Carbon Dioxide 20 mmol/L (22-29); Chloride 98 mmol/L (98-107); Estimated GFR-MDRD 38; Globulin 4.8 g/dL (2.4-3.5); Glucose 110 mg/dL (70-105); Potassium 5.1 mmol/L (3.5-5.1); Protein, Total 7.9 g/dL (6.0-8.3); Sodium 131 mmol/L (136-145)
[2018-08-12] MEDS: Furosemide 100 MG/10 ML VIAL SLOW IVP SCH ×2 (07:33→15:01)
[2018-08-12] MEDS: Metolazone 5 MG TAB PO SCH (08:25)
[2018-08-12] MEDS: Potassium Chloride 20 MEQ TAB PO SCH ×2 (08:26→21:19)
[2018-08-12] MEDS: Enoxaparin Sodium 40 MG/0.4 ML SYRINGE SC SCH (08:26)
[2018-08-12] MEDS: Benzonatate 100 MG CAP PO PRN (08:31)
[2018-08-12] MEDS: Gabapentin 100 MG CAP PO PRN (08:31)
[2018-08-12] MEDS ORDERED: Tolvaptan 15 MG TAB PO SCH (09:00)
--- NOTE | 2018-08-12 11:24 | PDOC.FM ---
- Subjective Subjective: Ms. Ley reports her RLE continues to weep clear/yellow fluid at time. Nurse notes it is nonpurulent. It is a little uncomfortable for her. Continue to diurese. Has no complaints otherwise this morning. - Objective MAR Reviewed: Yes Vital Signs & Weight: Vital Signs (12 hours) Temp Pulse Resp BP Pulse Ox 08/12/18 08:25 97 08/12/18 08:23 97.7 F 91 18 97/68 97 08/12/18 03:40 97.5 F L 94 20 94/68 98 08/12/18 00:10 97.8 F 97 18 94/73 96 Weight Admit Weight 98.061 kg Weight 95.481 kg I&O: 08/11/18 08/12/18 08/13/18 06:59 06:59 06:59 Intake Total 1679 850 Output Total 1450 800 Balance 229 50 Result Diagrams: 08/07/18 04:28 08/12/18 04:42 Phys Exam - Physical Examination Constitutional: NAD HEENT: moist MMs Respiratory: no rhonchi, clear to auscultation bilateral Cardiovascular: RRR (S3) Gastrointestinal: positive bowel sounds (distended d/t fluid) b/l LE wound bandages in place, dry Neurological: non-focal Skin: cap refill <2 seconds (anasarca) Dx/Plan (1) Acute exacerbation of congestive heart failure Code(s): I50.9 - HEART FAILURE, UNSPECIFIED Status: Acute (2) Hypoalbuminemia Code(s): E88.09 - OTH DISORDERS OF PLASMA-PROTEIN METABOLISM, NEC Status: Acute (3) CKD (chronic kidney disease) Code(s): N18.9 - CHRONIC KIDNEY DISEASE, UNSPECIFIED Status: Chronic (4) MICHEL (acute kidney injury) Code(s): N17.9 - ACUTE KIDNEY FAILURE, UNSPECIFIED Status: Acute (5) Hypokalemia Code(s): E87.6 - HYPOKALEMIA Status: Acute (6) Obesity (BMI 30-39.9) Code(s): E66.9 - OBESITY, UNSPECIFIED Status: Acute (7) Elevated bilirubin Code(s): R17 - UNSPECIFIED JAUNDICE Status: Chronic - Plan Plan: Acute on chronic CHF exacerbation - VSS - Strict I/Os, fluid restriction, daily weights, HH diet - Continue IV lasix 80mg BID, dobutamine gtt increased to @7.5mcg, metolazone added per cardiology - + net output in last 24hr - aldactone held - Dr. Edwards following, apprec recs MICHEL on CKD - cardiorenal etiology, Cr stable at 1.6 over past couple days - Continue plan as listed above, continue to monitor with daily BMPs Direct bilirubinemia likely 2/2 Hepatic congestion - US RUQ & Liver neg - ASHIA, anti smooth, anti dsDNA, mitochondria negative. AMA, ANCA negative. - Treat heart condition as above Lower leg wounds 2/2 to fluid tension - Doppler negative for DVT (poor study due to anatomy) - Continue wound care, instructed to keep legs elevated Hypokalemia 2/2 diuresis, improving - Monitor with daily BMP - on K+ 40 meq bid supplement (decreased from 60->40) Hypoalbuminemia - s/p 25% albumin x2 - Continue to monitor Hyponatremia, improving - Continue to monitor Normocytic anemia - H/H stable. Likely dilutional component cHTN - Held home aldactone - BPs stable on Dobutamine HLD - Continue home atorvastatin Chronic constipation - Senno/doc PRN Code Status: Full DVT ppx: lovenox Addendum - Attending - Attending Attestation Date/Time: 08/12/18 7791 I personally evaluated the patient and discussed the management with Dr. Shah. I agree with the History, Examination, Assessment and Plan documented above with any addition or exceptions noted below. Wound care is treating the rle which is weeping from her lower extremity edema. She remains on dobutamine drip and IV lasix. Metolazone is being added today. Continue to trend renal function and electrolytes.
--- NOTE | 2018-08-12 12:08 | PDOC.CTH ---
Cardiology Progress Note - Subjective No significant change in fluid level this morning. Got metolazone only this morning. - Objective Vital Signs Temp Pulse Resp BP Pulse Ox 08/12/18 11:39 98.2 F 92 18 93/66 99 08/12/18 08:25 97 08/12/18 08:23 97.7 F 91 18 97/68 97 08/12/18 03:40 97.5 F L 94 20 94/68 98 08/12/18 00:10 97.8 F 97 18 94/73 96 Admit Weight 216 lb 3 oz Weight 210 lb 8 oz 08/11/18 08/12/18 08/13/18 06:59 06:59 06:59 Intake Total 1679 850 Output Total 1450 800 Balance 229 50 - Physical Examination General/Neuro: alert & oriented x3, NAD Neck: no JVD present Lungs: CTA, unlabored respirations Heart: RRR Abdomen: NT/ND Extremities: + edema B (4+ up to the abdomen.) - Telemetry Telemetry Rhythm: NSR - Labs Result Diagrams: 08/07/18 04:28 08/12/18 04:42 Troponin/CKMB CK-MB (CK-2) 1.1 ng/mL (0-6.6) 08/09/18 01:43 Troponin I 0.056 ng/mL (< 0.028) H 08/09/18 01:43 - Assessment/Plan 1. Acute on chronic systolic and diastolic heart failure. 2. RV failure 3. Hepatic congestion. 4. MICHEL on CKD, cardiorenal. 5. Anasarca PLAN: - Continue lasix 80 mg IV BID and metolazone PO. - Continue dobutamine at 7.5 mg. - Replace K aggressively. - Prognosis is guarded
[2018-08-12] MEDS: DOBUTamine 500 mg/250 ml 500 MG in Premix Bag 1 BAG IVPB SCH (15:09)
[2018-08-12] MEDS: Atorvastatin Calcium 10 MG TAB PO SCH (21:20)
[2018-08-13] MEDS: DOBUTamine 500 mg/250 ml 500 MG in Premix Bag 1 BAG IVPB SCH ×3 (03:24→20:22)
[2018-08-13 05:53] LABS: ALT (SGPT) 16 U/L (8-55); AST (SGOT) 29 U/L (5-34); Albumin 3.1 g/dL (3.5-5.0); Alkaline Phosphatase 119 U/L (40-150); Anion Gap 19 mmol/L (10-20); BUN (Urea Nitrogen) 39 mg/dL (9.8-20.1); Bilirubin, Total 4.7 mg/dL (0.2-1.2); Calc. Creatinine Clearance 57 mL/min (70-130); Calcium 9.5 mg/dL (7.8-10.44); Carbon Dioxide 22 mmol/L (22-29); Chloride 98 mmol/L (98-107); Estimated GFR-MDRD 39; Globulin 4.7 g/dL (2.4-3.5); Glucose 98 mg/dL (70-105); Potassium 4.7 mmol/L (3.5-5.1); Protein, Total 7.8 g/dL (6.0-8.3); Sodium 134 mmol/L (136-145)
--- NOTE | 2018-08-13 06:35 | PDOC.FM ---
- Subjective Subjective: Patient notes a new mass on right neck/under jaw that popped up this morning. Tender and does not want to move head because of discomfort. Says leg aching has improved. Continues to diurese, says that she thinks they are not recording urine volume every time. - Objective Vital Signs & Weight: Vital Signs (12 hours) Temp Pulse Resp BP Pulse Ox 08/13/18 03:58 97.5 F L 89 18 93/64 100 08/12/18 20:00 98 08/12/18 19:41 97.2 F L 96 16 95/65 98 Weight Admit Weight 98.061 kg Weight 95.481 kg I&O: 08/11/18 08/12/18 08/13/18 06:59 06:59 06:59 Intake Total 1679 850 765 Output Total 1450 800 900 Balance 229 50 -135 Result Diagrams: 08/07/18 04:28 08/13/18 04:47 Phys Exam - Physical Examination Constitutional: NAD HEENT: moist MMs 3x2 cm R inframandibular lymph node, TTP, mobile Respiratory: no wheezing, no rales, clear to auscultation bilateral Cardiovascular: RRR Gastrointestinal: non-tender, positive bowel sounds (distended) b/l le edema, with wound dressings in place. anasarca Neurological: non-focal Psychiatric: normal affect Skin: normal turgor, cap refill <2 seconds Dx/Plan (1) Acute exacerbation of congestive heart failure Code(s): I50.9 - HEART FAILURE, UNSPECIFIED Status: Acute (2) Hypoalbuminemia Code(s): E88.09 - OTH DISORDERS OF PLASMA-PROTEIN METABOLISM, NEC Status: Acute (3) CKD (chronic kidney disease) Code(s): N18.9 - CHRONIC KIDNEY DISEASE, UNSPECIFIED Status: Chronic (4) MICHEL (acute kidney injury) Code(s): N17.9 - ACUTE KIDNEY FAILURE, UNSPECIFIED Status: Acute (5) Hypokalemia Code(s): E87.6 - HYPOKALEMIA Status: Acute (6) Obesity (BMI 30-39.9) Code(s): E66.9 - OBESITY, UNSPECIFIED Status: Acute (7) Elevated bilirubin Code(s): R17 - UNSPECIFIED JAUNDICE Status: Chronic - Plan Plan: Acute on chronic CHF exacerbation - VSS - Strict I/Os, fluid restriction, daily weights, HH diet - Continue IV lasix 80mg BID, dobutamine gtt @7.5mcg, metolazone per cardiology - -135ml net output in last 24hr - aldactone held - Dr. Edwards following, apprec recs MICHEL on CKD - cardiorenal etiology, Cr stable at 1.6 over past couple days - Continue plan as listed above, continue to monitor with daily BMPs Lymph node - new this am, tender - afebrile, oropharynx clear, denies sore throat - will continue to monitor Direct bilirubinemia likely 2/2 Hepatic congestion - US RUQ & Liver neg - ASHIA, anti smooth, anti dsDNA, mitochondria negative. AMA, ANCA negative. - Treat heart condition as above Lower leg wounds 2/2 to fluid tension - Doppler negative for DVT (poor study due to anatomy) - Continue wound care, instructed to keep legs elevated Hypokalemia 2/2 diuresis, stable - Monitor with daily BMP - on K+ 40 meq bid supplement (decreased from 60->40) Hypoalbuminemia - s/p 25% albumin x2 - Continue to monitor Hyponatremia, improving - Continue to monitor Normocytic anemia - H/H stable. Likely dilutional component cHTN - Held home aldactone - BPs stable on Dobutamine HLD - Continue home atorvastatin Chronic constipation - Senno/doc PRN Code Status: Full DVT ppx: lovenox Addendum - Attending - Attending Attestation Date/Time: 08/13/18 1411 I personally evaluated the patient and discussed the management with Dr. Shah. I agree with the History, Examination, Assessment and Plan documented above with any addition or exceptions noted below. The patient is on metolazone and lasix. This morning she has a tender lymph node in the right jaw but it is not fluctuant or warm. Will monitor. Creatinine is stable. Potassium is stable as well. Wound care will be changing dressing on weeping areas of her legs from the swelling.
[2018-08-13] MEDS: Furosemide 100 MG/10 ML VIAL SLOW IVP SCH ×2 (06:54→15:02)
[2018-08-13] MEDS: Potassium Chloride 20 MEQ TAB PO SCH ×2 (08:43→20:23)
[2018-08-13] MEDS: Enoxaparin Sodium 40 MG/0.4 ML SYRINGE SC SCH (08:43)
[2018-08-13] MEDS: Metolazone 5 MG TAB PO SCH (08:43)
[2018-08-13] MEDS: Acetaminophen 325 MG TAB PO PRN ×2 (08:46→20:23)
--- NOTE | 2018-08-13 14:58 | PDOC.CTH ---
Cardiology Progress Note - Subjective Better diuresis with current regimen. Swelling improving. - Objective Vital Signs Temp Pulse Resp BP Pulse Ox 08/13/18 12:45 98.1 F 93 18 99/62 97 08/13/18 07:35 97.4 F L 93 18 89/70 L 99 08/13/18 03:58 97.5 F L 89 18 93/64 100 Admit Weight 216 lb 3 oz Weight 212 lb 14.4 oz 08/12/18 08/13/18 08/14/18 06:59 06:59 06:59 Intake Total 850 1639 Output Total 800 1600 Balance 50 39 - Physical Examination General/Neuro: alert & oriented x3, NAD Neck: no JVD present Lungs: unlabored respirations Heart: RRR Abdomen: NT/ND Extremities: + edema B (3+) - Telemetry Telemetry Rhythm: NSR - Labs Result Diagrams: 08/07/18 04:28 08/13/18 04:47 Troponin/CKMB CK-MB (CK-2) 1.1 ng/mL (0-6.6) 08/09/18 01:43 Troponin I 0.056 ng/mL (< 0.028) H 08/09/18 01:43 - Assessment/Plan 1. Acute on chronic systolic and diastolic heart failure. EF at 10-15% 2. RV failure 3. Hepatic congestion. 4. MICHEL on CKD, cardiorenal. 5. Anasarca PLAN: - Continue lasix 80 mg IV BID and metolazone PO. - Continue dobutamine at 7.5 mg. - Replace K aggressively. - Her diuresis has improved and her kidney function has maintained. - Prognosis is guarded
[2018-08-13] MEDS: Gabapentin 100 MG CAP PO PRN (15:02)
--- NOTE | 2018-08-13 16:48 | ULT ---
FOCUSED ULTRASOUND OF THE RIGHT FOOT: 08/13/18 HISTORY: Right foot swelling, assess for abscess. FINDINGS: Focused ultrasound along the dorsal aspect of the foot demonstrates extensive edematous change insinu ating throughout the soft tissues dorsally including the subcutaneous fat. Full extent is incompletel y assessed. No drainable abscess is seen. This could be on the basis of cellulitis. The study of yuan ce would be MRI of the foot with and without contrast. IMPRESSION: Prominent edematous change along the dorsal aspect of the right foot. Findings may be on the basis of cellulitis. MRI with and without contrast would be the study of choice to evaluate for abscess or as sociated osteomyelitis. POS: DUONG
[2018-08-13] MEDS: Atorvastatin Calcium 10 MG TAB PO SCH (20:23)
[2018-08-14] MEDS: Furosemide 100 MG/10 ML VIAL SLOW IVP SCH ×2 (05:34→15:31)
[2018-08-14 05:59] LABS: ALT (SGPT) 18 U/L (8-55); AST (SGOT) 29 U/L (5-34); Albumin 3.1 g/dL (3.5-5.0); Alkaline Phosphatase 95 U/L (40-150); Anion Gap 16 mmol/L (10-20); BUN (Urea Nitrogen) 39 mg/dL (9.8-20.1); Bilirubin, Total 5.6 mg/dL (0.2-1.2); Calc. Creatinine Clearance 59 mL/min (70-130); Calcium 9.5 mg/dL (7.8-10.44); Carbon Dioxide 23 mmol/L (22-29); Chloride 98 mmol/L (98-107); Estimated GFR-MDRD 40; Globulin 4.7 g/dL (2.4-3.5); Glucose 99 mg/dL (70-105); Potassium 4.7 mmol/L (3.5-5.1); Protein, Total 7.8 g/dL (6.0-8.3); Sodium 132 mmol/L (136-145)
--- NOTE | 2018-08-14 06:35 | PDOC.FM ---
- Subjective Subjective: Ms. Ley says her foot feels better after medihoney was removed. She had a bath and feels much better. No SOB. Reports continued urine output, doing well. - Objective MAR Reviewed: Yes Vital Signs & Weight: Vital Signs (12 hours) Temp Pulse Resp BP Pulse Ox 08/14/18 03:35 97.6 F 93 18 96/65 94 L 08/13/18 20:00 97 08/13/18 19:55 97.7 F 94 18 99/68 97 Weight Admit Weight 98.061 kg Weight 96.57 kg I&O: 08/12/18 08/13/18 08/14/18 06:59 06:59 06:59 Intake Total 850 1639 570 Output Total 800 1600 1050 Balance 50 39 -480 Result Diagrams: 08/07/18 04:28 08/14/18 05:03 Phys Exam - Physical Examination Constitutional: NAD HEENT: moist MMs Respiratory: no wheezing, no rhonchi, clear to auscultation bilateral Cardiovascular: RRR (S3) Gastrointestinal: non-tender, positive bowel sounds (distended) significant b/l LE edema, wound dressing in place bilaterally Neurological: non-focal Psychiatric: normal affect Skin: cap refill <2 seconds Dx/Plan (1) Acute exacerbation of congestive heart failure Code(s): I50.9 - HEART FAILURE, UNSPECIFIED Status: Acute (2) Hypoalbuminemia Code(s): E88.09 - OTH DISORDERS OF PLASMA-PROTEIN METABOLISM, NEC Status: Acute (3) CKD (chronic kidney disease) Code(s): N18.9 - CHRONIC KIDNEY DISEASE, UNSPECIFIED Status: Chronic (4) MICHEL (acute kidney injury) Code(s): N17.9 - ACUTE KIDNEY FAILURE, UNSPECIFIED Status: Acute (5) Hypokalemia Code(s): E87.6 - HYPOKALEMIA Status: Acute (6) Obesity (BMI 30-39.9) Code(s): E66.9 - OBESITY, UNSPECIFIED Status: Acute (7) Elevated bilirubin Code(s): R17 - UNSPECIFIED JAUNDICE Status: Chronic - Plan Plan: Acute on chronic CHF exacerbation - VSS - Strict I/Os, fluid restriction, daily weights, HH diet - Continue IV lasix 80mg BID, dobutamine gtt @7.5mcg, metolazone per cardiology - -480ml net output in last 24hr - aldactone held - Dr. Edwards following, apprec recs MICHEL on CKD - cardiorenal etiology, Cr stable at 1.6 over past couple days - Continue plan as listed above, continue to monitor with daily BMPs Lymph node - afebrile, oropharynx clear, denies sore throat - will continue to monitor Direct bilirubinemia likely 2/2 Hepatic congestion - US RUQ & Liver neg - ASHIA, anti smooth, anti dsDNA, mitochondria negative. AMA, ANCA negative. - T bili increased 4.7->5.6 today - Treat heart condition as above Lower leg wounds 2/2 to fluid tension - Doppler negative for DVT (poor study due to anatomy) - R foot wound worsened, new photos in chart. Ordered US yesterday which just showed edematous change. - Continue wound care, instructed to keep legs elevated Hypokalemia 2/2 diuresis, stable - Monitor with daily BMP - on K+ 40 meq bid supplement (decreased from 60->40) Hypoalbuminemia - s/p 25% albumin x2 - Continue to monitor Hyponatremia - Continue to monitor Normocytic anemia - H/H stable. Likely dilutional component cHTN - Held home aldactone - BPs stable on Dobutamine HLD - Continue home atorvastatin Chronic constipation - Senno/doc PRN Code Status: Full DVT ppx: lovenox Addendum - Attending - Attending Attestation Date/Time: 08/14/18 1051 I personally evaluated the patient and discussed the management with Dr. Shah. I agree with the History, Examination, Assessment and Plan documented above with any addition or exceptions noted below. The patient's nurse is concerned about sepsis due to the right foot. Wound care photos are reviewed. Overnight a culture was taken of the wound which shows a mixed culture but the organism is gram neg tal. Pt is not tachycardic and has no fever. We will start zosyn and check a cbc. Await final cultures. She remains on dobutamine drip and IV lasix as well as metolazone.
[2018-08-14] MEDS: Metolazone 5 MG TAB PO SCH (08:20)
[2018-08-14] MEDS: Enoxaparin Sodium 40 MG/0.4 ML SYRINGE SC SCH (08:20)
[2018-08-14] MEDS: Potassium Chloride 20 MEQ TAB PO SCH ×2 (08:20→21:24)
[2018-08-14] MEDS: DOBUTamine 500 mg/250 ml 500 MG in Premix Bag 1 BAG IVPB SCH ×2 (09:45→22:19)
--- NOTE | 2018-08-14 10:53 | PDOC.EVN ---
Event Note - Event Note Event Note: Wound culture gram stain initially showed mixed laila. New results show isolated gram negative rods. Will start Zosyn and monitor for improvement. No current concern for sepsis as patient's vital signs have been unchanged. BP stable since admission, afebrile. Will check CBC today. Await further culture results.
[2018-08-14 12:09] LABS: #Basophils 0.1 thou/uL (0.0-0.2); #Lymphocytes 1.2 thou/uL (1.20-3.40); #Monocytes 1.3 thou/uL (0.11-0.59); #Neutrophils 9.3 thou/uL (1.40-6.50); %Basophils 0.5 % (0.0-1.0); %Eosinophils 0.2 % (0.0-10.0); %Lymphocytes 9.7 % (21.0-51.0); %Neutrophils 78.6 % (42.0-75.0); Hemoglobin 10.5 g/dL (12.0-16.0); Mean Corpuscular HGB CONC 31.7 g/dL (32.0-36.0); Mean Corpuscular Hemoglobin 29.6 pg (27.0-31.0); Mean Corpuscular Volume 93.4 fL (78.0-98.0); Mean Platelet Volume 8.4 fL (7.4-10.4); Platelet Count 172 thou/uL (130-400); RBC Distribution Width 18.9 % (11.5-14.5); Red Blood Cell (RBC) Count 3.54 mill/uL (4.20-5.40); White Blood Cell (WBC) Count 11.9 thou/uL (4.8-10.8)
[2018-08-14] MEDS: Piperacillin/Tazobactam 2.25 GM in Sodium Chloride 0.9% 100 ML IVPB SCH ×3 (15:28→21:25)
[2018-08-14] MEDS: Docusate 100 MG CAP PO PRN (15:39)
[2018-08-14] MEDS: guaiFENesin ER 600 MG TAB PO PRN (15:39)
[2018-08-14] MEDS: Atorvastatin Calcium 10 MG TAB PO SCH (21:24)
--- NOTE | 2018-08-14 21:29 | EKG ---
Test Reason : BLE EDEMA Blood Pressure : / mmHG Vent. Rate : 073 BPM Atrial Rate : 073 BPM P-R Int : 168 ms QRS Dur : 080 ms QT Int : 410 ms P-R-T Axes : 000 096 020 degrees QTc Int : 451 ms Sinus rhythm with occasional Premature ventricular complexes Rightward axis Low voltage QRS Borderline ECG No changes Confirmed by LIBORIO SOLER ([id number]), editor sound FREEDOM BECKETT ([id number]) on 08/14/2018 9:28:40 PM Referred By: Confirmed By:LIBORIO SOLER
[2018-08-14] MEDS ORDERED: guaiFENesin 100 MG/5 ML UDCUP PO PRN (21:50)
[2018-08-14] MEDS: Diabetic Tussin 200 MG/10 ML UDCUP PO PRN (22:25)
[2018-08-14] MEDS: Polyethylene Glycol 3350 17 GM Packet PO PRN (23:36)
[2018-08-15] MEDS: Piperacillin/Tazobactam 2.25 GM in Sodium Chloride 0.9% 100 ML IVPB SCH ×4 (02:53→20:47)
[2018-08-15] MEDS: traMADol HCl 50 MG TAB PO PRN ×2 (03:34→23:14)
[2018-08-15] MEDS: Diabetic Tussin 200 MG/10 ML UDCUP PO PRN ×3 (04:38→20:47)
[2018-08-15 06:03] LABS: ALT (SGPT) 16 U/L (8-55); AST (SGOT) 27 U/L (5-34); Albumin 3.2 g/dL (3.5-5.0); Alkaline Phosphatase 98 U/L (40-150); Anion Gap 19 mmol/L (10-20); BUN (Urea Nitrogen) 37 mg/dL (9.8-20.1); Bilirubin, Total 5.4 mg/dL (0.2-1.2); Calc. Creatinine Clearance 57 mL/min (70-130); Calcium 9.5 mg/dL (7.8-10.44); Carbon Dioxide 22 mmol/L (22-29); Chloride 97 mmol/L (98-107); Estimated GFR-MDRD 38; Globulin 4.7 g/dL (2.4-3.5); Glucose 95 mg/dL (70-105); Potassium 3.6 mmol/L (3.5-5.1); Protein, Total 7.9 g/dL (6.0-8.3); Sodium 134 mmol/L (136-145)
[2018-08-15] MEDS: Furosemide 100 MG/10 ML VIAL SLOW IVP SCH ×2 (06:28→14:45)
--- NOTE | 2018-08-15 06:37 | PDOC.FM ---
- Subjective Subjective: Ms Ley reports some R foot pain. Otherwise has no new complaints today. No SOB. - Objective MAR Reviewed: Yes Vital Signs & Weight: Vital Signs (12 hours) Temp Pulse Resp BP Pulse Ox 08/15/18 03:00 97.9 F 91 20 98/65 94 L 08/14/18 19:12 98.5 F 82 18 97/65 98 Weight Admit Weight 98.061 kg Weight 96.298 kg I&O: 08/13/18 08/14/18 08/15/18 06:59 06:59 06:59 Intake Total 1639 1341 960 Output Total 1600 1700 1000 Balance 39 -359 -40 Result Diagrams: 08/14/18 05:03 08/15/18 04:51 Phys Exam - Physical Examination Constitutional: NAD Respiratory: no rhonchi, clear to auscultation bilateral Cardiovascular: RRR (S3 present) Gastrointestinal: non-tender, positive bowel sounds (distended) significant pitting edema b/l LE, wound dressings clean, dry, intact Neurological: non-focal Psychiatric: normal affect Skin: normal turgor Dx/Plan (1) Acute exacerbation of congestive heart failure Code(s): I50.9 - HEART FAILURE, UNSPECIFIED Status: Acute (2) Hypoalbuminemia Code(s): E88.09 - OTH DISORDERS OF PLASMA-PROTEIN METABOLISM, NEC Status: Acute (3) CKD (chronic kidney disease) Code(s): N18.9 - CHRONIC KIDNEY DISEASE, UNSPECIFIED Status: Chronic (4) MICHEL (acute kidney injury) Code(s): N17.9 - ACUTE KIDNEY FAILURE, UNSPECIFIED Status: Acute (5) Hypokalemia Code(s): E87.6 - HYPOKALEMIA Status: Acute (6) Obesity (BMI 30-39.9) Code(s): E66.9 - OBESITY, UNSPECIFIED Status: Acute (7) Elevated bilirubin Code(s): R17 - UNSPECIFIED JAUNDICE Status: Chronic - Plan Plan: Acute on chronic CHF exacerbation - VSS - Strict I/Os, fluid restriction, daily weights, HH diet - Continue IV lasix 80mg BID, dobutamine gtt @7.5mcg, metolazone per cardiology - -40 ml net output in last 24hr - aldactone held - Dr. Jerry varma, apprec recs MICHEL on CKD - cardiorenal etiology, Cr stable at 1.6 over past several days - Continue plan as listed above, continue to monitor with daily BMPs Lymph node, improved - afebrile, oropharynx clear, denied sore throat - will continue to monitor Direct bilirubinemia likely 2/2 Hepatic congestion - US RUQ & Liver neg - ASHIA, anti smooth, anti dsDNA, mitochondria negative. AMA, ANCA negative. - T bili downtrended today - Treat heart condition as above Lower leg wounds 2/2 to fluid tension - Doppler negative for DVT (poor study due to anatomy) - Zosyn (08/14), R foot wound culture grew klebsiella oxytoca. Will continue IV abx today and consider transition to PO tomorrow pending sensitivities Hypokalemia 2/2 diuresis, stable - Monitor with daily BMP - on K+ 40 meq bid supplement. Was decreased from 60->40 a few days ago. K+ downtrending today, 3.6. Will go back to 60 meq PO BID and continue to monitor. Hypoalbuminemia - s/p 25% albumin x2 - Continue to monitor Hyponatremia, stable - Continue to monitor Normocytic anemia - H/H stable cHTN - Held home aldactone - BPs stable on Dobutamine HLD - Continue home atorvastatin Chronic constipation - Senno/doc PRN Code Status: Full DVT ppx: lovenox Addendum - Attending - Attending Attestation Date/Time: 08/15/18 1230 I personally evaluated the patient and discussed the management with Dr. Shah. I agree with the History, Examination, Assessment and Plan documented above with any addition or exceptions noted below. Potassium is down-trending. Will adjust oral potassium. Will continue zosyn today and consider changing to po pending sensitivities. Pt remains on dobutamine drip and iv lasix with metolazone.
[2018-08-15] MEDS: Metolazone 5 MG TAB PO SCH (08:44)
[2018-08-15] MEDS: Potassium Chloride 20 MEQ TAB PO SCH ×4 (08:44→16:35)
[2018-08-15] MEDS: Enoxaparin Sodium 40 MG/0.4 ML SYRINGE SC SCH (08:44)
[2018-08-15] MEDS: DOBUTamine 500 mg/250 ml 500 MG in Premix Bag 1 BAG IVPB SCH (12:15)
[2018-08-15] MEDS: Atorvastatin Calcium 10 MG TAB PO SCH (20:47)
[2018-08-15] MEDS: DOPamine 400 MG/D5W 250 ML 250 ML IVPB SCH (22:04)
[2018-08-16] MEDS: DOBUTamine 500 mg/250 ml 500 MG in Premix Bag 1 BAG IVPB SCH ×2 (00:11→13:12)
[2018-08-16] MEDS: Piperacillin/Tazobactam 2.25 GM in Sodium Chloride 0.9% 100 ML IVPB SCH ×2 (03:04→08:29)
[2018-08-16] MEDS: Furosemide 100 MG/10 ML VIAL SLOW IVP SCH ×2 (06:24→14:50)
[2018-08-16 07:40] LABS: ALT (SGPT) 18 U/L (8-55); AST (SGOT) 29 U/L (5-34); Albumin 3.2 g/dL (3.5-5.0); Alkaline Phosphatase 92 U/L (40-150); Anion Gap 19 mmol/L (10-20); BUN (Urea Nitrogen) 34 mg/dL (9.8-20.1); Bilirubin, Total 5.3 mg/dL (0.2-1.2); Calc. Creatinine Clearance 62 mL/min (70-130); Calcium 9.6 mg/dL (7.8-10.44); Carbon Dioxide 20 mmol/L (22-29); Chloride 97 mmol/L (98-107); Estimated GFR-MDRD 42; Glucose 114 mg/dL (70-105); Potassium 3.6 mmol/L (3.5-5.1); Protein, Total 8.2 g/dL (6.0-8.3); Sodium 132 mmol/L (136-145)
[2018-08-16] MEDS: Metolazone 5 MG TAB PO SCH (08:23)
[2018-08-16] MEDS: Potassium Chloride 20 MEQ TAB PO SCH ×3 (08:23→17:35)
[2018-08-16] MEDS: Enoxaparin Sodium 40 MG/0.4 ML SYRINGE SC SCH (08:24)
--- NOTE | 2018-08-16 09:24 | PDOC.FM ---
Addendum entered and electronically signed by Conchis Aleman MD 08/16/18 13:24 : -D/c zosyn -Will add augmentin -ESR/CRP and left foot xray to r/o osteomyelitis Original Note: - Subjective Subjective: NAEO. Denies fevers, chills, pain. Able to ambulate in room. Swelling looks improved per patient. - Objective MAR Reviewed: Yes Vital Signs & Weight: Vital Signs (12 hours) Temp Pulse Resp BP Pulse Ox 08/16/18 08:21 97.1 F L 96 18 94/63 92 L 08/16/18 03:52 97.9 F 97 18 107/65 93 L 08/15/18 23:00 94 16 95/69 Weight Admit Weight 98.061 kg Weight 96.026 kg I&O: 08/15/18 08/16/18 08/17/18 06:59 06:59 06:59 Intake Total 960 1148 Output Total 1000 2900 Balance -40 -9162 Result Diagrams: 08/14/18 05:03 08/16/18 07:09 Phys Exam - Physical Examination Constitutional: NAD HEENT: moist MMs, sclera anicteric Neck: supple, full ROM JVD Respiratory: no wheezing, clear to auscultation bilateral s3 Musculoskeletal: pulses present, edema present 3+ up to b/l flank Neurological: moves all 4 limbs Psychiatric: normal affect, A&O x 3 Deviation from normal: bandaged wounds on R foot Dx/Plan (1) Acute exacerbation of congestive heart failure Code(s): I50.9 - HEART FAILURE, UNSPECIFIED Status: Acute (2) MICHEL (acute kidney injury) Code(s): N17.9 - ACUTE KIDNEY FAILURE, UNSPECIFIED Status: Acute (3) Hypoalbuminemia Code(s): E88.09 - OTH DISORDERS OF PLASMA-PROTEIN METABOLISM, NEC Status: Acute (4) CKD (chronic kidney disease) Code(s): N18.9 - CHRONIC KIDNEY DISEASE, UNSPECIFIED Status: Chronic (5) Hypokalemia Code(s): E87.6 - HYPOKALEMIA Status: Acute (6) CHF (congestive heart failure) Code(s): I50.9 - HEART FAILURE, UNSPECIFIED Status: Chronic (7) HFrEF (heart failure with reduced ejection fraction) Code(s): I50.20 - UNSPECIFIED SYSTOLIC (CONGESTIVE) HEART FAILURE Status: Chronic (8) HTN (hypertension) Code(s): I10 - ESSENTIAL (PRIMARY) HYPERTENSION Status: Chronic (9) Hyperlipidemia Code(s): E78.5 - HYPERLIPIDEMIA, UNSPECIFIED Status: Chronic - Plan Plan: Acute on chronic CHF exacerbation - VSS - Strict I/Os, fluid restriction, daily weights, HH diet - Continue IV lasix 80mg BID, dobutamine gtt @7.5mcg, dopamine, metolazone per cardiology - 1L/24hr - aldactone held - Dr. Edwards following, apprec recs MICHEL on CKD - cardiorenal etiology, Cr stable at 1.6 over past several days - Continue plan as listed above, continue to monitor with daily BMPs Direct bilirubinemia likely 2/2 Hepatic congestion - US RUQ & Liver neg - ASHIA, anti smooth, anti dsDNA, mitochondria negative. AMA, ANCA negative. - T bili downtrended today - Treat heart condition as above Lower leg wounds 2/2 to fluid tension - Doppler negative for DVT (poor study due to anatomy) - Zosyn (08/14), R foot wound culture grew klebsiella oxytoca. Will continue IV abx today and consider transition to PO tomorrow pending sensitivities Hypokalemia 2/2 diuresis, resolved - Monitor with daily BMP Hypoalbuminemia - s/p 25% albumin x2 - Continue to monitor Hyponatremia, stable - Continue to monitor Normocytic anemia - H/H stable cHTN - Held home aldactone - BPs stable on Dobutamine HLD - Continue home atorvastatin Chronic constipation - Senno/doc PRN Code Status: Full DVT ppx: lovenox Addendum - Attending - Attending Attestation Date/Time: 08/16/18 2551 I personally evaluated the patient and discussed the management with Dr. Aleman I agree with the History, Examination, Assessment and Plan documented above with any addition or exceptions noted below. Patient with no new concerns R/o osteomyletis right foot will consult with Cardiology regard generation engineer plan and disposition care given near end-stage CHF.
[2018-08-16] MEDS: DOPamine 400 MG/D5W 250 ML 250 ML IVPB SCH (11:39)
[2018-08-16] MEDS: guaiFENesin ER 600 MG TAB PO PRN (11:42)
--- NOTE | 2018-08-16 14:31 | RAD ---
RIGHT FOOT 3 VIEWS: HISTORY: Right foot infection. Osteomyelitis. FINDINGS: Lisfranc joint alignment is anatomic. Mild osteophytosis. Pes planus on the lateral view. Prominent soft tissue swelling about the forefoot. No radiopaque foreign bodies. No aggressive osse ous destruction is evident. IMPRESSION: Prominent soft tissue swelling. No aggressive osseous destruction demonstrated. Please note that ra diographs are insensitive for the early detection of osteomyelitis. POS: DUONG
--- NOTE | 2018-08-16 17:32 | PDOC.CTH ---
Cardiology Progress Note - Subjective No new issues. Still diuresing better with addition of dopamine. - Objective Vital Signs Temp Pulse Resp BP Pulse Ox 08/16/18 14:56 97.1 F L 93 16 100/74 98 08/16/18 11:45 98.9 F 96 18 98/75 93 L 08/16/18 08:21 97.1 F L 96 18 94/63 93 L Admit Weight 216 lb 3 oz Weight 211 lb 11.2 oz 08/15/18 08/16/18 08/17/18 06:59 06:59 06:59 Intake Total 960 1148 Output Total 1000 2900 Balance -40 -1752 - Physical Examination General/Neuro: alert & oriented x3, NAD Neck: no JVD present Lungs: unlabored respirations Heart: RRR Abdomen: NT/ND Extremities: + edema B (3+) - Telemetry Telemetry Rhythm: NSR - Labs Result Diagrams: 08/14/18 05:03 08/16/18 07:09 Troponin/CKMB CK-MB (CK-2) 1.1 ng/mL (0-6.6) 08/09/18 01:43 Troponin I 0.056 ng/mL (< 0.028) H 08/09/18 01:43 - Assessment/Plan 1. Acute on chronic systolic and diastolic heart failure. EF at 10-15% 2. RV failure 3. Hepatic congestion. 4. MICHEL on CKD, cardiorenal. 5. Anasarca PLAN: - Continue lasix 80 mg IV BID and metolazone PO. - Continue dobutamine at 7.5 mg and dopamine at 5. - Replace K aggressively. - Probably home in the next 2 to 3 days.
[2018-08-16] MEDS: Atorvastatin Calcium 10 MG TAB PO SCH (21:27)
[2018-08-16] MEDS: Amoxicillin/Potassium Clav 500 MG TAB PO SCH (21:27)
[2018-08-16] MEDS: Docusate 100 MG CAP PO PRN (21:30)
[2018-08-17] MEDS: DOPamine 400 MG/D5W 250 ML 250 ML IVPB SCH ×2 (01:01→16:10)
[2018-08-17] MEDS: DOBUTamine 500 mg/250 ml 500 MG in Premix Bag 1 BAG IVPB SCH ×2 (01:02→13:34)
[2018-08-17] MEDS: Acetaminophen 325 MG TAB PO PRN (04:43)
[2018-08-17 05:34] LABS: ALT (SGPT) 15 U/L (8-55); AST (SGOT) 29 U/L (5-34); Albumin 3.1 g/dL (3.5-5.0); Alkaline Phosphatase 78 U/L (40-150); Anion Gap 17 mmol/L (10-20); BUN (Urea Nitrogen) 33 mg/dL (9.8-20.1); Bilirubin, Total 5.7 mg/dL (0.2-1.2); Calc. Creatinine Clearance 63 mL/min (70-130); Calcium 9.5 mg/dL (7.8-10.44); Carbon Dioxide 22 mmol/L (22-29); Chloride 95 mmol/L (98-107); Estimated GFR-MDRD 43; Globulin 4.8 g/dL (2.4-3.5); Glucose 92 mg/dL (70-105); Potassium 3.5 mmol/L (3.5-5.1); Protein, Total 7.9 g/dL (6.0-8.3); Sodium 130 mmol/L (136-145)
[2018-08-17] MEDS: Furosemide 100 MG/10 ML VIAL SLOW IVP SCH ×2 (06:19→14:28)
--- NOTE | 2018-08-17 06:48 | PDOC.FM ---
- Subjective Subjective: NAEO. Reports unchanged fluid. Able to ambulate. No problems breathing. No foot pain. - Objective MAR Reviewed: Yes Vital Signs & Weight: Vital Signs (12 hours) Temp Pulse Resp BP BP Pulse Ox 08/17/18 03:54 97.4 F L 95 16 110/57 L 94 L 08/17/18 00:00 87 97/68 08/16/18 20:10 93 L 08/16/18 19:00 97.4 F L 92 18 99/70 92 L Weight Admit Weight 98.061 kg Weight 96.434 kg I&O: 08/15/18 08/16/18 08/17/18 06:59 06:59 06:59 Intake Total 960 1148 2268 Output Total 1000 2900 3250 Balance -40 -1752 -982 Result Diagrams: 08/14/18 05:03 08/17/18 04:39 Phys Exam - Physical Examination Constitutional: NAD HEENT: moist MMs JVD Respiratory: no wheezing, clear to auscultation bilateral S3 firm, no tenderness 3+ edema up to lower flanks Neurological: non-focal, moves all 4 limbs bandaged wound on R foot Dx/Plan (1) Acute exacerbation of congestive heart failure Code(s): I50.9 - HEART FAILURE, UNSPECIFIED Status: Acute (2) MICHEL (acute kidney injury) Code(s): N17.9 - ACUTE KIDNEY FAILURE, UNSPECIFIED Status: Acute (3) Hypoalbuminemia Code(s): E88.09 - OTH DISORDERS OF PLASMA-PROTEIN METABOLISM, NEC Status: Acute (4) CKD (chronic kidney disease) Code(s): N18.9 - CHRONIC KIDNEY DISEASE, UNSPECIFIED Status: Chronic (5) Hypokalemia Code(s): E87.6 - HYPOKALEMIA Status: Acute (6) CHF (congestive heart failure) Code(s): I50.9 - HEART FAILURE, UNSPECIFIED Status: Chronic (7) HFrEF (heart failure with reduced ejection fraction) Code(s): I50.20 - UNSPECIFIED SYSTOLIC (CONGESTIVE) HEART FAILURE Status: Chronic (8) HTN (hypertension) Code(s): I10 - ESSENTIAL (PRIMARY) HYPERTENSION Status: Chronic (9) Hyperlipidemia Code(s): E78.5 - HYPERLIPIDEMIA, UNSPECIFIED Status: Chronic - Plan Plan: 58 yo F with acute on chronic systolic and diastolic HF Acute on chronic CHF exacerbation - Strict I/Os, fluid restriction, daily weights, HH diet - Continue IV lasix 80mg BID, dobutamine gtt @7.5mcg, dopamine @5mcg, metolazone PO per cads - 2.9L/24hr - aldactone held - Dr. Edwards following, apprec recs, will call regarding prison management MICHEL on CKD3b - cardiorenal etiology, Cr stable at 1.5 over past several days - Continue plan as listed above, continue to monitor with daily BMPs Direct bilirubinemia likely 2/2 Hepatic congestion - US RUQ & Liver neg - ASHIA, anti smooth, anti dsDNA, mitochondria negative. AMA, ANCA negative. - T bili downtrended today - Treat heart condition as above Lower leg wounds 2/2 to fluid tension - Doppler negative for DVT (poor study due to anatomy) - Augmentin, pending sensitivities Hypokalemia 2/2 diuresis, resolved - Monitor with daily BMP Hypoalbuminemia - s/p 25% albumin x2 - Continue to monitor Hyponatremia, stable - Continue to monitor Normocytic anemia - H/H stable cHTN - Held home aldactone - BPs stable on Dobutamine HLD - Continue home atorvastatin Chronic constipation - Senno/doc PRN Code Status: Full DVT ppx: lovenox Discussed with Dr. Best dispo: continue diuresis with IV lasix, continue dobutamine & dopamine. continue augmentin pending sensitivities. Addendum - Attending - Attending Attestation Date/Time: 08/17/18 1231 I personally evaluated the patient and discussed the management with Dr. Aleman I agree with the History, Examination, Assessment and Plan documented above with any addition or exceptions noted below.
[2018-08-17] MEDS: Polyethylene Glycol 3350 17 GM Packet PO PRN (08:26)
[2018-08-17] MEDS: Metolazone 5 MG TAB PO SCH (08:27)
[2018-08-17] MEDS: Amoxicillin/Potassium Clav 500 MG TAB PO SCH ×2 (08:27→20:13)
[2018-08-17] MEDS: Potassium Chloride 20 MEQ TAB PO SCH ×3 (08:27→17:28)
[2018-08-17] MEDS: Enoxaparin Sodium 40 MG/0.4 ML SYRINGE SC SCH (08:27)
[2018-08-17 12:27] VITALS: BMI 34.3
--- NOTE | 2018-08-17 15:11 | PDOC.CTH ---
Cardiology Progress Note - Subjective Her edema is not changed at all even though she states it is better. - Objective Vital Signs Temp Pulse Pulse Pulse Resp BP BP 08/17/18 12:27 95 104 H 98/70 96/65 08/17/18 10:51 97.5 F L 94 15 08/17/18 08:22 98.0 F 92 16 08/17/18 03:54 97.4 F L 95 16 BP BP Pulse Ox 08/17/18 12:27 08/17/18 10:51 101/78 94 L 08/17/18 08:22 104/67 94 L 08/17/18 03:54 110/57 L 94 L Admit Weight 216 lb 3 oz Weight 212 lb 9.6 oz 08/16/18 08/17/18 08/18/18 06:59 06:59 06:59 Intake Total 1148 2268 Output Total 2900 3250 Balance -1172 -902 - Physical Examination General/Neuro: alert & oriented x3, NAD Neck: no JVD present Lungs: unlabored respirations Heart: RRR Abdomen: NT/ND, other: (Ascitis and SQ edema on abdomen. ) Extremities: + edema B (3+) - Telemetry Telemetry Rhythm: NSR - Labs Result Diagrams: 08/14/18 05:03 08/17/18 04:39 Troponin/CKMB CK-MB (CK-2) 1.1 ng/mL (0-6.6) 08/09/18 01:43 Troponin I 0.056 ng/mL (< 0.028) H 08/09/18 01:43 - Assessment/Plan 1. Acute on chronic systolic and diastolic heart failure. EF at 10-15% 2. RV failure 3. Hepatic congestion, will check INR. 4. MICHEL on CKD, cardiorenal. 5. Anasarca 6. LE ulcers. PLAN: - Continue lasix 80 mg IV BID and metolazone PO. - Continue dobutamine at 7.5 mg and dopamine at 5. - Replace K aggressively. - Looking back at her weight she was 219 pounds and is down to 212, but she has been stuck at 212 for the last 7 days. - Will decrease her free water to 1000 ml daily.
[2018-08-17] MEDS: Atorvastatin Calcium 10 MG TAB PO SCH (20:13)
[2018-08-18] MEDS: DOPamine 400 MG/D5W 250 ML 250 ML IVPB SCH (01:51)
[2018-08-18] MEDS: DOBUTamine 500 mg/250 ml 500 MG in Premix Bag 1 BAG IVPB SCH (01:52)
[2018-08-18 05:16] LABS: #Eosinphils 0.1 thou/uL (0.0-0.7); #Lymphocytes 1.1 thou/uL (1.20-3.40); #Monocytes 1.3 thou/uL (0.11-0.59); #Neutrophils 6.5 thou/uL (1.40-6.50); %Basophils 0.4 % (0.0-1.0); %Eosinophils 0.9 % (0.0-10.0); %Lymphocytes 12.2 % (21.0-51.0); %Monocytes 14.7 % (0.0-10.0); %Neutrophils 71.8 % (42.0-75.0); Hemoglobin 10.5 g/dL (12.0-16.0); INR-International Normal Ratio 1.5; Mean Corpuscular HGB CONC 32.7 g/dL (32.0-36.0); Mean Corpuscular Hemoglobin 29.9 pg (27.0-31.0); Mean Corpuscular Volume 91.3 fL (78.0-98.0); Mean Platelet Volume 8.2 fL (7.4-10.4); PTT 37.8 SEC (22.9-36.1); Platelet Count 165 thou/uL (130-400); Prothrombin Time 17.8 SEC (12.0-14.7); RBC Distribution Width 18.7 % (11.5-14.5); Red Blood Cell (RBC) Count 3.51 mill/uL (4.20-5.40)
[2018-08-18 05:34] LABS: ALT (SGPT) 15 U/L (8-55); AST (SGOT) 23 U/L (5-34); Albumin 3.1 g/dL (3.5-5.0); Alkaline Phosphatase 90 U/L (40-150); Anion Gap 15 mmol/L (10-20); BUN (Urea Nitrogen) 32 mg/dL (9.8-20.1); Bilirubin, Total 4.9 mg/dL (0.2-1.2); Calc. Creatinine Clearance 64 mL/min (70-130); Calcium 9.3 mg/dL (7.8-10.44); Carbon Dioxide 26 mmol/L (22-29); Chloride 94 mmol/L (98-107); Estimated GFR-MDRD 44; Globulin 4.7 g/dL (2.4-3.5); Glucose 117 mg/dL (70-105); Potassium 3.5 mmol/L (3.5-5.1); Protein, Total 7.8 g/dL (6.0-8.3); Sodium 131 mmol/L (136-145)
--- NOTE | 2018-08-18 06:13 | PDOC.FM ---
- Subjective Subjective: Reports feeling better and that swelling seems improved from her perspective. No problems breathing at rest, able to walk to bathroom w/o problems. - Objective MAR Reviewed: Yes Vital Signs & Weight: Vital Signs (12 hours) Temp Pulse Resp BP BP Pulse Ox 08/18/18 03:53 97.9 F 97 15 91/66 97 08/18/18 00:00 89 98/72 08/17/18 20:20 95 08/17/18 19:30 98 F 89 16 98/72 95 Weight Admit Weight 98.061 kg Weight 96.434 kg I&O: 08/16/18 08/17/18 08/18/18 06:59 06:59 06:59 Intake Total 1148 2268 2149 Output Total 5015 2722 3102 Balance -1752 -982 -376 Result Diagrams: 08/18/18 04:36 08/18/18 04:36 Phys Exam - Physical Examination Constitutional: NAD HEENT: moist MMs JVD Respiratory: clear to auscultation bilateral s3 distended, NT 3+ edema up to lower back BLE bandaged from wounds Neurological: non-focal, moves all 4 limbs Dx/Plan (1) Wound of foot Code(s): S91.309A - UNSPECIFIED OPEN WOUND, UNSPECIFIED FOOT, INITIAL ENCOUNTER Status: Acute (2) Acute exacerbation of congestive heart failure Code(s): I50.9 - HEART FAILURE, UNSPECIFIED Status: Acute (3) MICHEL (acute kidney injury) Code(s): N17.9 - ACUTE KIDNEY FAILURE, UNSPECIFIED Status: Acute (4) Hypoalbuminemia Code(s): E88.09 - OTH DISORDERS OF PLASMA-PROTEIN METABOLISM, NEC Status: Acute (5) CKD (chronic kidney disease) Code(s): N18.9 - CHRONIC KIDNEY DISEASE, UNSPECIFIED Status: Chronic (6) Hypokalemia Code(s): E87.6 - HYPOKALEMIA Status: Acute (7) CHF (congestive heart failure) Code(s): I50.9 - HEART FAILURE, UNSPECIFIED Status: Chronic (8) HFrEF (heart failure with reduced ejection fraction) Code(s): I50.20 - UNSPECIFIED SYSTOLIC (CONGESTIVE) HEART FAILURE Status: Chronic (9) HTN (hypertension) Code(s): I10 - ESSENTIAL (PRIMARY) HYPERTENSION Status: Chronic (10) Hyperlipidemia Code(s): E78.5 - HYPERLIPIDEMIA, UNSPECIFIED Status: Chronic (11) Nonischemic cardiomyopathy Code(s): I42.8 - OTHER CARDIOMYOPATHIES Status: Chronic - Plan Plan: 58 yo F with acute on chronic systolic and diastolic HF Acute on chronic CHF exacerbation - Strict I/Os, fluid restriction, daily weights, HH diet - Continue IV lasix 80mg BID, dobutamine gtt @7.5mcg, dopamine @5mcg, metolazone PO per cads - Weight unchanged despite negative fluid balance, fluid restriction dec. to 1000cc/day - aldactone held - Dr. Edwards following, apprec recs regarding further mgmt MICHEL on CKD3b - cardiorenal etiology, Cr stable at 1.5 over past several days - Continue plan as listed above, continue to monitor with daily BMPs Direct bilirubinemia likely 2/2 Hepatic congestion - US RUQ & Liver neg - ASHIA, anti smooth, anti dsDNA, mitochondria negative. AMA, ANCA negative. - T bili downtrended today - Treat heart condition as above Lower leg wounds 2/2 to fluid tension - Doppler negative for DVT (poor study due to anatomy) - continue augmentin - nutrition supplement to promote wound healing Hypokalemia 2/2 diuresis, resolved - Monitor with daily BMP Hypoalbuminemia - s/p 25% albumin x2 - Continue to monitor Hyponatremia, stable - Continue to monitor Normocytic anemia - H/H stable cHTN - Held home aldactone - BPs stable on Dobutamine HLD - Continue home atorvastatin Chronic constipation - Senno/doc PRN Code Status: Full DVT ppx: lovenox Discussed with Dr. Best dispo: continue diuresis with IV lasix, continue dobutamine & dopamine. continue augmentin for coverage of wound. appreciate cards recs regarding continued mgmt Addendum - Attending - Attending Attestation Date/Time: 08/18/182007 I personally evaluated the patient and discussed the management with Dr. Aleman I agree with the History, Examination, Assessment and Plan documented above with any addition or exceptions noted below.
[2018-08-18] MEDS: Furosemide 100 MG/10 ML VIAL SLOW IVP SCH ×2 (06:15→15:04)
[2018-08-18] MEDS: Amoxicillin/Potassium Clav 500 MG TAB PO SCH ×2 (09:12→20:57)
[2018-08-18] MEDS: Metolazone 5 MG TAB PO SCH (09:12)
[2018-08-18] MEDS: Enoxaparin Sodium 40 MG/0.4 ML SYRINGE SC SCH (09:13)
[2018-08-18] MEDS: Potassium Chloride 20 MEQ TAB PO SCH ×3 (09:13→16:57)
--- NOTE | 2018-08-18 12:37 | PDOC.CTH ---
Cardiology Progress Note - Subjective No new issues. Continues to diurese but weight is unchanged today. Edema is unchanged. - Objective Vital Signs Temp Pulse Resp BP Pulse Ox 08/18/18 07:01 97.8 F 94 18 95/66 100 08/18/18 03:53 97.9 F 97 15 91/66 97 Admit Weight 216 lb 3 oz Weight 212 lb 9.6 oz 08/17/18 08/18/18 08/19/18 06:59 06:59 06:59 Intake Total 2268 2149 Output Total 3250 2525 Balance -982 -376 - Physical Examination General/Neuro: alert & oriented x3, NAD Neck: no JVD present Lungs: CTA, unlabored respirations Heart: RRR Abdomen: NT/ND Extremities: + edema B (3+) - Telemetry Telemetry Rhythm: NSR - Labs Result Diagrams: 08/18/18 04:36 08/18/18 04:36 Troponin/CKMB CK-MB (CK-2) 1.1 ng/mL (0-6.6) 08/09/18 01:43 Troponin I 0.056 ng/mL (< 0.028) H 08/09/18 01:43 - Assessment/Plan 1. Acute on chronic systolic and diastolic heart failure. EF at 10-15% 2. RV failure 3. Hepatic congestion. 4. MICHEL on CKD, cardiorenal. 5. Anasarca. 6. LE ulcers. PLAN: - Continue lasix 80 mg IV BID and metolazone PO. - She wanst to go home. She knows there are not many options at this time. Will stop dobutamine and dopamine today. - Continue IF lasix today and if weight stable tomorrow will switch to PO Lasix at 80 mg BID with metolazone daily. - Replace K aggressively. - Continue free water restriction to 1000 ml daily.
[2018-08-18] MEDS: traMADol HCl 50 MG TAB PO PRN (18:15)
[2018-08-18] MEDS: Diabetic Tussin 200 MG/10 ML UDCUP PO PRN (20:58)
[2018-08-18] MEDS: Atorvastatin Calcium 10 MG TAB PO SCH (20:58)
[2018-08-19] MEDS: traMADol HCl 50 MG TAB PO PRN ×2 (04:14→20:17)
[2018-08-19] MEDS: Diabetic Tussin 200 MG/10 ML UDCUP PO PRN ×2 (04:14→20:17)
[2018-08-19 05:29] LABS: ALT (SGPT) 15 U/L (8-55); AST (SGOT) 31 U/L (5-34); Alkaline Phosphatase 86 U/L (40-150); Anion Gap 21 mmol/L (10-20); BUN (Urea Nitrogen) 32 mg/dL (9.8-20.1); Bilirubin, Total 5.7 mg/dL (0.2-1.2); Calc. Creatinine Clearance 67 mL/min (70-130); Calcium 9.5 mg/dL (7.8-10.44); Carbon Dioxide 18 mmol/L (22-29); Chloride 94 mmol/L (98-107); Estimated GFR-MDRD 46; Globulin 4.9 g/dL (2.4-3.5); Glucose 101 mg/dL (70-105); Potassium 4.3 mmol/L (3.5-5.1); Protein, Total 7.9 g/dL (6.0-8.3); Sodium 129 mmol/L (136-145)
[2018-08-19] MEDS: Furosemide 100 MG/10 ML VIAL SLOW IVP SCH (05:52)
[2018-08-19] MEDS: Potassium Chloride 20 MEQ TAB PO SCH ×3 (09:21→17:00)
[2018-08-19] MEDS: Enoxaparin Sodium 40 MG/0.4 ML SYRINGE SC SCH (09:21)
[2018-08-19] MEDS: Amoxicillin/Potassium Clav 500 MG TAB PO SCH ×2 (09:21→20:16)
[2018-08-19] MEDS: Metolazone 5 MG TAB PO SCH (09:21)
--- NOTE | 2018-08-19 11:55 | PDOC.FM ---
- Subjective Subjective: NAEO. Reports inc SOB with exertion with walking to bathroom. No problems laying down . - Objective Vital Signs & Weight: Vital Signs (12 hours) Temp Pulse Resp BP Pulse Ox 08/19/18 08:00 97.4 F L 88 17 100/82 96 08/19/18 03:10 97.4 F L 83 16 98/66 98 Weight Admit Weight 98.061 kg Weight 95.572 kg I&O: 08/18/18 08/19/18 08/20/18 06:59 06:59 06:59 Intake Total 2149 940 Output Total 2525 1820 Balance -376 -880 Result Diagrams: 08/18/18 04:36 08/19/18 04:49 Phys Exam - Physical Examination Constitutional: NAD HEENT: PERRLA, moist MMs Neck: full ROM JVD 3+ edema up to lower back Psychiatric: normal affect, A&O x 3 Dx/Plan (1) Wound of foot Code(s): S91.309A - UNSPECIFIED OPEN WOUND, UNSPECIFIED FOOT, INITIAL ENCOUNTER Status: Acute (2) Acute exacerbation of congestive heart failure Code(s): I50.9 - HEART FAILURE, UNSPECIFIED Status: Acute (3) MICHEL (acute kidney injury) Code(s): N17.9 - ACUTE KIDNEY FAILURE, UNSPECIFIED Status: Acute (4) Hypoalbuminemia Code(s): E88.09 - OTH DISORDERS OF PLASMA-PROTEIN METABOLISM, NEC Status: Acute (5) CKD (chronic kidney disease) Code(s): N18.9 - CHRONIC KIDNEY DISEASE, UNSPECIFIED Status: Chronic (6) Hypokalemia Code(s): E87.6 - HYPOKALEMIA Status: Acute (7) CHF (congestive heart failure) Code(s): I50.9 - HEART FAILURE, UNSPECIFIED Status: Chronic (8) HFrEF (heart failure with reduced ejection fraction) Code(s): I50.20 - UNSPECIFIED SYSTOLIC (CONGESTIVE) HEART FAILURE Status: Chronic (9) HTN (hypertension) Code(s): I10 - ESSENTIAL (PRIMARY) HYPERTENSION Status: Chronic (10) Hyperlipidemia Code(s): E78.5 - HYPERLIPIDEMIA, UNSPECIFIED Status: Chronic (11) Nonischemic cardiomyopathy Code(s): I42.8 - OTHER CARDIOMYOPATHIES Status: Chronic - Plan Plan: 58 yo F with acute on chronic systolic and diastolic HF Acute on chronic CHF exacerbation - Strict I/Os, fluid restriction, daily weights, HH diet -continue metolazone, switch to po lasix - Weight unchanged despite negative fluid balance, fluid restriction dec. to 1000cc/day - aldactone held - Dr. Edwards following, apprec recs regarding further mgmt MICHEL on CKD3b - cardiorenal etiology, Cr stable at 1.5 over past several days - Continue plan as listed above, continue to monitor with daily BMPs Direct bilirubinemia likely 2/2 Hepatic congestion - US RUQ & Liver neg - ASHIA, anti smooth, anti dsDNA, mitochondria negative. AMA, ANCA negative. - T bili downtrended today - Treat heart condition as above Lower leg wounds 2/2 to fluid tension - Doppler negative for DVT (poor study due to anatomy) - continue augmentin - nutrition supplement to promote wound healing Hypokalemia 2/2 diuresis, resolved - Monitor with daily BMP Hypoalbuminemia - s/p 25% albumin x2 - Continue to monitor Hyponatremia, stable - Continue to monitor Normocytic anemia - H/H stable cHTN - Held home aldactone -BPs stable HLD - Continue home atorvastatin Chronic constipation - Senno/doc PRN Code Status: Full DVT ppx: lovenox Discussed with Dr. Best dispo: transition to po lasix, if doesn't reaccumulate fluid quickly today, ready for discharge. Addendum - Attending - Attending Attestation Date/Time: 08/19/18 3594 I personally evaluated the patient and discussed the management with Dr. Aleman I agree with the History, Examination, Assessment and Plan documented above with any addition or exceptions noted below.Home soon long-term prognosis guarded Patient agreed palliative care will benefit outpt wound therapy and close f/u HF clinic.
[2018-08-19] MEDS ORDERED: Furosemide 80 MG TAB PO SCH (14:00)
[2018-08-19] MEDS: Atorvastatin Calcium 10 MG TAB PO SCH (20:16)
--- NOTE | 2018-08-19 21:21 | PDOC.CTH ---
Cardiology Progress Note - Subjective Lost more weight on fluid restriction. Off Dopa and dobutamine since yesterday and doing well. - Objective Vital Signs Temp Pulse Resp BP Pulse Ox 08/19/18 16:00 97.6 F 92 17 104/72 98 08/19/18 12:00 97.8 F 92 18 103/74 97 Admit Weight 216 lb 3 oz Weight 210 lb 11.2 oz 08/18/18 08/19/18 08/20/18 06:59 06:59 06:59 Intake Total 2149 940 320 Output Total 2525 1820 750 Balance -376 -880 -430 - Physical Examination General/Neuro: alert & oriented x3, NAD Neck: no JVD present Lungs: unlabored respirations Heart: RRR Abdomen: NT/ND Extremities: + edema B (3+) - Telemetry Telemetry Rhythm: NSR - Labs Result Diagrams: 08/18/18 04:36 08/19/18 04:49 Troponin/CKMB CK-MB (CK-2) 1.1 ng/mL (0-6.6) 08/09/18 01:43 Troponin I 0.056 ng/mL (< 0.028) H 08/09/18 01:43 - Assessment/Plan 1. Acute on chronic systolic and diastolic heart failure. EF at 10-15% 2. RV failure 3. Hepatic congestion. 4. MICHEL on CKD, cardiorenal. 5. Anasarca. 6. LE ulcers. PLAN: - Switch to PO lasix - If weight stable may d/c home tomorrow. - PO lasix at 87 mg BID and metolazone 5 mg every other day.
[2018-08-20 05:18] LABS: ALT (SGPT) 18 U/L (8-55); AST (SGOT) 36 U/L (5-34); Albumin 3.2 g/dL (3.5-5.0); Alkaline Phosphatase 83 U/L (40-150); Anion Gap 24 mmol/L (10-20); BUN (Urea Nitrogen) 37 mg/dL (9.8-20.1); Bilirubin, Total 6.4 mg/dL (0.2-1.2); Calc. Creatinine Clearance 54 mL/min (70-130); Calcium 9.7 mg/dL (7.8-10.44); Carbon Dioxide 18 mmol/L (22-29); Chloride 95 mmol/L (98-107); Estimated GFR-MDRD 36; Glucose 88 mg/dL (70-105); Potassium 5.5 mmol/L (3.5-5.1); Protein, Total 8.2 g/dL (6.0-8.3); Sodium 131 mmol/L (136-145)
[2018-08-20] MEDS ORDERED: Furosemide 80 MG TAB PO SCH ×2 (06:24→09:00)
--- NOTE | 2018-08-20 06:30 | PDOC.FM ---
- Subjective Subjective: NAEO. Able to walk to bathroom, still diuresing well. - Objective MAR Reviewed: Yes Vital Signs & Weight: Vital Signs (12 hours) Temp Pulse Resp BP Pulse Ox 08/20/18 04:10 96.2 F L 91 20 93/64 98 08/19/18 20:00 97.7 F 89 20 90/62 96 08/19/18 19:15 96 Weight Admit Weight 98.061 kg Weight 95.799 kg I&O: 08/18/18 08/19/18 08/20/18 06:59 06:59 06:59 Intake Total 2149 940 620 Output Total 8875 2040 1000 Balance -244 -880 -380 Result Diagrams: 08/18/18 04:36 08/20/18 04:34 Phys Exam - Physical Examination Constitutional: NAD HEENT: moist MMs icteric sclera Neck: full ROM JVD s3 3+ edema up to lowe back wound bandaged of lower extremeties Neurological: moves all 4 limbs Psychiatric: normal affect, A&O x 3 Dx/Plan (1) Wound of foot Code(s): S91.309A - UNSPECIFIED OPEN WOUND, UNSPECIFIED FOOT, INITIAL ENCOUNTER Status: Acute (2) Acute exacerbation of congestive heart failure Code(s): I50.9 - HEART FAILURE, UNSPECIFIED Status: Acute (3) MICHEL (acute kidney injury) Code(s): N17.9 - ACUTE KIDNEY FAILURE, UNSPECIFIED Status: Acute (4) Hypoalbuminemia Code(s): E88.09 - OTH DISORDERS OF PLASMA-PROTEIN METABOLISM, NEC Status: Acute (5) CKD (chronic kidney disease) Code(s): N18.9 - CHRONIC KIDNEY DISEASE, UNSPECIFIED Status: Chronic (6) Hypokalemia Code(s): E87.6 - HYPOKALEMIA Status: Acute (7) CHF (congestive heart failure) Code(s): I50.9 - HEART FAILURE, UNSPECIFIED Status: Chronic (8) HFrEF (heart failure with reduced ejection fraction) Code(s): I50.20 - UNSPECIFIED SYSTOLIC (CONGESTIVE) HEART FAILURE Status: Chronic (9) HTN (hypertension) Code(s): I10 - ESSENTIAL (PRIMARY) HYPERTENSION Status: Chronic (10) Hyperlipidemia Code(s): E78.5 - HYPERLIPIDEMIA, UNSPECIFIED Status: Chronic (11) Nonischemic cardiomyopathy Code(s): I42.8 - OTHER CARDIOMYOPATHIES Status: Chronic - Plan Plan: 58 yo F with acute on chronic systolic and diastolic HF Acute on chronic CHF exacerbation - Strict I/Os, fluid restriction, daily weights, HH diet - PO lasix 87mg BID - weight stable, dec. in diuresis but UO 1L - aldactone held - Dr. Edwards following, apprec recs regarding further mgmt Hyperkalemia -d/c K+ supplement -will recheck later today -likely 2/2 cardiorenal etiology MICHEL on CKD3b - cardiorenal etiology, Cr worsened on 08/20, dobutamine & dopamine were d/c yesterday - appreciate cards recs Direct bilirubinemia likely 2/2 Hepatic congestion - US RUQ & Liver neg - ASHIA, anti smooth, anti dsDNA, mitochondria negative. AMA, ANCA negative. - Treat heart condition as above Lower leg wounds 2/2 to fluid tension - Doppler negative for DVT (poor study due to anatomy) - continue augmentin - nutrition supplement to promote wound healing Hypokalemia 2/2 diuresis, resolved - Monitor with daily BMP Hypoalbuminemia - s/p 25% albumin x2 - Continue to monitor Hyponatremia, stable - Continue to monitor Normocytic anemia - H/H stable cHTN - Held home aldactone -BPs stable HLD - Continue home atorvastatin Chronic constipation - Senno/doc PRN Code Status: Full DVT ppx: lovenox Discussed with Dr. Best Dispo: Follow up case management for milrinone drip, medicaid insurance approval. Appreciate further cardiology recs if should restart dobutamine & dopamine drips. Recheck BMP this afternoon.
[2018-08-20] MEDS: Amoxicillin/Potassium Clav 500 MG TAB PO SCH (08:57)
[2018-08-20] MEDS: Enoxaparin Sodium 40 MG/0.4 ML SYRINGE SC SCH (08:57)
[2018-08-20] MEDS: Metolazone 5 MG TAB PO SCH ×2 (08:57→12:45)
[2018-08-20 12:14] LABS: Anion Gap 24 mmol/L (10-20); BUN (Urea Nitrogen) 42 mg/dL (9.8-20.1); Calc. Creatinine Clearance 48 mL/min (70-130); Carbon Dioxide 20 mmol/L (22-29); Chloride 94 mmol/L (98-107); Estimated GFR-MDRD 32; Glucose 91 mg/dL (70-105); Potassium 5.2 mmol/L (3.5-5.1); Sodium 133 mmol/L (136-145)
[2018-08-20 12:48] VITALS: BP 102/66
[2018-08-20] MEDS ORDERED: DOPamine 400 MG/D5W 250 ML 250 ML IVPB SCH (14:00)
--- NOTE | 2018-08-20 14:26 | PDOC.CTH ---
Cardiology Progress Note - Subjective She is much more SOB today. Cannot lay flat. - Objective Vital Signs Temp Pulse Resp BP BP Pulse Ox 08/20/18 12:00 97.7 F 99 18 102/66 95 08/20/18 08:00 97.5 F L 96 17 94/71 99 08/20/18 04:10 96.2 F L 91 20 93/64 98 Admit Weight 216 lb 3 oz Weight 211 lb 3.2 oz 08/19/18 08/20/18 08/21/18 06:59 06:59 06:59 Intake Total 940 620 Output Total 1820 1000 Balance -880 -380 - Physical Examination General/Neuro: alert & oriented x3, NAD Neck: no JVD present Lungs: other: (CRackles at bases, new.) Heart: RRR Abdomen: NT/ND Extremities: + edema B (4+) - Telemetry Telemetry Rhythm: NSR - Labs Result Diagrams: 08/18/18 04:36 08/20/18 11:55 Troponin/CKMB CK-MB (CK-2) 1.1 ng/mL (0-6.6) 08/09/18 01:43 Troponin I 0.056 ng/mL (< 0.028) H 08/09/18 01:43 - Assessment/Plan 1. Acute on chronic systolic and diastolic heart failure. EF at 10-15% 2. RV failure 3. Hepatic congestion. 4. MICHEL on CKD, cardiorenal. 5. Anasarca. 6. LE ulcers. PLAN: - Will hav to switch back to IV lasix. - Weight is stable but she now has pulmonary edema and her creatinine in creasing in the last 2 days from not being on innotropic support. - Her only choice at this time is higher level of care with an LVAD or a home milrinone drip. - She needs an advanced heart failure consultation that is not available in this area. - I spoke with her about this and we both agree best thing is to transfer to [place] for advanced heart failure care. - Will plan on Transferring to [facility], Dr. Chowdhury accepting.
[2018-08-20] MEDS: Furosemide 100 MG/10 ML VIAL SLOW IVP SCH ×2 (15:37→17:21)
[2018-08-20 17:25] VITALS: TEMP 97.2
== END 2018-08-20 20:18 | disposition short-term general hospital, planned readmission (82) | DRG 291 ==
LOC: ERS 01:31 → 2NO 03:07
PROVIDERS: ADMIT Family Medicine; ATTEND Family Medicine
DX: I13.0 Hypertensive heart and chronic kidney disease with heart failure and stage 1 through stage 4 chronic kidney disease, or unspecified chronic kidney disease (principal); I50.43 Acute on chronic combined systolic (congestive) and diastolic (congestive) heart failure; N17.9 Acute kidney failure, unspecified; E87.1 Hypo-osmolality and hyponatremia; N18.9 Chronic kidney disease, unspecified; R74.8 Abnormal levels of other serum enzymes; E78.5 Hyperlipidemia, unspecified; K59.00 Constipation, unspecified; D64.9 Anemia, unspecified; E87.6 Hypokalemia; I42.9 Cardiomyopathy, unspecified; E66.9 Obesity, unspecified; Z68.34 Body mass index [BMI] 34.0-34.9, adult; S91.309A Unspecified open wound, unspecified foot, initial encounter; K76.1 Chronic passive congestion of liver; Z79.82 Long term (current) use of aspirin; Z95.810 Presence of automatic (implantable) cardiac defibrillator; Z80.3 Family history of malignant neoplasm of breast; Z80.8 Family history of malignant neoplasm of other organs or systems
CPT/HCPCS: 36415; 71045; 76705; 76882; 80053; 82248; 82553; 82977; 83516; 83520; 83735; 83880; 84145; 84484; 85025; 85610; 85652; 85730; 86038; 86140; 86225; 86256; 87070; 87077; 87186; 87205; 87324; 87449; 93005; 93798; 93970; 94640; 96374; J1250; J1265; J1650; J1940; J2543; J2760; J7050; J7620; P9047

== ENCOUNTER 2019-01-03 15:36 | Outpatient (CLI) | payer BC, SELFPAY ==
[~2019-01-03 15:36] MED LIST: Sodium Chloride 0.9% 15 ML NEB ONE
--- NOTE | 2019-01-04 00:29 | HP ---
HISTORY OF PRESENT ILLNESS: Ms. Ondina Ley is a very pleasant 58-year-old, who presents to the Wound Center for evaluation of a sacral pressure ulceration. The patient states that she was admitted to [facility] for a congestive heart failure exacerbation and transferred by helicopter to [facility] in [place], [place]. She states that she developed the sacral pressure ulceration from a prolonged ICU stay. The patient states that her sacral pressure ulceration was debrided at bedside and negative pressure therapy initiated subsequent to LVAD placement in the operating room. PAST MEDICAL HISTORY: 1. Nonischemic cardiomyopathy. 2. Hypertension. 3. History of anemia. PAST SURGICAL HISTORY: 1. . 2. /BTL. 3. AICD placement. 4. LVAD placement. MEDICATIONS: 1. Tylenol. 2. Tramadol. 3. Aspirin 81 mg. 4. Pacerone. 5. Bumex. 6. Iron. 7. Magnesium oxide. 8. Lactulose. 9. Coumadin. ALLERGIES: NO KNOWN DIAGNOSED ALLERGIES. SOCIAL HISTORY: Social history is negative for tobacco or EtOH use. FAMILY HISTORY: Family history is negative for diabetes mellitus or coronary artery disease. PHYSICAL EXAMINATION: VITAL SIGNS: Temperature 98.1, pulse 100, respirations 20, blood pressure 138/90. GENERAL: A 58-year-old female lying on table in examination room, in no acute distress. HEENT: Normocephalic, atraumatic. NECK: No nuchal rigidity. CHEST: Clear to auscultation. CV: Regular rate and rhythm. ABDOMEN: Soft. EXTREMITIES: No clubbing or cyanosis. BACK: A sacral wound is present, which measures approximately 2.2 x 3.0 cm. Granulation tissue is present within the wound margins. Nonviable tissue present within the wound margins was debrided with an excisional full-thickness debridement. No purulent drainage is associated with the wound. No erythema of the skin surrounding the wound is present. No maceration of the skin of the periwound is noted. ASSESSMENT AND PLAN: 1. Sacral wound as described above. Negative pressure therapy will be continued with dressing changes of the wound VAC here in the Wound Center. No antibiotics will be prescribed today based upon the appearance of the wound. I will see Ms. Ley again in 2 weeks. The patient and her daughter understand and are in agreement with the preceding treatment plan. 2. Nonischemic cardiomyopathy. 3. Hypertension. 4. History of Anemia. Job ID: [id number]
== END 2019-01-03 15:37 | disposition home or self-care (01) ==
LOC: WCC 15:36
PROVIDERS: ATTEND Family Medicine
DX: L89.159 Pressure ulcer of sacral region, unspecified stage (principal); I10 Essential (primary) hypertension; I42.8 Other cardiomyopathies; Z86.2 Personal history of diseases of the blood and blood-forming organs and certain disorders involving the immune mechanism
CPT/HCPCS: A4218

== ENCOUNTER 2019-01-06 16:21 | Outpatient (CLI) | payer BC | END 2019-01-06 16:22 | disposition home or self-care (01) | LOC: WCC 16:21 | PROVIDERS: ATTEND Family Medicine | DX: L89.159 Pressure ulcer of sacral region, unspecified stage (principal) | CPT/HCPCS: 97605; A4218 ==

== ENCOUNTER 2019-01-13 14:54 | Outpatient (CLI) | payer BC | END 2019-01-13 14:55 | disposition home or self-care (01) | LOC: WCC 14:54 | PROVIDERS: ATTEND Family Medicine | DX: L89.159 Pressure ulcer of sacral region, unspecified stage (principal) | CPT/HCPCS: 97605; A4218 ==

== ENCOUNTER 2019-02-27 20:47 | Emergency (ER) | payer BC | END 2019-02-27 21:15 | disposition E | LOC: ERS 20:47 | DX: I46.9 Cardiac arrest, cause unspecified (principal); I11.0 Hypertensive heart disease with heart failure; I50.9 Heart failure, unspecified | CPT/HCPCS: 99291 ==